=== PATIENT | male | born 1950 | race Caucasian/White ===

== ENCOUNTER 2022-01-24 09:21 | Outpatient (REF) | payer MEDICARE, SELFPAY ==
[2022-01-24 11:31] LABS: MANUAL DIFF FLAG NO
[2022-01-24 11:44] LABS: Basophils Percent Auto 0.7 % (0-2); Eosinophils Absolute Auto 0.2 X10*3/uL (0.0-0.4); Eosinophils Percent Auto 2.8 % (0-4); Hematocrit 46.8 % (42.0-52.0); Hemoglobin 15.5 g/dl (14.0-18.0); Imm Gran Abs Auto 0.01 X10*3/uL (0.00-0.03); Imm Gran Pct Auto 0.2 % (0.0-0.4); Lymphocytes Percent Auto 18.8 % (20-40); Mean Corpuscular HGB Conc 33.1 g/dl (31.0-36.0); Mean Corpuscular Hemoglobin 30.5 pg (27.0-33.0); Mean Corpuscular Volume 91.9 fL (80.0-98.0); Mean Platelet Volume 11.6 fL (9.4-12.4); Monocytes Absolute Auto 0.4 X10*3/uL (0.1-1.2); Monocytes Percent Auto 7.4 % (2-11); Neutrophils Absolute Auto 3.8 x10*3/uL (2.0-8.3); Neutrophils Percent Auto 70.1 % (45-73); Platelet Count 175 X10*3/uL (160-400); Red Blood Count 5.09 X10*6/uL (4.60-5.80); Red Cell Distribution Width 12.5 % (11.0-16.0); White Blood Count 5.4 X10*3/uL (4.8-10.8)
[2022-01-24 12:32] LABS: Alanine Aminotransferase 27 U/L (0-40); Alkaline Phosphatase 75 U/L (39-117); Anion Gap 16 (12-20); Aspartate Amino Transferase 25 U/L (5-37); Bilirubin Total 0.5 mg/dL (0.0-1.0); Blood Urea Nitrogen 28 mg/dL (9-16); Calcium 9.5 mg/dL (8.4-10.2); Carbon Dioxide 29 mmol/L (22-29); Chloride 104 mmol/L (96-108); Cholesterol 232 mg/dL; Estimated Glomerular Filt Rate 45; Glucose Fasting 95 mg/dL (60-99); HDL Cholesterol 36 mg/dL; LDL Cholesterol Calculated 153 mg/dl; Potassium 4.6 mmol/L (3.3-5.1); Prostate Specific Antigen Scr 0.15 ng/mL (<0.05-4.0); Sodium 144 mmol/L (135-145); TSH reflex Free T4 1.52 uIU/mL (0.32-4.0); Triglycerides 217 mg/dL
[2022-01-24 12:59] LABS: Albumin Level 4.1 g/dL (3.5-5.0)
== END 2022-01-24 09:22 | disposition home or self-care (01) ==
LOC: HO.WFDLDS 09:21
PROVIDERS: Visit Provider Family Medicine
DX: Z00.00 Encounter for general adult medical examination without abnormal findings (principal); Z12.5 Encounter for screening for malignant neoplasm of prostate
CPT/HCPCS: 36415; 80053; 80061; 84153; 84443; 85025

== ENCOUNTER 2022-03-07 10:29 | Outpatient (REF) | payer MEDICARE, SELFPAY ==
[2022-03-07 14:47] LABS: Anion Gap 11 (12-20); Blood Urea Nitrogen 26 mg/dL (9-16); Calcium 9.6 mg/dL (8.4-10.2); Carbon Dioxide 31 mmol/L (22-29); Chloride 104 mmol/L (96-108); Estimated Glomerular Filt Rate 39; Glucose Random 127 mg/dL (60-115); Potassium 4.1 mmol/L (3.3-5.1); Sodium 142 mmol/L (135-145)
== END 2022-03-07 10:30 | disposition home or self-care (01) ==
LOC: HO.WFDLDS 10:29
PROVIDERS: Visit Provider Family Medicine
DX: Z00.00 Encounter for general adult medical examination without abnormal findings (principal); R79.89 Other specified abnormal findings of blood chemistry
CPT/HCPCS: 36415; 80048

== ENCOUNTER 2022-03-26 09:54 | Outpatient (REF) | payer MEDICARE, SELFPAY ==
--- NOTE | ~2022-03-26 | US_ITS ---
EXAMINATION: US RETROPERITONEAL LIMITED (RENAL ONLY) CLINICAL INFORMATION: Unspecified kidney failure. COMPARISON: None. TECHNIQUE: Real-time imaging of the kidneys. FINDINGS: RIGHT KIDNEY: 10.1 x 5.0 x 4.5 cm (SAG x AP x TRV). The kidney is normal in size, contour, and echogenicity. Renal cortical thickness is normal. Echogenic foci are noted throughout the kidneys without shadowing, which may be vascular interfaces. No definite calculi or focal parenchymal lesions. No hydronephrosis. LEFT KIDNEY: 9.5 x 4.4 x 5.1 cm (SAG x AP x TRV). The kidney is normal in size, contour, and echogenicity. Renal cortical thickness is normal. Echogenic foci are noted throughout the kidney without shadowing which may be vascular interfaces. No definite calculi or focal parenchymal lesions. No hydronephrosis. US/US renal BI IMPRESSION: No definite abnormality is seen. Echogenic foci in the kidneys may represent vascular interfaces.
== END 2022-03-26 09:55 | disposition home or self-care (01) ==
LOC: HO.US 09:54
PROVIDERS: PCP Family Medicine; Visit Provider Family Medicine
DX: N19 Unspecified kidney failure (principal)
CPT/HCPCS: 76775

== ENCOUNTER 2022-04-02 13:45 | Outpatient (REF) | payer MEDICARE, SELFPAY | END 2022-04-02 13:46 | disposition home or self-care (01) | LOC: HO.SH 13:45 | PROVIDERS: Visit Provider Family Medicine | DX: Z13.89 Encounter for screening for other disorder (principal) ==

== ENCOUNTER 2022-05-09 14:57 | Outpatient (REF) | payer MEDICARE, SELFPAY | END 2022-05-09 14:58 | disposition home or self-care (01) | LOC: HO.HAP 14:57 | PROVIDERS: Visit Provider Family Medicine | DX: Z46.1 Encounter for fitting and adjustment of hearing aid (principal); H90.3 Sensorineural hearing loss, bilateral; H61.21 Impacted cerumen, right ear | CPT/HCPCS: 92557; 92567 ==

== ENCOUNTER 2023-01-15 11:54 | Outpatient (AMB) | payer MEDICARE, SELFPAY ==
--- NOTE | 2023-01-15 12:02 | A.OFFPC_ITS ---
Vital Signs 01/15/23 12:04 Height 5 ft 9 in Weight 161 lb BMI 23.8 BP 128/70 Blood Pressure Location Lt brachial Position Sitting Pulse 69 Pulse Source Pulse Oximeter Pulse Oximetry (%) 97 Oxygen Delivery Method Room Air Intake Visit Reasons: bmc/ stroke Intake Note: Patient is here following [facility] discharge after stroke. Allergies No Known Allergies Allergy (Verified 01/15/23 12:07) Tobacco use date assessed: 01/15/23 Fall risk assessment: 1 Fall in past year Last assessed Fall Risk: 01/15/23 HPI bmc/ stroke HPI Details 72 y/o male presents to f/u [facility] ED visit for CVA. Had presented to [place] on 11/25/22 with sudden vertigo, nausea, vomiting and garbled speech. 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 Also had a fall 01/06/23 with R sided pneumothorax. They report he is currently working with a speech language pathologist. They report cognition/memory/speech has been doing okay, though he does note some memory issues and has to rely on others to remember certain things. [facility] Medical History (Updated 01/15/23 @ 13:08 by Clement Dunne) Prostate cancer Surgical History H/O hemorrhoidectomy Social History Housing: Condominium Patient Tobacco Use Status: Never used Tobacco e-Cigarette/Vaping Use: Never Used service: No Current occupational status: retired Current occupational exposures/hazards: No Cognitive needs: No Hearing needs: No Vision needs: No Questionnaire SERGIO-7 AMB Questionnaire SERGIO-7 Date SERGIO - 7 assessed: 09/13/21 Source: Developed by Drs. Alonso Lopez, Mayda Picktet, Wyatt Cunningham and colleagues, with an educational kamryn from [employer]. Review of Systems Const Denies chills, Denies fatigue, Denies fever(s), Denies headache(s) and Denies weakness ENT Denies dizziness and Denies headache(s) Card Denies dyspnea Resp Denies cough, Denies dyspnea, Denies wheezing and Denies other (shortness of breath) Musc Denies numbness and Denies tingling Neuro Denies dizziness, Denies headache(s), Denies numbness, Denies tingling and Denies weakness Psych Denies anxiety and Denies depression Endo Denies fatigue Aller/Immun Denies wheezing Physical exam (Primary Care) Vital Signs: Last Vital Signs Pulse 69 01/15/23 12:04 BP 128/70 01/15/23 12:04 Pulse Ox 97 01/15/23 12:04 Oxygen Delivery Method Room Air 01/15/23 12:04 BMI result Body Mass Index 23.8 Tobacco/Smoking Status: Tobacco use Status Tobacco use date assessed 01/15/23 01/15/23 12:14 Patient Tobacco Use Status Never used Tobacco 01/15/23 12:04 e-Cigarette/Vaping Use Never Used 01/15/23 12:04 Const General: well developed; No acute distress Nutritional Appearance: well nourished Orientation/consciousness: patient oriented x3 HENMT Head: Yes normocephalic and Yes atraumatic Eyes General: appearance normal, both eyes and all related structures Pupils: Equal, round and reactive pupils present EOM: EOMs intact bilaterally Resp Effort & Inspection: normal respiratory effort Neuro Other: Some weakness with flexors of the knee General: patient oriented x3 and gait normal Cranial nerves: Yes Equal, round and reactive pupils present Psych Affect: normal affect Assessment and Plan Assessment & Plan (1) CVA (cerebral vascular accident): Code(s): I63.9 - Cerebral infarction, unspecified Plan: CVA?and?some?left?lower?extremity?weakness?though?this?has?improved. Still?has?some?imbalance?and?is?using?a?walker.??Continue?physical?therapy?and?o ccupational?therapy Now?on?dual?antiplatelet?therapy Will?refer?to?Neurology Also?advise?they?continue?topiramate?until?they?see?the?neurologist Will?also?refer?to?Cardiology (2) Status post fall: Code(s): Z91.81 - History of falling Plan: As?above,?continue?walker?and?physical?therapy (3) Pneumothorax: Code(s): J93.9 - Pneumothorax, unspecified Plan: S/p?right?pneumothorax?and chest?tube?which?has?been?removed. Lungs?are?clear?today Breathing?easily (4) Dysphagia: Code(s): R13.10 - Dysphagia, unspecified Plan: Still?has?diff iculty?with?swallowing?and?throat?clearing.??Unable?to?swallow?thin?liquids Has?PEG?tube?in?place - continue?PEG?tube Continue?to?follow-up?with?speech?language?pathology? (5) S/P percutaneous endoscopic gastrostomy (PEG) tube placement: Code(s): Z93.1 - Gastrostomy status Plan: As?above Orders: Referrals Neurology Referral I63.9 - Cerebral infarction, unspecified Cardiology Referral E78.5 - Hyperlipidemia, unspecified, I10 - Essential (primary) hypertension, I63.9 - Cerebral infarction, unspecified Medications: New topiramate (Topamax) 50 mg (2 x 25 mg) PO DAILY 30 days 60 tabs 1RF omeprazole-sodium bicarbonate 2-84 mg/mL (Konvomep) 10 mL feeding tube DAILY 300 mL 3RF 30 days Changed From tadalafil (Cialis) administer approximately 30min before sexual activity; do not use more than 1 dose per 24hrs 20 mg PO DAILY 30 days PRN 10 tabs 4RF sexual activity To tadalafil (Cialis) administer approximately 30min before sexual activity; do not use more than 1 dose per 24hrs 20 mg feeding tube DAILY PRN 10 tabs 4RF sexual activity 30 days Coding Level of Care Code Est Pt Level 4 (79872) Diagnoses CVA (cerebral vascular accident) I63.9 Status post fall Z91.81 Pneumothorax J93.9 Dysphagia R13.10 S/P percutaneous endoscopic gastrostomy (PEG) tube placement Z93.1
[2023-01-15 12:04] VITALS: BP 128/70; PULSE 69; O2SAT 97; BMI 23.8
== END 2023-01-15 13:05 | disposition home or self-care (01) ==
PROVIDERS: PCP Family Medicine; Visit Provider Family Medicine
DX: I69.952 Hemiplegia and hemiparesis following unspecified cerebrovascular disease affecting left dominant side (principal); Z93.1 Gastrostomy status; Z91.81 History of falling; J93.9 Pneumothorax, unspecified; R13.10 Dysphagia, unspecified
CPT/HCPCS: 99214

== ENCOUNTER 2023-01-26 11:55 | Outpatient (AMB) | payer MEDICARE, SELFPAY ==
--- NOTE | 2023-01-26 11:57 | A.OFFPC_ITS ---
Vital Signs 01/26/23 12:20 Height 5 ft 9 in Weight 162 lb 2 oz BMI 23.9 BP 128/70 Blood Pressure Location Lt brachial Pulse 74 Pulse Source Pulse Oximeter Pulse Oximetry (%) 100 Oxygen Delivery Method Room Air Intake Visit Reasons: CPE Intake Note: Patient is here for follow up visit from his stroke. Patient has been having headaches for 3 nights, and balance issues today being weighed. Allergies No Known Allergies Allergy (Verified 01/26/23 12:24) Tobacco use date assessed: 01/26/23 Fall risk assessment: 1 Fall in past year Last assessed Fall Risk: 01/26/23 HPI CPE HPI Details 72 y/o male presents to f/u CVA. Had referred him to Neurology and also Cardiology. Patient has been having headaches for 3 nights, and balance issues today being weighed. Pt reports speeech therapy and physical therapy have been going well. He does note ongoing difficulties with swallowing. [facility] Medical History Prostate cancer Surgical History H/O hemorrhoidectomy Social History Housing: Condominium Patient Tobacco Use Status: Never used Tobacco e-Cigarette/Vaping Use: Never Used service: No Current occupational status: retired Current occupational exposures/hazards: No Cognitive needs: No Hearing needs: No Vision needs: No Questionnaire SERGIO-7 AMB Questionnaire SERGIO-7 Date SERGIO - 7 assessed: 09/13/21 Source: Developed by Drs. Alonso Lopez, Mayda Pickett, Wyatt Cunningham and colleagues, with an educational kamryn from [employer]. Review of Systems Const Denies chills, Denies fatigue, Denies fever(s), Denies headache(s) and Denies weakness ENT Denies dizziness and Denies headache(s) Card Denies dyspnea Resp Denies cough, Denies dyspnea, Denies wheezing and Denies other (shortness of breath) Musc Denies numbness and Denies tingling Neuro Denies dizziness, Denies headache(s), Denies numbness, Denies tingling and Denies weakness Psych Denies anxiety and Denies depression Endo Denies fatigue Aller/Immun Denies wheezing Physical exam (Primary Care) Vital Signs: Last Vital Signs Pulse 74 01/26/23 12:20 BP 138/74 01/26/23 12:20 Pulse Ox 100 01/26/23 12:20 Oxygen Delivery Method Room Air 01/26/23 12:20 BMI result Body Mass Index 23.9 Tobacco/Smoking Status: Tobacco use Status Tobacco use date assessed 01/26/23 01/26/23 12:29 Patient Tobacco Use Status Never used Tobacco 01/26/23 12:00 e-Cigarette/Vaping Use Never Used 01/26/23 12:00 Const General: well developed; No acute distress Nutritional Appearance: well nourished Orientation/consciousness: patient oriented x3 HENMT Head: Yes normocephalic and Yes atraumatic Eyes General: appearance normal, both eyes and all related structures Pupils: Equal, round and reactive pupils present EOM: EOMs intact bilaterally Resp Effort & Inspection: normal respiratory effort Auscultation: clear to auscultation bilaterally Cardio Rate: regular rate Rhythm: regular rhythm Heart sounds: S1 normal heart sound present, S2 normal heart sound present, no gallops, no murmurs and no rubs Neuro General: patient oriented x3 and gait normal Cranial nerves: Yes Equal, round and reactive pupils present Psych Affect: normal affect Assessment and Plan Assessment & Plan (1) Hypertension: Code(s): I10 - Essential (primary) hypertension Plan: Blood?pressure?is?controlled.??Goal?is?less?than?130/80 Continue?current?medication?regimen (2) CVA (cerebral vascular accident): Code(s): I63.9 - Cerebral infarction, unspecified Plan: Strength?and?coordination?are?improving.??He?is?still?undergoing?physica l?therapy?at?home?for?strength?training. Still?has?some?difficulties?swallowing?thin?liquids?and?we?discussed?liquids?he? can?try. Referred?to?Neurology?already. He?will?call?Neurology?to?set?up?his?appointment (3) Headache: Code(s): R51.9 - Headache, unspecified Plan: Ongoing?headaches?wi thout?changes?in?cognition,?speech,?strength?or?coordination. These?seem?to?be?getting?a?little?better He?can?continue?using?Tylenol We?discussed?trying?an?increase?in?Topamax?from?50?mg?daily?to?75? mg?daily?but?he?does?not?seem?inclined?to?do?so. (4) Dysphagia: Code(s): R13.10 - Dysphagia, unspecified Plan: As?above,?patient?has?difficulty?with?thin?liquids. Still?has?PEG?tube?and?gets?his?hydration?that?way He?is?referred?to?Gastroenterology (5) S/P percutaneous endoscopic gastrostomy (PEG) tube placement: Code(s): Z93.1 - Gastrostomy status Plan: As?above (6) Imbalance: Code(s): R26.89 - Other abnormalities of gait and mobility Plan: Some?of?this?may?be?due ?to?vertigo?and?some?is?due?to?lower?extremity?weakness?which?is?improving. Continue?physical?therapy Continue?using?walker?until?balance?has?improved (7) Vertigo: Code(s): R42 - Dizziness and giddiness Plan: Vertigo?precedes?CVA?according?to?patient. Referred?to?physical?therapy?for?vestibular?rehab Orders: Orders PT Evaluation and Treatment Today R42 - Dizziness and giddiness Comprehensive Hilliards. Panel Fast Today Z00.00 - Encounter for general adult medical examination without abnormal findings Complete Blood Count Auto Diff Today Z00.00 - Encounter for general adult medical examination without abnormal findings Lipid Panel Today Z00.00 - Encounter for general adult medical examination witho ut abnormal findings Microalbumin, Random (w Creat) Today I10 - Essential (primary) hypertension UA and rflx microscopic Today Z00.00 - Encounter for general adult medical examination without abnormal findings TSH reflex Free T4 Today Z00.00 - Encounter for general adult medical examination without abnormal findings Prostate Specific Antigen Scr Today Z12.5 - Encounter for screening for malignant neoplasm of prostate Vitamin B12 and Folate Today E53.8 - Deficiency of other specified B group vitamins Medications: New bupropion HCl 75 mg PO BID 90 days 180 tabs 2RF Coding Level of Care Code Est Pt Level 4 (33421) Diagnoses Hypertension I10 CVA (cerebral vascular accident) I63.9 Headache R51.9 Dysphagia R13.10 S/P percutaneous endoscopic gastrostomy (PEG) tube placement Z93.1 Imbalance R26.89 Vertigo R42
[2023-01-26 12:20] VITALS: BP 128/70; PULSE 74; O2SAT 100; BMI 23.9
== END 2023-01-26 13:43 | disposition home or self-care (01) ==
PROVIDERS: Visit Provider Family Medicine
DX: I10 Essential (primary) hypertension (principal); I63.9 Cerebral infarction, unspecified; Z93.1 Gastrostomy status; R51.9 Headache, unspecified; R13.10 Dysphagia, unspecified; R26.89 Other abnormalities of gait and mobility; R42 Dizziness and giddiness
CPT/HCPCS: 99214

== ENCOUNTER 2023-03-20 13:46 | Outpatient (AMB) | payer MEDICARE, SELFPAY ==
--- NOTE | 2023-03-20 13:51 | MHC.PC.OV ---
Vital Signs 03/20/23 13:53 Height 5 ft 9 in Weight 164 lb BMI 24.2 BP 126/74 Blood Pressure Location Rt brachial Position Sitting Pulse 62 Pulse Source Pulse Oximeter Pulse Oximetry (%) 98 Oxygen Delivery Method Room Air Intake Visit Reasons: cough,post nasal drip Intake Note: . Pt is here for ongoing cough since last Thursday causing post nasal drip. Pt requesting respiratory panel test. Surveillance Monitor Required: No Accompanied by: Spouse Allergies No Known Allergies Allergy (Verified 03/20/23 13:54) Tobacco use date assessed: 03/20/23 Fall risk assessment: No Falls in past year Last assessed Fall Risk: 03/20/23 Dental Screening Dental Screen Date: 03/20/23 Did you have a dental visit in the last 12 months?: Yes Did you have a dental problem in the last 6 months where you did not have access to dental care?: No Was dental information given to patient?: Patient has dentist HPI cough,post nasal drip HPI Details 72 y/o male presents with complaints of postnasal drip, cough. Pt reports since cough since last Thursday. He rpports fatigue and loss of appetite. He denies any fevers, achy muscles. He denies anyone else being sick. [facility] Medical History Prostate cancer Surgical History H/O hemorrhoidectomy Social History Housing: Condominium Patient Tobacco Use Status: Never used Tobacco e-Cigarette/Vaping Use: Never Used service: No Current occupational status: retired Current occupational exposures/hazards: No Cognitive needs: No Hearing needs: No Vision needs: No Questionnaire PHQ-9 Over the last 2 weeks, how often have you been bothered by any of the following problems? 1. Little interest or pleasure in doing things: not at all 2. Feeling down, depressed, or hopeless: not at all 3. Trouble falling or staying asleep, or sleeping too much: not at all 4. Feeling tired or having little energy: not at all 5. Poor appetite or overeating: not at all 6. Feeling bad about yourself - or that you are a failure or have let yourself or your family down: not at all 7. Trouble concentrating on things, such as reading the newspaper or watching television: not at all 8. Moving or speaking so slowly that other people could have noticed. Or the opposite - being so fidgety or restless that you have been moving around a lot more than usual: not at all 9. Thoughts that you would be better off or of hurting yourself in some way: not at all Total score: 0 Depression Screening Interpretation: Negative Depression Screening Done: Yes 27750 - PHQ-9 Billing: Yes Source: Developed by Drs. Alonso Lopez, Mayda Pickett, Wyatt Cunningham and colleagues, with an educational kamryn from [employer]. Thrive Questionnaire Date Thrive assessed: 03/20/23 I am a: Patient What is your living situation today?: I have a steady place to live Within the past 12 months, did the food you bought not last and you didn't have the money to get more?: Never true Within the past 12 months, did you worry whether your food would run out before you got money to buy more?: Never true Do you have trouble paying for medicines?: No Do you have trouble getting transportation to medical appointments?: No Do you have trouble paying your heating and electricity bill?: No Do you have trouble taking care of your child, family member or friend?: No Do you have trouble with day-to-day activities such as bathing, preparing meals, shopping, managing finances, etc.?: No Are you currently unemployed and looking for a job?: No Are you interested in more education?: No Please select the resources that you would like help with: None Currently or been in a relationship where the following occur: no concerns reported AUDIT C Alcohol Use Questionnaire (AUDIT-C) 1. How often do you have a drink containing alcohol?: Never 3. How often do you have six or more drinks on one occasion?: Never Total Score: 0 SERGIO-7 AMB Questionnaire SERGIO-7 Date SERGIO - 7 assessed: 03/20/23 Feeling nervous, anxious, or on edge: 0 = Not at all Not being able to stop or control worryin = Not at all Worrying too much about different things: 0 = Not at all Trouble relaxin = Not at all Being so restless that it is hard to sit still: 0 = Not at all Becoming easily annoyed or irritable: 0 = Not at all Feeling afraid as if something awful might happen: 0 = Not at all Total SERGIO-7 score (0-4 normal; 5-9 mild; 10-14 moderate; 15-21 severe): 0 Source: Developed by Drs. Alonso Lopez, Mayda Pickett, Wyatt Cunningham and colleagues, with an educational kamryn from [employer]. SERGIO-7 Assessment Billing SERGIO-7 Assessment Tool: SERGIO-7 Assessment 04227 Review of Systems Const Denies chills, Denies fatigue, Denies fever(s), Denies headache(s) and Denies weakness ENT Denies dizziness and Denies headache(s) Card Denies chest pain, Denies lightheadedness, Denies dyspnea and Denies other (Palpitations) Resp Reports cough, Denies dyspnea, Denies wheezing and Denies other ( shortness of breath) Musc Denies numbness and Denies tingling Neuro Denies dizziness, Denies headache(s), Denies numbness, Denies tingling, Denies paresthesias and Denies weakness Psych Denies anxiety and Denies depression Endo Denies fatigue Aller/Immun Denies wheezing Physical exam (Primary Care) Vital Signs: Last Vital Signs Pulse 62 03/20/23 13:53 BP 126/74 03/20/23 13:53 Pulse Ox 98 03/20/23 13:53 Oxygen Delivery Method Room Air 03/20/23 13:53 BMI result Body Mass Index 24.2 Tobacco/Smoking Status: Tobacco use Status Tobacco use date assessed 03/20/23 03/20/23 14:00 Patient Tobacco Use Status Never used Tobacco 03/20/23 13:53 e-Cigarette/Vaping Use Never Used 03/20/23 13:53 PHQ-9: PHQ-9 Score PHQ-9: Total score 0 03/20/23 14:02 Depression Screening Interpretation: Negative Thrive Assessment: Date of Thrive Assessment Date Thrive assessed 03/20/23 03/20/23 14:02 Currently or been in a relationship where the following occur: no concerns reported Const General: no acute distress and well developed Nutritional Appearance: well nourished Orientation/consciousness: patient oriented x3 HENMT Head: Yes normocephalic and Yes atraumatic Eyes General: appearance normal, both eyes and all related structures Pupils: Equal, round and reactive pupils present EOM: EOMs intact bilaterally Resp Other: Upper airway secretions Bilateral crackles with faint wheeze Effort & Inspection: normal respiratory effort Cardio Rate: regular rate Rhythm: regular rhythm Heart sounds: S1 normal heart sound present, S2 normal heart sound present, no gallops, no murmurs and no rubs Neuro General: patient oriented x3 and gait normal Cranial nerves: Yes Equal, round and reactive pupils present Psych Affect: normal affect Assessment and Plan Assessment & Plan (1) Cough: Code(s): R05.9 - Cough, unspecified Plan: Viral?illness There?is?no?antibiotic?medication?for?viruses.??They?must?run?their?course.??Most?average?5-7?days?but?7-10?days?is?not?uncommon?and?up?to?14?days?is?still?possible.??A?cough?is?often?the?last?symptom?to?resolve?and?this?can?last?for?weeks?in?some?ca ses. Rest Hydrate?well?-??Drink?plenty?of?fluids.??Especially?water. Tylenol?or?ibuprofen?for?muscle?aches,?headache,?fever/discomfort Can?use?tuiz-eyo-heocmfd?medications?for?cough?such?as?Delsym?or?DayQuil.??Prescription?cough?medicines?have?been?shown?to?be?no?better. Checking?respiratory?panel?including?COVID/flu/RSV Checking?chest?x-ray?as?patient?does?have?bilateral?crackles?with?faint?wheeze. (2) Postnasal drip: Code(s): R09.82 - Postnasal drip Plan: As?above Orders: Orders Resp Pathogen Panel - [facility] [place] Today R05.9 - Cough, unspecified SARS-CoV2/FLU/RSV Today R05.9 - Cough, unspecified, Z20.822 - Contact with and (suspected) exposure to COVID-19 XR chest 2V Today R05.9 - Cough, unspecified Coding Level of Care Code Est Pt Level 3 (68991) Diagnoses Cough R05.9 Postnasal drip R09.82 Additional Codes SERGIO-7 Assessment Billing - SERGIO-7 Assessment Tool: SERGIO-7 Assessment 29464 ([id number])
[2023-03-20 13:53] VITALS: BP 126/74; PULSE 62; O2SAT 98; BMI 24.2
== END 2023-03-20 14:56 | disposition home or self-care (01) ==
PROVIDERS: PCP Family Medicine; Visit Provider Family Medicine
DX: R05.9 Cough, unspecified (principal); R09.82 Postnasal drip
CPT/HCPCS: 99213

== ENCOUNTER 2023-03-20 14:42 | Outpatient (REF) | payer MEDICARE, SELFPAY ==
[2023-03-20 20:46] LABS: Influenza A PCR POSITIVE (Negative); Influenza B PCR NEGATIVE (Negative); Resp Syncy Virus RNA Qual PCR NEGATIVE (Negative); SARS COV2 PCR INHOUSE NEGATIVE (Negative)
== END 2023-03-20 14:43 | disposition home or self-care (01) ==
LOC: HO.LAB 14:42
PROVIDERS: Visit Provider Family Medicine
DX: Z11.52 Encounter for screening for COVID-19 (principal); Z20.822 Contact with and (suspected) exposure to COVID-19; R05.9 Cough, unspecified
CPT/HCPCS: 0241U

== ENCOUNTER 2023-03-26 10:55 | Outpatient (AMB) | payer MEDICARE, SELFPAY ==
[2023-03-26 11:19] VITALS: BP 124/78; PULSE 62; O2SAT 99; BMI 24.2
--- NOTE | 2023-03-26 11:19 | MHC.PC.OV ---
Vital Signs 03/26/23 11:19 Height 5 ft 9 in Weight 164 lb 2 oz BMI 24.2 BP 124/78 Blood Pressure Location Lt brachial Position Sitting Pulse 62 Pulse Source Pulse Oximeter Pulse Oximetry (%) 99 Oxygen Delivery Method Room Air Intake Visit Reasons: Extended exam with f/u labs and health maint. Intake Note: Patient is here for extended exam, follow up on labs. Allergies No Known Allergies Allergy (Verified 03/26/23 11:21) Tobacco use date assessed: 03/26/23 Fall risk assessment: 1 Fall in past year Last assessed Fall Risk: 03/26/23 HPI Extended exam with f/u labs and health maint. HPI Details 72 y/o male presents for an extended exam with f/u labs and health maintenance. No recent CPE-labs to review. Blood pressure today 124/78. He is on losartan 100mg, amlodipine 10mg, atenolol 50mg daily. [facility] Medical History Prostate cancer Surgical History H/O hemorrhoidectomy Social History Housing: Condominium Patient Tobacco Use Status: Never used Tobacco e-Cigarette/Vaping Use: Never Used service: No Current occupational status: retired Current occupational exposures/hazards: No Cognitive needs: No Hearing needs: No Vision needs: No Questionnaire Thrive Questionnaire Date Thrive assessed: 03/20/23 SERGIO-7 AMB Questionnaire SERGIO-7 Date SERGIO - 7 assessed: 03/20/23 Source: Developed by Drs. Alonso Lopez, Mayda Pickett, Wyatt Cunningham and colleagues, with an educational kamryn from [employer]. Review of Systems Const Denies chills, Denies fatigue, Denies fever(s), Denies headache(s) and Denies weakness Eyes Denies change in vision ENT Denies dizziness, Denies headache(s), Denies hearing loss, Denies nasal congestion, Denies sinus pain, Denies sinus pressure and Denies sore throat Card Denies chest pain, Denies lightheadedness, Denies dyspnea and Denies other (palpitations) Resp Reports cough, Denies dyspnea and Denies wheezing GI Denies abdominal pain, Denies melena, Denies hematochezia, Denies change in bowel habits, Denies dyspepsia and Denies nausea Denies hematuria and Denies dysuria Musc Denies abnormal gait, Denies myalgias, Denies arthralgias, Denies numbness and Denies tingling Skin/Breast Denies rash, Denies unusual bruising and Denies wounds Neuro Denies abnormal gait, Denies dizziness, Denies headache(s), Denies memory loss, Denies numbness, Denies Sensory deficit (Neuro), Denies tingling and Denies weakness Psych Denies anxiety, Denies depression and Denies memory loss Endo Denies cold intolerance, Denies fatigue, Denies heat intolerance, Denies polydipsia and Denies polyuria Roc/Lymph Denies easy bleeding and Denies easy bruising Aller/Immun Denies wheezing Physical exam (Primary Care) Vital Signs: Last Vital Signs Pulse 62 03/26/23 11:19 BP 124/78 03/26/23 11:19 Pulse Ox 99 03/26/23 11:19 Oxygen Delivery Method Room Air 03/26/23 11:19 BMI result Body Mass Index 24.2 Tobacco/Smoking Status: Tobacco use Status Tobacco use date assessed 03/26/23 03/26/23 11:26 Patient Tobacco Use Status Never used Tobacco 03/26/23 11:21 e-Cigarette/Vaping Use Never Used 03/26/23 11:21 Thrive Assessment: Date of Thrive Assessment Date Thrive assessed 03/20/23 03/26/23 11:21 Const General: no acute distress, well developed, alert and awake Nutritional Appearance: well nourished Orientation/consciousness: patient oriented x3 HENMT Head: Yes normocephalic and Yes atraumatic Ears: hearing grossly normal bilaterally and TM's normal bilaterally General nose exam: Normal external nose present and Normal nares present Mouth: Normal oral and palatal mucosa present and moist mucous membranes Teeth and gingiva: dentition normal Throat: Yes posterior oropharynx normal Eyes General: appearance normal, both eyes and all related structures Pupils: Equal, round and reactive pupils present and Pupil accommodation reflex normal EOM: EOMs intact bilaterally Neck Neck: Yes normal visual inspection, Yes no lymphadenopathy and Yes trachea midline Thyroid: Thyroid normal Carotids: no bruits Lymphatic: no lymphadenopathy noted Chest Chest palpation & inspection: normal inspection of the chest Resp Effort & Inspection: normal respiratory effort Auscultation: clear to auscultation bilaterally Cardio Rate: regular rate Rhythm: regular rhythm Heart sounds: S1 normal heart sound present, S2 normal heart sound present, no gallops, no murmurs and no rubs Bruits: no abdominal aortic bruits and no carotid bruits GI Palpation (GI): No Abdominal aortic bruit present, Soft to palpation, nontender, No hepatosplenomegaly present and No Rebound tenderness present Auscultation: normal bowel sounds General: Yes no CVA tenderness Back/Spine/Pelvis Back: no CVA tenderness Cervical Spine: cervical ROM normal and No Cervical spine tenderness Thoracic/Lumbar Spine: thoraco-lumbar ROM normal, No pain with thoraco-lumbar ROM, No thoracic spinal tenderness and No lumbar spinal tenderness Skin Lesions: no lesions Rashes: no rashes Trauma: no lacerations or abrasions Wounds: no wounds Nails: normal Neuro General: patient oriented x3 Cranial nerves: Yes Equal, round and reactive pupils present Cognition (Neuro): normal cognition Gait exam (Neuro): Normal gait present Motor exam (neuro): 5/5 motor strength present throughout Sensory Exam: No Sensory deficit (Neuro) Deep tendon reflexes (DTR's): Right patellar reflex intensity grade: 2+ and Left patellar reflex intensity grade: 2+ Extrem General: Yes normal to inspection and No edema Psych Appearance: grossly normal Affect: normal affect Attitude: cooperative Thought process: Normal thought process present Assessment and Plan Assessment & Plan (1) CVA (cerebral vascular accident): Code(s): I63.9 - Cerebral infarction, unspecified Plan: History?of?CVA?and?patient?is?still?on?topiramate?for?another?week. He?will?follow-up?in?about?3?weeks. No?need?for?ongoing?topiramate?after?that. Will?evaluate?for?driving?but?at?this?point?I?feel?he?is?safe?to?drive (2) S/P percutaneous endoscopic gastrostomy (PEG) tube placement: Code(s): Z93.1 - Gastrostomy status Plan: Recent?swallowing?study?shows?no?aspiration. Will?refer?him?to?[facility]?short-stay?surgery?to?remove?PEG?tube (3) Dysphagia: Code(s): R13.10 - Dysphagia, unspecified Plan: As?above,?no?further?aspiration?or?dysphagia (4) History of prostate cancer: Code(s): Z85.46 - Personal history of malignant neoplasm of prostate Plan: Check?PSA (5) Screening for colon cancer: Code(s): Z12.11 - Encounter for screening for malignant neoplasm of colon Plan: Will?refer?to?GI He?was?told?to?have?colonoscopies?Q?5?year (6) Adult general medical exam: Code(s): Z00.00 - Encounter for general adult medical examination without abnormal findings Plan: 72-year-old?male?presents?for?extended?exam Orders: Orders Comprehensive [place]. Panel Fast Today Z00.00 - Encounter for general adult medical examination without abnormal findings Parathyroid Hormone Intact Today I63.9 - Cerebral infarction, unspecified Lipid Panel Today Z00.00 - Encounter for general adult medical examination without abnormal findings TSH reflex Free T4 Today Z00.00 - Encounter for general adult medical examination without abnormal findings Vitamin D 25-OH Total Today E55.9 - Vitamin D deficiency, unspecified Prostate Specific Antigen Scr Today Z12.5 - Encounter for screening for malignant neoplasm of prostate Referrals Gastroenterology Referral Z12.11 - Encounter for screening for malignant neoplasm of colon Medications: Refilled bupropion HCl 150 mg PO DAILY 90 tabs 1RF 90 days Discontinued bupropion HCl Discontinued Reason: Duplicate 75 mg PO BID 90 days 180 tabs 2RF Coding Level of Care Code Est Pt Level 4 (53350) Diagnoses CVA (cerebral vascular accident) I63.9 S/P percutaneous endoscopic gastrostomy (PEG) tube placement Z93.1 Dysphagia R13.10 History of prostate cancer Z85.46 Screening for colon cancer Z12.11 Adult general medical exam Z00.00
== END 2023-03-26 12:39 | disposition home or self-care (01) ==
PROVIDERS: PCP Family Medicine; Visit Provider Family Medicine
DX: Z00.00 Encounter for general adult medical examination without abnormal findings (principal); Z93.1 Gastrostomy status; Z86.73 Personal history of transient ischemic attack (TIA), and cerebral infarction without residual deficits; R13.10 Dysphagia, unspecified; Z85.46 Personal history of malignant neoplasm of prostate; Z12.11 Encounter for screening for malignant neoplasm of colon
CPT/HCPCS: 99214; 99397

== ENCOUNTER 2023-04-13 08:54 | Outpatient (REF) | payer MEDICARE, SELFPAY ==
[2023-04-13 11:43] LABS: MANUAL DIFF FLAG NO
[2023-04-13 11:50] LABS: Basophils Percent Auto 0.9 % (0-2); Eosinophils Absolute Auto 0.2 X10*3/uL (0.0-0.4); Hematocrit 43.1 % (42.0-52.0); Hemoglobin 14.1 g/dl (14.0-18.0); Imm Gran Abs Auto 0.01 X10*3/uL (0.00-0.03); Imm Gran Pct Auto 0.2 % (0.0-0.4); Lymphocytes Absolute Auto 0.7 X10*3/uL (1.2-4.9); Lymphocytes Percent Auto 16.4 % (20-40); Mean Corpuscular HGB Conc 32.7 g/dl (31.0-36.0); Mean Corpuscular Hemoglobin 29.9 pg (27.0-33.0); Mean Corpuscular Volume 91.5 fL (80.0-98.0); Mean Platelet Volume 11.6 fL (9.4-12.4); Monocytes Absolute Auto 0.4 X10*3/uL (0.1-1.2); Monocytes Percent Auto 8.6 % (2-11); Neutrophils Absolute Auto 3.2 x10*3/uL (2.0-8.3); Neutrophils Percent Auto 69.9 % (45-73); Platelet Count 149 X10*3/uL (160-400); Red Blood Count 4.71 X10*6/uL (4.60-5.80); Red Cell Distribution Width 12.6 % (11.0-16.0); White Blood Count 4.5 X10*3/uL (4.8-10.8)
[2023-04-13 12:32] LABS: Parathyroid Hormone Intact 112.8 pg/mL (8.7-77.1)
[2023-04-13 12:36] LABS: Alanine Aminotransferase 35 U/L (0-40); Albumin Level 3.9 g/dL (3.5-5.0); Alkaline Phosphatase 114 U/L (39-117); Anion Gap 11 (12-20); Aspartate Amino Transferase 25 U/L (5-37); Bilirubin Total 0.5 mg/dL (0.0-1.0); Blood Urea Nitrogen 27 mg/dL (9-16); Calcium 9.9 mg/dL (8.4-10.2); Carbon Dioxide 27 mmol/L (22-29); Chloride 110 mmol/L (96-108); Cholesterol 136 mg/dL (<200); Estimated Glomerular Filt Rate 40; Glucose Fasting 115 mg/dL (60-99); HDL Cholesterol 37 mg/dL (>40); LDL Cholesterol Calculated 67 mg/dL (<100); Potassium 4.7 mmol/L (3.3-5.1); Sodium 143 mmol/L (135-145); Total Protein 7.2 g/dL (6.5-8.0); Triglycerides 160 mg/dL (<150)
[2023-04-13 12:55] LABS: Vitamin D 25-OH Total 50.8 ng/mL (>30)
[2023-04-13 13:01] LABS: Folate 10.9 ng/mL (> or = 4.0); Prostate Specific Antigen Scr 0.16 ng/mL (<0.05-4.0); Vitamin B12 620 pg/mL (200-900)
== END 2023-04-13 08:55 | disposition home or self-care (01) ==
LOC: HO.WFDLDS 08:54
PROVIDERS: Visit Provider Family Medicine
DX: Z00.00 Encounter for general adult medical examination without abnormal findings (principal); E55.9 Vitamin D deficiency, unspecified; E53.8 Deficiency of other specified B group vitamins; R05.9 Cough, unspecified; Z12.5 Encounter for screening for malignant neoplasm of prostate; Z86.73 Personal history of transient ischemic attack (TIA), and cerebral infarction without residual deficits
CPT/HCPCS: 36415; 80053; 80061; 82306; 82607; 82746; 83970; 84153; 84443; 85025

== ENCOUNTER 2023-04-16 13:50 | Outpatient (AMB) | payer MEDICARE, SELFPAY ==
--- NOTE | 2023-04-16 13:42 | MHC.PC.OV ---
Intake Visit Reasons: f/u CPE-labs Intake Note: Patient is calling to follow up on his labs today. Allergies No Known Allergies Allergy (Verified 04/16/23 13:43) Tobacco use date assessed: 04/16/23 Fall risk assessment: 1 Fall in past year Last assessed Fall Risk: 04/16/23 Dental Screening Dental Screen Date: 04/16/23 HPI f/u CPE-labs HPI Details 72 y/o male presents to f/u CPE-labs via telemedicine. Labs were drawn 04/13/23. Reviewed labs with pt. Creatinine level improved from 1.73 to 1.69. Elevated fasting glucose of 115. Triglycerides 160. TC 136. LDL 67. HDL low at 37. He is on artovastatin 40mg daily. [facility] Medical History Prostate cancer Surgical History H/O hemorrhoidectomy Social History Housing: Condominium Patient Tobacco Use Status: Never used Tobacco e-Cigarette/Vaping Use: Never Used service: No Current occupational status: retired Current occupational exposures/hazards: No Cognitive needs: No Hearing needs: No Vision needs: No Questionnaire Thrive Questionnaire Date Thrive assessed: 03/20/23 SERGIO-7 AMB Questionnaire SERGIO-7 Date SERGIO - 7 assessed: 03/20/23 Source: Developed by Drs. Alonso Lopez, Mayda Pickett, Wyatt Cunningham and colleagues, with an educational kamryn from [employer]. Review of Systems Const Denies chills, Denies fatigue, Denies fever(s), Denies headache(s) and Denies weakness ENT Denies dizziness and Denies headache(s) Card Denies dyspnea Resp Denies cough, Denies dyspnea, Denies wheezing and Denies other (shortness of breath) Musc Denies numbness and Denies tingling Neuro Denies dizziness, Denies headache(s), Denies numbness, Denies tingling and Denies weakness Psych Denies anxiety and Denies depression Endo Denies fatigue Aller/Immun Denies wheezing Physical exam (Primary Care) Tobacco/Smoking Status: Tobacco use Status Tobacco use date assessed 04/16/23 04/16/23 13:45 Patient Tobacco Use Status Never used Tobacco 04/16/23 13:45 e-Cigarette/Vaping Use Never Used 04/16/23 13:45 Thrive Assessment: Date of Thrive Assessment Date Thrive assessed 03/20/23 04/16/23 13:45 Telehealth Telehealth Location of provider rendering services: practice address Location of patient: address on file Patient Identification confirmed using: Name, : Yes Telehealth method: voice only Patient verbally consented to treatment: Yes Patient verbally consented to billing insurance company: Yes Patient informed of any privacy concerns related to visit: Yes Minutes spent on Phone/Video with Pt.: 18 Assessment and Plan Assessment & Plan (1) Renal failure: Code(s): N19 - Unspecified kidney failure Plan: Renal?labs?improve He?is?followed?by?Nephrology Will?continue?to?monitor?and?patient?should?follow-up?with?nephrology?as?recommended (2) Hyperlipidemia: Code(s): E78.5 - Hyperlipidemia, unspecified Plan: LDL?cholesterol?is?at?goal?of?less?than?70.??Continue?atorvastatin?40?mg?daily Mildly?elevated?triglycerides?and?of?note,?his?fasting?blood?sugar?is?elevated?as?well.??Encouraged?ongoing?diet?low?in?saturated?fats?and?cholesterol.??Encouraged?diet?low?in?sugars?and?starches HDL?is?mildly?low?as?well (3) Low HDL (under 40): Code(s): E78.6 - Lipoprotein deficiency Plan: Encouraged?exercise (4) Elevated fasting glucose: Code(s): R73.01 - Impaired fasting glucose Plan: Will?recheck?fasting?blood?sugar?as?well?as?A1c Encouraged?diet?low?in?sugars?and?start (5) Elevated parathyroid hormone: Code(s): R79.89 - Other specified abnormal findings of blood chemistry Plan: Unclear?cause?though?may?be?secondary?and?patient?had?recent?stroke Will?recheck?parathyroid?hormone Orders: Orders Parathyroid Hormone Intact Today R79. - Other specified abnormal findings of blood chemistry Comprehensive [place]. Panel Fast Today R79.89 - Other specified abnormal findings of blood chemistry, Z00.00 - Encounter for general adult medical examination without abnormal findings Glucose Random Today R73.01 - Impaired fasting glucose, R73.9 - Hyperglycemia, unspecified Complete Blood Count Auto Diff Today D69.6 - Thrombocytopenia, unspecified, Z00.00 - Encounter for general adult medical examination without abnormal findings Coding Level of Care Code Tele Est Pt Level 2 (10559) Diagnoses Renal failure N19 Hyperlipidemia E78.5 Low HDL (under 40) E78.6 Elevated fasting glucose R73.01 Elevated parathyroid hormone R79.89
--- OUTSIDE RECORDS SUMMARY | 2023-04-16 13:52 | XMS_ITS | Continuity of Care Document ---
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 Start Date: 11/25/22 Status: Ordered aspirin 81 mg oral delayed release tablet 81 mg, 1, tablet, By Mouth, Daily, # 90 tablet, Refills 0, Tot. Refills 0, Maintenance, 11/30/22 11:03:00 EDT, Route to Pharmacy Electronically, [facility]/pharmacy #[id number], Partial fill upon patient request if the prescription is for a schedule II opioid drug... Start Date: 11/30/22 Status: Ordered atenolol 50 mg oral tablet 50 mg, 1, tablet, By Mouth, Daily, # 30 tablet, Refills 0, Maintenance, 11/25/22 15:55:00 EDT, Partial fill upon patient request if the prescription is for a schedule II opioid drug. Start Date: 11/25/22 Status: Ordered atorvastatin 40 mg oral tablet = 40 mg, Nasogastric Tube, Daily at bedtime, 0 Refills, Maintenance, 11/30/22 11:03:00 EDT, Tablet,Partial fill upon patient request if the prescription is for a schedule II opioid drug. Start Date: 11/30/22 Status: Ordered BuPROpion = 150 mg, By Mouth, Daily in AM, 0 Refills, Maintenance, 11/25/22 15:56:00 EDT, Partial fill upon patient request if the prescription is for a schedule II opioid drug. Start Date: 11/25/22 Status: Ordered Cozaar 50 mg oral tablet 75 mg, G Tube, Daily, # 45 tablet, Refills 0, Tot. Refills 0, Maintenance, 12/07/22 9:18:00 EDT, DoNot Route, Partial fill upon patient request if the prescription is for a schedule II opioid drug. Start Date: 12/07/22 Stop Date: 01/06/23 Status: Ordered escitalopram 20 mg oral tablet 1 tablet = 20 mg, By Mouth, Daily, # 30 tablet, 0 Refills, Maintenance, 11/25/22 15:55:00 EDT, Tablet, Partial fill upon patient request if the prescription is for a schedule II opioid drug. Start Date: 11/25/22 Status: Ordered gabapentin 100 mg oral capsule 100 mg, G Tube, 3 times a day, # 30 capsule, Refills 0, Tot. Refills 0, Maintenance, 01/06/23 15:38:00 EDT, Route to Pharmacy Electronically, [facility], Partial fill upon patient request if the prescription is for a schedule II opioid d... Start Date: 01/06/23 Stop Date: 01/13/23 Status: Ordered melatonin 3 mg oral tablet = 3 mg, Nasogastric Tube, Daily at bedtime, PRN Insomnia, 0 Refills, Maintenance, 12/06/22 10:39:00EDT, Tablet, Partial fill upon patient request if the prescription is for a schedule II opioid drug. Start Date: 12/06/22 Status: Ordered Plavix 75 mg oral tablet 75 mg, 1, tablet, By Mouth, Daily, # 90 tablet, Refills 0, Tot. Refills 0, Maintenance, 11/30/22 11:04:00 EDT, [id number] Partial fill upon patient request if the prescription is for a schedule II opioid drug... Start Date: 11/30/22 Status: Ordered topiramate 25 mg oral tablet = 50 mg, G Tube, Daily at bedtime, 0 Refills, Maintenance, 01/06/23 15:38:00 EDT, Tablet, Partial fill upon patient request if the prescription is for a schedule II opioid drug. Start Date: 01/06/23 Status: Ordered Problem List Condition Confirmation Course Effective Dates Status Health St atus Informant Vertebral artery stroke Confirmed Active Depression Confirmed Active GERD (gastroesophageal reflux disease) Confirmed Active Hypertension Confirmed Active Vital Signs Most recent to oldest [Reference Range]: 1 Height 173 cm (03/11/23 1:32 PM) Weight 75.8 kg (03/11/23 1:32 PM) Oxygen Saturation [94-100 %] 98 % (03/11/23 1:32 PM) Pulse Rate [55-90 bpm] 61 bpm (03/11/23 1:32 PM) Body Mass Index [18.5-24.99 kg/m2] 25.33 kg/m2 *H* (03/11/23 1:32 PM) Blood Pressure [90-138/55-84 mm Hg] 129/ 76mm Hg (03/11/23 1:32 PM) Mode of Delivery (Oxygen) Room air (03/11/23 1:32 PM) Blood pressure sites Arm, left (03/11/23 1:32 PM) Patient Care team information Care Team Personnel Name: Sina Lechuga MD Position: [facility] Outreach Member Role: PCP Address: Address: [address] [place] [id number]- Name: Eric Lemus RN Position: S RN Member Role: Primary Care Nurse Name: Benja Eric RN Position: S RN Supv Member Role: Primary Care Nurse Name: Iwona Burden RN Position: S RN Member Role: Primary Care Nurse Name: Ana Boykin RN Position: S RN Member Role: Primary Care Nurse Care Team Related Persons Name: HOLLIE ESTES Address: [address] [place] [address]
--- OUTSIDE RECORDS SUMMARY | 2023-04-16 13:52 | XMS_ITS | Continuity of Care Document ---
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 Attending Physician: Niels Razo Admitting Physician: Admtr, ArJames Referring Physician: Admtr, Ar8 Allergies, Adverse Reactions, Alerts No Known Medication Allergies Medications acetaminophen 325 mg oral tablet 650 mg, G Tube, Every 4 hours, # 30 tablet, Refills 0, Tot. Refills 0, Acute 01/20/23 0:00:00 EST, 01/06/23 15:38:00 EDT, Route to Pharmacy Electronically, [facility], Partial fill uponpatient request if the prescription is for a schedu... Start Date: 01/06/23 Stop Date: 01/20/23 Status: Ordered Amlodipine = 10 mg, By Mouth, Daily, 0 Refills, Maintenance, 11/25/22 15:56:00 EDT, Partial fill upon patient request if the prescription is for a schedule II opioid drug. Start Date: 11/25/22 Status: Ordered aspirin 81 mg oral delayed release tablet 81 mg, 1, tablet, By Mouth, Daily, # 90 tablet, Refills 0, Tot. Refills 0, Maintenance, 11/30/22 11:03:00 EDT, Route to Pharmacy Electronically, [facility]/pharmacy #[id number], Partial fill upon patient request if [...] 01/06/23 15:38:00 EDT, Route to Pharmacy Electronically, [facility], Partial fill upon patient request if [...] opioid drug. Start Date: 12/06/22 Status: Ordered oxyCODONE 5 mg oral tablet 5 mg, G Tube, Every 6 hours, PRN, # 8 tablet, Refills 0, Tot. Refills 0, Acute 01/13/23 0:00:00 EST, Pain , Moderate, 01/06/23 15:38:00 EDT, Route to Pharmacy Electronically, [facility], Partial fill upon patient request if the prescript... Start Date: 01/06/23 Stop Date: 01/13/23 Status: Ordered Plavix 75 mg oral tablet 75 mg, 1, tablet, By Mouth, Daily, # 90 tablet, Refills 0, Tot. Refills 0, Maintenance, 11/30/22 11:04:00 EDT, [id number] upon patient [...] reflux disease) Confirmed Active Hypertension Confirmed Active Patient Care team information Care Team Personnel Name: Sina Lechuga MD Position: [facility] Outreach Member Role: PCP Address: Address: [address] [place] [id number]- Name: Eric Lemus RN Position: S RN Member Role: Primary Care Nurse Name: Benja Eric RN Position: S RN Supv Member Role: Primary Care Nurse Name: Iwona Burden RN Position: S RN Member Role: Primary Care Nurse Name: Ana Boykin RN Position: S RN Member Role: Primary Care Nurse Care Team Related Persons Name: HOLLIE ESTES Address: [address] [place] [address]
--- OUTSIDE RECORDS SUMMARY | 2023-04-16 13:52 | XMS_ITS | Continuity of Care Document ---
Author Name Unknown Organization [facility] Address [address], [address], [address] [place] [id number]- Care Team Providers Care Motor Vehicle Representative Name Role Phone Alexandrea ROJAS, Sina Rodrigues Primary Care Physician [place] [facility] [place] 03[place]11[place]23 - 04/10/23 [facility] [address], [address], [address] [place] [id number]- Attending Physician: Niels Razo Admitting Physician: Niels Razo Referring Physician: AdmtrNiels Allergies, Adverse Reactions, Alerts No Known Medication [...] 11/30/22 11:03:00 EDT, Route to Pharmacy Electronically, [facility]/pharmacy #[id number], Partial fill upon patient request if the [...] 01/06/23 15:38:00 EDT, Route to Pharmacy Electronically, [facility], Partial fill upon patient request if [...] 11/30/22 11:04:00 EDT, [id number] Partial fill upon patient request if [...] Team Personnel Name: Sina Lechuga MD Position: [facility] Outreach Member Role: PCP Address: Address: [address] [place] [id number] Name: Eric Lemus RN Position: S RN Member Role: Primary Care Nurse Name: Benja Eric RN Position: [facility] RN Supv Member Role: Primary Care Nurse Name: Iwona Burden RN Position: S RN Member Role: Primary Care Nurse Name: Ana Boykin RN Position: S RN Member Role: Primary Care Nurse Care Team Related Persons Name: HOLLIE ESTES Address: [address] [place] [id number]
--- OUTSIDE RECORDS SUMMARY | 2023-04-16 13:52 | XMS_ITS | Continuity of Care Document ---
Author Name Unknown Organization [facility] ter Address [address] [place] [id number] Care Team Providers Care Application Development Consultant Name Role Phone Not on Staff, PCP Primary Care Physician Unavail able [place] [facility] [place]): 11/30/22 - 12/07/[address] [address]- Discharge Disposition: Transferred to short-term general hospit Attending Physician: Zion ROJAS, Sina Forrest Admitting Physician: Aniyah Martínez MD Referring Physician: Aniyah Martínez MD Allergies, Adverse Reactions, Alerts No Known Medication [...] 11/30/22 11:03:00 EDT, Route to Pharmacy Electronically, [facility]/pharmacy #[id number], Partial fill upon patient request if the [...] opioid drug. Start Date: 11/25/22 Status: Ordered lansoprazole 30 mg oral tablet, disintegrating = 30 mg, G Tube, 2 times a day, for 8 weeks then 1 tablet daily thereafter, 0 Refills, Maintenance,12/07/22 9:18:00 EDT, DIS Tablet, Partial fill upon patient request if the prescription is for a schedule II opioid drug. Start Date: 12/07/22 Status: Ordered melatonin 3 mg oral tablet [...] 11/30/22 11:04:00 EDT, Route to Pharmacy Electronically, [facility]/pharmacy #[id number], Partial fill upon patient request if the prescription is for a schedule II opioid drug... Start Date: 11/30/22 Status: Ordered traZODone 50 mg oral tablet 25 mg, By Mouth, Daily at bedtime, PRN, Refills 0, Maintenance, Sleep, 12/06/22 10:39:00 EDT, Partial fill upon patient request if the prescription is for a schedule II opioid drug. Start Date: 12/06/22 Status: Ordered Tylenol 160 mg / 5 mL Liquid 480 mg, Suspension, Nasogastric Tube, Every 6 hours, PRN for Temperature, mild pain, headache, Routine, 11/30/22 18:12:00 EDT Start Date: 11/30/22 Stop Date: 12/08/22 Status: Discontinued Problem List Condition Confirmation Course Effective Dates Status Health St [facility] Informant Vertebral artery stroke Confirmed Active Depression Confirmed Active GERD (gastroesophageal reflux disease) Confirmed Active Hypertension Confirmed Active Procedures Procedure Date Related Diagnosis Body Site Status Esophagogastroduodenoscopy 12/02/22 Completed Results Radiology Reports * Exam Date Time Procedure Performing Provider Status 12/04/22 1:38 PM IR End of Case Report Aut h (Verified) IR End of Case Report * Exam Date Time Procedure Performing Provider Status 12/04/22 1:38 PM IR Insert Gastrostomy Tube Auth (Verified) Notes: (IR Insert Gastrostomy Tube) Reason For Exam: CVA with dysphagia - failed GI attempt for PEG - recommended IR palcement;Other: IR Insert Gastrostomy Tube Patient: CHUY ESTES Study Date: 12/04/2022 Performing: Abraham Gillis MD Referring: : 1950 Age: 72 Gender: MALE Pre-procedure diagnosis and Indication: 72-year-old male with history of hypertension, GERD, and depression who presented to [facility] on 11/25/2022 with sudden vertigo, nausea, vomiting, and garbled speech. 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 MBS showed significant dysmotility with pooling in the vallecula and piriform sinuses with no evidence of aspiration. The patient was started on a pur?ed diet with thin liquids, however there was inability to keep up with the daily caloric requirements and NG tube was placed for additional tube feeding nutrition on 11/28/22. PEG tube was then discussed and the patient consented, although given the location of the patient's stroke with potential for postop complications, it was deemed more appropriate for him to undergo the GI procedure with anesthesia here at a higher level of care. Endoscopy was unable to find a window and therefore cannot perform the procedure. Request for IR gastrostomy. I do not understand the comments concerning potential for postop complications. This procedure was performed as routine with moderate sedation provided by the interventional radiology service. Exam: Prior to the procedure, the patient was seen and the nature of the procedure explained along with its attendant risks and benefits to the patient . Informed consent was obtained from, the patient . The patient underwent a pre-anesthesia assessment. On completion of this it was determined the patient is suitable for moderate sedation. The patient arrived in IR room 1 for a gastrostomy tube insertion PROCEDURE: The patient was positioned supine and secured with arm boards. NG tube was present on arrival Liver edge was marked with ultrasound guidance. The access site was evaluated, then prepped with chloraprep and draped in the usual sterile fashion. Patient received moderate sedation administered under my direct supervision. Local anesthetic was given and3 t-fasteners were used to secure the stomach contrast was used to verify placement of each. A 18g needle was inserted into the area that had been secured with the T fasteners and a wire was inserted. A serial dilator was used to dilate the tract and a , 16 FR gastrostomy tube.was inserted the retention balloon was filled to a volume of 5 ml's of water at a depth of 3 cm. contrast injected to check placement of new tube And the tube was secured using a single 0 Prolene suture around the retention disc. No sutures through the skin. . The sterile field was maintained throughout the procedure and patient tolerated the procedure well with no complications of the procedure estimated blood loss was minimal Specimens/samples: no specimens or samples were sent for [place] procedure [place] [id number] Post procedure instructions sent in envelope with the patient Impression: Satisfactory ultrasound and fluoroscopically guided placement of a gastrostomy tube patient tolerated the procedure well with no complications of the procedure Please Note: Arrangements should be made for the patent to have the 3 retention sutures removed in 10-14 days. The sutures are held in place by 1cm diameter buttons on the skin. Cut these. Do not cut the any suture encircling the G-tube collar. 1. The G-tube can be used after 6 hours if clear gastric juices are draining from the G-tube and there is no evidance of peritoneal irritation (i.e. no abdominal pain, or tenderness, normal bowel sounds). 2. Please consult with nutrition service concerning starting g-tube feeds. 3. When initiating G-tube feeds have the patient in right side down decubitus. 4. Written instructions and other information concerning G-tubes were placed in the patients chart. These orders were entered into [facility]. 5. We recommend that the patient return for removal of the retention sutures 10-14 days after G-tube placement. The sutures should not remain in place longer than 2 weeks. We will make arrangements. 6. Please ensure that the white port on the hub of the catheter is used for balloon inflation and deflation only. This port should only be manipulated by an interventional radiologist. This should not be used for flushing or administration of feeds. 7. We recommend that G-tubes of this type be replaced at 3 month intervals to avoid inadvertent loss of access due to deterioration in the G-tube retention balloon material. We will make arrangements. TO PREVENT CLOGGING OF THE G-TUBE FLUSH VIGOROUSLY WITH 30ML OF WATER AFTER EACH FEEDING. WHENEVER POSSIBLE GIVE MEDICATIONS IN LIQUID FORM; IF SOLID MEDICATIONS ARE ABSOLUTELY REQUIRED HAVE THE MEDICATIONS GROUND TO A FINE PASTE (preferably by a compounding pharmacy) SUSPEND IN WATER AND FLUSH AFTER EACH DOSE. IF CLUMPS OF MEDICATION ARE SEEN IN THE SUSPENSION, RESUSPEND. Fluoroscopy time and dose Total Fluoro Time: 1.1 mins Total dose 16 mGy Total DAP 153.0 - ?Gy/m2 Contrast used Contrast used: Omnipaque_300 15 ml's Local Anesthetic Lidocaine 1% w/ 4.2% sodium bicarbonate 10 ml's SQ Lidocaine 1% w/ 1:100,000 epinephrine and 4.2% sodium bicarbonate 15 ml's SQ Moderate sedation was provided From 13:53:00 to 14:20:00 Moderate Sedation Agent Dose Route Time By Fentanyl 50 mcg IV 13:53:52 ROSALVA Versed 1 mg IV 13:53:56 ROSALVA Signed By Abraham Gillis MD On 12/04/2022 14:37:07 Abraham Gillis MD Dictated By: Abraham Gillis MD Dictated Date/Time: 12/04/22 1:38 pm Reviewed By: Abraham Gillis MD Signed By: Abraham Gillis MD Signed Date/Time: 12/04/22 1:38 pm Transcribed By: DEBBIE Transcribed Date/Time: 12/04/22 1:38 pm * Exam Date Time Procedure Performing Provider Status 12/03/22 7:56 PM Chest Portable Veena Contreras; Auth (Verified) Notes: (Chest Portable) Reason For Exam: Line Placement RESULT: Chest Portable Chest Portable Reason: Line Placement; Clinical Question(s): Line Placement COMPARISON: Multiple priors, the most recent 11/28/2022. FINDINGS: LINES AND TUBES: Enteric tube with side port below the GE junction. LUNGS AND PLEURA: Low lung volumes, with bronchovascular crowding. Otherwise, clear lungs. No pleural effusion. No pneumothorax. HEART, MEDIASTINUM AND ANGELA: Heart is normal in size. Aorta is tortuous and partially calcified. BONES AND SOFT TISSUES: No acute abnormality. IMPRESSION: No acute abnormality. Enteric tube in appropriate position. I have personally reviewed the images and I agree with this report. WSN: [id number] Ordering Physician: Sina Donovan Dictated By: Gen[Radiology] Derek ROJAS Dictated Date/Time: 12/03/22 9:48 pm Reviewed By: Celine Timmons MD Signed By: Celine Timmons MD Signed Date/Time: 12/03/22 9:53 pm Transcribed By: GILLIAN Transcribed Date/Time: 12/03/22 8:16 pm Vital Signs Most recent to oldest [Reference Range]: 1 2 3 Height 173 cm (12/07/22 11:36 AM) 173 cm (12/07/22 5:57 AM) 173 cm (12/06/22 8:47 PM) Weight 72.2 kg (12/02/22 3:27 PM) 72.2 kg (11/30/22 5:28 PM) 73 kg (11/30/22 5:06 PM) Oxygen Saturation [94-100 %] 97 % (12/07/22 11:36 AM) 99 % (12/07/22 5:57 AM) 99 % (12/06/22 8:47 PM) Pulse Rate [55-90 bpm] 64 bpm (12/07/22 11:36 AM) 65 bpm (12/07/22 8:07 AM) 70 bpm (12/07/22 5:57 AM) Body Mass Index [18.5-24.99 kg/m2] 24.12 kg/m2 (12/02/22 3:27 PM) 24.39 kg/m2 (11/30/22 5:06 PM) Blood Pressure [90-138/55-84 mm Hg] 154/88mm Hg *H* (12/07/22 11:36 AM) 150/78mm Hg *H* (12/07/22 9:41 AM) 155/83mm Hg *H* (12/07/22 8:07 AM) Respiratory Rate [16-30 br/min] 18 br/min (12/07/22 11:36 AM) 18 br/min (12/07/22 9:10 AM) 18 br/min (12/07/22 5:57 AM) Temperature [96.8-100.4 DegF] 98.3 DegF (12/07/22 11:36 AM) 98.7 DegF (12/07/22 5:57 AM) 98.8 DegF (12/06/22 8:47 PM) Mode of Delivery (Oxygen) Room air (12/07/22 11:36 AM) Room air (12/07/22 5:57 AM) Room air (12/06/22 8:47 PM) Blood pressure sites Arm, left (12/07/22 11:36 AM) Arm, right (12/07/22 9:41 AM) Arm, right (12/07/22 8:07 AM) Temperature Route Oral (12/07/22 11:36 AM) Oral (12/07/22 5:57 AM) Oral (12/06/22 8:47 PM) Dry Weight 73 kg (11/30/22 5:06 PM) Weight Obtained Via Bed scale (11/30/22 5:28 PM) Social History Social History Type Response Sex Male Endoscopy study * Event Display: GG EGD Please click on pdf link to open report History and physical note * Cherelle ROJAS, Gabriel Nair: PERFORM Event Display: History and Physical Hospital Authored Date: Patient: ??CHUY ESTES ? Age:??72 Years?Sex:??Male?:??1950?? History of Present Illness 72-year-old male with history of hypertension, GERD, and depression who presented to [facility] 11/25/2022 in the setting of sudden vertigo, nausea, vomiting, and garbled speech.?? The patient had been having increasing frequency of dizzy spells over the few months preceding.?? Initial work-up with CT of the head and neck showed acute occlusion of the distal V3 and V4 segments of the left vertebral artery and occlusion of the proximal V1 segment of the right vertebral artery with distal reconstitution.?? MRI of the brain was performed which revealed an acute infarct in the left medulla.?? Neurology recommended aspirin and Plavix for 3 months, and statin with LDL goal less than 70.?? The patient was evaluated by speech therapy, with MBS showing significant dysmotility with pooling inthe vallecula and piriform sinuses with no evidence of aspiration.?? The patient was started on a pur??ed diet with thin liquids, however there was inability to keep up with the daily caloric requirements and NG tube was placed for additional tube feeding nutrition on 11/28/22.?? PEG tube was then discussed and the patient consented, although given the location of the patient's stroke with potential for postop complications, it was deemed more appropriate for him to undergo the GI procedure withanesthesia here at a higher level of care.?? He has thus been transferred here to [facility] for PEG tube placement, with discharge to acute rehabilitation thereafter. ?? Currently on the medical floor, the patient is afebrile and hemodynamically stable. ??No respiratory distress or hypoxia. ??He has no acute complaints. Review of Systems Other than those positives as noted in the HPI above, the remaining comprehensive 14-point review of systems is negative. Objective Measurements?? Height: 173 cm (11/30/22) Weight: 72.2 kg (11/30/22) Dry Weight: 73 kg (11/30/22) Body Mass Index: 24.39 kg/m2 (11/30/22) ? Vital Signs?? Temperature: 97.4 DegF (11/30/22 20:40:00) Temperature Route: Oral (11/30/22 20:40:00) Pulse Rate: 60 bpm (11/30/22 20:40:00) Respiratory Rate: 19 br/min (11/30/22 20:40:00) Systolic Blood Pressure:??164 mm Hg??High (11/30/22 20:40:00) Diastolic Blood Pressure:??85 mm Hg??High (11/30/22 20:40:00) Blood pressure sites: Arm, right (11/30/22 20:40:00) Mean Arterial Pressure: 111 mm Hg (11/30/22 20:40:00) Pulse Pressure: 79 mm Hg (11/30/22 20:40:00) Oxygen Saturation: 98 % (11/30/22 20:40:00) Mode of Delivery (Oxygen): Room air (11/30/22 20:40:00) Early Warning Score: 2 (11/30/22 20:43:59) ? Pain Scores 1 - 10 Pain Scale Score: 8 (17:14) ? Physical Exam General Appearance: Alert, appears stated age, answers questions appropriately HEENT: Normocephalic, atraumatic, PERRL, EOMI, no scleral icterus, no facial droop, moist mucous membranes, NG tube in place?? Neck: Supple, no JVD Cardiac: RRR, S1 & S2 present, no m / r / g appreciated Chest: Clear to auscultation bilaterally, no wheezing / ronchi / rales Abdomen: Soft, nontender, no distention, no rebound or guarding, no masses Extremities: No clubbing, cyanosis, or edema. ??2+ distal pulses Skin: Warm, no rash Neuro: ??A & O x 3, CN III-XII intact, strength 5/5 of upper / lower extremities bilaterally, gross sensation intact, no focal cerebellar abnl Psych: ??Stable mood, appropriate affect Assessment/Plan Assessment:??72-year-old male with history of hypertension, GERD, and depression who presented to [facility] on 11/25/2022??with??sudden vertigo, nausea, vomiting, and garbled speech.?Work-up revealed vertebral??artery vascular disease with acute left medullary??infarct.??MBS showed significant dysmotility with pooling in the vallecula and piriform sinuses with no evidence of aspiration. The patient was started on a pur??ed diet with thin liquids, however there was inability to keep up with the daily caloric requirements and NG tube was placed for additional tube feeding nutrition on 11/28/22. PEG tube was then discussed and the patient consented, although given the location of the rodney ent's stroke with potential for postop complications, it was deemed more appropriate for him to undergo the GI procedure with anesthesia here at a higher level of care. ?? 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 -N.p.o. after midnight for PEG tube placement -Gentle IV fluid hydration with D5 LR at 100 cc/h overnight -GI consultation requested -Resume aspirin and Plavix after procedure (aspirin monotherapy after 3 months) -Continue atorvastatin with goal LDL less than 70 -Hemoglobin A1c normal at 5.3 -The patient will need??extensive PT/OT and speech therapy??with placement??at??acute rehabilitation after PEG tube placement ?? Malnutrition (E46):??Tube feeding on hold for tonight, as patient will be n.p.o.??for??PEG tube placement. Per nutrition consult at??[facility], supplement Jevity 1.2 with goal rate 63 mL/h x 24 hours with 160 mL water flushes every 4 hours??in addition to pur??ed diet with thin liquids. ?? Hypertension (I10):??Continue amlodipine and atenolol as prescribed. Renal function stable with creatinine 1.4. Previous baseline 1.2-1.6. ?? GERD (gastroesophageal reflux disease) (K21.9):??Continue PPI as prescribed. ?? Depression (F32.A):??Mood is stable. Continue Lexapro and Wellbutrin as prescribed. Continue trazodone at bedtime as needed for sleep. ?? VTE Prophylaxis:??Lovenox 40 mg subcutaneously daily??until fully ambulatory;??hold a.m. dose for PEG placement ?VTE Prophylaxis Assessment:??VTE Prophylaxis Ordered ?? Code Status:??FULL. ?Order Code Status:??Code Status Ordered ?? Discharge Planning:??Anticipate discharge to acute rehab??after PEG placement;??1 to 2 days hospitalization. ?? I spent a total of??70 minutes today reviewing the chart / medical records, evaluating the patient,evaluating and interpreting laboratory and imaging data, formulating and discussing the treatment plan, and documenting the encounter. ? Histories Allergies Allergies ?(Active and Proposed Allergies Only) No Known Medication Allergies? (Severity: Unknown severity, Onset: Unknown) ? Past Medical History/Problem List Active Problems??(4) Depression GERD (gastroesophageal reflux disease) Hypertension Vertebral artery stroke ? Past Surgical History No surgery history documented. ? Social History The patient lives independently with his in [place]. Tobacco: Denies. EtOH: Denies. Drugs: Denies. ? Family History No family history??contributory to this admission. ? Medications Home Medications Amlodipine?10?Milligram?By Mouth?Daily Aspirin (aspirin 81 mg oral delayed release tablet)?81?Milligram?1?tablet?By Mouth?Daily Atenolol (atenolol 50 mg oral tablet)?50?Milligram?1?tablet?By Mouth?Daily Atorvastatin (atorvastatin 40 mg oral tablet)?40?Milligram?Nasogastric Tube?Daily at bedtime BuPROpion?150?Milligram?By Mouth?Daily in AM Clopidogrel (Plavix 75 mg oral tablet)?75?Milligram?1?tablet?By Mouth?Daily Escitalopram (escitalopram 20 mg oral tablet)?1?tab(s)?20?Milligram?By Mouth?Daily Omeprazole?20?Milligram?By Mouth?Daily ? Hospital Progress note * Eric Lemus RN: PERFORM, SIGN, VERIFY Event Display: Progress Note Hospital Authored Date: [id number] Patient: CHUY ESTES Age: 72 years Sex: Male : 1950 Associated Diagnoses: None Author: Eric Lemus RN Findings Problem Related to Alteration in Nutrition 12/07/2022 2:06 EDT Alteration in Nutrition Related to Malnutrition Goals & Outcomes, Nutrition Pt will achieve/maintain adequate nutrition status, Pt will maintain adequate GI/ function appropriate for pt, Pt will reach normal/improved electrolyte/vitamin balance, Pt will resume/maintain adequate hemodynamic status, Pt will intake a balanced & increased caloric diet Interventions, Nutrition Assess, monitor & document weight, Encourage adequate & balanced intake, Monitor intake of ordered dietary supplementation BH Goals/Interventions, Nutrition Yes Nutrition, Problem Start 12/06/2022 10:33 Reviewed plan with, Nutrition Patient Patient Progression, Nutrition Pt progressing according to plan . Nursing Data Vital Signs : VITAL SIGNS SECTION 12/06/2022 20:47 EDT Temperature 98.8 DegF Temperature Route Oral Pulse Rate 68 bpm Respiratory Rate 18 br/min Systolic Blood Pressure 161 mm Hg H Diastolic Blood Pressure 75 mm Hg Blood pressure sites Arm, right Mean Arterial Pressure 104 mm Hg Pulse Pressure 86 mm Hg Oxygen Saturation 99 % Mode of Delivery (Oxygen) Room air . Evaluation Pt a+ox4. No signifcant overnight events. pt continues to have headache. administered prn tylenol when due. Bed in lowest locked position, call rudolph w/in reach, care provided, and purposeful roundingcomplete.. Discharge Information Case Management Discharge Plan : Case Management Discharge Plan Data 12/06/2022 18:39 EDT Discharge Level of Care at Discharge Not Done: Task Duplication (Not Done) 12/06/2022 14:38 EDT Discharge Level of Care at Discharge Short-term Acute Inpatient Discharge Nursing Homes/Rehab Facilities [facility] Discharge Transportation Arranged [facility] [address] [place] [address] Name of Agency #1 [facility] Categories #1 Occupational Therapy, Physical Therapy, Snf Service Comments #1 We will arrange transportation. 11/30/2022 16:10 EDT Discharge Level of Care at Discharge Short-term Acute Inpatient Rehabilitation Discharge : Rehab Discharge Index 12/05/2022 11:28 EDT Comments on treatment indicated OT role, ADLs, funct mob, transfers, safety, ptedu Full chart review completed Yes Hospital course per [facility] 12/05/2022 11:16 EDT Walker: distance < 10 12/02/2022 6:27 EDT Comments on treatment indicated 72 M admitted for PEG tube placement. Recent vertebral artery CVA. WBAT. Skilled PT for amb c RW, transfers, strength, balance, safety. Rec post acute rehab Walker: distance 10-20 Distance pt will ambulate > 10 feet c RW Full chart review completed Yes Hospital course Hospital course Other findings see comment Plan of care PT Gait training, Transfer training, Therapeutic exercise, Functional Activities, Balance training, Neuromuscular education * Zion ROJAS, Sina Forrest: PERFORM Event Display: Progress Note Hospital Authored Date: Patient: ??CHUY ESTES ? Age:??72 Years?Sex:??Male?:??1950?? Subjective Doing well after G-tube placement unfortunately no bed available at [facility] today some pain related to G-tube placement but otherwise stable Review of Systems ?Constitutional: no fevers/chills ?Eyes: no pain, no vision changes ?ENT: no ear pain, no change in hearing ?Cardiovasc: no chest pain, no palpitations, no PND, no orthopnoea ?Resp: no cough, no sputum, no haemoptysis, no dyspnoea Objective Measurements?? Height: 173 cm (12/05/22) Weight: 72.2 kg (12/02/22) Dry Weight: 73 kg (11/30/22) Body Mass Index: 24.12 kg/m2 (12/02/22) ? Vital Signs?? Temperature: 98.5 DegF (12/05/22 15:56:00) Temperature Route: Oral (12/05/22 15:56:00) Pulse Rate: 62 bpm (12/05/22 15:56:00) Respiratory Rate: 18 br/min (12/05/22 15:56:00) Systolic Blood Pressure:??152 mm Hg??High (12/05/22 15:56:00) Diastolic Blood Pressure:??92 mm Hg??High (12/05/22 15:56:00) Blood pressure sites: Arm, left (12/05/22 15:56:00) Mean Arterial Pressure: 112 mm Hg (12/05/22 15:56:00) Pulse Pressure: 60 mm Hg (12/05/22 15:56:00) Oxygen Saturation: 100 % (12/05/22 15:56:00) Mode of Delivery (Oxygen): Room air (12/05/22 15:56:00) Early Warning Score: 0 (12/05/22 15:57:20) ? Intake/Output? 11/30 16:46 12/05 07:00 12/04 07:00 12/03 07:00 12/02 07:00 ?? 12/05 17:12 12/05 17:12 12/05 06:59 12/04 06:59 12/03 06:59 Intake ? 6743.3 ?500 ? 1200 ? 1200 ? 2100 Output ? 8575 ?950 ? 1650 ? 1100 ? 2875 Net Total ?-1831.7 ? -450 ? -450 ?100 ? -775 ? Urine Count ?1 ?0 ?0 ?1 ?0 ? Physical Exam Gen: comfortable, well: HEENT: normocephalic, atraumatic, moist mucous membranes Chest: CTA, no wheeze/crackles CVS: no M/G/R, no JVD Abdo: soft, non-tender Ext: no oedema, no cyanosis or clubbing Neuro: A+Ox3. power 5/5 throughout. past pointing and DDK on L. no dysarthria or nystagmus Psych: WNL Assessment/Plan Assessment:??72-year-old male with history of hypertension, GERD, and depression who presented to [facility] on 11/25/2022 with sudden vertigo, nausea, vomiting, and garbled speech. 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 MBS showed significant dysmotility with pooling in the vallecula and piriform sinuses with no evidence of aspiration. The patient was started on a pur??ed diet with thin liquids, however there was inability to keep up with the daily caloric requirements and NG tube was placed for additional tube feeding nutrition on 11/28/22. PEG tube was then discussed and the patient consented. Patient transferred to [facility] for this. ? 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 His dizziness and dysarthria have improved, although he continues to have some issues with dysphagia as outlined. Unfortunately GI were unable to find a safe window to place G-tube IR guided G-tube now??placed on 12/04 Recs ??commence tube feeds and advance to goal ??per rehab - titration can be performed there if not up to goal by tomorrow ??aspirin 81mg daily ??resumed clopidogrel??on 12/05 ??aspirin and Plavix for 3 months and then aspirin monotherapy after that ??Statin ??PMR on board,??many thanks ?? Malnutrition (E46): Not able to tolerate oral diet.??He was on tube feed via NG tube which got dislodged and he does not want that back anymore.??Hopefully plan for PEG tube placement tomorrow ??Hypertension (I10): on amlodipine and atenolol.?added losartan for uncontrolled BP -?now??increased to 50mg ??Renal function stable with creatinine 1.4. Previous baseline 1.2-1.6. ??GERD (gastroesophageal reflux disease) (K21.9): Continue PPI as prescribed. ??Depression (F32.A): Mood is stable. Lexapro and Wellbutrin as prescribed. Continue trazodone at bedtime as needed for sleep. ? VTE Prophylaxis: Lovenox held for PEG placement ??Code Status: FULL. ? OMN/Dispo??? awaiting bed at rehab * Sudarshan Elizalde RN: VERIFY, PERFORM, SIGN Event Display: Progress Note Hospital Authored Date: Patient: CHUY ESTES Age: 72 years Sex: Male : 1950 Associated Diagnoses: None Author: Tonio DIAZ, Sudarshan Findings Evaluation Pt is A&Ox3, able to make needs known. Complains of headache 09/15, received prn tylenol with good effect. Received scheduled am meds. Pt now on tube feeding through g tube. Plan for pt today is to be discharged to rehab. Pt is resting in bed, bed in lowest position, and safety measures in place. See CIS for further details. . Discharge Information Case Management Discharge Plan : Case Management Discharge Plan Data 11/30/2022 16:10 EDT Discharge Level of Care at Discharge Short-term Acute Inpatient 11/28/2022 11:21 EDT Discharge Level of Care at Discharge Not Done: Order Discontinued (Not Done) Rehabilitation Discharge : Rehab Discharge Index 12/05/2022 11:28 EDT Comments on treatment indicated OT role, ADLs, funct mob, transfers, safety, ptedu Full chart review completed Yes Hospital course per CIS 12/05/2022 11:16 EDT Walker: distance < 10 12/02/2022 6:27 EDT Comments on treatment indicated 72 M admitted for PEG tube placement. Recent vertebral artery CVA. WBAT. Skilled PT for amb c RW, transfers, strength, balance, safety. Rec post acute rehab Walker: distance 10-20 Distance pt will ambulate > 10 feet c RW Full chart review completed Yes Hospital course Hospital course Other findings see comment Plan of care PT Gait training, Transfer training, Therapeutic exercise, Functional Activities, Balance training, Neuromuscular education Consult note * Estuardo ROJAS, Chris Kelly: PERFORM, MODIFY Event Display: Consultation Note Authored Date: Patient: ??CHUY ESTES ? Age:??72 Years?Sex:??Male?:??1950?? History of Present Illness 72yo M presented to [place] ED on 11/25 for acute onset of dizziness, nausea, vomiting, and garbled speech. CT head showed nothing acute. 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 He was seen by speech therapy and underwent MBS which did not show aspiration but did demonstrate severe impairments, especially during the esophageal phase of swallowing. GI consult was obtained and PEG tube is being considered. Pt's is at the bedside and he has been able to swallow purees but any solid itemsrequire straining and patient feels unable to pass items requiring coughing to clear any residual. He also reports even ground medications in applesauce require significant straining. He had an NG tube initially but does not want it replaced. He is noticeably clearing his throat repeatedly at the bedside today. He was seen by PT/OT and transfers were mod-max assist. The patient denies any weakness on the leftbut states his left arm and leg are clumsy . He lives with his in 1 story cond with 2 steps to enter. He is indep with ADLs and mobility at baseline. Review of Systems 14 point review of systems negative except as noted above in HPI. Physical Exam Vitals & Measurements T:??98.4?F?? HR:??61??(Peripheral)?? RR:??18?? BP:??147/83?? SpO2:??100%?? HT:??173??cm?? WT:??72.2??kg?? BMI:??24.39?? Gen: Alert, oriented x 3 in NAD HEENT: no JVD, R pupil 2mm, L pupil 3mm. EOMs intact but 2-3 beats of nystagmus on left lateral gaze. CV: Reg, no murmurs Chest: CTA bilat Abd: +BS, soft, NT Exts: trace pedal edema Neuro: CN II-XII intact MMT: RUE:?LUE: Delt?5/5?Delt?5/5 Bi?5/5?Bi?5/5 WE? 5/5? WE? 5/5 Tri? 5/5? Tri? 5/5 FF? 5/5? FF?5/5 ?? RLE:? LLE: HF? 5/5? HF? 5/5 Quad?? 5/5? Quad?? 5/5 DF? 5/5? DF? 5/5 PF? 5/5? PF?5/5 Sensory: intact Coordination: impaired on F to N and H?? to S on left. Pronator Drift: negative ?? Speech/Language: mildly hoarse, frequent throat clearing. No dysarthria. 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 ? Recommendations: ?? Activity:??Mobilize with PT Bowel Regimen:??Monitor on current regimen Bladder:??Voiding Normally. Cognition/psychopharmacology:??Avoid benzos, anticholinergics and antihistaminergics because of age.?? DVT prophylaxis:??Lovenox ?? Neurology: Neurology evaluated at [place]. Pain Management:??Appears comfortable.?? Spasticity:??None ?? Swallow: Severe impairment in the??esophageal phase. No role for speech therapy in the short term. GI has been consulted and PEG is being considered. This may be reasonable as it could give the patient some time to improve function while at rehab. Risks of the procedure would need to be discussed with the patient per GI and they may be able to opine if any procedure could benefit the patient in regards to inability of the UES to open as seen on the MBS. D/w speech therapist--Ginny. ?? Current rehab treatment & further recommendations: Occupational Therapy:??not needed here. Physical Therapy:??Ordered Speech Therapy:??Currently receiving??however, can wait until he goes to rehab. ?? Disposition: Acute rehab. ?? Code Status:??Full Resuscitation HCP:??Has HCP in [facility]IS D/w Dr. Blevins, Dr. Mason,??and speech therapy. D/w patient and at bedside. Total time >90 minutes, coordination of care >50% Problem List/Past Medical History Ongoing Depression GERD (gastroesophageal reflux disease) Hypertension Vertebral artery stroke Procedure/Surgical History No qualifying data available. Home Medications Amlodipine: 10 mg, By Mouth, Daily Aspirin: 81 mg = 1 tablet, By Mouth, Daily Atenolol: 50 mg = 1 tablet, By Mouth, Daily Atorvastatin: 40 mg, Nasogastric Tube, Daily at bedtime BuPROpion: 150 mg, By Mouth, Daily in AM Clopidogrel: 75 mg = 1 tablet, By Mouth, Daily Escitalopram: 20 mg = 1 tablet, By Mouth, Daily Omeprazole: 20 mg, By Mouth, Daily Hospital Medications Medications (15) Active SCHEDULED: (9) Amlodipine 10 mg Tablet (amLODIPine 10 mg oral tablet) ??10 mg, Nasogastric Tube, Daily Aspirin 81 mg Chew Tablet (Aspirin Tablet) ??81 mg, By Mouth, Daily Atenolol 50 mg Tablet (atenolol 50 mg oral tablet) ??50 mg, Nasogastric Tube, Daily Atorvastatin 40 mg Tablet (atorvastatin 40 mg oral tablet) ??40 mg, Nasogastric Tube, Daily at bedtime BuPROPion IR 75 mg Tablet (BuPROPion IR 75 mg oral tablet) ??75 mg, Nasogastric Tube, 2 times a day Enoxaparin 40 mg Inj (Enoxaparin Inj) ??40 mg 0.4 mL, Subcutaneous Injection, Daily Escitalopram 10 mg Tablet (escitalopram 10 mg oral tablet) ??20 mg, Nasogastric Tube, Daily Lansoprazole 30 mg OD Tablet (Lansoprazole OD Tablet) ??30 mg, Nasogastric Tube, Daily NaCl 0.9% Flush 3ml (NaCL 0.9% Flush) ??3 mL, IV Push, Every 8 hours CONTINUOUS: (1) D5%LR (1000 mL) Cont IV 1,000 mL (D5%/LR 1,000 mL) ??1,000 mL, IV Infusion, 100 mL/hr PRN: (5) Acetaminophen 160 mg/5 mL Susp UD (Tylenol 160 mg / 5 mL Liquid) ??480 mg 15 mL, Nasogastric Tube, Every 6 hours Dextromethorphan-Guaifenesin 20 mg-200 mg/10 mL Liqu UD (Robitussin DM Liquid) ??10 mL, NasogastricTube, Every 4 hours Melatonin 3 mg Tablet (Melatonin Tablet) ??3 mg, Nasogastric Tube, Daily at bedtime NaCl 0.9% Flush 3ml (NaCL 0.9% Flush) ??3 mL, IV Push, Every 8 hours Trazodone 50 mg Tablet (traZODone 50 mg oral tablet) ??25 mg, By Mouth, Daily at bedtime Lab Results PM&R Labs WBC: 6.6 k/mm3 (11/28/22) Platelet Count: 158 k/mm3 (11/28/22) Sodium: 142 mmol/L (11/28/22) BUN: 15 mg/dL (11/28/22) Creatinine-Blood:??1.4 mg/dL??High (11/28/22) AST (SGOT):??49 units/L??High (11/28/22 05:28:00) ALT (SGPT): 37 units/L (11/28/22 05:28:00) * Annabelle ROJAS, Johnson H: PERFORM Event Display: Consultation Note Authored Date: Patient: ??CHUY ESTES ? Age:??72 Years?Sex:??Male?:??1950?? Referrring Provider Mauricio ROJAS, Aniyah Rubin Reason for Consultation PEG tube? History of Present Illness ?? 72-year-old male with a reported past medical history of hypertension, GERD, depression who presented to [facility] on the with significant vertigo, nausea, vomiting and??'garbled speech'. ??On work-up patient was found to have vertebral artery stroke. ??MRI later showed a left medullary infarct. ??Patient was evaluated by neurology and started on aspirin and Plavix for 3 months. ??Pat ient was evaluated by speech therapy at [facility] and was started on dysphagia level 1 pur??eddiet and thin liquids. ??Patient underwent a modified barium swallow evaluation that showed significant dysmotility with pooling in the vallecula and piriform sinuses without any evidence of aspiration. ??Patient started taking p.o. pur??ed diet which she tolerated however was deemed to not be meeting his nutritional requirements and GI was consulted for PEG tube placement. ??GI evaluated patientat outside hospital on 11/28 and plan is made for PEG tube placement on Thursday however given anesthesia concerns about vocal cord dysfunction he was transferred over to [facility] given complicated anesthesia requirements. ?? Patient's aspirin and Plavix have been held due to possibility of PEG tube placement. ??His last dose of aspirin and Plavix was around 3 PM on 11/27. ??Patient has been vitally stable. ??Labs are reassuring and unremarkable. ??Patient states that he is feeling better. ??He had an NG tube in place however that came out overnight. ??Unfortunately patient has not been able to eat and drink due to n.p.o. status for procedure however on discussion with patient and his , it seems like patient's clinical condition has improved and he subjectively feels that he could probably tolerate p.o. intake better. ??Another concern was whether patient can take his p.o. medications regularly. ?? Review of Systems Full review of systems completed and was negative except as mentioned above in HPI Physical Exam Vitals & Measurements T:??98.4?F?? TMIN:??97.4?F?? TMAX:??98.4?F?? HR:??61??(Peripheral)?? RR:??18?? BP:??147/83?? SpO2:??100%?? WT:??72.2??kg?? Constitutional: Alert, in no distress. Mental Status: Oriented to person, place and time. Respiratory: Clear to auscultation. Cardiovascular: S1 S2 regular. Gastrointestinal: Abdomen soft, non-tender, non-distended. Normal bowel sounds. No pulsatile mass. Neurologic: Cranial nerves II-XII grossly intact. B/L??UE and LE strength 5/5 . Moves all extremities spontaneously. No aphasia noted on exam. Reprots subjective weakness in LUE. Skin: No rashes or lesions. No petechiae or purpura.??No jaundice Musculoskeletal: No cyanosis or clubbing. No gross deformities. Normal range of motion. Psychiatric: Appropriate mood and affect Assessment/Plan ?? CVA Left medullary infarct Concern for malnutrition ? ??PEG tube placement ?? 72-year-old male with a reported past medical history of hypertension, GERD, depression who presented to [facility] on the with significant vertigo, nausea, vomiting and 'garbled speech'??found to have a vertebral stroke and a left medullary infarct. ??Concerned about not meeting nutritional requirements and initial plan for PEG tube placement on thursday. However patient feels like hehas more strength and would like to trial PO intake to see if he still needs a PEG tube. His DAPT has been held since 11/27 and he has been NPO. At this time given subjective clinical improvement and patient feeling like he could eat better we will hold off on PEG tube for today. We will request primary team to reevaluate whether patient is still unable to meet nutritional requirement by involvingST/PMNR and nutrition team. If it is found that patient is indeed unable to meet his requirements then we will proceed with PEG tube placement.? Plan: REevaluate if patient is still unable to meet nutritional requirement - consider ST/PMNR eval Request nutrition input Start diet per ST recommendations Resume ASA. Continue holding Plavix incase PEG tube is required. Will not need to hold ASA for thisprocedure. Reach out to GI once determination is made about needing PEG tube and we will plan accordingly.?? We will continue to follow along with you. ? Thank you for referring this patient to the Division of Gastroenterology, [facility].?Please feel free to reach out with any questions or concerns. ?? The patient's case and management was discussed with Dr. Felicia Mason MD Gastroenterology Fellow PGY4?? Division of Gastroenterology, [facility] - [facility] [email or web address] (The above document was created using [employer] voice recognition software. As such, senior medical transcriptionist errors may occur. Please contact the provider for additional questions and if clarification is needed.)?? Problem List/Past Medical History Ongoing Depression GERD (gastroesophageal reflux disease) Hypertension Vertebral artery stroke Medications Inpatient amLODIPine 10 mg oral tablet, 10 mg, Nasogastric Tube, Daily Aspirin Tablet, 81 mg, By Mouth, Daily atenolol 50 mg oral tablet, 50 mg, Nasogastric Tube, Daily atorvastatin 40 mg oral tablet, 40 mg, Nasogastric Tube, Daily at bedtime BuPROPion IR 75 mg oral tablet, 75 mg, Nasogastric Tube, 2 times a day D5%/LR 1,000 mL, 1000 mL, IV Infusion Enoxaparin Inj, 40 mg= 0.4 mL, Subcutaneous Injection, Daily escitalopram 10 mg oral tablet, 20 mg, Nasogastric Tube, Daily Influenza, Quad High Dose Vaccine (Fluzone High Dose), 0.7 mL, Intramuscular, Once Lansoprazole OD Tablet, 30 mg, Nasogastric Tube, Daily Melatonin Tablet, 3 mg, Nasogastric Tube, Daily at bedtime, PRN NaCL 0.9% Flush, 3 mL, IV Push, Every 8 hours NaCL 0.9% Flush, 3 mL, IV Push, Every 8 hours, PRN Robitussin DM Liquid, 10 mL, Nasogastric Tube, Every 4 hours, PRN traZODone 50 mg oral tablet, 25 mg, By Mouth, Daily at bedtime, PRN Tylenol 160 mg / 5 mL Liquid, 480 mg= 15 mL, Nasogastric Tube, Every 6 hours, PRN Home Amlodipine, 10 mg, By Mouth, Daily aspirin 81 mg oral delayed release tablet, 81 mg= 1 tablet, By Mouth, Daily atenolol 50 mg oral tablet, 50 mg= 1 tablet, By Mouth, Daily atorvastatin 40 mg oral tablet, 40 mg, Nasogastric Tube, Daily at bedtime BuPROpion, 150 mg, By Mouth, Daily in AM escitalopram 20 mg oral tablet, 20 mg= 1 tablet, By Mouth, Daily Omeprazole, 20 mg, By Mouth, Daily Plavix 75 mg oral tablet, 75 mg= 1 tablet, By Mouth, Daily Allergies No Known Medication Allergies * Felicia ROJAS, Jd Guerra: PERFORM Event Display: Consultation Note Authored Date: I have reviewed the patient's medical history, findings on examination, diagnosis and treatment plan as documented in the fellow note. Case and its management discussed with fellow. ?? Patient seen and evaluated independently on the day of the consultation, after thinking that he wasexperiencing some improvement he has not been able to get any meaningful caloric intake and would like to proceed with gastrostomy feeding tube placement ?? I discussed with patient the pros and cons of gastrostomy feeding tube placement vs IR vs surgery,?? also discussed alternatives as well as rare but possible complications including but not limited to bleeding, perforation, failed placement due to the anatomy etc ?? Patient is agreeable with the plan and has been tentatively scheduled on 12/02 ?? Will continue to follow-up with you Note * Job Jiménez: PERFORM Event Display: Discharge/Transfer Note Hospital Authored Date: Nursing Discharge Note Entered On: 12/07/2022 16:50 EDT Performed On: 12/07/2022 16:50 EDT by Job Jiménez Nursing Discharge Note 2 Discharge Time : 12/07/2022 16:50 EDT Discharge Level of Care at Discharge : Short-term Acute Inpatient Discharge Nursing Homes/Rehab Facilities : [facility] Patient Left Unit Via : Wheelchair Patient Accompanied Off Unit with : Responsible adult DC Instructions Provided & Signed by Pt : Yes Patient Understands D/C Instructions : Yes Patient Instructions Discharge Signed : Yes Did Pt have Specialty Bed or Wound Vac : No Job Jiménez - 12/07/2022 16:50 EDT * Zion ROJAS, Sina Forrest: PERFORM, MODIFY Event Display: Discharge/Transfer Note Hospital Authored Date: Patient: ??CHUY ESTES ? Age:??72 Years?Sex:??Male?:??1950?? 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 _ Discharge Medications Amlodipine?10?Milligram?By Mouth?Daily Aspirin (aspirin 81 mg oral delayed release tablet)?81?Milligram?1?tablet?By Mouth?Daily Atenolol (atenolol 50 mg oral tablet)?50?Milligram?1?tablet?By Mouth?Daily Atorvastatin (atorvastatin 40 mg oral tablet)?40?Milligram?Nasogastric Tube?Daily at bedtime BuPROpion?150?Milligram?By Mouth?Daily in AM Clopidogrel (Plavix 75 mg oral tablet)?75?Milligram?1?tablet?By Mouth?Daily Escitalopram (escitalopram 20 mg oral tablet)?1?tab(s)?20?Milligram?By Mouth?Daily Lansoprazole (lansoprazole 30 mg oral tablet, disintegrating)?30?Milligram?G Tube?2 times a day?for 8 weeks then 1 tablet daily thereafter Losartan (Cozaar 50 mg oral tablet)?75?Milligram?G Tube?Daily?for 30?Days Melatonin (melatonin 3 mg oral tablet)?3?Milligram?Nasogastric Tube?Daily at bedtime?as needed?Insomnia Trazodone (traZODone 50 mg oral tablet)?25?Milligram?By Mouth?Daily at bedtime?as needed?Sleep ? Quality Measures Stroke Quality Measures:? Tube Feedings Product: Water Route: by G-Tube Bolus Frequency: 3 times a day Last Rate: ? Product: 1.2 Kcal/mL Fiber Route: by G-Tube Last Rate: ? Medications Started losartan trazodone melatonin Medications Discontinued none Doses Changed lansoprazole PCP Follow-Up/Heads-Up please ensure that patient follows up with neurology please continue clopidogrel for 3 months please monitor BP and adjust meds as necessary Future Appointments Thursday 1:30 PM EDT ?? With: Roxana Saenz MDi Where: [facility] [address] [place] [address] [address] [place] [address]- Status: Pending Objective Assessment and Plan Assessment:??72-year-old male with history of hypertension, GERD, and depression who presented to [facility] on 11/25/2022 with sudden vertigo, nausea, vomiting, and garbled speech. 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 MBS showed significant dysmotility with pooling in the vallecula and piriform sinuses with no evidence of aspiration. The patient was started on a pur??ed diet with thin liquids, however there was inability to keep up with the daily caloric requirements and NG tube was placed for additional tube feeding nutrition on 11/28/22. PEG tube was then discussed and the patient consented. Patient transferred to [facility] for this. ? 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 His dizziness and dysarthria have improved, although he continues to have some issues with dysphagia as outlined. Unfortunately GI were unable to find a safe window to place G-tube IR guided G-tube now??placed on 12/04 Recs ??commenced tube feeds ??per rehab - titration can be performed there if not up to goal by tomorrow ??aspirin 81mg daily ??resumed clopidogrel??on 12/05 ??aspirin and Plavix for 3 months and then aspirin monotherapy after that ??Statin ?? Erosive oesophagitis seen on EGD GI recommending??lansoprazole??30mg bid for 8 weeks then 15-30 mg daily thereafter ?Malnutrition (E46): Not able to tolerate oral diet.??G-tube placed as above ??tube feeding per nutrition: ??Continue TF regimen as ordered: - 1.2kcal/mL fiber formula (Jevity 1.2) initiating at 10mL advancing 10mL q4hrs to goal of 65mL/hr x 24 hours - Additional free 250 water bolus TID - Provides 1872kcals, 87g protein, 2009mL free water (1259mL from TF), and 100% RDI's - anticipate additional fluuid needs to be meet via PO intake ?Hypertension (I10): on amlodipine and atenolol.?added losartan for uncontrolled BP -?now??increased to 75mg ??Renal function stable with creatinine 1.4. Previous baseline 1.2-1.6. ??Depression (F32.A): Mood is stable. Lexapro and Wellbutrin as prescribed. Continue trazodone at bedtime as needed for sleep. ?Code Status: FULL. ? Vital Signs?? Temperature: 98.7 DegF (12/07/22 05:57:00) Temperature Route: Oral (12/07/22 05:57:00) Pulse Rate: 65 bpm (12/07/22 08:07:00) Respiratory Rate: 18 br/min (12/07/22 05:57:00) Systolic Blood Pressure:??155 mm Hg??High (12/07/22 08:07:00) Diastolic Blood Pressure: 83 mm Hg (12/07/22 08:07:00) Blood pressure sites: Arm, right (12/07/22 08:07:00) Mean Arterial Pressure: 118 mm Hg (12/07/22 05:57:00) Pulse Pressure: 72 mm Hg (12/07/22 08:07:00) Oxygen Saturation: 99 % (12/07/22 05:57:00) Mode of Delivery (Oxygen): Room air (12/07/22 05:57:00) Early Warning Score: 0 (12/07/22 08:22:17) ? . Physical Exam Gen: comfortable, well: HEENT: normocephalic, atraumatic, moist mucous membranes Chest: CTA, no wheeze/crackles CVS: no M/G/R, no JVD Abdo: soft, non-tender. G-tube in situ Ext: no oedema, no cyanosis or clubbing Neuro: A+Ox3. power 5/5 throughout. past pointing and DDK on L. no dysarthria or nystagmus Psych: WNL Surgical Procedures Gastroscopy (EGD) with Directed Placemen 12/02/2022 16:01 Pending Results No Pending Results Patient Education Titles What is an Ischemic Stroke??? Losartan Oral Tablet?? Discharge Instructions: Caring for Your Gastrostomy Tube (G-Tube)?? Follow-Up Appointments Added Follow Up ?Time Frame ?Comments PCP Not on Staff?1 to 2 weeks Home Health Face to Face ^HomeHealthFTF Results Discharge Labs BLOOD COUNT & DIFF WBC 5.7 k/mm3 ()?? 12/03/2022 04:38 RBC 4.44 m/mm3 (Low)?? 12/03/2022 04:38 Hgb 13.3 Gm/dL (Low)?? 12/03/2022 04:38 Hct 40.9 % ()?? 12/03/2022 04:38 MCV 92.1 femtoliters ()?? 12/03/2022 04:38 MCH 30.0 pg ()?? 12/03/2022 04:38 MCHC 32.5 g/dL (Low)?? 12/03/2022 04:38 Platelet Count 148 k/mm3 (Low)?? 12/03/2022 04:38 RDW-SD 41.1 femtoliters ()?? 12/03/2022 04:38 MPV 11.2 femtoliters ()?? 12/03/2022 04:38 Nucleated RBC (Automated) 0.0 #/100 WBC'S ()?? 12/03/2022 04:38 Abs. NRBC 0.0 k/mm3 ()?? 12/03/2022 04:38 ?? CHEM GENERAL Sodium 144 mmol/L ()?? 12/03/2022 04:38 Potassium 4.0 mmol/L ()?? 12/03/2022 04:38 Chloride 107 mmol/L ()?? 12/03/2022 04:38 Bicarbonate Level 27 mmol/L ()?? 12/03/2022 04:38 Anion Gap 10 ()?? 12/03/2022 04:38 BUN 16 mg/dL ()?? 12/03/2022 04:38 Creatinine-Blood 1.3 mg/dL (High)?? 12/03/2022 04:38 Estimated GFR Creatinine 57 ML/MIN/1.73 M2 ()?? 12/03/2022 04:38 Phosphorus 3.4 mg/dL ()?? 12/03/2022 04:38 Magnesium 2.1 mg/dL ()?? 12/03/2022 04:38 ?? URINE OTHER Est Creatinine Clearance 49.88 mL/min ()?? 12/03/2022 05:41 ? VIROLOGY COVID-19 PCR Specimen Source NASAL ()?? 11/30/2022 21:20 COVID-19 PCR Result NEGATIVE ()?? 11/30/2022 21:20 ? Procedures(s) ?GG EGD ?? 12/02/2022 14:30 ?Hiatal hernia unable to find window for G-tube placement erosive oesophagitis. omeprazole 40mg bid for 8 weeks then 20mg daily therafter ? Imaging(s) ?IR Insert Gastrostomy Tube ?? 12/04/2022 13:38??by Abraham Gillis MD ? Impression: Satisfactory ultrasound and fluoroscopically guided placement of a gastrostomy tube patient tolerated the procedure well with no complications of the procedure Please Note: Arrangements should be made for the patent to have the 3 retention sutures removed in 10-14 days. The sutures are held in place by 1cm diameter buttons on the skin. Cut these. Do not cut the any suture encircling the G-tube collar. 1. The G-tube can be used after 6 hours if clear gastric juices are draining from the G-tube and there is no evidance of peritoneal irritation (i.e. no abdominal pain, or tenderness, normal bowel sounds). 2. Please consult with nutrition service concerning starting g-tube feeds. 3. When initiating G-tube feeds have the patient in right side down decubitus. 4. Written instructions and other information concerning G-tubes were placed in the patients chart. These orders were entered into [facility]. 5. We recommend that the patient return for removal of the retention sutures 10-14 days after G-tube placement. The sutures should not remain in place longer than 2 weeks. We will make arrangements. 6. Please ensure that the white port on the hub of the catheter is used for balloon inflation and deflation only. This port should only be manipulated by an interventional radiologist. This should not be used for flushing or administration of feeds. 7. We recommend that G-tubes of this type be replaced at 3 month intervals to avoid inadvertent loss of access due to deterioration in the G-tube retention balloon material. We will make arrangements. TO PREVENT CLOGGING OF THE G-TUBE FLUSH VIGOROUSLY WITH 30ML OF WATER AFTER EACH FEEDING. WHENEVER POSSIBLE GIVE MEDICATIONS IN LIQUID FORM; IF SOLID MEDICATIONS ARE ABSOLUTELY REQUIRED HAVE THE MEDICATIONS GROUND TO A FINE PASTE (preferably by a compounding pharmacy) SUSPEND IN WATER AND FLUSH AFTER EACH DOSE. IF CLUMPS OF MEDICATION ARE SEEN IN THE SUSPENSION, RESUSPEND. ? Consults(s) ?Consultation Note ?? 12/01/2022 14:40??by Chris Marte MD ?PM&R ?Consultation Note ?? 12/01/2022 12:22??by Jd Duarte MD ?GI ? 25_ minutes spent on discharge * Negra Chi RN: PERFORM, SIGN, VERIFY Event Display: Case Management Discharge Plan Authored Date: [id number] Patient: CHUY ESTES Age: 72 years Sex: Male : 1950 Associated Diagnoses: None Author: Negra Chi RN Discharge Plan Case Management Discharge Plan : Case Management Discharge Plan Data 12/06/2022 18:39 EDT Discharge Level of Care at Discharge Not Done: Task Duplication (Not Done) 12/06/2022 14:38 EDT Discharge Level of Care at Discharge Short-term Acute Inpatient Discharge Nursing Homes/Rehab Facilities [facility] Discharge Transportation Arranged family (Modified) Discharge Arranged Transport Date/Time 12/07/2022 16:00 Name of Agency #1 [facility] Service Categories #1 Occupational Therapy, Physical Therapy, Snf Service Comments #1 As dicussed your will provide transportation to [facility]. (Modified) 11/30/2022 16:10 EDT Discharge Level of Care at Discharge Short-term Acute Inpatient * Job Jiménez: PERFORM Event Display: Patient Education/Instruction Authored Date: [id number] Inpatient Adult Discharge Instructions [address] [address] Name: CHUY ESTES : 1950 Visit: 11/30/2022 16:46:00 Current Date: 12/07/2022 10:09 Account: [id number] Inpatient Adult Discharge Instructions We would like to thank you for allowing us to assist you with your healthcare needs. The following includes patient education materials and information regarding your injury/illness. Our entire staffstrives to provide an excellent experience for our patients and their families. PLEASE ENSURE YOU FOLLOW-UP PER THE INSTRUCTIONS BELOW! ?? YOUR OPINION IS IMPORTANT TO US! Please complete the survey you may receive by mail or email. Your feedback will be used to make improvements to the healthcare experiences of our patients and their families. Surveys are administered by [employer] ?? If further treatment with your primary care physician or another doctor is recommended, it is important for you to keep the appointment. Call your primary care physician or return to the Emergency Department immediately if your condition worsens, fails to improve, or new symptoms develop. If you need to find a doctor, you can call [facility] [employer] for a referral at [phone] or toll free at [phone] ([phone]) or log in to [email or web address].. ?? [facility], in keeping with [facility] guidance, no longer requires face masks for staff, patientsor visitors in most situations. Similiar to time spent indoors at other locations, there is the chance that you were exposed to repiratory viruses during your time with us (such as flu or COVID-19). If you develop symptoms concerning for a viral respiratory infection, please seek testing (and treatment if indicated) from your medical provider or home test kit. ?? You can view and manage your care through the patient portal or by using a health care alpa of your choosing. [employer] is a website that allows you to securely view your medical information including your hospital discharge summary, office visit summaries, medications and follow-up visits. You can also request appointments, renew medications, and request access to your medical information using a health care alpa of your choosing, or just ask a question. You can enroll at [email or web address] or register during your next office visit. You have been discharged from [facility], Patient Care Unit: S2. If you have any questions regarding these instructions after you leave, please call us and we will be happy to assist you. [facility] Your Care Team Attending Physician Zion ROJAS, Sina Forrest Consulting Providers Aura Alejo DO, MD, Chris Kelly Discharging Providers Zion ROJAS, Sina Forrest Reason for Admission DYSPHAGIA CVA VOCAL CORDDYSFUNCTION Your Diagnosis Acute cerebrovascular accident (CVA) Hypertension Depression GERD (gastroesophageal reflux disease) Malnutrition Vertebral artery stroke Tests Performed Below is a partial list of the tests performed during your hospitalization. You may have had other tests and procedures not included in this list. Please discuss all test results with your provider. BUN CBC COVID-19 (2019 Novel Coronavirus) PCR Creatinine Electrolytes Magnesium Level Phosphorus Level CXR Portable IR Generic Order Primary Care Provider Not on Staff, PCP Advance Directive Health Care Proxy on File Yes - Health Care Proxy Discharge Vitals Temperature: 98.7 DegF Height: 173 cm Pulse Rate: 65 bpm Weight: 72.2 kg Respiratory Rate: 18 br/min Body Mass Index: 24.12 kg/m2 Systolic Blood Pressure:??150 mm Hg??High Body surface area: 1.86 Diastolic Blood Pressure: 78 mm Hg ?? Oxygen Saturation: 99 % ?? Studies Pending All tests and labs ordered during this hospital stay have been completed unless listed below. Please discuss all pending results with your provider listed above in these instructions. ?? No incomplete studies found What to do next Instructions From Your Doctor Discharge Orders Scheduled Follow-Up Appointments Thursday 1:30 PM EDT ?? With: Connie Duarte MD, [facility] Where: [address] [address]- Status: Pending You Need to Schedule the Following Appointments Follow Up with??PCP Not on Staff When:??Within 1 to 2 weeks Discharge Medications CHUY ESTES :1950 Visit Date:11/30/2022 Medications: Please continue your medications until treatment is completed or stopped by your provider. Medications not listed below should be discontinued. Discuss any questions related to medications with your provider. What How Much When Instructions Next Dose New Lansoprazole (lansoprazole 30 mg oral tablet, disintegrating) 30 Milligram Gastrostomy/PEG Tube Twice a day for 8 weeks then 1 tablet daily thereafter ?? 12/07/22 9pm New Losartan (Cozaar 50 mg oral tablet) 75 Milligram Gastrostomy/PEG Tube Daily Duration: 30 Days 12/08/22 9am New Melatonin (melatonin 3 mg oral tablet) 3 Milligram Nasogastric tube Daily at Bedtime as needed for Insomnia As needed New Trazodone (traZODone 50 mg oral tablet) 25 Milligram Oral Daily at Bedtime as needed for Sleep As needed Unchanged Amlodipine 10 Milligram Oral Daily 12/08/22 9am Unchanged Aspirin (aspirin 81 mg oral delayed release tablet) 1 tab(s) Oral Daily 12/08/22 9am Unchanged Atenolol (atenolol 50 mg oral tablet) 1 tab(s) Oral Daily 12/08/22 9am Unchanged Atorvastatin (atorvastatin 40 mg oral tablet) 40 Milligram Nasogastric tube Daily at Bedtime 12/07/22 9pm Unchanged BuPROpion 150 Milligram Oral Daily in the morning 12/08/22 9am Unchanged Clopidogrel (Plavix 75 mg oral tablet) 1 tab(s) Oral Daily 12/08/22 9am Unchanged Escitalopram (escitalopram 20 mg oral tablet) 1 tab(s) Oral Daily 12/08/22 9am ?? What How Much When Comments Stop Taking Omeprazole 20 Milligram Oral Daily Test Results Below is a partial list of the most recent Laboratory test results done prior to this discharge. You may have had other tests and procedures not included in this list. Please discuss all test resultswith your provider. Est Creatinine Clearance - 49.88 mL/min (12/03/2022) BUN (12/03/2022) ???BUN - 16 mg/dL CBC (12/03/2022) ???WBC - 5.7 k/mm3???RBC - 4.44 m/mm3???Hgb - 13.3 Gm/dL???Hct - 40.9 %???MCV - 92.1 femtoliters???MCH - 30.0 pg???MCHC - 32.5 g/dL???Platelet Count - 148 k/mm3???RDW-SD - 41.1 femtoliters???MPV - 11.2 femtoliters???Nucleated RBC (Automated) - 0.0 #/100 WBC'S???Abs. NRBC - 0.0 k/mm3 COVID-19 (2019 Novel Coronavirus) PCR (11/30/2022) ???COVID-19 PCR Specimen Source - NASAL???COVID-19 PCR Result - NEGATIVE Creatinine (12/03/2022) ???Creatinine-Blood - 1.3 mg/dL???Estimated GFR Creatinine - 57 ML/MIN/1.73 M2 Electrolytes (12/03/2022) ???Sodium - 144 mmol/L???Potassium - 4.0 mmol/L???Chloride - 107 mmol/L???Bicarbonate Level - 27 mmol/L???Anion Gap - 10 Magnesium Level (12/03/2022) ???Magnesium - 2.1 mg/dL Phosphorus Level (12/03/2022) ???Phosphorus - 3.4 mg/dL Immunizations This Visit Not Given Vaccine Commentsinfluenza virus vaccine, inactivated Patient Refuses Pt states I just got my flu shot a week ago . Allergies (NKA means No Known Allergies) No Known Medication Allergies Problems Active Problems??(4) Depression?? GERD (gastroesophageal reflux disease)?? Hypertension?? Vertebral artery stroke?? Education Materials Below is the list of Educational Leaflet Providered with your Discharge Instructions. What is an Ischemic Stroke??? Losartan Oral Tablet?? Discharge Instructions: Caring for Your Gastrostomy Tube (G-Tube)?? Valuables and Belongings I fully understand and agree that [facility] accepts no responsibility for all my personal property including clothing, toilet articles, radios, jewelry, dentures, hearing aids, rings, money, or any other property that is in my possession or is brought to me after admission. I understand certain valuables may be placed in a hospital safe for a short period of time. I understand that the hospital is not liable for loss or damage due to accident, fire, or other natural occurrence while said property is in the safe. I accept full responsibility for any personal property that I keep with me, and will not hold the hospital responsible in case of loss or disappearance. I acknowledge that i have been encouraged to send valuables and belongings home. ?? Review of Valuable and Belonging List: With patient Date for Pt to Sign Valuables/Belongings: 11/30/22 17:28:00 ?? Other Discharge Information ? Case Management Discharge Plan?? Discharge Plan?? Discharge Agency Information?? Discharge Level of Care at Discharge: Short-term Acute Inpatient Name of Agency #1: [facility] Discharge Transportation Arranged: [facility] [address] [facility] ??[phone] Service Categories #1: Occupational Therapy, Physical Therapy, Snf Discharge Nursing Homes/Rehab Facilities: [facility] Service Comments #1: We will arrange transportation. ?? Pulmonary Rehab Status?? Pulmonary Rehab Discharge Status?? Respiratory Rate: 18 br/min ? Common Emergency Awareness Tips IS IT A STROKE? Act FAST and Check for these signs: FACE Does the face look uneven? ARM Does one arm drift down? SPEECH Does their speech sound strange? TIME Call at any sign of stroke ?? Heart Attack Signs Chest discomfort: Most heart attacks involve discomfort in the center of the chest and lasts more than a few minutes, or goes away and comes back. It can feel like uncomfortable pressure, squeezing, fullness or pain. Discomfort in upper body: Symptoms can include pain or discomfort in one or both arms, back, neck, jaw or stomach. Shortness of breath: With or without discomfort. Other signs: Breaking out in a cold sweat, nausea, or lightheaded. Remember, MINUTES DO MATTER. If you experience any of these heart attack warning signs, call to get immediate medical attention! ?? Smoking can increase your chances of developing chronic health problems and can cause harmful effects to other family members in your house. If you smoke, you are strongly encouraged to quit. Please call [employer] [facility] at [phone] or [phone] ([phone]) or log in to [email or web address] for referrals to smoking cessation programs. ?? 988 Suicide & Crisis Lifeline is available 29/09 if you or someone you know needs to find a reason to keep living. By calling 848 you'll be connected to a skilled, trained counselor at a crisis center in your area. INPATIENT DISCHARGE INSTRUCTIONS SIGNATURE PAGE CHUY ESTES Location:[facility] Registration Date and Time:11/30/2022 16:46 EDT Primary Care Physician: Not on Staff, PCP Attending Physician: Zion ROJAS, Sina Forrest, I CHUY ESTES, have received the above patient education materials/instructions and have verbalized understanding. If ambulance or transport services are being used I further acknowledge being given a choice of service. ?? If you need to contact me, please call me at this number: . Patient/Staff Therapist Name: Patient/Staff Therapist Signature: Relationship to Patient: Witness Name/Signature: Date: * Sina Donovan MD: PERFORM Event Display: Discharge/Transfer Note Hospital Authored Date: Patient: ??CHUY ESTES ? Age:??72 Years?Sex:??Male?:??1950?? 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 _ Discharge Medications Amlodipine?10?Milligram?By Mouth?Daily Aspirin (aspirin 81 mg oral delayed release tablet)?81?Milligram?1?tablet?By Mouth?Daily Atenolol (atenolol 50 mg oral tablet)?50?Milligram?1?tablet?By Mouth?Daily Atorvastatin (atorvastatin 40 mg oral tablet)?40?Milligram?Nasogastric Tube?Daily at bedtime BuPROpion?150?Milligram?By Mouth?Daily in AM Clopidogrel (Plavix 75 mg oral tablet)?75?Milligram?1?tablet?By Mouth?Daily Escitalopram (escitalopram 20 mg oral tablet)?1?tab(s)?20?Milligram?By Mouth?Daily Losartan (Cozaar 50 mg oral tablet)?50?Milligram?G Tube?Daily Melatonin (melatonin 3 mg oral tablet)?3?Milligram?Nasogastric Tube?Daily at bedtime?as needed?Insomnia Omeprazole (omeprazole 20 mg oral delayed release tablet)?40?Milligram?By Mouth?2 timesa day?for 30?Days?for 8 weeks then 20mg daily thereafter Trazodone (traZODone 50 mg oral tablet)?25?Milligram?By Mouth?Daily at bedtime?as needed?Sleep ? Quality Measures Stroke Quality Measures:? Tube Feedings Product: Water Route: by G-Tube Bolus Frequency: 3 times a day Last Rate: ? Product: 1.2 Kcal/mL Fiber Route: by G-Tube Last Rate: ? Medications Started losartan trazodone melatonin Medications Discontinued none Doses Changed omeprazole PCP Follow-Up/Heads-Up please ensure that patient follows up with neurology please continue clopidogrel for 3 months please monitor BP and adjust meds as necessary Future Appointments Thursday 1:30 PM EDT ?? With: Tania Saenz MD Where: [facility] [address] [place] [address]- Status: Pending Objective Assessment and Plan Assessment:??72-year-old male with history of hypertension, GERD, and depression who presented to [facility] on 11/25/2022 with sudden vertigo, nausea, vomiting, and garbled speech. 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 MBS showed significant dysmotility with pooling in the vallecula and piriform sinuses with no evidence of aspiration. The patient was started on a pur??ed diet with thin liquids, however there was inability to keep up with the daily caloric requirements and NG tube was placed for additional tube feeding nutrition on 11/28/22. PEG tube was then discussed and the patient consented. Patient transferred to [facility] for this. ? 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 His dizziness and dysarthria have improved, although he continues to have some issues with dysphagia as outlined. Unfortunately GI were unable to find a safe window to place G-tube IR guided G-tube now??placed on 12/04 Recs ??commenced tube feeds ??per rehab - titration can be performed there if not up to goal by tomorrow ??aspirin 81mg daily ??resumed clopidogrel??on 12/05 ??aspirin and Plavix for 3 months and then aspirin monotherapy after that ??Statin ?? Erosive oesophagitis seen on EGD GI recommending??omeprazole 40mg bid for 8 weeks then 20mg daily thereafter ?Malnutrition (E46): Not able to tolerate oral diet.??G-tube placed as above ??tube feeding per nutrition: ??Continue TF regimen as ordered: - 1.2kcal/mL fiber formula (Jevity 1.2) initiating at 10mL advancing 10mL q4hrs to goal of 65mL/hr x 24 hours - Additional free 250 water bolus TID - Provides 1872kcals, 87g protein, 2009mL free water (1259mL from TF), and 100% RDI's - anticipate additional fluuid needs to be meet via PO intake ?Hypertension (I10): on amlodipine and atenolol.?added losartan for uncontrolled BP -?now??increased to 50mg ??Renal function stable with creatinine 1.4. Previous baseline 1.2-1.6. ??Depression (F32.A): Mood is stable. Lexapro and Wellbutrin as prescribed. Continue trazodone at bedtime as needed for sleep. ?Code Status: FULL. ? Discharge Planning:? Vital Signs?? Temperature: 98.2 DegF (12/06/22 06:18:00) Temperature Route: Oral (12/06/22 06:18:00) Pulse Rate: 68 bpm (12/06/22 09:48:00) Respiratory Rate: 18 br/min (12/06/22 06:51:00) Systolic Blood Pressure:??170 mm Hg??High (12/06/22 09:48:00) Diastolic Blood Pressure: 83 mm Hg (12/06/22 09:48:00) Blood pressure sites: Arm, left (12/06/22 09:48:00) Mean Arterial Pressure: 97 mm Hg (12/06/22 06:18:00) Pulse Pressure: 87 mm Hg (12/06/22 09:48:00) Oxygen Saturation: 96 % (12/06/22 06:18:00) Mode of Delivery (Oxygen): Room air (12/06/22 06:18:00) Early Warning Score: 0 (12/06/22 09:52:14) ? . Physical Exam Gen: comfortable, well: HEENT: normocephalic, atraumatic, moist mucous membranes Chest: CTA, no wheeze/crackles CVS: no M/G/R, no JVD Abdo: soft, non-tender. G-tube in situ Ext: no oedema, no cyanosis or clubbing Neuro: A+Ox3. power 5/5 throughout. past pointing and DDK on L. no dysarthria or nystagmus Psych: WNL Surgical Procedures Gastroscopy (EGD) with Directed Placemen 12/02/2022 16:01 Pending Results No Pending Results Patient Education Titles What is an Ischemic Stroke??? Losartan Oral Tablet?? Discharge Instructions: Caring for Your Gastrostomy Tube (G-Tube)?? Follow-Up Appointments Added Follow Up ?Time Frame ?Comments PCP Not on Staff?1 to 2 weeks Post Discharge Care Discharge ?12/06/22 9:50:00 EDT Discharge Prescriptions ?None, 12/06/22 9:50:00 EDT Home Health Face to Face ^HomeHealthFTF Results Discharge Labs BLOOD COUNT & DIFF WBC 5.7 k/mm3 ()?? 12/03/2022 04:38 RBC 4.44 m/mm3 (Low)?? 12/03/2022 04:38 Hgb 13.3 Gm/dL (Low)?? 12/03/2022 04:38 Hct 40.9 % ()?? 12/03/2022 04:38 MCV 92.1 femtoliters ()?? 12/03/2022 04:38 MCH 30.0 pg ()?? 12/03/2022 04:38 MCHC 32.5 g/dL (Low)?? 12/03/2022 04:38 Platelet Count 148 k/mm3 (Low)?? 12/03/2022 04:38 RDW-SD 41.1 femtoliters ()?? 12/03/2022 04:38 MPV 11.2 femtoliters ()?? 12/03/2022 04:38 Nucleated RBC (Automated) 0.0 #/100 WBC'S ()?? 12/03/2022 04:38 Abs. NRBC 0.0 k/mm3 ()?? 12/03/2022 04:38 ?? CHEM GENERAL Sodium 144 mmol/L ()?? 12/03/2022 04:38 Potassium 4.0 mmol/L ()?? 12/03/2022 04:38 Chloride 107 mmol/L ()?? 12/03/2022 04:38 Bicarbonate Level 27 mmol/L ()?? 12/03/2022 04:38 Anion Gap 10 ()?? 12/03/2022 04:38 BUN 16 mg/dL ()?? 12/03/2022 04:38 Creatinine-Blood 1.3 mg/dL (High)?? 12/03/2022 04:38 Estimated GFR Creatinine 57 ML/MIN/1.73 M2 ()?? 12/03/2022 04:38 Phosphorus 3.4 mg/dL ()?? 12/03/2022 04:38 Magnesium 2.1 mg/dL ()?? 12/03/2022 04:38 ?? URINE OTHER Est Creatinine Clearance 49.88 mL/min ()?? 12/03/2022 05:41 ? VIROLOGY COVID-19 PCR Specimen Source NASAL ()?? 11/30/2022 21:20 COVID-19 PCR Result NEGATIVE ()?? 11/30/2022 21:20 ? Procedures(s) ?GG EGD ?? 12/02/2022 14:30 ?Hiatal hernia unable to find window for G-tube placement erosive oesophagitis. omeprazole 40mg bid for 8 weeks then 20mg daily therafter ? Imaging(s) ?IR Insert Gastrostomy Tube ?? 12/04/2022 13:38??by Abraham Gillis MD ? Impression: Satisfactory ultrasound and fluoroscopically guided placement of a gastrostomy tube patient tolerated the procedure well with no complications of the procedure Please Note: Arrangements should be made for the patent to have the 3 retention sutures removed in 10-14 days. The sutures are held in place by 1cm diameter buttons on the skin. Cut these. Do not cut the any suture encircling the G-tube collar. 1. The G-tube can be used after 6 hours if clear gastric juices are draining from the G-tube and there is no evidance of peritoneal irritation (i.e. no abdominal pain, or tenderness, normal bowel sounds). 2. Please consult with nutrition service concerning starting g-tube feeds. 3. When initiating G-tube feeds have the patient in right side down decubitus. 4. Written instructions and other information concerning G-tubes were placed in the patients chart. These orders were entered into [facility]. 5. We recommend that the patient return for removal of the retention sutures 10-14 days after G-tube placement. The sutures should not remain in place longer than 2 weeks. We will make arrangements. 6. Please ensure that the white port on the hub of the catheter is used for balloon inflation and deflation only. This port should only be manipulated by an interventional radiologist. This should not be used for flushing or administration of feeds. 7. We recommend that G-tubes of this type be replaced at 3 month intervals to avoid inadvertent loss of access due to deterioration in the G-tube retention balloon material. We will make arrangements. TO PREVENT CLOGGING OF THE G-TUBE FLUSH VIGOROUSLY WITH 30ML OF WATER AFTER EACH FEEDING. WHENEVER POSSIBLE GIVE MEDICATIONS IN LIQUID FORM; IF SOLID MEDICATIONS ARE ABSOLUTELY REQUIRED HAVE THE MEDICATIONS GROUND TO A FINE PASTE (preferably by a compounding pharmacy) SUSPEND IN WATER AND FLUSH AFTER EACH DOSE. IF CLUMPS OF MEDICATION ARE SEEN IN THE SUSPENSION, RESUSPEND. ? Consults(s) ?Consultation Note ?? 12/01/2022 14:40??by Chris Marte MD ?PM&R ?Consultation Note ?? 12/01/2022 12:22??by Jd Duarte MD ?GI ? 40_ minutes spent on discharge * Sina Donovan MD: PERFORM Event Display: Discharge/Transfer Note Hospital Authored Date: No bed available today will go to rehab tomorrow this note to act as progress note for the day * Sina Donovan MD: PERFORM, SIGN, VERIFY Event Display: Patient Education Handout Authored Date: * Sina Donovan MD: PERFORM Event Display: Patient Education Leaflets Authored Date: What is an Ischemic Stroke? ?? What is an Ischemic Stroke? - Video Watch what happens in the brain during an ischemic stroke, its symptoms, and the importance of calling 911 if you think someone may be having a stroke. To view the video go to this web address: [email or web address] Or, scan this QR code with your smart phone ?? [employer] ?? * Sina Donovan MD: PERFORM Event Display: Patient Education Leaflets Authored Date: [id number] Losartan Oral Tablet ?? [address] Losartan Oral Tablet Brands: Cozaar Uses This medicine is used for the following purposes: ??? diabetic complications ??? heart failure ??? high blood pressure ??? kidney disease ?? Instructions This medicine may be taken with or without food. This medicine will work best if you take it at about the same time every day. Store at room temperature away from heat, light, and moisture. Do not keep in the bathroom. Talk to your doctor before eating foods with large amounts of potassium. Potassium is often found in salt substitutes. Your doctor may want you to reduce the amount of these foods. Tell your doctor if you have severe or persistent sweating, diarrhea or vomiting. These can increase your risk of a serious side effect. It is important that you keep taking each dose of this medicine on time even if you are feeling well. If you forget to take a dose on time, take it as soon as you remember. If it is almost time for thenext dose, do not take the missed dose. Return to your normal schedule. Do not take 2 doses at one time. Drug interactions can change how medicines work or increase risk for side effects. Tell your healthcare providers about all medicines taken. Include prescription and ucrk-sek-[id number] medicines, vitamins, and herbal medicines. Speak with your doctor or pharmacist before starting or stopping any medicine. Tell your doctor if symptoms do not get better or if they get worse. Keep all appointments for medical exams and tests while on this medicine. ?? Cautions Tell your doctor and pharmacist if you ever had an allergic reaction to a medicine. Do not use the medication any more than instructed. This medicine may cause dizziness or fainting, especially after exercising or in hot weather. Be very careful when standing or sitting up quickly. Your ability to stay alert or to react quickly may be impaired by this medicine. Do not drive or operate machinery until you know how this medicine will affect you. Please check with your doctor before drinking alcohol while on this medicine. Contact your doctor if you notice a change in the amount or darkening of your urine. It is unknown if this medicine passes into breast milk. Ask your doctor before . This medicine can hurt a new baby in the womb. If you become while on this medicine, tell your doctor immediately. Your doctor may switch you to a different medicine. Do not share this medicine with anyone who has not been prescribed this medicine. ?? Side Effects The following is a list of some common side effects from this medicine. Please speak with your doctor about what you should do if you experience these or other side effects. ??? dizziness ??? lightheadedness Call your doctor or get medical help right away if you notice any of these more serious side effects: ??? swelling of the face, mouth, tongue or throat ??? fainting ??? fast, irregular, or slow heartbeat ??? muscle weakness ??? urinating less often A few people may have an allergic reaction to this medicine. Symptoms can include difficulty breathing, skin rash, itching, swelling, or severe dizziness. If you notice any of these symptoms, seek medical help quickly. ?? Extra Please speak with your doctor, nurse, or pharmacist if you have any questions about this medicine. ?? [email or web address] IMPORTANT NOTE: This document tells you briefly how to take your medicine, but it does not tell youall there is to know about it. Your doctor or pharmacist may give you other documents about your medicine. Please talk to them if you have any questions. Always follow their advice. There is a more complete description of this medicine available in Chinese. Scan this code on your smartphone or tablet or use the web address below. You can also ask your pharmacist for a printout. If you have any questions, please ask your pharmacist. The display and use of this drug information is subject to Terms of Use. Copyright(c) 2022 [employer]. ?? [employer]. All rights reserved. This information is not intended as a substitute for professional medical care. Always follow your healthcare professional's instructions. ?? * Zion ROJAS, Sina Forrest: PERFORM Event Display: Patient Education Leaflets Authored Date: [id number] Discharge Instructions: Caring for Your Gastrostomy Tube (G-Tube) ?? [address] Discharge Instructions: Caring for Your Gastrostomy Tube (G-Tube) You have been discharged with a gastrostomy tube, or G-tube. The G-tube was inserted through your belly (abdominal) wall and into your stomach. The tube will provide you with food, fluids, and medicine. Your G-tube may move in and out slightly. If the tube comes out all the way in??the first few weeks after placement,??don???t put it back in. Call your healthcare provider right away. Don???t waituntil the next day. This is important because the G-tube tract through the skin may close very quickly, often in 24 hours.??After the first few weeks, if the tube comes out, ask your provider what todo next. In some cases, you may be told to replace the tube at home. Or you may need to see your pro vider to replace it. General guidelines for use ??? Wash your hands thoroughly with soap and clean, running water??before starting your feeding. ??? During the feeding and for one hour after, sit in a chair or sit up in bed. ??? Before feeding begins, your healthcare provider may have you check to see that your stomachis empty. Follow your healthcare team's specific instructions if you are advised to check residuals. If you are instructed to check residuals, you will l need a syringe for the following steps:?? o Put the tip of an empty syringe into the end of the G-tube. o Pull back on the syringe to withdraw your stomach contents. o In some cases, your provider will ask you to check how much feeding remains from the previous time. If so, your provider will tell you how much fluid is safe to have in your stomach before you start your feeding. ??? Clean the area around the tube with mild soap and water. ???Pat the area dry after bathing and as needed. ??? Clean the area more often if it gets wet. Or if it's leaking some discharge (weeping). ??? Keep the disk (flange) a few millimeters off the skin. This should leave just enough room for a gauze sponge if your provider advises keeping gauze on the site. Pulling the flange too tightly can damage the skin. But leaving the flange too loose leads to leaking around the G-tube. Your healthcare team will go over these guidelines before you leave the hospital. ?? The name of my feeding supplement/formula is: Amount per feeding:?? Times per day: Amount of water used to flush tube: My healthcare provider's name and phone number are: ?? [place] feeding method ??? Fill the feeding bag with the prescribed amount of formula. Run the fluid to the end of the tube to clear out any air. Clamp the tube. ??? Connect the end of the feeding bag tubing to the G-tube. ??? Hang the bag at least 18 inches above the level of your G-tube. ??? Openthe clamp and allow the formula to flow into the G-tube. ??? Follow with the prescribed amount of water. ??? Follow your healthcare team's instructions on when to clean your bag and tubing and when to use a new bag and tubing. ?? Pump feeding method ??? Fill the feeding bag with the prescribed amount of formula. Run the fluid to the end of the tube to clear out any air. Clamp the tube. ??? Connect the end of the feeding bag tubing to the G-tube. Set the pump rate of flow to the prescribed rate per hour. ??? Open the clamp on the tubing. Press the start button on your pump. ??? When feeding is done, disconnect the feeding set. ??? Connect the tip of an empty syringe to the feeding tube. Slowly push in the prescribed amount of water. ??? Follow your healthcare team's instructions on when to clean your bag and tubing andwhen to use a new bag and tubing. ?? Syringe feeding method ??? Remove the plunger from a syringe and connect the syringe to the G-tube.??? Hold the syringe upright and pour the formula into the syringe. ??? Refill the syringe as the formula reaches the bottom of the syringe. ??? Repeat the process until the prescribed amount of formula is given. ??? Follow the feeding with the prescribed amount of water. ??? Follow your healthcareteam's instructions on when to clean your syringe and tubing and when to use a new syringe and tubing. ?? Routine follow-up care Follow your healthcare provider's specific instructions on what to do if the tube comes out by accident. If the tube comes out all the way in??the first few weeks after placement,??don???t put it back in. Call your provider right away. Don???t wait until the next day. This is important because the G-tube tract through the skin may close very quickly, often in 24 hours.??After the first few weeks,if the tube comes out, ask your provider about what to do next. In some cases, you may be told to replace the tube at home. Or you may need to see your provider to replace it. Otherwise, follow up with your provider, or as advised. If your tube is scheduled to be removed, your provider will tell you when this needs to happen and what you need to do. ?? When to call your healthcare provider Call your healthcare provider right away if you have any of the following: ??? The tube comes out? The tube is blocked ??? Vomiting ??? Fever above 100.4??F ( 38.0??C) or higher ??? Diarrhea that lasts more than 2 days ??? Signs of infection (redness, swelling, or warmth at the tube site) ??? Drainage from the tube site ?? Last Reviewed Date: 2021 ?? 9915-2595 [employer]. All rights reserved. This information is not intended as a substitute for professional medical care. Always follow your healthcare professional's instructions. ?? Patient Care team information Care Team Personnel Name: Eric Lemus RN Position: [facility] RN Member Role: Primary Care Nurse Name: Benja Eric RN Position: [facility] RN Supv Member Role: Primary Care Nurse Name: Not on Staff, PCP Position: [facility] Physician (General Medicine) Member Role: PCP Name: Liam Teixeira RN Position: S RN Member Role: Primary Care Nurse Name: Iwona Burden RN Position: S RN Member Role: Primary Care Nurse Name: Ana Boykin RN Position: S RN Member Role: Primary Care Nurse Care Team Related Persons Name: HOLLIE ESTES Address: [address] [place] [id number]
--- OUTSIDE RECORDS SUMMARY | 2023-04-16 13:52 | XMS_ITS | Continuity of Care Document ---
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 [id number] Date(s): 02/17/23 - 03/19/[address] [address]- Attending Physician: Niels Razo Admitting Physician: AdmNiels wayne Referring Physician: Admtr, Ar8 Allergies, Adverse Reactions, [...] 11/30/22 11:03:00 EDT, Route to Pharmacy Electronically, [facility]/pharmacy #[id number], Partial fill upon patient request if the [...] 01/06/23 15:38:00 EDT, Route to Pharmacy Electronically, [facility], Partial fill upon patient request [...] 11/30/22 11:04:00 EDT, [id number] fill upon patient request [...] Team Personnel Name: Sina Lechuga MD Position: [facility] Outreach Member Role: PCP Address: Address: [address] [place] [id number] Name: Eric Lemus RN Position: S RN Member Role: Primary Care Nurse Name: Benja Eric RN Position: S RN Supv Member Role: Primary Care Nurse Name: Iwona Burden RN Position: S RN Member Role: Primary Care Nurse Name: Ana Boykin RN Position: S RN Member Role: Primary Care Nurse Care Team Related Persons Name: HOLLIE ESTES Address: [address] [place] [id number]
--- OUTSIDE RECORDS SUMMARY | 2023-04-16 13:52 | XMS_ITS | Continuity of Care Document ---
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 Role Phone Alexandrea ROJAS, Sina Rodrigues Primary Care Physician Encounter [facility] Date(s): 01/21/23 - 01/28/[address] [place] [address]- Attending Physician: Reji Sutherland Allergies, Adverse Reactions, Alerts No Known Medication [...] 11:03:00 EDT, Route to Pharmacy Electronically, [facility]/pharmacy #[id number], Partial fill upon patient request if the [...] 01/06/23 15:38:00 EDT, Route to Pharmacy Electronically, [facility], Partial fill upon patient [...] 11/30/22 11:04:00 EDT, [id number] fill upon patient request if [...] oldest [Reference Range]: 1 Height 173 cm (01/21/23 1:26 PM) Oxygen Saturation [94-100 %] 100 % (01/21/23 1:26 PM) Pulse Rate [55-90 bpm] 72 bpm (01/21/23 1:26 PM) Blood Pressure [90-138/55-84 mm Hg] 122/ 69mm Hg (01/21/23 1:26 PM) Temperature [96.8-100.4 DegF] 95.9 DegF *L* (01/21/23 1:26 PM) Mode of Delivery (Oxygen) Room air (01/21/23 1:26 PM) Blood pressure sites Arm, left (01/21/23 1:26 PM) Temperature Route Temporal (01/21/23 1:26 PM) Patient Care team information Care Team Personnel Name: Sina Lechuga MD Position: [facility] Outreach Member Role: PCP Address: Address: [address] [place] [id number]- Name: Eric Lemus RN Position: S RN Member Role: Primary Care Nurse Name: Benja Eric RN Position: S RN Supv Member Role: Primary Care Nurse Name: Liam Teixeira RN Position: S RN Member Role: Primary Care Nurse Name: Iwona Burden RN Position: S RN Member Role: Primary Care Nurse Name: Ana Boykin RN Position: S RN Member Role: Primary Care Nurse Care Team Related Persons Name: HOLLIE ESTES Address: [address] [place] [address]
--- OUTSIDE RECORDS SUMMARY | 2023-04-16 13:52 | XMS_ITS | Continuity of Care Document ---
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 Name Role Phone Alexandrea ROJAS, Sina Rodrigues Primary Care Physician Encounter [facility] Date(s): 01/05/23 - 01/06/[address] [address]- Encounter Diagnosis Fall(Final) - 01/04/23 Rib fractures(Final) - 01/04/23 Pneumothorax(Final) - 01/04/23 Discharge Disposition: A-Transfer VNA/Home Health Attending Physician: Davida Barakat MD Admitting Physician: Davida Barakat MD Referring Physician: Not on Staff, Referring MD Allergies, Adverse Reactions, Alerts No Known Medication Allergies Medications acetaminophen 325 mg oral tablet 650 mg, G Tube, Every 4 hours, # 30 tablet, Refills 0, Tot. Refills 0, Acute 01/20/23 0:00:00 EST, 01/06/23 15:38:00 EDT, Route to Pharmacy Electronically, [facility], Partial fill uponpatient request if the prescription is for a schedu... Start Date: 01/06/23 Stop Date: 01/20/23 Status: Ordered acetaminophen 325 mg oral tablet 650 mg, Tablet, G Tube, 01/06/23 14:00:00 EDT Start Date: 01/06/23 Stop Date: 01/06/23 Status: Completed Amlodipine = 10 mg, By Mouth, Daily, 0 Refills, Maintenance, 11/25/22 15:56:00 EDT, Partial fill upon patient request if the prescription is for a schedule II opioid drug. Start Date: 11/25/22 Status: Ordered AmLODipine Liquid 10 mg, Liquid, G Tube, 01/06/23 9:00:00 EDT Start Date: 01/06/23 Stop Date: 01/06/23 Status: Completed aspirin 81 mg oral delayed release tablet 81 mg, 1, tablet, By Mouth, Daily, # 90 tablet, Refills 0, Tot. Refills 0, Maintenance, 11/30/22 11:03:00 EDT, Route to Pharmacy Electronically, [facility][id number], Partial fill upon patient request if the prescription is for a schedule II opioid drug... Start Date: 11/30/22 Status: Ordered atenolol 50 mg oral tablet 50 mg, Tablet, G Tube, crush and put through g-tube, 01/06/23 9:00:00 EDT Start Date: 01/06/23 Stop Date: 01/06/23 Status: Completed atenolol 50 mg oral tablet 50 mg, [...] Route to Pharmacy Electronically, [facility], Partial fill upon patient request if the prescription is for a schedule II opioid d... Start Date: 01/06/23 Stop Date: 01/13/23 Status: Ordered gabapentin 100 mg oral capsule 100 mg, Capsule, G Tube, 01/06/23 15:00:00 EDT, Stop date 01/06/23 15:00:00 EDT Start Date: 01/06/23 Stop Date: 01/06/23 Status: Completed melatonin 3 mg oral tablet = 3 [...] Route to Pharmacy Electronically, [facility], Partial fill upon patient request if the prescript... Start Date: 01/06/23 Stop Date: 01/13/23 Status: Ordered Plavix 75 mg oral tablet 75 mg, 1, tablet, By Mouth, Daily, # 90 tablet, Refills 0, Tot. Refills 0, Maintenance, 11/30/22 11:04:00 EDT, [id number] Partial fill upon patient request [...] reflux disease) Confirmed Active Hypertension Confirmed Active Results Radiology Reports * Exam Date Time Procedure Performing Provider Status 01/06/23 4:10 PM Chest 2 Views Frontal and Lat Enrique Lauro; Auth (Verified) Notes: (Chest 2 Views Frontal and Lat) Reason For Exam: Pneumothorax;Other: RESULT: Chest 2 Views Frontal and Lat Chest 2 Views Frontal and Lat performed at 4:02 PM Reason: Pneumothorax; Clinical Question(s): Pneumothorax; Special Instructions: Please obtain studyat 1540 COMPARISON: Multiple prior chest x-rays, the most recent of which is dated earlier today at 6:08 AM. FINDINGS: LINES AND TUBES: Interval removal of the right pleural catheter. LUNGS AND PLEURA: Linear atelectasis is seen inferiorly in the right perihilar region. Mild atelectasis is seen in the retrocardiac left lung base. No pleural effusion. No pneumothorax. HEART, MEDIASTINUM AND ANGELA: Heart is normal in size. Normal mediastinal and hilar contour. BONES AND SOFT TISSUES: Posterolateral right rib fractures are again seen. Mild degenerative changes seen in the spine. IMPRESSION: No evidence of pneumothorax status post removal of right pleural catheter. WSN: [id number] Ordering Physician: Artemio Castellanos Dictated By: Alissa Garcia MD Dictated Date/Time: 01/06/23 5:27 pm Reviewed By: Alissa Garcia MD Signed By: Alissa Garcia MD Signed Date/Time: 01/06/23 5:27 pm Transcribed By: GILLIAN Transcribed Date/Time: 01/06/23 5:26 pm * Exam Date Time Procedure Performing Provider Status 01/06/23 6:12 AM Chest 2 Views Frontal and Lat Sally Jaime; Auth (Verified) Notes: (Chest 2 Views Frontal and Lat) Reason For Exam: Tube Placement RESULT: Chest 2 Views Frontal and Lat Chest 2 Views Frontal and Lat Reason: Tube Placement; Clinical Question(s): Pleural Effusion COMPARISON: Multiple priors, the most recent 01/05/2023. Correlation with CT chest 01/04/2023. FINDINGS: LINES AND TUBES: Unchanged right chest tube. LUNGS AND PLEURA: Low lung volumes with bronchovascular crowding. Unchanged minimal left basilar opacity. Unchanged small left pleural effusion. No pneumothorax. HEART, MEDIASTINUM AND ANGELA: Unchanged. BONES AND SOFT TISSUES: Mildly displaced right posterolateral rib fractures, better seen on comparison CT chest. IMPRESSION: No significant change since prior examination. I have personally reviewed the images and I agree with this report. WSN: [id number] Ordering Physician: Kelly Gage Dictated By: Gen[Radiology] Derek ROJAS Dictated Date/Time: 01/06/23 10:14 a Reviewed By: Brian Haskins MD, V Signed By: Brian Haskins MD, V Signed Date/Time: 01/06/23 10:19 am Transcribed By: GILLIAN Transcribed Date/Time: 01/06/23 10:00 am * Exam Date Time Procedure Performing Provider Status 01/05/23 1:47 PM Chest 2 Views Frontal and Lat Paul Cantu; Devendra (Verified) Notes: (Chest 2 Views Frontal and Lat) Reason For Exam: post waterseal;Tube Placement RESULT: Chest 2 Views Frontal and Lat Chest 2 Views Frontal and Lat Reason: Tube Placement; post waterseal; Clinical Question(s): Pneumothorax; Special Instructions: XR TO BE DONE AT 1330 COMPARISON: 01/05/2023. CT scan of the chest with IV contrast dated 01/04/2023 at 5:16 PM. FINDINGS: LINES AND TUBES: Right anterior approach pleural tube for treatment of a pneumothorax remains in place unchanged. LUNGS AND PLEURA: Increasing retrocardiac density consistent with increasing atelectasis and/or infiltrates and/or small left pleural effusion. Ill-defined density in the medial aspect of the right lung base possibly related to focal consolidation or contusion. Probable small left pleural effusion worsening. Persistent moderate elevation of the right hemidiaphragm. Right lateral fourth and fifth rib fractures unchanged. No pleural effusion. The previously seen small right apical pneumothorax is no longer visible. HEART, MEDIASTINUM AND ANGELA: Heart is normal in size. Normal mediastinal and hilar contour. BONES AND SOFT TISSUES: No acute abnormality. Multiple metallic foci in the partially visualized mid abdomen which may represent metallic shrapnel. IMPRESSION: Increasing retrocardiac density. The previously noted small right apical pneumothorax is not visible at this point in time. Known right-sided rib fractures. WSN: [id number] Ordering Physician: Olya Simms Dictated By: Brian Haskins MD, V Dictated Date/Time: 01/05/23 2:31 pm Reviewed By: Brian Haskins MD, V Signed By: Brian Haskins MD, V Signed Date/Time: 01/05/23 2:31 pm Transcribed By: GILLIAN Transcribed Date/Time: 01/05/23 2:15 pm * Exam Date Time Procedure Performing Provider Status 01/05/23 6:13 AM Chest 2 Views Frontal and Lat Ginny Page; Devendra (Verified) Notes: (Chest 2 Views Frontal and Lat) Reason For Exam: Postop RESULT: Chest 2 Views Frontal and Lat Examination: Chest performed on 01/05/2023. History: Pleural effusion. Findings: Frontal and lateral views of the chest are compared to a prior study dated 01/05/2023. Right chest tube is unchanged in position. The cardiac silhouette is within normal limits for size. There is a tiny right apical pneumothorax. Bibasilar atelectasis and a trace left pleural effusion are noted. Multiple right rib fractures are seen. IMPRESSION: Tiny right apical pneumothorax in the setting of a chest tube. Trace left pleural effusion and bibasilar atelectasis. WSN: [id number] Ordering Physician: Hortensia Jackson Dictated By: Jenny Caruso MD Dictated Date/Time: 01/05/23 9:12 am Reviewed By: Jenny Caruso MD Signed By: Jenny Caruso MD Signed Date/Time: 01/05/23 9:12 am Transcribed By: GILLIAN Transcribed Date/Time: 01/05/23 9:11 am * Exam Date Time Procedure Performing Provider Status 01/05/23 12:08 AM Chest Portable Ginny Page; Devendra ( Verified) Notes: (Chest Portable) Reason For Exam: Postop RESULT: Chest Portable Chest Portable performed upright at 12:42 AM Hx of Present Illness: Tx from Carbajal, Mechanical fall from baseline L weakness, c o cp for 4 hrs, found to have pneumo,; Reason: Postop; Clinical Question(s): Pneumothorax COMPARISON: Multiple prior chest x-rays, the most recent of which is dated 12/03/2022. Comparison isalso made with CT of the chest dated 01/04/2023. FINDINGS: LINES AND TUBES: Interval placement of a right pleural catheter. LUNGS AND PLEURA: There is opacity in the right infrahilar region, which may reflect atelectasis or contusion. Mild atelectasis seen in the left lower lung. No pleural effusion. No pneumothorax. HEART, MEDIASTINUM AND ANGELA: Heart is normal in size. Normal mediastinal and hilar contour. BONES AND SOFT TISSUES: Multiple known right rib fractures are again seen. Small amount of subcutaneous gas is seen along the lateral aspect of the right chest wall. IMPRESSION: Interval placement of a right pleural catheter with no residual right pneumothorax seen. Opacity in the right infrahilar region which may reflect atelectasis or contusion. WSN: [id number] Ordering Physician: Hortensia Jackson Dictated By: Alissa Garcia MD Dictated Date/Time: 01/05/23 6:02 am Reviewed By: Alissa Garcia MD Signed By: Alissa Garcia MD Signed Date/Time: 01/05/23 6:02 am Transcribed By: GILLIAN Transcribed Date/Time: 01/05/23 5:59 am * Exam Date Time Procedure Performing Provider Status 01/04/23 10:[address] Cervical Spine W/O Contrast Dieter Toussaint (Verified) Notes: (CT Cervical Spine W/O Contrast) Reason For Exam: Neck trauma, dangerous injury mechanism;Other: RESULT: CT Cervical Spine W/O Contrast CT Head/Brain W/O Contrast, CT Cervical Spine W/O Contrast Hx of Present Illness: Tx from Carbajal, Mechanical fall from baseline L weakness, c o cp for 4 hrs, found to have pneumo,; Reason: Trauma; Clinical Question(s): Hematoma. TECHNIQUE: Incremental CT without contrast through the head was formatted in axial and coronal planes. Spiral CT without contrast through the cervical spine was formatted in 3 planes. Weight-based protocol using automatic tube modulation was used to optimize exposure parameters. CTDIvol Body: 13.10 mGy, DLP Body: 332 mGy*cm. CTDIvol Head: 40.90 mGy, DLP Head: 672 mGy*cm. COMPARISON: 11/28/2022, 11/25/2022 FINDINGS: BRAIN and EXTRA-AXIAL SPACES: No parenchymal hemorrhage, midline shift or mass effect. Heredia-white matter differentiation is well preserved. No acute infarct. Negative insular ribbon sign. Atherosclerotic vascular calcification ofthe carotid arteries but negative hyperdense vessel sign. Ventricles, sulci and basilar cisterns are normal. No white matter lesions. No subarachnoid hemorrhage, subdural or epidural collections. CALVARIUM, SKULL BASE AND SOFT TISSUES: No fractures or suspicious bony lesions. The paranasal sinuses and mastoid air cells are clear. Visualized orbits and globes are intact. The extracranial soft tissues are unremarkable. CERVICAL SPINE: No fracture. No acute osseous abnormalities. Mild, multilevel degenerative changes of the visualized spine. No locked or perched facet. OTHER BONES: Incomplete transverse fracture of the posterior aspect of right rib 4 (301:186). CERVICAL SOFT TISSUES AND LUNG APICES: Partially visualized right upper lobe pneumothorax. Normal thyroid gland. Mild to moderate subcutaneous emphysema seen dissecting along the right paraspinal muscles and extending superiorly into the right neck. No acute intracranial abnormality. No acute fracture of the cervical spine. Partially visualized incomplete transverse fracture of the posterior aspect of right rib #4. Partially visualized right apical pneumothorax pneumothorax. CT chest is recommended for more thorough evaluation of right apical pneumothorax and right rib fractures. I have personally reviewed the images and I agree with this report. WSN: [id number] Ordering Physician: Wilma Conde Dictated By: Dinesh Walton MD Dictated Date/Time: 01/04/23 11:12 p Reviewed By: Celine Timmons MD Signed By: Celine Timmons MD Signed Date/Time: 01/04/23 11:17 pm Transcribed By: GILLIAN Transcribed Date/Time: 01/04/23 11:02 pm * Exam Date Time Procedure Performing Provider Status 01/04/23 10:[address] Head/Brain W/O Contrast Dieter Loera; Auth (Verified) Notes: (CT Head/Brain W/O Contrast) Reason For Exam: Trauma RESULT: CT Head/Brain W/O Contrast CT Head/Brain W/O Contrast, CT Cervical Spine W/O Contrast Hx of Present Illness: Tx from Carbajal, Mechanical fall from baseline L weakness, c o cp for 4 hrs, found to have pneumo,; Reason: Trauma; Clinical Question(s): Hematoma. TECHNIQUE: Incremental CT without contrast through the head was formatted in axial and coronal planes. Spiral CT without contrast through the cervical spine was formatted in 3 planes. Weight-based protocol using automatic tube modulation was used to optimize exposure parameters. CTDIvol Body: 13.10 mGy, DLP Body: 332 mGy*cm. CTDIvol Head: 40.90 mGy, DLP Head: 672 mGy*cm. COMPARISON: 11/28/2022, 11/25/2022 FINDINGS: BRAIN and EXTRA-AXIAL SPACES: No parenchymal hemorrhage, midline shift or mass effect. Heredia-white matter differentiation is well preserved. No acute infarct. Negative insular ribbon sign. Atherosclerotic vascular calcification ofthe carotid arteries but negative hyperdense vessel sign. Ventricles, sulci and basilar cisterns are normal. No white matter lesions. No subarachnoid hemorrhage, subdural or epidural collections. CALVARIUM, SKULL BASE AND SOFT TISSUES: No fractures or suspicious bony lesions. The paranasal sinuses and mastoid air cells are clear. Visualized orbits and globes are intact. The extracranial soft tissues are unremarkable. CERVICAL SPINE: No fracture. No acute osseous abnormalities. Mild, multilevel degenerative changes of the visualized spine. No locked or perched facet. OTHER BONES: Incomplete transverse fracture of the posterior aspect of right rib 4 (301:186). CERVICAL SOFT TISSUES AND LUNG APICES: Partially visualized right upper lobe pneumothorax. Normal thyroid gland. Mild to moderate subcutaneous emphysema seen dissecting along the right paraspinal muscles and extending superiorly into the right neck. No acute intracranial abnormality. No acute fracture of the cervical spine. Partially visualized incomplete transverse fracture of the posterior aspect of right rib #4. Partially visualized right apical pneumothorax pneumothorax. CT chest is recommended for more thorough evaluation of right apical pneumothorax and right rib fractures. I have personally reviewed the images and I agree with this report. WSN: [id number] Ordering Physician: Wilma Conde Dictated By: Dinesh Waltno MD Dictated Date/Time: 01/04/23 11:12 p Reviewed By: Celine Timmons MD Signed By: Celine Timmons MD Signed Date/Time: 01/04/23 11:17 pm Transcribed By: GILLIAN Transcribed Date/Time: 01/04/23 11:02 pm Vital Signs Most recent to oldest [Reference Range]: 1 2 3 4 Height 173 cm (01/06/23 2:53 AM) 173 cm (01/05/23 11:37 AM) 173 cm (01/05/23 5:53 AM) 173 cm (01/05/23 5:53 AM) Weight 75.4 kg (01/06/23 2:53 AM) 69 kg (01/05/23 11:37 AM) 69 kg (01/05/23 5:53 AM) 69 kg (01/05/23 5:53 AM) Oxygen Saturation [94-100 %] 99 % (01/06/23 12:00 PM) 95 % (01/06/23 8:00 AM) 97 % (01/06/23 2:53 AM) Pulse Rate [55-90 bpm] 78 bpm (01/06/23 12:00 PM) 78 bpm (01/06/23 9:44 AM) 78 bpm (01/06/23 8:00 AM) Body Mass Index [18.5-24.99 kg/m2] 25.19 kg/m2 *H* (01/06/23 2:53 AM) 23.05 kg/m2 (01/05/23 11:37 AM) 23.05 kg/m2 (01/05/23 5:53 AM) 23.05 kg/m2 (01/05/23 5:53 AM) Blood Pressure [90-138/55-84 mm Hg] 109/70mm Hg (01/06/23 12:00 PM) 132/76mm Hg (01/06/23 11:52 AM) 132/76mm Hg (01/06/23 9:44 AM) Respiratory Rate [16-30 br/min] 18 br/min (01/06/23 3:25 PM) 18 br/min (01/06/23 3:25 PM) 16 br/min (01/06/23 2:01 PM) Temperature [96.8-100.4 DegF] 98.3 DegF (01/06/23 12:00 PM) 98.6 DegF (01/06/23 8:00 AM) 98.2 DegF (01/06/23 2:53 AM) Liters per Minute 15 L/min (01/04/23 7:57 PM) 15 L/min (01/04/23 7:57 PM) 15 L/min (01/04/23 7:38 PM) Mode of Delivery (Oxygen) Room air (01/06/23 12:00 PM) Room air (01/06/23 8:00 AM) Room air (01/06/23 2:53 AM) Blood pressure sites Arm, left (01/06/23 12:00 PM) Arm, right (01/06/23 8:00 AM) Arm, right (01/06/23 2:53 AM) Temperature Route Oral (01/06/23 12:00 PM) Oral (01/06/23 8:00 AM) Oral (01/06/23 2:53 AM) Dry Weight 75.4 kg (01/06/23 2:53 AM) 69 kg (01/05/23 11:37 AM) 69 kg (01/05/23 5:53 AM) 69 kg (01/05/23 5:53 AM) History and physical note * Hortensia Jackson MD: MODIFY, PERFORM Event Display: History and Physical Hospital Authored Date: Patient: ??TOD ESTES ? Age:??72 Years?Sex:??Male?:??1950?? Chief Complaint/Reason for Consult Right-sided rib fracture pneumothoraces History of Present Illness Patient is a 89-year-old male with a medical history notable for stroke on Plavix and aspirin,??hypertension, G-tube dependent presents as a transfer outside hospital after a fall from standing. ??Work-up was consistent with??right-sided rib fractures and pneumothorax,??prompting trauma surgery cons ulted. Comprehensively, patient was??ambulating??earlier today when he tripped on his walker, landing on his right side. ??Patient denies any head strike or loss of consciousness.?? Patient however??was unable to ambulate post fall.?? Due to ongoing pain, he presents to the ED for evaluation. During my evaluation, patient endorses pleuritic chest pain??and shortness of breath, requiring??15L of oxygen via high flow nasal cannula.?? He denies any trauma to any other areas. ??However does??state that??it is difficult speaking complete sentences. ??He has never experienced this in the past. ??He last took his Plavix and aspirin approximately 24 hours ago.?? His I-S this evening is 1999. Review of Systems Constitutional: No weight loss, fever, chills, weakness or fatigue. HEENT: No visual loss, blurred vision, double vision. No hearing loss, sneezing, congestion, runny nose or sore throat. Respiratory: Endorsing pleuritic chest pain, shortness of breath, difficulty breathing overaction that is new from baseline Cardiovascular: No chest pain, chest pressure or chest discomfort. No palpitations or pedal edema. Gastrointestinal: No anorexia, nausea, vomiting or diarrhea. No hematochezia. Genitourinary: No burning micturition. No urinary frequency or incontinence. Neurologic: No headache, dizziness, syncope, tingling in the extremities. No change in bowel or bladder control. Musculoskeletal: No neck or back pain, no joint pain or stiffness. Skin: No rash or itching. Endocrine: No reports of sweating. No cold or heat intolerance. No polyuria or polydipsia. Psychiatric: No depression or anxiety. ?? Physical Exam Vitals & Measurements T:??98?F?? HR:??68??(Peripheral)?? RR:??16?? BP:??146/79?? SpO2:??94%?? HT:??173??cm?? WT:??69??kg?? BMI:??23.05? GENERAL: Alert and oriented to person, place and time. ??Uncomfortable appearing MENTAL STATUS: ??Normal affect. HEENT: Normocephalic. Extraocular muscles intact. Anicteric sclera. ??Dry mucous membrane,??oxygen mask??in place. NECK: Supple, Full range of motion. No tracheal deviation, JVD, or palpable cervical lymphadenopathy. LUNGS: Clear to auscultation bilaterally. No wheezes, rales, or rhonchi. HEART: Heart sounds normal. Regular rate and rhythm CHEST WALL: Tenderness to palpation of right chest wall, no crepitus or step- offs, no deformities. ??Small bruise overlying the tip of the right scapula, no hematoma appreciated ABDOMEN: Soft, non-tender, non-distended. NEUROLOGIC: No focal neurological deficits. Moves all extremities spontaneously. Sensation intact bilaterally. SKIN: No rashes or lesions. No petechiae or purpura. No edema. EXTREMITIES: Warm and well perfused. No gross deformities. Normal range of motion.? 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 Work-up shows??the following injuries: Injuries:??Right-sided??fourth and fifth rib fracture,??moderate right-sided pneumothorax. Currently requiring??high level of oxygen, endorsing shortness of breath and difficulty breathing. Plan: Admit to trauma surgery We will proceed with a??thoracostomy tube placement to evacuate pneumothorax (please see separate procedure note) Resume tube feeds with nutrition consult Resume home medications??via G-tube Holding Plavix and aspirin Consult neurology in a.m.??for??recommendations??regarding recent stroke requiring antiplatelet Rib fracture protocol??(Multimodal pain regimen including Tylenol, oxycodone, gabapentin) A.m. chest x-ray PT evaluation DVT prophylax with Lovenox Please page Trauma Surgery [id number] for any concerns Problem List/Past Medical History Ongoing Depression GERD (gastroesophageal reflux disease) Hypertension Vertebral artery stroke Procedure/Surgical History Esophagogastroduodenoscopy: 12/02/22 Gastrostomy tube placement, after stroke Home Medications Amlodipine: 10 mg, By Mouth, Daily Aspirin: 81 mg = 1 tablet, By Mouth, Daily Atenolol: 50 mg = 1 tablet, By Mouth, Daily Atorvastatin: 40 mg, Nasogastric Tube, Daily at bedtime BuPROpion: 150 mg, By Mouth, Daily in AM Clopidogrel: 75 mg = 1 tablet, By Mouth, Daily Escitalopram: 20 mg = 1 tablet, By Mouth, Daily Losartan: 75 mg, G Tube, Daily Melatonin: 3 mg, Nasogastric Tube, Daily at bedtime, PRN (Insomnia) Allergies No Known Medication Allergies Social History Denies tobacco use, illicit drug use alcohol use Lives at home with Family History Does not recall family medical issues Radiology ?? RESULT: CT Chest W/ Contrast CT of the chest dated January 04, 2023. No prior studies are available. ?? HISTORY: Pain secondary to trauma. ?? FINDINGS: CT imaging was performed with multislice acquisition from the thoracic inlet through the adrenal glands without the use of oral contrast material and during the infusion of 100 cc of Omnipaque 300 nonionic contrast material. Axial, coronal, and sagittal reconstruction was performed. A weight based protocol using automatic tube modulation was used to optimize exposure parameters. ?? The thyroid gland is normal in size and appearance. ?? No hilar or mediastinal mass or lymphadenopathy is seen. No pleural or pericardial effusion is demonstrated. ?? Pulmonary parenchymal windows show a moderate right-sided pneumothorax without evidence of tension.Some minimal right posterior pulmonary contusion and some minimal bibasilar atelectasis. ?? Subcutaneous emphysema in the right chest and right neck. No evidence of pneumomediastinum. ?? As visualized, the upper abdominal viscera show multiple hepatic cysts. The largest is in the left lobe measuring 2.6 cm. ?? Number of the lucent gallstones are present in the gallbladder. There is a single dense calcification demonstrated in the neck of the gallbladder measuring 4.7 mm on image 105 of series 2. ?? The spleen is normal in size and appearance. ?? The pancreas is normal in size and appearance. ?? There is a percutaneous gastrostomy tube in place. ?? The kidneys are normal in size. The enhancement symmetrically as visualized. No calculus or obstruction is identified. ?? Degenerative changes are noted in the spine. ?? IMPRESSION: ?? Moderate right-sided pneumothorax with associated contusion and atelectasis. No evidence of tension. ?? Right fourth and fifth rib fractures. ?? Subcutaneous emphysema. ?? Cholelithiasis without evidence of obstruction. ?? Percutaneous gastrostomy tube. ?? Examination 41657. ? RESULT: CT Cervical Spine W/O Contrast CT Head/Brain W/O Contrast, CT Cervical Spine W/O Contrast? Hx of Present Illness: Tx from [place], Mechanical fall from baseline L weakness, c o cp for 4 hrs, found to have pneumo,; Reason: Trauma; Clinical Question(s): Hematoma.? TECHNIQUE: Incremental CT without contrast through the head was formatted in axial and coronal planes. Spiral CT without contrast through the cervical spine was formatted in 3 planes. Weight-based protocol using automatic tube modulation was used to optimize exposure parameters.? CTDIvol Body: 13.10 mGy, ??DLP Body: 332 mGy*cm. ? CTDIvol Head: 40.90 mGy, DLP Head: 672 mGy*cm. ? COMPARISON: 11/28/2022, 11/25/2022 ?? FINDINGS:? BRAIN and EXTRA-AXIAL SPACES: No parenchymal hemorrhage, midline shift or mass effect. Heredia-white matter differentiation is well preserved. No acute infarct. Negative insular ribbon sign. Atherosclerotic vascular calcification ofthe carotid arteries but negative hyperdense vessel sign. ?? Ventricles, sulci and basilar cisterns are normal.? No white matter lesions. ?? No subarachnoid hemorrhage, subdural or epidural collections. ?? CALVARIUM, SKULL BASE AND SOFT TISSUES: No fractures or suspicious bony lesions.? The paranasal sinuses and mastoid air cells are clear. ?? Visualized orbits and globes are intact.? The extracranial soft tissues are unremarkable. ? CERVICAL SPINE:?? No fracture. No acute osseous abnormalities. Mild, multilevel degenerative changes of the visualized spine. ?? No locked or perched facet.? OTHER BONES:?? Incomplete transverse fracture of the posterior aspect of right rib 4 (301:186). ?? CERVICAL SOFT TISSUES AND LUNG APICES:?? Partially visualized right upper lobe pneumothorax. Normal thyroid gland. Mild to moderate subcutaneous emphysema seen dissecting along the right paraspinal muscles and extending superiorly into the right neck.? No acute intracranial abnormality. ?? No acute fracture of the cervical spine. ?? Partially visualized incomplete transverse fracture of the posterior aspect of right rib #4. Partially visualized right apical pneumothorax pneumothorax. CT chest is recommended for more thorough evaluation of right apical pneumothorax and right rib fractures. ?? Lab Results BLOOD COUNT & DIFF WBC 7.3 k/mm3 ()?? 01/04/2023 16:06 RBC 4.24 m/mm3 (Low)?? 01/04/2023 16:06 Hgb 12.8 Gm/dL (Low)?? 01/04/2023 16:06 Hct 38.6 % (Low)?? 01/04/2023 16:06 MCV 91.0 femtoliters ()?? 01/04/2023 16:06 MCH 30.2 pg ()?? 01/04/2023 16:06 MCHC 33.2 g/dL ()?? 01/04/2023 16:06 Platelet Count 150 k/mm3 ()?? 01/04/2023 16:06 RDW-SD 43.0 femtoliters ()?? 01/04/2023 16:06 MPV 11.4 femtoliters ()?? 01/04/2023 16:06 Nucleated RBC (Automated) 0.0 #/100 WBC'S ()?? 01/04/2023 16:06 Abs. NRBC 0.0 k/mm3 ()?? 01/04/2023 16:06 Abs. Neut 6.1 k/mm3 ()?? 01/04/2023 16:06 Abs. Lymph 0.6 k/mm3 (Low)?? 01/04/2023 16:06 Abs. [place] 0.5 k/mm3 ()?? 01/04/2023 16:06 Abs. Eo 0.2 k/mm3 ()?? 01/04/2023 16:06 Abs. Baso 0.0 k/mm3 ()?? 01/04/2023 16:06 Neut % 82.6 % (High)?? 01/04/2023 16:06 Lymph % 7.9 % (Low)?? 01/04/2023 16:06 [place] % 6.7 % ()?? 01/04/2023 16:06 Eos % 2.0 % ()?? 01/04/2023 16:06 Baso % 0.4 % ()?? 01/04/2023 16:06 Imm Gran 0.4 % ()?? 01/04/2023 16:06 Abs. Imm Gran 0.0 k/mm3 ()?? 01/04/2023 16:06 ?? CARDIAC High Sensitivity Troponin (HSTnT) 12 ng/L ()?? 01/04/2023 16:06 ?? CHEM GENERAL Sodium 140 mmol/L ()?? 01/04/2023 16:06 Potassium 4.5 mmol/L ()?? 01/04/2023 16:06 Chloride 107 mmol/L ()?? 01/04/2023 16:06 Bicarbonate Level 25 mmol/L ()?? 01/04/2023 16:06 Anion Gap 8 ()?? 01/04/2023 16:06 Glucose Level 106 mg/dL (High)?? 01/04/2023 16:06 BUN 28 mg/dL (High)?? 01/04/2023 16:06 Creatinine-Blood 1.3 mg/dL (High)?? 01/04/2023 16:06 Estimated GFR Creatinine 58 ML/MIN/1.73 M2 ()?? 01/04/2023 16:06 Calcium 9.1 mg/dL ()?? 01/04/2023 16:06 ?? HEME OTHER Hold Blue Top SPECIMEN DISCARDED AFTER 4 HOURS. ()?? 01/04/2023 16:06 ?? MISC. CHEMISTRY Hold Gel Top SPECIMEN DISCARDED AFTER 1 WEEK ()?? 01/04/2023 16:06 Hold Heredia Top SPECIMEN DISCARDED AFTER 1 WEEK ()?? 01/04/2023 16:06 ?? URINE OTHER Est Creatinine Clearance 49.88 mL/min ()?? 01/04/2023 16:37 ?? * Tamie Boyer MD: PERFORM Event Display: History and Physical Hospital Authored Date: Fellow Attestation: Patient seen and evaluated by myself. All elements of patient care including physical exam findings, review of laboratory results and relevant radiographic imaging were reviewed. The current plan of care was discussed and reviewed with the trauma attending??Dr.??Yuval ROJAS. ?? 72-M with recent stroke (11/29) on Plavix and aspirin with residual??dysphagia, G tube in-place who presents?? after fall from standing while walking with walker. Large pneumothorax with associated rib fractures on the right.?? s/p pigtail placement, IS 500 due to pain.?? Will admit for better pain control, monitoring of pneumothorax.?? Holding ASA/plavix, will consult neurology given recent stroke ?? Tamie Boyer MD -PGY6 SICU Fellow Hospital Progress note * Chalino Marquez RN: PERFORM, SIGN, VERIFY Event Display: Progress Note Hospital Authored Date: Patient: TOD ESTES Age: 72 years Sex: Male : 1950 Associated Diagnoses: None Author: Jimmy DIAZ, Chalino Findings Problem Related to Alteration in Respiratory Function (new) : Alteration in Respiratory Function/new 01/06/2023 7:00 EDT Alteration in Resp Status Related to Other: right pneumo Goals & Outcomes, Respiratory Pt will maintain/resume baseline physical assessment, Pt will maintain adequate nutritional intake, Pt will maintain/resume normal fluid/electrolyte balance, Pt willnot develop complications r/t immobility, Pt will demonstrate proper technique w/self care procedures Interventions, Respiratory Assess/monitor tolerance to IV infusions; verify rate/dose, Assess for and report S&S of respiratory distress, Position for comfort & optimal oxygenation, Chest tube drainage, maintain drainage/suction as ordered, Monitor sputum color & consistency. Report changes to MD, Teach/encourage use of incentive spirometer, Teach tripod positioning to promote air exchange BH Goals/Interventions, Respiratory Yes Respiratory, Problem Start 01/06/2023 4:04 Reviewed Plan with, Respiratory Patient Patient Progression, Respiratory Patient progressing according to plan . Evaluation Pt is A/Ox4. VSS. Pt reports adequate pain control with scheduled and PRN medication. Fluids discontinued per order. Lungs are clear and diminished on the right on room air. Pt denies cough and shortness of breath. Pt using incentive spirometer and acapella as instructed. Pt is on continuous O2 monitor per order. Chest tube removed by MAHAD Sanchez. Pt has +PP and no edema. Pt is on tele monitor in normal sinus rhythm. +BSx4 quadrants. Abdomen is soft, round, and non-tender. Pt denies N/V. Pt is NPO no exceptions. Pt has LUQ G-tube. Tube feeds and water boluses given per order and tolerating well. Pt has right anterior chest gauze and tegaderm clean, dry, and intact. Pt has right upper back bruise. Pt ambulating in room and hallway with walker, tolerating well. Pt is resting in chair with call rudolph in reach. . Discharge Information Case Management Discharge Plan : Case Management Discharge Plan Data 01/06/2023 8:58 EDT Discharge Nursing Homes/Rehab Facilities [facility] Discharge : Rehab Discharge Index 01/06/2023 8:39 EDT Comments on treatment indicated 72-year-old male presents as a transfer outsidehospital after a fall from standing. Work-up was consistent with right-sided rib fractures and pneumothorax, prompting trauma surgery consulted. WBAT. F/u PT for continued gait training, transfer training, Walker: distance >50 Distance pt will ambulate 150ft with RW Full chart review completed Yes Other findings mod evaluation due to PMH and admission diagnosis Plan of care PT Gait training, Transfer training, Therapeutic exercise, Functional Activities, Balance training, Neuromuscular education * Geovanny ROJAS, Preeti: PERFORM, MODIFY, MODIFY Event Display: Progress Note Hospital Authored Date: Patient: ??TOD ESTES ? Age:??72 Years?Sex:??Male?:??1950?? Subjective Pt seen during AM rounds, KINA. He reports pain at chest tube site and with deep inspiration. Has been using IS. He has not been out of bed, plan for PT today, pt expresses being motivated to do so. He is tolerating his bolus feeds well. He denies fever, chills, shortness of breath, nausea, or vomiting. ?? Physical Exam Vitals & Measurements T:??98.6?F?? HR:??78??(Peripheral)?? RR:??17?? BP:??132/76?? SpO2:??95%?? HT:??173??cm?? WT:??75.4??kg?? BMI:??25.19?? GENERAL: Alert and oriented to person, place and time. NAD HEENT: Normocephalic. Atraumatic. LUNGS: Symmetric, nonlabored on RA. IS 800 HEART: Regular rate and rhythm CHEST WALL: Tenderness to palpation of right chest wall, no crepitus or step- offs, no deformities.??Chest tube??to WS, no air leak ?? ABDOMEN: Soft, non-tender, non-distended. NEUROLOGIC: L sided slight weakness at baseline. Moves all extremities spontaneously. Sensation intact bilaterally. SKIN: No rashes or lesions. No petechiae or purpura. No edema. EXTREMITIES: Warm and well perfused. No gross deformities. Normal range of motion.?? 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 Chest tube on WS with no air leak, AM chest xray today and possible CT tube removal, with CXR 4-6 hours post removal. PT evaluation today for disposition. ?? Injuries:??Right-sided??fourth and fifth rib fracture,??moderate right-sided pneumothorax. ?? Plan: Monitor chest tube output, AM CXR Holding Plavix and aspirin until chest tube removal Rib fracture protocol??(Multimodal pain regimen including Tylenol, oxycodone, gabapentin) PT evaluation DVT prophylax with Lovenox ?? Discussed with Dr. Curiel Please page Trauma Surgery [id number] for any concerns Intake and Output Intake and Output Results?? This visit (24 hour periods starting at 07:00 EDT)? 01/06/23 *?? 01/05/23?? 01/04/23?? Total Summary?Intake mL?? --?? 872?? --?Output mL?? 250?? 250?? --?Fluid Balance ?? -250?? 622?? --?? Intake (3)?GT Feeding mL?? --?? 312?? --?Lactated Ringers Injection 1,000 mL mL?? --?? 500?? --?Water I&O mL?? --?? 60?? --?Total?? --?? 872?? --?? Output (1)?Urine Voided mL?? 250?? 250?? --?Total?? 250?? 250?? --?? Counts (1)?Urine Voided mL?? 250?? 250?? --? * This column has not completed the indicated time period.?? Labs Last 24 Hours BLOOD COUNT & DIFF ? Event Name?? Event Result?? Date/Time?? WBC 4 k/mm3 01/06/23 06:59:00 RBC 3.51 m/mm3??Low 01/06/23 06:59:00 Hgb 10.6 Gm/dL??Low 01/06/23 06:59:00 Hct 31.9 %??Low 01/06/23 06:59:00 MCV 90.9 femtoliters 01/06/23 06:59:00 MCH 30.2 pg 01/06/23 06:59:00 MCHC 33.2 g/dL 01/06/23 06:59:00 Platelet Count 115 k/mm3??Low 01/06/23 06:59:00 MPV 11.2 femtoliters 01/06/23 06:59:00 Nucleated RBC (Automated) 0 #/100 WBC'S 01/06/23 06:59:00 ? CHEM GENERAL ? Event Name?? Event Result?? Date/Time?? Sodium 138 mmol/L 01/06/23 06:59:00 Chloride 108 mmol/L??High 01/06/23 06:59:00 Bicarbonate Level 18 mmol/L??Low 01/06/23 06:59:00 Anion Gap 12 01/06/23 06:59:00 Glucose Level 93 mg/dL 01/06/23 06:59:00 BUN 18 mg/dL 01/06/23 06:59:00 Creatinine-Blood 1.1 mg/dL 01/06/23 06:59:00 Calcium, Ionized pH Corrected 1.29 mmol/L 01/06/23 06:59:00 Phosphorus 2.1 mg/dL??Low 01/06/23 06:59:00 Magnesium 1.6 mg/dL 01/06/23 06:59:00 ? * Veena ROJAS, Yariel H: PERFORM Event Display: Progress Note Hospital Authored Date: ?Attending Attestation: The patient was seen, examined, and discussed with the Trauma team on the date of service documented above.?The clinical course, labs, and radiological studies were reviewed by me and findings on exam confirmed.?I agree with the findings as well as the assessment and plan as delineated above. d/c ct today. post-pull films. ?? Medical Decision Making: MODERATE - chronic illness w/ exac, progression, or AE of Tx, 2+ stable chronic illnesses, 1 new prob w/ ? prognosis, 1 acute w/ systemic Sx or comp injury; 2 of (note / test / order / indep historian = 3), interpretation / discussion; MOD risk +SDOH --- Yariel Curiel MD, FACS, [facility] Division of Trauma, Acute Care Surgery, and Surgical Critical Care ?? * Preeti Hallman RN: PERFORM, SIGN, VERIFY Event Display: Progress Note Hospital Authored Date: Patient: TOD ESTES Age: 72 years Sex: Male : 1950 Associated Diagnoses: None Author: Preeti Hallman RN Findings Problem Related to Alteration in Respiratory Function (new) : Alteration in Respiratory Function/new 01/06/2023 4:00 EDT Alteration in Resp Status Related to Other: right pneumo Goals & Outcomes, Respiratory Pt will maintain/resume baseline physical assessment, Pt will maintain adequate nutritional intake, Pt will maintain/resume normal fluid/electrolyte balance, Pt willnot develop complications r/t immobility, Pt will demonstrate proper technique w/self care procedures Interventions, Respiratory Assess for and report S&S of respiratory distress, Position for comfort & optimal oxygenation, Chest tube drainage, maintain drainage/suction as ordered, Monitor sputum color & consistency. Report changes to MD, Teach/encourage use of incentive spirometer Goals/Interventions, Respiratory Yes Respiratory, Problem Start 01/06/2023 4:04 Reviewed Plan with, Respiratory Patient Patient Progression, Respiratory Plan Initiation . Nursing Data Vital Signs : VITAL SIGNS SECTION 01/06/2023 2:53 EDT Temperature 98.2 DegF Temperature Route Oral Pulse Rate 75 bpm Respiratory Rate 18 br/min Systolic Blood Pressure 153 mm Hg H Diastolic Blood Pressure 76 mm Hg Blood pressure sites Arm, right Mean Arterial Pressure 102 mm Hg Pulse Pressure 77 mm Hg Oxygen Saturation 97 % Mode of Delivery (Oxygen) Room air . Evaluation Patient arrived to [facility] via stretcher from ED at 0245. Oriented to room and call rudolph. Patient is alert and oriented X3. VSS. On property assessment monitor running NSR. No complaints of pain. Lungs are clear andslightly diminished to the upper right. On continuous O2 monitor maintaining sats >95% on room air. Right anterior chest tube to water seal in place with minimal serous drainage. Incentive spirometer taught and encouraged and able to achieve 750. Patient has +pedal pulses and no edema. Compression boots on to BLE. Patient has +bowel sounds X4 quadrants. Denies any nausea or vomiting. Abdomen is soft and non-tender. G-tube in place. Voided prior to arrival to unit. At home, patient out of bedwith walker. Refusing to get out of bed at this time. Initial skin assessment performed with Randa Trinidad. Right anterior chest tube DSD in place. Bruise noted to right upper back. Otherwise skin is intact. Patient is resting comfortably at this time with call rudolph in reach and bed in locked, lowest position. Will obtain AM chest x-ray per orders. . Note * Chalino Marquez RN: PERFORM Event Display: Discharge/Transfer Note Hospital Authored Date: Nursing Discharge Note Entered On: 01/06/2023 17:55 EDT Performed On: 01/06/2023 17:55 EDT by Chalino Marquez RN Nursing Discharge Note 2 Discharge Time : 01/06/2023 17:55 EDT Discharge Level of Care at Discharge : Homehealth/VNA Discharge Nursing Homes/Rehab Facilities : [facility] Discharge VNA/Hospice/Home Care(v001) : [facility] [phone] Patient Left Unit Via : Wheelchair Patient Accompanied Off Unit with : Significant other DC Instructions Provided & Signed by Pt : Yes Patient Understands D/C Instructions : Yes Patient Instructions Discharge Signed : Yes Did Pt have Specialty Bed or Wound Vac : No Chalino Marquez RN - 01/06/2023 17:55 EDT * Kelly Gage MD: PERFORM Event Display: Discharge/Transfer Note Hospital Authored Date: Patient: ??TOD ESTES ? Age:??72 Years?Sex:??Male?:??1950?? 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 He underwent workup revealing injuries as listed below. He underwent right-sided pigtail catheter placement due to moderate pneumothorax. He was admitted to??the trauma service and was started on multimodal pain control /rib fracture protocol. The chest tube??was initially placed to suction then weaned to water seal, subsequently removed on 01/06. Post-pull CXR confirmed no pneumothorax, so the patient was deemed appropriate for discharge. On day of discharge,??he was tolerating??bolus TFs via PEG, passing gas, voiding spontaneously, and ambulating without difficulty.??His pain was controlled with PO pain medications.??He will be discharged to??home with services??per PT recommendations. The discharge instructions were reviewed with the patient, and??he was given ample time to ask questions, all of which were answered.??He will be discharged with prescriptions for Tylenol, gabapentin, oxycodone.??He may resume the aspirin/Plavix upon discharge. He will see us in the clinic on 01/21/23 at 2pm with a CXR at1pm just before the appointment. ?? Injuries: Right-sided??fourth and fifth rib fracture Moderate right-sided pneumothorax Objective/Physical Exam on Day of Discharge Vitals & Measurements T:??98.3?F?? HR:??78??(Peripheral)?? RR:??18?? RR:??18?? BP:??109/70?? SpO2:??99%?? HT:??173??cm?? WT:??75.4??kg?? BMI:??25.19?? Future Appointments Thursday 2:00 PM EST ?? With: Ashish TOBIN, Reji Sands Where: Trauma Surg [address] [place] [address]- Status: Pending Thursday 10:30 AM EST ?? Where: Interventional Radiology Status: Pending Patient Discharge Condition Stable Discharge Disposition Home with services Home Health Face to Face *Denotes mandatory samuels ?? *I certify that this patient is under my care and that I or an allowed non- physician working with me had a face to face encounter with the patient on this date:??01/06/2023 16:11 ?? *The encounter with the patient was in whole, or in part, for the following medical condition, which is the primary diagnosis(es) for home health care:??Fall (W19.XXXA) Pneumothorax (J93.9) Rib fractures (S22.49XA) ? *Select the indications for the discipline/s that are being arranged for this patient. Nursing (select all that apply): [X] None [_] Medication management (reconciliation, teaching)?? [_] Chronic disease management?? [_] Wound care and treatment?? [_] Home safety evaluation [_] Administer SQ/IM/IV medications?? [_] Cath care?? [_] Drain care?? [_] Trach or GT care?? Other _ Occupation Therapy (select all that apply): [X] None [_] ADL Management [_] Fall prevention training [_] Energy conservation [_] Cognitive training Other _ Physical Therapy (select all that apply): [_] None [X] Functional mobility training [X] Home exercise program to strengthen [_] Increase ROM?? [X] Falls prevention training [_] Home maintenance program for chronic disease Other _ Speech Therapy (select all that apply): [X] None [_] Swallow evaluation and training [_] Speech and language training [_] Cognitive training to process, organize, and/or recall information Other _ ? *Homebound due to (select all that apply): [_] Inability to leave home without assistance/supervision [_] Inability to ambulate without assistance [X] Pain [X] Decreased strength and endurance [X] Unsteady gait [_] Severe SOB and fatigue [_] Impaired transfers [_] Inability to negotiate stairs [_] Limited weight bearing [_] Mental status change? *Physician Signature:??Dr. Yariel Curiel ?? *By signing this, I certify that I have personally evaluated the patient and agree with the findings and recommendations as documented above. ? Discharge Medications Acetaminophen (acetaminophen 325 mg oral tablet)?650?Milligram?G Tube?Every 4 hours Amlodipine?10?Milligram?By Mouth?Daily Aspirin (aspirin 81 mg oral delayed release tablet)?81?Milligram?1?tablet?By Mouth?Daily Atenolol (atenolol 50 mg oral tablet)?50?Milligram?1?tablet?By Mouth?Daily Atorvastatin (atorvastatin 40 mg oral tablet)?40?Milligram?Nasogastric Tube?Daily at bedtime BuPROpion?150?Milligram?By Mouth?Daily in AM Clopidogrel (Plavix 75 mg oral tablet)?75?Milligram?1?tablet?By Mouth?Daily Escitalopram (escitalopram 20 mg oral tablet)?1?tab(s)?20?Milligram?By Mouth?Daily Gabapentin (gabapentin 100 mg oral capsule)?100?Milligram?G Tube?3 times a day Losartan (Cozaar 50 mg oral tablet)?75?Milligram?G Tube?Daily?for 30?Days Melatonin (melatonin 3 mg oral tablet)?3?Milligram?Nasogastric Tube?Daily at bedtime?as needed?Insomnia Oxycodone (oxyCODONE 5 mg oral tablet)?5?Milligram?G Tube?Every 6 hours?as needed?Pain , Moderate Topiramate (topiramate 25 mg oral tablet)?50?Milligram?G Tube?Daily at bedtime Labs Last 24 Hours BLOOD COUNT & DIFF ? Event Name?? Event Result?? Date/Time?? WBC 4 k/mm3 01/06/23 06:59:00 RBC 3.51 m/mm3??Low 01/06/23 06:59:00 Hgb 10.6 Gm/dL??Low 01/06/23 06:59:00 Hct 31.9 %??Low 01/06/23 06:59:00 MCV 90.9 femtoliters 01/06/23 06:59:00 MCH 30.2 pg 01/06/23 06:59:00 MCHC 33.2 g/dL 01/06/23 06:59:00 Platelet Count 115 k/mm3??Low 01/06/23 06:59:00 MPV 11.2 femtoliters 01/06/23 06:59:00 Nucleated RBC (Automated) 0 #/100 WBC'S 01/06/23 06:59:00 ? CHEM GENERAL ? Event Name?? Event Result?? Date/Time?? Sodium 138 mmol/L 01/06/23 06:59:00 Chloride 108 mmol/L??High 01/06/23 06:59:00 Bicarbonate Level 18 mmol/L??Low 01/06/23 06:59:00 Anion Gap 12 01/06/23 06:59:00 Glucose Level 93 mg/dL 01/06/23 06:59:00 BUN 18 mg/dL 01/06/23 06:59:00 Creatinine-Blood 1.1 mg/dL 01/06/23 06:59:00 Calcium, Ionized pH Corrected 1.29 mmol/L 01/06/23 06:59:00 Phosphorus 2.1 mg/dL??Low 01/06/23 06:59:00 Magnesium 1.6 mg/dL 01/06/23 06:59:00 ? Patient Education Titles Trauma Rib and Chest Injuries?? Rib Fracture (Broken Rib)?? Follow-Up Appointments Added Follow Up ?Time Frame ?Comments Alexandrea ROJAS , Sina Rodrigues?3-5 day: call to discuss follow up visit?Please call your PCP to update them about your hospitalization and any medication changes. Patient Instructions Additional Provider Instructions:? You have a follow-up appointment with the Trauma Surgery clinic on 01/21/23 at 2pm. Please arrive 1 hour in advance (at 1pm) to get a chest X-ray right before your appointment. ?? Activity: - Increase activity as tolerated - Encourage coughing and deep breathing, use incentive spirometer - No driving until off narcotics ?? Special Instructions:?? Please keep the dressing on the?? chest tube site until 48 hours after chest tube removal - then OKto remove and keep covered with Bandaid/gauze for comfort If you develop fever, chills, increased pain, nausea, vomiting, bleeding, please call the surgery office. Please take medications as prescribed and do not drive while on narcotic medications.?? Please call your Primary Care Provider within 1 week for post-hospital follow-up and review of yourmedications. ?? When to call your healthcare provider:?? - Pain, redness, swelling, or bleeding that gets worse - Fever of 100.4F (38C) or higher, or as advised - Shaking or chills - Vomiting or nausea that does not go away - Any other concerns?? * Chalino Marquez RN: PERFORM Event Display: Patient Education/Instruction Authored Date: [id number] Inpatient Adult Discharge Instructions [place] [id number] Name: TOD ESTES : 1950 Visit: 01/05/2023 01:01:00 Current Date: 01/06/2023 16:15 Account: [id number] Inpatient Adult Discharge Instructions We would like [...] and their families. Surveys are administered by [employer] ?? If further treatment with your primary care physician or another doctor is recommended, it is important for you to keep the appointment. Call your primary care physician or return to the Emergency Department immediately if your condition worsens, fails to improve, or new symptoms develop. If you need to find a doctor, you can call [facility] [place] Inti Selaras for a referral at [phone] or toll free at [phone]) or log in to [email or web address].. ?? [facility], in keeping with [facility] guidance, no longer requires face masks [...] a health care alpa of your choosing. [employer] is a website that allows you to securely view your medical information including your hospital discharge summary, office visit summaries, medications and follow-up visits. You can also request appointments, renew medications, and request access to your medical information using a health care alpa of your choosing, or just ask a question. You can enroll at [email or web address] or register during your next office visit. You have been discharged from [facility], Patient Care Unit: SW6. If you have any questions regarding these instructions after you leave, please call us and we will be happy to assist you. [facility] Your Care Team Attending Physician Yuval ROJAS, Davida Reynoso Discharging Providers Kelly Gage MD Reason for Admission Tx from [place], Mechanical fall from baseline L weakness, c/o cp for 4 hrs, found to have pneumo, Your Diagnosis Fall Rib fractures Pneumothorax Tests Performed Below is a partial list of the tests performed during your hospitalization. You may have had other tests and procedures not included in this list. Please discuss all test results with your provider. BUN CBC w/ Differential Creatinine Glucose Level Ionized Calcium Lytes Magnesium Level Phosphorus Level CT Cervical Spine W/O Contrast CT Head/Brain W/O Contrast CXR Portable CXR W/ Frontal and Lat XR Chest 2 Views Frontal and Lat Primary Care Provider Alexandrea ROJAS , Sina Rodrigues Advance Directive Health Care Proxy on File Yes - Health Care Proxy Discharge Vitals Temperature: 98.3 DegF Height: 173 cm Pulse Rate: 78 bpm Weight: 75.4 kg Respiratory Rate: 18 br/min Body Mass Index:??25.19 kg/m2??High Respiratory Rate: 18 br/min Body surface area: 1.9 Systolic Blood Pressure: 109 mm Hg ?? Diastolic Blood Pressure: 70 mm Hg ?? Oxygen Saturation: 99 % ?? Studies Pending All tests and labs ordered during this hospital stay have been completed unless listed below. Please discuss all pending results with your provider listed above in these instructions. ?? BUN CBC w/ Differential Creatinine Electrolytes (Lytes) Glucose Level Ionized Calcium Magnesium Level Phosphorus Level Chest 2 Views Frontal and Lat (CXR W/ Frontal and Lat) What to do next Instructions From Your Doctor Additional Provider Instructions:? You have a follow-up appointment with the Trauma Surgery clinic on 01/21/23 at 2pm. Please arrive 1 hour in advance (at 1pm) to get a chest X-ray right before your appointment. ?? Activity: - Increase activity as tolerated - Encourage coughing and deep breathing, use incentive spirometer - No driving until off narcotics ?? Special Instructions:?? Please keep the dressing on the?? chest tube site until 48 hours after chest tube removal - then OKto remove and keep covered with Bandaid/gauze for comfort If you develop fever, chills, increased pain, nausea, vomiting, bleeding, please call the surgery office. Please take medications as prescribed and do not drive while on narcotic medications.?? Please call your Primary Care Provider within 1 week for post-hospital follow-up and review of yourmedications. ?? When to call your healthcare provider:?? - Pain, redness, swelling, or bleeding that gets worse - Fever of 100.4F (38C) or higher, or as advised - Shaking or chills - Vomiting or nausea that does not go away - Any other concerns?? Discharge Orders Scheduled Follow-Up Appointments Thursday 2:00 PM EST ?? With: Reji Sutherland Where: Trauma Surg [address] [place] [address]- Status: Pending Thursday 10:30 AM EST ?? Where: Interventional Radiology Status: Pending You Need to Schedule the Following Appointments Follow Up with??Alexandrea ROJAS , Sina Rodrigues When:??Within 3-5 day: call to discuss follow up visit Why: Please call your PCP to update them about your hospitalization and any medication changes. Where: [address] [place] [address]- Discharge Medications TOD ESTES :1950 Visit Date:01/05/2023 Medications: Please continue your medications until treatment is completed or stopped by your provider. Medications not listed below should be discontinued. Discuss any questions related to medications with your provider. What How Much When Instructions Next Dose New Acetaminophen (acetaminophen 325 mg oral tablet) 650 Milligram Gastrostomy/PEG Tube Every 4 hours Pickup at [facility] 3 01/06 @ 6 PM New Gabapentin (gabapentin 100 mg oral capsule) 100 Milligram Gastrostomy/PEG Tube 3 times a day Pickup at [facility] 3 01/06 @??9 PM New Oxycodone (oxyCODONE 5 mg oral tablet) 5 Milligram Gastrostomy/PEG Tube Every 6 hours as needed for Pain , Moderate Pickup at [facility] 3 as needed New Topiramate (topiramate 25 mg oral tablet) 50 Milligram Gastrostomy/PEG Tube Daily at Bedtime 01/06 @??9 PM Unchanged Amlodipine 10 Milligram Oral Daily 01/07 Unchanged Aspirin (aspirin 81 mg oral delayed release tablet) 1 tab(s) Oral Daily 01/07 Unchanged Atenolol (atenolol 50 mg oral tablet) 1 tab(s) Oral Daily 01/07 Unchanged Atorvastatin (atorvastatin 40 mg oral tablet) 40 Milligram Nasogastric tube Daily at Bedtime 01/06 @??9 PM Unchanged BuPROpion 150 Milligram Oral Daily in the morning 01/07 Unchanged Clopidogrel (Plavix 75 mg oral tablet) 1 tab(s) Oral Daily 01/07 Unchanged Escitalopram (escitalopram 20 mg oral tablet) 1 tab(s) Oral Daily 01/07 Unchanged Losartan (Cozaar 50 mg oral tablet) 75 Milligram Gastrostomy/PEG Tube Daily Duration: 30 Days 01/07 Unchanged Melatonin (melatonin 3 mg oral tablet) 3 Milligram Nasogastric tube Daily at Bedtime as needed for Insomnia as needed Pharmacy Information [facility]: [address] [place] [address], [place] [id number] [phone] Test Results Below is a partial list of the most recent Laboratory test results done prior to this discharge. You may have had other tests and procedures not included in this list. Please discuss all test resultswith your provider. Est Creatinine Clearance - 58.94 mL/min (01/06/2023) BUN (01/06/2023) ???BUN - 18 mg/dL CBC w/ Differential (01/06/2023) ???WBC - 4.0 k/mm3???RBC - 3.51 m/mm3???Hgb - 10.6 Gm/dL???Hct - 31.9 %???MCV - 90.9 femtoliters???MCH - 30.2 pg???MCHC - 33.2 g/dL???Platelet Count - 115 k/mm3???RDW-SD - 42.5 femtoliters???MPV - 11.2 femtoliters???Nucleated RBC (Automated) - 0.0 #/100 WBC'S???Abs. NRBC - 0.0 k/mm3???Abs. Neut - 3.2 k/mm3???Abs. Lymph - 0.4 k/mm3???Abs. [place] - 0.3 k/mm3???Abs. Eo - 0.1 k/mm3???Abs. Baso - 0.0 k/mm3???Neut % - 79.6 %???Lymph % - 10.0 %???[place] % - 6.7 %???Eos % - 2.7 %???Baso % - 0.5 %???Imm Gran - 0.5 %???Abs. Imm Gran - 0.0 k/mm3 Creatinine (01/06/2023) ???Creatinine-Blood - 1.1 mg/dL???Estimated GFR Creatinine - 71 ML/MIN/1.73 M2 Glucose Level (01/06/2023) ???Glucose Level - 93 mg/dL Ionized Calcium (01/06/2023) ???Calcium, Ionized pH Corrected - 1.29 mmol/L Lytes (01/06/2023) ???Sodium - 138 mmol/L???Potassium - 4.0 mmol/L???Chloride - 108 mmol/L???Bicarbonate Level - 18 mmol/L???Anion Gap - 12 Magnesium Level (01/06/2023) ???Magnesium - 1.6 mg/dL Phosphorus Level (01/06/2023) ???Phosphorus - 2.1 mg/dL Allergies (NKA means No Known Allergies) No Known Medication Allergies Problems Active Problems??(4) Depression?? GERD (gastroesophageal reflux disease)?? Hypertension?? Vertebral artery stroke?? Education Materials Below is the list of Educational Leaflet Providered with your Discharge Instructions. Trauma Rib and Chest Injuries?? Rib Fracture (Broken Rib)?? Valuables and Belongings I fully understand and agree that [facility] accepts no responsibility for all my personal [...] Review of Valuable and Belonging List: With patient, With witness Date for Pt to Sign Valuables/Belongings: 01/06/23 03:02:00 ?? Other Discharge Information ? Case Management Discharge Plan?? Discharge Plan?? Discharge Agency Information?? Discharge Level of Care at Discharge: Homehealth/VNA Name of Agency #1: [facility] Mode of Transportation Arranged: car Agency Hoop Puncher #1: Intake Discharge Nursing Homes/Rehab Facilities: [facility] ??Ana Service Categories #1: Occupational Therapy, Physical Therapy, Shelter, Speech Therapy [facility] [phone] Service Comments #1: The VNA will call you to set up an appointment. Please call the agency with any questions. ?? Pulmonary Rehab Status?? Pulmonary Rehab Discharge Status?? Respiratory Rate: 18 br/min Respiratory Rate: 18 br/min ? Common Emergency [...] are strongly encouraged to quit. Please call [facility] at [phone] or [phone] or log in to [email or web address] for referrals to smoking cessation programs. ?? 434 Suicide & Crisis Lifeline is available 29/09 if you or someone you know needs to find a reason to keep living. By calling 620 you'll be connected to a skilled, trained counselor at a crisis center in your area. INPATIENT DISCHARGE INSTRUCTIONS SIGNATURE PAGE TOD ESTES Location:[facility] Registration Date and Time:01/05/2023 01:01 EDT Primary Care Physician: Alexandrea ROJAS , Sina Rodrigues, Attending Physician: Davida Barakat MD, I TOD ESTES, have received the above patient education materials/instructions and have verbalized understanding. If ambulance or transport services are being used I further acknowledge being given a choice of service. ?? If you need to contact me, please call me at this number: . Patient/Ceramic Coater Machine Name: Patient/Ceramic Coater Machine Signature: Relationship to Patient: Witness Name/Signature: Date: * Too ROJAS, Kelly: PERFORM Event Display: Patient Education Leaflets Authored Date: [id number] Trauma Rib and Chest Injuries ?? 319 ?? Trauma Patient - Rib and Chest Injuries Aftercare Instructions ?? There are 12 pairs of ribs, attached to other bones in the chest by cartilage. Ribs protect vital body organs. You have been diagnosed with ???rib fractures?? , also called ???broken ribs?? . A chestx-ray may identify rib fractures, but they may not always be seen. They may also be diagnosed by phy sical exam. ?? Common Symptoms: ??? Pain or tenderness in the fracture area in the chest wall or back ??? Sharp pain that increaseswith deep breathing, coughing, and/or sneezing ??? Mild shortness of breath ??? Chest pain on movement of shoulders or upper body ??? Feeling a ???clicking?? sensation with movement of the chest ?? Length of healing: You may have symptoms for weeks to months, depending on the number and severity. Rib fractures eventually heal, even if the ribs are not in perfect alignment. New bone is formed along the rib fracture. If a person is thin, this may be felt as a hard lump. ?? Possible complications: ??? Collapsed lung ??? rib fractures can cause lung collapse due to either air (pneumothorax) or blood (hemothorax) filling between the ribs and the lung. You may have had a chest tube placed. ??? Pulmonary contusion ??? this is a bruise to the lung that may occur with rib fractures. ??? Atelectasis ??? the smallest air pockets may collapse, and that part of the lung does not receive air. To prevent, use Incentive Spirometry or walk frequently if possible. ??? Pneumonia ??? this is an infectionin the lung that can develop after atelectasis. ?? Treatment: ??? Take pain medication as directed. Pain medications usually can???t take the pain away completely, but will allow you to take deep breaths. With time, you can start to cut back on pain medication.??? Hold a pillow or your hand against the injured area when coughing and taking deep breaths. ??? Do not wrap/tape around chest or wear tight clothing. ??? Use the Incentive Spirometer as advised byyour doctor. ??? Sleeping in a recliner is easier than in a bed for the first few days or weeks after injury. ??? Consider using a heating pad after the first weeks to help with muscle spasms. ??? Hot showers and gentle stretching exercises can also help relieve muscle spasms. ??? Restriction of air travel (flying) or scuba diving is recommended for 1 month with a collapsed lung. ?? Activity Recommendations: ??? Slowly advance to normal activities. ??? No driving until you are no longer taking pain medication. ??? Return to work [? ] Full Duty or [? ] Light Duty (dependent on activities required at the job). ??? Return to sports/gym activities [? ] ?? Additional questions please contact: Trauma Outpatient Office/[facility] [address] [place], [place] [id number] ? * Kelly Gage MD: PERFORM Event Display: Patient Education Leaflets Authored Date: Rib Fracture (Broken Rib) ?? [address]70 Rib Fracture (Broken Rib) Your ribs are curved bones in your chest. They help protect your lungs and expand and contract whenyou breathe. Children's ribs bend easily and can often withstand a blow or fall. But adult ribs aremore likely to break (fracture) under stress. Even coughing or a hard sneeze can fracture a rib. When to go to the emergency room (ER) Although they can be painful, most rib fractures aren't serious. But they often make it hard to cough or breathe deeply. Get to the ER or call 911 right away if you have: ??? Trouble breathing ??? Nausea, vomiting, or stomach pain with a sore or bruised rib ??? Pain that worsens over time ??? An injury to the chest or stomach ?? What to expect in the ER Here's what will happen in the ER:? A healthcare provider will ask about your injury and examine you carefully. ??? An X-ray of your chest will likely be taken to show any major damage to ribs and lungs. But ribs can have small breaks that don't show up on X-rays, even though they still hurt. In some cases, a CT scan may be done. ??? You may be given??medicine to ease your discomfort. ??? In rare cases, rib fractures can cause a lung to collapse or lead to bleeding in the chest. In these cases, a tube will be inserted into the chest to reinflate the lung or drain the blood. ?? Follow-up You are likely to heal in 6 to 8 weeks. Most rib fractures heal on their own with no lasting effects. Call your??healthcare provider??right away if you notice any of these symptoms: ??? Increased chest pain ??? Shortness of breath ??? Fever of 100.4??F (38??C) or above, or as directed by your provider ??? Chills ??? Coughing up blood ?? Last Reviewed Date: 2020 ?? 1331-7920 [employer]. All rights reserved. This information is not intended as a substitute for professional medical care. Always follow your healthcare professional's instructions. ?? Patient Care team information Care Team Personnel Name: Sina Lechuga MD Position: [facility] Outreach Member Role: PCP Address: Address: [address] [place] [address] Name: Eric Lemus RN Position: [facility] RN Member Role: Primary Care Nurse Name: Benja Eric RN Position: [facility] RN Supv Member Role: Primary Care Nurse Name: Liam Teixeira RN Position: [facility] RN Member Role: Primary Care Nurse Name: Iwona Burden RN Position: [facility] RN Member Role: Primary Care Nurse Name: Ana Boykin RN Position: [facility] RN Member Role: Primary Care Nurse [facility], Trauma Attending Position: [facility] ED Attendings Patient Name: Melanie Lau Position: [facility] ED [facility] Name: Maribeth Maldonado RN Position: [facility] ED RN W/OE and Tasks Member Role: Patient Care Provider Care Team Related Persons Name: HOLLIE ESTES Address: [address] [place] [id number]
--- OUTSIDE RECORDS SUMMARY | 2023-04-16 13:52 | XMS_ITS | Continuity of Care Document ---
Author Name Unknown Organization [facility] Address [address] [facility], 3r d Floor, [address] [place] [address]- Care Team Providers Care Assisted Living Care Manager Name Role Phone Alexandrea ROJAS, Sina Rodrigues Primary Care Physician [phone] [place] [facility] Date(s): 01/16/23 - 02/15/23 [facility] [address], 3rd Floor, [address] [place] [address]- Allergies, Adverse Reactions, Alerts No Known Medication [...] 11:03:00 EDT, Route to Pharmacy Electronically, [facility]/pharmacy #[id number], Partial fill upon patient request if the [...] 01/06/23 15:38:00 EDT, Route to Pharmacy Electronically, [facility], Partial fill upon patient request [...] 11/30/22 11:04:00 EDT, [id number], Partial fill upon patient request if [...] Team Personnel Name: Sina Lechuga MD Position: S Outreach Member Role: PCP Address: Address: [address] [place] [address] Name: Eric Lemus RN Position: S [...] Team Related Persons Name: HOLLIE ESTES Address: [address] [place] [address]
--- OUTSIDE RECORDS SUMMARY | 2023-04-16 13:52 | XMS_ITS | Continuity of Care Document ---
Author Name Unknown Organization [facility] As [facility] Address [address] [place] [address] [address] [place] [address]- Care Team Providers Care Restaurant Front Manager Name Role Phone Sina Lechuga MD Primary Care Physician [phone] En[place] [facility] [place] [id number] Date(s): 01/21/23 - 02/20/[address] [place] [address]- Attending Physician: Niels Razo Admitting Physician: AdmtrNiels Referring Physician: Admtr, Ar8 Allergies, Adverse Reactions, [...] 11/30/22 11:03:00 EDT, Route to Pharmacy Electronically, [facility]/pharmacy #[id number], Partial fill upon patient request if the [...] 01/06/23 15:38:00 EDT, Route to Pharmacy Electronically, [facility], Partial fill upon patient request if [...] 11/30/22 11:04:00 EDT, [id number] Partial fill upon [...] Care team information Care Team Personnel Name: Alexandrea ROJAS , Sina Rodrigues Position: [facility] Outreach Member Role: PCP Address: Address: [address] [place] [address] Name: Eric Lemus RN Position: S RN Member Role: Primary Care Nurse Name: Benja Eric RN Position: [facility] RN Supv Member Role: Primary Care Nurse Name: Liam Teixeira RN Position: S RN Member Role: Primary Care Nurse Name: Iwona Burden RN Position: S RN Member Role: Primary Care Nurse Name: Ana Boykin RN Position: S RN Member Role: Primary Care Nurse Care Team Related Persons Name: HOLLIE ESTES Address: [address] [place] [address]
--- OUTSIDE RECORDS SUMMARY | 2023-04-16 13:52 | XMS_ITS | Continuity of Care Document ---
Author Name Unknown Organization [facility] Address [address] [facility], 3r d Floor, [address] [place] [address]- Care Team Providers Care Job Cost Estimator Name Role Phone Alexandrea ROJAS, Sina Rodrigues Primary Care Physician En[place] [facility] [place](s): 12/09/22 - 12/16/22 [facility] [address], [address], [address] [place] [address]- Attending Physician: Connie Duarte MD, Tania Referring Physician: Leonor VORA, Kary Bullard Allergies, Adverse Reactions, Alerts No Known Medication [...] to Pharmacy Electronically, [facility]/pharmacy #[id number], Partial fill upon patient request if the [...] 11/30/22 11:04:00 EDT, Route to Pharmacy Electronically, [facility]/pharmacy #[id number], Partial fill upon patient request if the prescription is for a schedule II opioid drug... Start Date: 11/30/22 Status: Ordered traZODone 50 mg oral tablet 25 mg, By Mouth, Daily at bedtime, PRN, Refills 0, Maintenance, Sleep, 12/06/22 10:39:00 EDT, Partial fill upon patient request if the prescription is for a schedule II opioid drug. Start Date: 12/06/22 Status: Ordered Problem List Condition Confirmation Course Effective Dates Status Health St atus Informant Vertebral artery stroke Confirmed Active Depression Confirmed Active GERD (gastroesophageal reflux disease) Confirmed Active Hypertension Confirmed Active Vital Signs Most recent to oldest [Reference Range]: 1 Height 173 cm (12/09/22 1:48 PM) Oxygen Saturation [94-100 %] 97 % (12/09/22 1:48 PM) Pulse Rate [55-90 bpm] 62 bpm (12/09/22 1:48 PM) Blood Pressure [90-138/55-84 mm Hg] 97/6 3mm Hg (12/09/22 1:48 PM) Mode of Delivery (Oxygen) Room air (12/09/22 1:48 PM) Blood pressure sites Arm, right (12/09/22 1:48 PM) Patient Care team information Care Team Personnel Name: Sina Lechuga MD Position: [facility] Outreach Member Role: PCP Address: Address: [address] [place] [address] Name: Eric Lemus RN Position: S RN [...] Team Related Persons Name: HOLLIE ESTES Address: [address] [place] [address]
--- OUTSIDE RECORDS SUMMARY | 2023-04-16 13:52 | XMS_ITS | Continuity of Care Document ---
Author Name Unknown Organization [facility] ter Address [address] [place] [id number]- Care Team Providers Care Chemical Process Project Engineer Name Role Phone Alexandrea ROJAS, Sina Rodrigues Primary Care Physician [phone] Encounter [facility] [place](s[place] 03/10/23 - 03/10/[address] [id number] Discharge Disposition: A-D/C Home Attending Physician: Abraham Gillis MD Admitting Physician: Abraham Gillis MD Referring Physician: Jay Schneider Allergies, Adverse Reactions, Alerts No Known Medication [...] 11/30/22 11:03:00 EDT, Route to Pharmacy Electronically, [facility]/pharmacy #[id number], Partial fill upon patient request if the [...] 01/06/23 15:38:00 EDT, Route to Pharmacy Electronically, [facility], Partial fill upon patient request [...] 11:04:00 EDT, [id number] fill upon patient request [...] oldest [Reference Range]: 1 Height 173 cm (03/10/23 9:15 AM) Weight 73 kg (03/10/23 9:15 AM) Oxygen Saturation [94-100 %] 100 % (03/10/23 9:14 AM) Pulse Rate [55-90 bpm] 67 bpm (03/10/23 9:14 AM) Blood Pressure [90-138/55-84 mm Hg] 165/ 85mm Hg *H* (03/10/23 9:14 AM) Respiratory Rate [16-30 br/min] 18 br/mi n (03/10/23 9:14 AM) Temperature [96.8-100.4 DegF] 97.5 DegF (03/10/23 9:14 AM) Mode of Delivery (Oxygen) Room air (03/10/23 9:14 AM) Blood pressure sites Arm, left (03/10/23 9:14 AM) Temperature Route Oral (03/10/23 9:14 AM) Dry Weight 73 kg (03/10/23 9:15 AM) Hospital Progress note * Larisa Michel: PERFORM, SIGN, VERIFY, SIGN, MODIFY Event Display: Progress Note Hospital Authored Date: [id number] Patient: CHUY ESTES Age: 72 years Sex: Male : 1950 Associated Diagnoses: None Author: Larisa Michel Findings Nursing Data Vital Signs : VITAL SIGNS SECTION 03/10/2023 9:14 EST Temperature 97.5 DegF Temperature Route Oral Pulse Rate 67 bpm Respiratory Rate 18 br/min Systolic Blood Pressure 165 mm Hg H Diastolic Blood Pressure 85 mm Hg H Blood pressure sites Arm, left Mean Arterial Pressure 112 mm Hg Pulse Pressure 80 mm Hg Oxygen Saturation 100 % Mode of Delivery (Oxygen) Room air . Narrative/Incidental Patient arrived on unit at 0900 NPO status confirmed Labs sent patient shows no signs of acute distress. Call rudolph within reach . * Larisa Michel: PERFORM Event Display: Progress Note Hospital Authored Date: Patient returned from planned procedure and was discharged due to No procedure being accomplished pt aware of plan and will follow up with PCP maybe for reschedule Patient Care team information Care Team Personnel Name: Alexandrea ROJAS , Sina Rodrigues Position: S Outreach Member Role: PCP Address: Address: [address] [place] [id number]- Name: Eric Lemus RN Position: S RN Member Role: Primary Care Nurse Name: Benja Eric RN Position: S RN Supv Member Role: Primary Care Nurse Name: Iwona Burden RN Position: S RN Member Role: Primary Care Nurse Name: Ana Boykin RN Position: S RN Member Role: Primary Care Nurse Care Team Related Persons Name: HOLLIE ESTES Address: [address] [place] [id number]
== END 2023-04-16 15:15 | disposition home or self-care (01) ==
LOC: HO.HMGFM 13:50
PROVIDERS: PCP Family Medicine; Visit Provider Family Medicine
DX: N19 Unspecified kidney failure (principal); E78.5 Hyperlipidemia, unspecified; E78.6 Lipoprotein deficiency; R73.01 Impaired fasting glucose; R79.89 Other specified abnormal findings of blood chemistry
CPT/HCPCS: 99442

== ENCOUNTER 2023-05-18 08:30 | Outpatient (REF) | payer MEDICARE, SELFPAY ==
[2023-05-18 11:20] LABS: Appearance Urine Clear; Color Urine Yellow; Glucose Urine UA Negative (Negative); Leukocyte Esterase Urine Negative (Negative); Nitrite Urine Negative (Negative); PH 5.5 (5.0-9.0); Specific Gravity - Urine 1.025 (1.005-1.025); Urine Blood Negative (Negative); Urine Ketones Negative (Negative); Urine Protein Negative (Neg-Trace)
[2023-05-18 11:23] LABS: MANUAL DIFF FLAG NO
[2023-05-18 11:44] LABS: Basophils Absolute Auto 0.1 X10*3/uL (0.0-0.2); Basophils Percent Auto 0.9 % (0-2); Eosinophils Absolute Auto 0.2 X10*3/uL (0.0-0.4); Eosinophils Percent Auto 2.8 % (0-4); Hematocrit 43.9 % (42.0-52.0); Hemoglobin 14.1 g/dl (14.0-18.0); Imm Gran Abs Auto 0.01 X10*3/uL (0.00-0.03); Imm Gran Pct Auto 0.2 % (0.0-0.4); Lymphocytes Absolute Auto 1.1 X10*3/uL (1.2-4.9); Lymphocytes Percent Auto 19.7 % (20-40); Mean Corpuscular HGB Conc 32.1 g/dl (31.0-36.0); Mean Corpuscular Hemoglobin 30.3 pg (27.0-33.0); Mean Corpuscular Volume 94.2 fL (80.0-98.0); Mean Platelet Volume 11.9 fL (9.4-12.4); Monocytes Absolute Auto 0.5 X10*3/uL (0.1-1.2); Monocytes Percent Auto 8.5 % (2-11); Neutrophils Absolute Auto 3.7 x10*3/uL (2.0-8.3); Neutrophils Percent Auto 67.9 % (45-73); Platelet Count 185 X10*3/uL (160-400); Red Blood Count 4.66 X10*6/uL (4.60-5.80); Red Cell Distribution Width 12.7 % (11.0-16.0); White Blood Count 5.4 X10*3/uL (4.8-10.8)
[2023-05-18 12:18] LABS: Alanine Aminotransferase 31 U/L (0-40); Albumin Level 3.9 g/dL (3.5-5.0); Alkaline Phosphatase 109 U/L (39-117); Anion Gap 11 (12-20); Aspartate Amino Transferase 29 U/L (5-37); Bilirubin Total 0.4 mg/dL (0.0-1.0); Blood Urea Nitrogen 28 mg/dL (9-16); Calcium 9.6 mg/dL (8.4-10.2); Carbon Dioxide 29 mmol/L (22-29); Chloride 109 mmol/L (96-108); Cholesterol 125 mg/dL (<200); Estimated Glomerular Filt Rate 46; Glucose Fasting 97 mg/dL (60-99); Glucose Random 97 mg/dL (60-115); HDL Cholesterol 34 mg/dL (>40); LDL Cholesterol Calculated 63 mg/dL (<100); Potassium 3.9 mmol/L (3.3-5.1); Sodium 145 mmol/L (135-145); Total Protein 7.1 g/dL (6.5-8.0); Triglycerides 144 mg/dL (<150)
[2023-05-18 12:49] LABS: Microalbum/Creatinine Ratio Ur 8.1 ug/mg cr (<30)
== END 2023-05-18 08:31 | disposition home or self-care (01) ==
LOC: HO.WFDLDS 08:30
PROVIDERS: Visit Provider Family Medicine
DX: Z00.00 Encounter for general adult medical examination without abnormal findings (principal); Z12.5 Encounter for screening for malignant neoplasm of prostate; I10 Essential (primary) hypertension; R73.9 Hyperglycemia, unspecified; R73.01 Impaired fasting glucose
CPT/HCPCS: 36415; 80053; 80061; 81003; 82043; 82570; 82947; 83970; 84153; 84443; 85025

== ENCOUNTER 2023-06-04 11:47 | Outpatient (AMB) | payer MEDICARE, SELFPAY ==
--- NOTE | 2023-06-04 11:48 | MHC.OFFVIS ---
Intake Vital Signs 06/04/23 11:50 Height 5 ft 9 in Weight 166 lb BMI 24.5 Blood Pressure Location Lt brachial Position Sitting Intake Visit Reasons: Colonoscopy Screening Intake Note: Tod presents in the office as a new patient for a colonoscopy screening CC: Just due for a colonoscopy. Allergies No Known Allergies Allergy (Verified 04/16/23 13:43) Medication List - Last Reconciled 06/04/23 by Kaylee Barkley PA-C amlodipine 10 mg PO DAILY 30 days aspirin (Adult Aspirin Regimen) 81 mg PO DAILY atenolol 50 mg PO DAILY 90 days atorvastatin 40 mg PO DAILY 90 days bupropion HCl 150 mg PO DAILY 90 days escitalopram oxalate 20 mg PO DAILY 30 days losartan 100 mg PO DAILY 30 days hzjahubf-vgl-mstdp-vit K-lycop 400-20-300 mcg (One-A-Day Men's Multivitamin) tabs PO omeprazole 20 mg PO DAILY 30 days sildenafil 100 mg PO tadalafil (Cialis) 20 mg feeding tube DAILY PRN 30 days HPI HPI Comments History of Present Illness Details A 73 y/o male referred for screening colonoscopy-hx colon polyps- last colonoscopy- CVA 11/29- recovered well-echo next week- He had had dysphagia had PEG tube however that has all resolved Appetite good Bowels normal Acid reflux well controlled - since day one of ppi- He is here today with his He has no nausea, vomiting, hematemesis, hematochezia fever or chills PFSH Medical History (Updated 06/10/23 @ 14:14 by Kaylee Barkley PA-C) Prostate cancer Surgical History Hx of colonoscopy H/O hemorrhoidectomy Social History Housing: Condominium Patient Tobacco Use Status: Never used Tobacco e-Cigarette/Vaping Use: Never Used service: No Current occupational status: retired Current occupational exposures/hazards: No Cognitive needs: No Hearing needs: No Vision needs: No Review of Systems Const All systems reviewed & are unremarkable except as noted in HPI and below Card Denies chest pain and Denies dyspnea Resp Denies dyspnea GI Denies abdominal pain, Denies hematochezia, Denies heartburn, Denies nausea and Denies vomiting Physical Exam Vital Signs: BMI result Body Mass Index 24.5 Const General: cooperative, healthy appearing, comfortable and no acute distress Orientation/consciousness: patient oriented x3 Limitations: no limitations Eyes Sclerae: sclerae normal Resp Effort & Inspection: normal respiratory effort and able to speak in complete sentences Auscultation: clear to auscultation bilaterally Cardio Rate: regular rate Rhythm: regular rhythm Heart sounds: S1 normal heart sound present and S2 normal heart sound present GI Palpation (GI): Soft to palpation and nontender Auscultation: normal bowel sounds Skin General skin exam: no rashes or lesions noted Neuro General: patient oriented x3 Extrem General: Yes full ROM Psych Appearance: grossly normal and well kempt Mental Status: mental status grossly normal Speech and movement: Normal speech and movement present and Clear speech present Affect: normal affect Attitude: cooperative Thought process: Normal thought process present Thought content: Normal thought content present Insight: Good insight present (Psych) Judgement: Good judgement present (Psych) Assessment & Plan Assessment & Plan (1) Screening for colon cancer: Code(s): Z12.11 - Encounter for screening for malignant neoplasm of colon (2) History of colon polyps: Comment: Very pleasant 73-year-old male-personal history of colon polyp-remarkable recovery since CVA- Code(s): Z86.010 - Personal history of colonic polyps Plan: Polyp surveillance colonoscopy (3) GERD (gastroesophageal reflux disease): Comment: Discussed EGD-pt to discuss with PCP Code(s): K21.9 - Gastro-esophageal reflux disease without esophagitis Plan: Reflux precautions Continue PPI Plan Schedule polyp surveillance colonoscopy- will see pcp after echo- if any change in health status - inform Patient Instructions: Schedule polyp surveillance colonoscopy- will see pcp after echo- if any change in health status - inform us He will discuss EGD with pcp - he will up date- MG prep, reviewed literature Continue PPI, avoid culprits reviewed reflux precautions Encouraged to call with any questions or concerns Coding Level of Care Code New Pt Level 3 (71659) Diagnoses Screening for colon cancer Z12.11 History of colon polyps Z86.010 GERD (gastroesophageal reflux disease) K21.9 Time Spent (min) 30
[2023-06-04 11:50] VITALS: BMI 24.5
== END 2023-06-04 14:25 | disposition home or self-care (01) ==
PROVIDERS: PCP Family Medicine; Visit Provider Physician Assistant
DX: K21.9 Gastro-esophageal reflux disease without esophagitis (principal); Z12.11 Encounter for screening for malignant neoplasm of colon; Z86.010 Personal history of colon polyps
CPT/HCPCS: 99203

== ENCOUNTER → 2023-06-04 11:47 | Outpatient (BNVA) | payer MEDICARE, SELFPAY | PROVIDERS: PCP Family Medicine; Visit Provider Physician Assistant | DX: Z12.11 Encounter for screening for malignant neoplasm of colon (principal); K21.9 Gastro-esophageal reflux disease without esophagitis; Z86.010 Personal history of colon polyps | CPT/HCPCS: 99202 ==

== ENCOUNTER 2023-06-12 10:30 | Outpatient (AMB) | payer MEDICARE, SELFPAY ==
[2023-06-12 10:35] VITALS: BP 128/76; PULSE 65; O2SAT 96; BMI 25.5
--- NOTE | 2023-06-12 10:35 | A.OFFPC_ITS ---
Vital Signs 06/12/23 10:35 Height 5 ft 9 in Weight 173 lb BMI 25.5 BP 128/76 Blood Pressure Location Lt brachial Position Sitting Pulse 65 Pulse Source Pulse Oximeter Pulse Oximetry (%) 96 Oxygen Delivery Method Room Air Intake Visit Reasons: f/u labs Intake Note: Patient is herefor follow up on labs, and recently had echo done at [facility]. Allergies No Known Allergies Allergy (Verified 06/12/23 10:39) Tobacco use date assessed: 06/12/23 Fall risk assessment: 1 Fall in past year Last assessed Fall Risk: 06/12/23 Dental Screening Dental Screen Date: 04/16/23 HPI f/u labs HPI Details 73 y/o male presents to review labs such as CBC for mild thrombocytopenia, renal function, elevated fasting blood sugar and elevated parathyroid hormone. Labs were drawn 05/18/23. Reviewed labs with pt. CBC was fine. Creatinine level improved from 1.69 to 1.51. Triglycerides 144. TC 125. LDL 63. HDL low at 34. PTH worsened from 112.8 to 143.0. Plt count improved from 149 to 185. Pt reports he has been walking for exercise whenever the weather allows. Echocard iogram?showed?normal?ejection?fraction?between?55?and?60%?with?no?regional?wall? motion?abnormalities?and?mild?diastolic?dysfunction?which?may?be?normal?for?age. PFSH Medical History Prostate cancer Surgical History Hx of colonoscopy H/O hemorrhoidectomy Social History Housing: Condominium Patient Tobacco Use Status: Never used Tobacco e-Cigarette/Vaping Use: Never Used service: No Current occupational status: retired Current occupational exposures/hazards: No Cognitive needs: No Hearing needs: No Vision needs: No Questionnaire Thrive Questionnaire Date Thrive assessed: 03/20/23 SERGIO-7 AMB Questionnaire SERGIO-7 Date SERGIO - 7 assessed: 03/20/23 Source: Developed by Drs. Alonso Lopez, Mayda B.W. Wyatt Pickett and colleagues, with an educational kamryn from [employer]. Review of Systems Const Denies chills, Denies fatigue, Denies fever(s), Denies headache(s) and Denies weakness ENT Denies dizziness and Denies headache(s) Card Denies chest pain, Denies lightheadedness, Denies dyspnea and Denies other (Palpitations) Resp Denies cough, Denies dyspnea, Denies wheezing and Denies other ( shortness of breath) Musc Denies numbness and Denies tingling Neuro Denies dizziness, Denies headache(s), Denies numbness, Denies tingling, Denies paresthesias and Denies weakness Psych Denies anxiety and Denies depression Endo Denies fatigue Aller/Immun Denies wheezing Physical exam (Primary Care) Vital Signs: Last Vital Signs Pulse 65 06/12/23 10:35 BP 128/76 06/12/23 10:35 Pulse Ox 96 06/12/23 10:35 Oxygen Delivery Method Room Air 06/12/23 10:35 BMI result Body Mass Index 25.5 Tobacco/Smoking Status: Tobacco use Status Tobacco use date assessed 06/12/23 06/12/23 10:40 Patient Tobacco Use Status Never used Tobacco 06/12/23 10:37 e-Cigarette/Vaping Use Never Used 06/12/23 10:37 Thrive Assessment: Date of Thrive Assessment Date Thrive assessed 03/20/23 06/12/23 10:37 Const General: no acute distress and well developed Nutritional Appearance: well nourished Orientation/consciousness: patient oriented x3 [facility]: Yes normocephalic and Yes atraumatic Eyes General: appearance normal, both eyes and all related structures Pupils: Equal, round and reactive pupils present EOM: EOMs intact bilaterally Resp Effort & Inspection: normal respiratory effort Auscultation: clear to auscultation bilaterally Cardio Rate: regular rate Rhythm: regular rhythm Heart sounds: S1 normal heart sound present, S2 normal heart sound present, no gallops, no murmurs and no rubs Neuro General: patient oriented x3 and gait normal Cranial nerves: Yes Equal, round and reactive pupils present Psych Affect: normal affect Assessment and Plan Assessment & Plan (1) Dizziness: Code(s): R42 - Dizziness and giddiness Plan: Patient?with?history?of?CVA?notes?dizziness,?particularly?after?walking Also?had?episode?of?unresponsiveness?noted?by?his?,?with?subsequent?headache Will?check?Holter?monitor,?carotid?duplex?and?refer?him?back?to?Neurology? for?questions?of?seizure-like?activity?and?history?of?CVA (2) Renal failure: Code(s): N19 - Unspecified kidney failure Plan: Stable.??Renal?function?is?at?baseline Follow-up?with?nephrology (3) Elevated parathyroid hormone: Code(s): R79.89 - Other specified abnormal findings of blood chemistry Plan: Repeat?parathyroid?hormone?level?is?still?elevated.??Calcium?level?is?okay?and ?renal?function?is?at?baseline History?of?CVA Will?refer?him?to?endocrinology Recheck?calcium?and?vitamin-D? (4) Low HDL (under 40): Code(s): E78.6 - Lipoprotein deficiency Plan: Encouraged?exercise?as?tolerated (5) Elevated fasting glucose: Code(s): R73.01 - Impaired fasting glucose Plan: Blood?sugar?is?in?normal?range (6) Thrombocytopenia: Code(s): D69.6 - Thrombocytopenia, unspecified Plan: This?has?corrected Resolved Orders: Orders ECG holter monitor 48 hour Today R42 - Dizziness and giddiness Comprehensive Met. Panel Today R79.89 - Other specified abnormal findings of blood chemistry Parathyroid Hormone Intact Today R79.89 - Other specified abnormal findings of blood chemistry Vitamin D 25-OH Total Today E55.9 - Vitamin D deficiency, unspecified US carotid duplex BI Today R42 - Dizziness and giddiness TSH reflex Free T4 Today R79.89 - Other specified abnormal findings of blood chemistry, Z00.00 - Encounter for general adult medical examination without abnormal findings Referrals Endocrinology Referral I63.9 - Cerebral infarction, unspecified, R79.89 - Other specified abnormal findings of blood chemistry Coding Level of Care Code Est Pt Level 4 (13914) Diagnoses Dizziness R42 Renal failure N19 Elevated parathyroid hormone R79.89 Low HDL (under 40) E78.6 Elevated fasting glucose R73.01 Thrombocytopenia D69.6
== END 2023-06-12 11:39 | disposition home or self-care (01) ==
PROVIDERS: PCP Family Medicine; Visit Provider Family Medicine
DX: R42 Dizziness and giddiness (principal); D69.6 Thrombocytopenia, unspecified; N19 Unspecified kidney failure; R79.89 Other specified abnormal findings of blood chemistry; E78.6 Lipoprotein deficiency; R73.01 Impaired fasting glucose
CPT/HCPCS: 99214

== ENCOUNTER 2023-06-29 12:53 | Outpatient (REF) | payer MEDICARE, SELFPAY ==
--- NOTE | ~2023-06-29 | US_ITS ---
EXAMINATION: US EXTRACRANIAL CAROTID DUPLEX, BILATERAL CLINICAL INFORMATION: Dizziness and giddiness COMPARISON: None available. TECHNIQUE: Real-time ultrasound and Doppler techniques (integrating B-mode 2-D vascular images, Doppler spectral analysis and color-flow Doppler imaging) were utilized to interrogate the extracranial carotid arteries, the vertebral arteries and proximal subclavian arteries bilaterally. The degree of stenosis is determined by criteria similar to NASCET. FINDINGS: Right Side: 1. There is mild atherosclerotic plaque seen in the bifurcation/proximal ICA region. 2. The common carotid artery PSV proximally is 104 cm/s and distally 88.8 cm/s. 3. The proximal internal carotid artery velocities are 93.9 cm/s systolic and 21.7 cm/s diastolic. 4. The proximal external carotid artery PSV is 155 cm/s. 5. The vertebral artery shows antegrade flow. 6. The subclavian artery waveforms are normal. Left Side: 1. There is mild atherosclerotic plaque seen in the bifurcation/proximal ICA region. 2. The common carotid artery PSV proximally is 103 cm/s and distally 94.4 cm/s. 3. The proximal internal carotid artery velocities are 91.3 cm/s systolic and 25.5 cm/s diastolic. 4. The proximal external carotid artery PSV is 111 cm/s. 5. The vertebral artery shows antegrade flow. 6. The subclavian artery waveforms are normal. US/US carotid duplex BI IMPRESSION: 1. RIGHT: Minimal, non-hemodynamically significant stenosis of the proximal right internal carotid artery corresponding to a 0-49% stenosis by velocity criteria. 2. LEFT: Minimal, non-hemodynamically significant stenosis of the proximal left internal carotid artery corresponding to a 0-49% stenosis by velocity criteria.
--- NOTE | 2023-06-29 13:45 | HM_ITS ---
* Total monitoring time 2 days. * Underlying rhythm is sinus with an average rate of 67/Min. * Rare supraventricular and ventricular ectopy. * No significant pauses or AV blocks. * No patient markers or diary events. MTDD
== END 2023-06-29 12:54 | disposition home or self-care (01) ==
LOC: HO.US 12:53
PROVIDERS: PCP Family Medicine; Visit Provider Family Medicine
DX: R42 Dizziness and giddiness (principal)
CPT/HCPCS: 93225; 93880

== ENCOUNTER → 2023-06-29 13:45 | Outpatient (BNV) | payer MEDICARE, SELFPAY | PROVIDERS: PCP Family Medicine; Visit Provider Internal Medicine | DX: I47.10 Supraventricular tachycardia, unspecified (principal) | CPT/HCPCS: 93227 ==

== ENCOUNTER 2023-07-10 10:30 | Outpatient (AMB) | payer MEDICARE, SELFPAY ==
[2023-07-10 10:35] VITALS: BP 122/62; PULSE 68; O2SAT 98; BMI 25.7
--- NOTE | 2023-07-10 10:35 | A.OFFPC_ITS ---
Vital Signs 07/10/23 10:35 Height 5 ft 9 in Weight 174 lb 4 oz BMI 25.7 BP 122/62 Blood Pressure Location Rt brachial Position Sitting Pulse 68 Pulse Source Pulse Oximeter Pulse Oximetry (%) 98 Oxygen Delivery Method Room Air Intake Visit Reasons: f/u dizziness Intake Note: Patient is here to follow up on dizziness. Allergies No Known Allergies Allergy (Verified 06/12/23 10:39) Tobacco use date assessed: 07/10/23 Fall risk assessment: 1 Fall in past year Last assessed Fall Risk: 07/10/23 Dental Screening Dental Screen Date: 07/10/23 Did you have a dental visit in the last 12 months?: Yes Did you have a dental problem in the last 6 months where you did not have access to dental care?: No Was dental information given to patient?: Patient has dentist HPI f/u dizziness HPI Details 73 y/o male presents to f/u dizziness. Had noted dizziness particularly after walking. Also had an episode of unresponsiveness noted by with subsequent headache. Checking holter monitor, carotid duplex and referred him back to Neurology for questions of seizure-like activity and hx of CVA. Holter monitor, carotid looks fine. Pt notes dizziness have improved when he has been taking it a bit slower. Pt notes ongoing difficulty swallowing. PFSH Medical History Prostate cancer Surgical History Hx of colonoscopy H/O hemorrhoidectomy Family History (Updated 07/10/23 @ 10:41 by Mari Williamson CMA) Mother Mental health disorder Social History Housing: Condominium Patient Tobacco Use Status: Never used Tobacco e-Cigarette/Vaping Use: Never Used service: No Current occupational status: retired Current occupational exposures/hazards: No Cognitive needs: No Hearing needs: No Vision needs: No Questionnaire Thrive Questionnaire Date Thrive assessed: 03/20/23 SERGIO-7 AMB Questionnaire SERGIO-7 Date SERGIO - 7 assessed: 03/20/23 Source: Developed by Drs. Alonso Lopez, Mayda Pickett, Wyatt Cunningham and colleagues, with an educational kamryn from [employer]. Review of Systems Const Denies chills, Reports fatigue, Denies fever(s), Denies headache(s) and Denies weakness ENT Denies dizziness and Denies headache(s) Card Denies dyspnea Resp Denies cough, Denies dyspnea, Denies wheezing and Denies other (shortness of breath) Musc Denies numbness and Denies tingling Neuro Denies dizziness, Denies headache(s), Denies numbness, Denies tingling and Denies weakness Psych Denies anxiety and Denies depression Endo Reports fatigue Aller/Immun Denies wheezing Physical exam (Primary Care) Vital Signs: Last Vital Signs Pulse 68 07/10/23 10:35 BP 122/62 07/10/23 10:35 Pulse Ox 98 07/10/23 10:35 Oxygen Delivery Method Room Air 07/10/23 10:35 BMI result Body Mass Index 25.7 Tobacco/Smoking Status: Tobacco use Status Tobacco use date assessed 07/10/23 07/10/23 10:41 Patient Tobacco Use Status Never used Tobacco 07/10/23 10:41 e-Cigarette/Vaping Use Never Used 07/10/23 10:41 Thrive Assessment: Date of Thrive Assessment Date Thrive assessed 03/20/23 07/10/23 10:41 Const General: well developed; No acute distress Nutritional Appearance: well nourished Orientation/consciousness: patient oriented x3 HENMT Head: Yes normocephalic and Yes atraumatic Eyes General: appearance normal, both eyes and all related structures Pupils: Equal, round and reactive pupils present EOM: EOMs intact bilaterally Resp Effort & Inspection: normal respiratory effort Auscultation: clear to auscultation bilaterally Cardio Rate: regular rate Rhythm: regular rhythm Heart sounds: S1 normal heart sound present, S2 normal heart sound present, no gallops, no murmurs and no rubs Neuro General: patient oriented x3 and gait normal Cranial nerves: Yes Equal, round and reactive pupils present Psych Affect: normal affect Assessment and Plan Assessment & Plan (1) Dizziness: Code(s): R42 - Dizziness and giddiness Plan: Patient?has?had?dizziness?since?his?stroke. This?has?not?worsened?and?in?fact?has?improved?somewhat?with?p hysical?therapy?and?lifestyle?modifications. Carotid?duplex?looked?okay.??Holter?monitor?test?was?okay. He?does?have?an?appointment?with?Neurology?coming?up. Advised?he?continue?his?exercises?he?learned?at?physical?therapy. Follow-up?with?Neurology?as?recommended Call?or?return?to?office?if?worsening. (2) Fatigue: Code(s): R53.83 - Other fatigue Plan: His??notes?that?he?gets?fatigued?easily?and?needs?to?rest. After?resting?he?appears?back?to?normal. As?above,?workup?is?reassuri ng.??He?can?get?exercise?and?he?should?make?sure?to?get?plenty?of?rest?afterward s. Follow-up?with?Cardiology?and?he?has?an?appointment?with?Neurology (3) Imbalance: Code(s): R26.89 - Other abnormalities of gait and mobility Plan: As?above (4) Renal failure: Code(s): N19 - Unspecified kidney failure Plan: Patient?accidentally?missed?his?appointment?and?has?a?new?appointment?scheduled. Coding Level of Care Code Est Pt Level 3 (58066) Diagnoses Dizziness R42 Fatigue R53.83 Imbalance R26.89 Renal failure N19
== END 2023-07-10 11:17 | disposition home or self-care (01) ==
PROVIDERS: PCP Family Medicine; Visit Provider Family Medicine
DX: R42 Dizziness and giddiness (principal); R53.83 Other fatigue; R26.89 Other abnormalities of gait and mobility; N19 Unspecified kidney failure
CPT/HCPCS: 99213

== ENCOUNTER 2023-10-09 09:47 | Outpatient (REF) | payer MEDICARE, SELFPAY ==
[2023-10-09 11:11] LABS: MANUAL DIFF FLAG NO
[2023-10-09 11:15] LABS: Basophils Percent Auto 0.7 % (0-2); Eosinophils Absolute Auto 0.1 X10*3/uL (0.0-0.4); Eosinophils Percent Auto 2.1 % (0-4); Hematocrit 40.6 % (42.0-52.0); Hemoglobin 13.4 g/dl (14.0-18.0); Imm Gran Abs Auto 0.02 X10*3/uL (0.00-0.03); Imm Gran Pct Auto 0.4 % (0.0-0.4); Lymphocytes Absolute Auto 0.8 X10*3/uL (1.2-4.9); Lymphocytes Percent Auto 13.1 % (20-40); Mean Corpuscular Hemoglobin 30.5 pg (27.0-33.0); Mean Corpuscular Volume 92.3 fL (80.0-98.0); Mean Platelet Volume 11.8 fL (9.4-12.4); Monocytes Absolute Auto 0.5 X10*3/uL (0.1-1.2); Monocytes Percent Auto 8.2 % (2-11); Neutrophils Absolute Auto 4.3 x10*3/uL (2.0-8.3); Neutrophils Percent Auto 75.5 % (45-73); Platelet Count 148 X10*3/uL (160-400); Red Cell Distribution Width 12.2 % (11.0-16.0); White Blood Count 5.7 X10*3/uL (4.8-10.8)
[2023-10-09 12:09] LABS: Alanine Aminotransferase 25 U/L (0-40); Albumin Level 3.9 g/dL (3.5-5.0); Alkaline Phosphatase 106 U/L (39-117); Anion Gap 10 (12-20); Aspartate Amino Transferase 22 U/L (5-37); Bilirubin Total 0.5 mg/dL (0.0-1.0); Blood Urea Nitrogen 30 mg/dL (9-16); Calcium 9.2 mg/dL (8.4-10.2); Carbon Dioxide 28 mmol/L (22-29); Chloride 111 mmol/L (96-108); Cholesterol 115 mg/dL (<200); Estimated Glomerular Filt Rate 45; Glucose Fasting 101 mg/dL (60-99); Glucose Random 101 mg/dL (60-115); HDL Cholesterol 33 mg/dL (>40); LDL Cholesterol Calculated 59 mg/dL (<100); Potassium 4.8 mmol/L (3.3-5.1); Sodium 144 mmol/L (135-145); Total Protein 6.9 g/dL (6.5-8.0); Triglycerides 117 mg/dL (<150)
[2023-10-09 12:32] LABS: TSH reflex Free T4 1.22 uIU/mL (0.32-4.0); Vitamin D 25-OH Total 56.5 ng/mL (>30)
[2023-10-09 12:34] LABS: Prostate Specific Antigen Scr 0.28 ng/mL (<0.05-4.0)
[2023-10-09 12:52] LABS: Parathyroid Hormone Intact 146.1 pg/mL (8.7-77.1)
[2023-10-09 14:11] LABS: Appearance Urine Clear; Color Urine Yellow; Glucose Urine UA Negative (Negative); Leukocyte Esterase Urine Negative (Negative); Nitrite Urine Negative (Negative); PH 5.5 (5.0-9.0); Specific Gravity - Urine 1.025 (1.005-1.025); Urine Blood Negative (Negative); Urine Ketones Negative (Negative); Urine Protein Trace mg/dL (Neg-Trace)
[2023-10-09 14:50] LABS: Creatinine Urine 220.03 mg/dL; Microalbum/Creatinine Ratio Ur 17.2 ug/mg cr (<30)
== END 2023-10-09 09:48 | disposition home or self-care (01) ==
LOC: HO.WFDLDS 09:47
PROVIDERS: Visit Provider Family Medicine
DX: Z00.00 Encounter for general adult medical examination without abnormal findings (principal); D69.6 Thrombocytopenia, unspecified; R79.89 Other specified abnormal findings of blood chemistry; I10 Essential (primary) hypertension; Z12.5 Encounter for screening for malignant neoplasm of prostate; E55.9 Vitamin D deficiency, unspecified
CPT/HCPCS: 36415; 80053; 80061; 81003; 82043; 82306; 82570; 83970; 84153; 84443; 85025

== ENCOUNTER 2023-10-12 08:43 | Outpatient (AMB) | payer MEDICARE, SELFPAY ==
--- NOTE | 2023-10-12 08:50 | MHC.PC.OV ---
Vital Signs 10/12/23 08:55 10/12/23 09:15 Height 5 ft 8 in Weight 166 lb BMI 25.2 BP 98/60 100/68 Blood Pressure Location Rt brachial Lt brachial Position Sitting Respiration 16 Pulse 63 Pulse Source Pulse Oximeter Temp 98 F Temp Source Tympanic Pulse Oximetry (%) 97 Oxygen Delivery Method Room Air Intake Visit Reasons: f/u hypertension, chronic conditions Intake Note: follow up for hypertension, Allergies No Known Allergies Allergy (Verified 10/12/23 08:51) Medication List - Last Reconciled 10/12/23 by Sina Lechuga MD amlodipine 10 mg PO DAILY 30 days aspirin (Adult Aspirin Regimen) 81 mg PO DAILY atenolol 50 mg PO DAILY 90 days atorvastatin 40 mg PO DAILY 90 days bupropion HCl SR 150 mg PO DAILY 90 days escitalopram oxalate 20 mg PO DAILY 90 days losartan 100 mg PO DAILY 90 days fsltbznw-nzj-ilbfi-vit K-lycop 400-20-300 mcg (One-A-Day Men's Multivitamin) tabs PO omeprazole 20 mg PO DAILY 30 days Tobacco use date assessed: 10/12/23 Fall risk assessment: 1 Fall in past year Last assessed Fall Risk: 10/12/23 Dental Screening Dental Screen Date: 07/10/23 HPI f/u hypertension, chronic conditions HPI Details 73 y/o male presents to f/u hypertension, chronic conditions. Blood pressure today 100/68. He is on amlodipine 10mg daily, atenolol 50mg daily. Has been feeling fatigued with complaints of dizziness. They report lower extremity weakness with concerns for falls/imbalance. Has not had a bone density test yet. [facility] Medical History Prostate cancer Surgical History Hx of colonoscopy H/O hemorrhoidectomy Family History (Updated 07/10/23 @ 10:41 by Mari Williamson CMA) Mother Mental health disorder Social History Housing: Condominium Patient Tobacco Use Status: Never used Tobacco e-Cigarette/Vaping Use: Never Used service: No Current occupational status: retired Current occupational exposures/hazards: No Cognitive needs: No Hearing needs: No Vision needs: No Questionnaire Thrive Questionnaire Date Thrive assessed: 03/20/23 SERGIO-7 AMB Questionnaire SERGIO-7 Date SERGIO - 7 assessed: 03/20/23 Source: Developed by Drs. Alonso Lopez, Mayda Pickett, Wyatt Cunningham and colleagues, with an educational kamryn from [employer]. Review of Systems Const Denies chills, Reports fatigue, Denies fever(s), Denies headache(s) and Denies weakness ENT Reports dizziness and Denies headache(s) Card Denies dyspnea Resp Denies cough, Denies dyspnea, Denies wheezing and Denies other (shortness of breath) Musc Denies numbness and Denies tingling Neuro Reports dizziness, Denies headache(s), Denies numbness, Denies tingling and Denies weakness Psych Denies anxiety and Denies depression Endo Reports fatigue Aller/Immun Denies wheezing Physical exam (Primary Care) Vital Signs: Last Vital Signs Temp 98 F 10/12/23 08:55 Pulse 63 10/12/23 08:55 Resp 16 10/12/23 08:55 BP 100/68 10/12/23 09:15 Pulse Ox 97 10/12/23 08:55 Oxygen Delivery Method Room Air 10/12/23 08:55 BMI result Body Mass Index 25.2 Tobacco/Smoking Status: Tobacco use Status Tobacco use date assessed 10/12/23 10/12/23 08:59 Patient Tobacco Use Status Never used Tobacco 10/12/23 08:59 e-Cigarette/Vaping Use Never Used 10/12/23 08:59 Thrive Assessment: Date of Thrive Assessment Date Thrive assessed 03/20/23 10/12/23 08:59 Const General: well developed; No acute distress Nutritional Appearance: well nourished Orientation/consciousness: patient oriented x3 HENMT Head: Yes normocephalic and Yes atraumatic Eyes General: appearance normal, both eyes and all related structures Pupils: Equal, round and reactive pupils present EOM: EOMs intact bilaterally Resp Effort & Inspection: normal respiratory effort Neuro General: patient oriented x3 and No gait normal Cranial nerves: Yes Equal, round and reactive pupils present Gait exam (Neuro): gait abnormal Psych Affect: normal affect Assessment and Plan Assessment & Plan (1) Hypertension: Code(s): I10 - Essential (primary) hypertension Plan: Blood?pressure?is?too?low?and?patient?is?feeling?fatigued?and?has?had?complaints?of?dizziness Will?have?him?decrease?atenolol?from?50?mg?daily?down?to?25?mg?daily. No?history?of?coronary?artery?disease?or?CHF.??Could?discontinue?atenolol?if?still?needing?further?reduction?in?his?blood?pressure?medications. In?the?interim?between?today?and?his?next?visit?however?if?he?is?still?having?low?blood?pressures?on?the?lower?dose?of?atenolol,?he?can?break?his?losartan?in?half. (2) GERD (gastroesophageal reflux disease): Code(s): K21.9 - Gastro-esophageal reflux disease without esophagitis Plan: Much?improved?on?omeprazole.??However?patient?has?secondary?hyperparathyroidism?from?his?mild?chronic?renal?failure He?has?had?no?recent?symptoms.??He?can?try?a?strategy?of?avoiding?trigger?foods?and?holding?off?on?omeprazole?unless?he?begins?having?symptoms.??At?which?point?he?can?take?omeprazole?for?few?days?then?discontinue?again. Checking?bone?density?test (3) Hyperparathyroidism: Code(s): E21.3 - Hyperparathyroidism, unspecified Plan: As?above,?likely?secondary?to?mild?chronic?renal?failure Follow-up?with?endocrinology?as?recommended Checking?bone?density?test (4) Lower extremity weakness: Code(s): R29.898 - Other symptoms and signs involving the musculoskeletal system Plan: Ongoing?lower?extremity?weakness Has?benefited?from?physical?therapy?in?the?past?and?will?resume?this May?also?have?some?generalized?weakness?from?hypotension?and?atenolol?use.??Decreasing?atenolol.??Advised?he?increase?hydration (5) Imbalance: Code(s): R26.89 - Other abnormalities of gait and mobility Plan: As?above,?resume?physical?therapy Consider?a?cane?if?not?improving (6) Screening for osteoporosis: Code(s): Z13.820 - Encounter for screening for osteoporosis Plan: Check?bone?density?testing?as?patient?has?secondary?hypoparathyroidism Orders: Orders XR DEXA axial skeleton Today E21.3 - Hyperparathyroidism, unspecified, M81.0 - Age-related osteoporosis without current pathological fracture PT Evaluation and Treatment Today I63.9 - Cerebral infarction, unspecified, R29.898 - Other symptoms and signs involving the musculoskeletal system Referrals Neurology Referral I63.9 - Cerebral infarction, unspecified, R26.89 - Other abnormalities of gait and mobility, R29.898 - Other symptoms and signs involving the musculoskeletal system, R56.9 - Unspecified convulsions Medications: Changed From omeprazole 20 mg PO DAILY 30 days 30 caps 2RF To omeprazole 20 mg PO DAILY 90 days 90 caps 2RF From atenolol 50 mg PO DAILY 90 days 90 tabs 2RF I63.9 - Cerebral infarction, unspecified To atenolol 25 mg PO DAILY 90 days 90 tabs 2RF I63.9 - Cerebral infarction, unspecified Coding Level of Care Code Est Pt Level 4 (45754) Diagnoses Hypertension I10 GERD (gastroesophageal reflux disease) K21.9 Hyperparathyroidism E21.3 Lower extremity weakness R29.898 Imbalance R26.89 Screening for osteoporosis Z13.820
[2023-10-12 08:55] VITALS: BP 98/60; PULSE 63; RESP 16; TEMP 36.6; O2SAT 97; BMI 25.2
[2023-10-12 09:15] VITALS: BP 100/68
== END 2023-10-12 10:33 | disposition home or self-care (01) ==
PROVIDERS: PCP Family Medicine; Visit Provider Family Medicine
DX: I10 Essential (primary) hypertension (principal); K21.9 Gastro-esophageal reflux disease without esophagitis; E21.3 Hyperparathyroidism, unspecified; R29.898 Other symptoms and signs involving the musculoskeletal system; R26.89 Other abnormalities of gait and mobility; Z13.820 Encounter for screening for osteoporosis
CPT/HCPCS: 99214

== ENCOUNTER 2023-10-29 11:02 | Outpatient (REF) | payer MEDICARE, SELFPAY ==
--- NOTE | ~2023-10-29 | MM_ITS ---
EXAMINATION: BONE DENSITOMETRY CLINICAL INDICATION: Age-related osteoporosis without current pathological fracture. COMPARISON: This is the patient's baseline examination. TECHNIQUE: Using a [employer] DXA System (software version: 13.1) manufactured by [employer], dual-energy x-ray absorptiometry was performed of the lumbar spine, left hip and left forearm radius 33%. The images are of good technical quality. Summary results are attached. FINDINGS: LEFT FEMUR, NECK: BMD 0.860 g/cm2, Z-score -0.2, T-score -1.6, osteopenia. LEFT FEMUR, TOTAL: BMD 0.930 g/cm2, Z-score -0.2, T-score -1.2, osteopenia. AP SPINE L1-L4: BMD 1.233 g/cm2, Z-score 0.9, T-score 0.1, normal. LEFT FOREARM RADIUS 33%: BMD 0.900 g/cm2, Z-score 0.0, T-score -0.9, normal. IDENTIFIED RISK FACTORS: Hyperparathyroidism, history of fracture (adult). HISTORY OF FRACTURE: Wrist. MEDICATIONS: Multivitamin. MM/XR DEXA appendicular skeleton IMPRESSION: 1. DIAGNOSIS: Osteopenia based on the lowest T-score value of -1.6 in the femoral neck applying World Health Organization criteria. 2. 10-YEAR FRACTURE RISK PREDICTION, FRAX: Major osteoporotic fracture (clinical spine, forearm, hip or shoulder) 10.8%. Hip fracture 2.8%. 3. Treatment Recommendations: NOF guidelines recommend consideration for treatment in postmenopausal women and men age 50 and older presenting with the following: -A hip or vertebral (clinical or morphometric) fracture. -T-score less than or equal to -2.5 at the femoral neck or spine after appropriate evaluation to exclude secondary causes. -Low bone mass at the hip or spine and a 10-year fracture probability by FRAX of greater than or equal to 3% for hip fracture or greater than or equal to 20% for major osteoporotic fracture based on the [place] adapted WHO algorithm. 4. Other Recommendations: All treatment decisions require clinical judgment and consideration of individual patient factors, including patient preferences, comorbidities, previous drug use, risk factors not captured in the FRAX model (e.g. frailty, falls, vitamin D deficiency, increased bone turnover, interval significant decline in bone density) and possible under or overestimation of fracture risk by FRAX. Additional medical evaluation for secondary cause of low bone mineral density may be appropriate. FUTURE SCAN RECOMMENDATION: People with diagnosed cases of osteoporosis or at high risk for fracture should have regular bone mineral density tests. For patients eligible for Medicare, routine testing is allowed once every 2 years. The testing frequency can be increased to one year for patients who have rapidly progressing disease, those who are receiving or discontinuing medical therapy to restore bone mass, or have additional risk factors. Electronically signed by: Alberto Germani MD 11/04/2023 09:12 AM EDT
== END 2023-10-29 11:03 | disposition home or self-care (01) ==
LOC: HO.MAMMO 11:02
PROVIDERS: PCP Family Medicine; Visit Provider Family Medicine
DX: E21.3 Hyperparathyroidism, unspecified (principal); Z13.820 Encounter for screening for osteoporosis; Z91.89 Other specified personal risk factors, not elsewhere classified
CPT/HCPCS: 77081

== ENCOUNTER 2023-11-23 07:41 | Day surgery (SDC) | payer MEDICARE, SELFPAY ==
--- NOTE | 2023-11-19 14:55 | HO.ANESPROP2 ---
Documented by User: Kateryna Alfaro NP 11/19/23 14:58 HPI - Anesthesia Eval Consult details Narrative: 73yo M for Colonoscopy CVA 2022 with dysphagia requiring PEG - ? resolved PMFSH Active Problems Active Problems: All Active Problems At high risk for osteoporosis (Acute) Screening for osteoporosis (Acute) Lower extremity weakness (Acute) Hyperparathyroidism (Acute) Fatigue (Acute) Seizure-like activity (Acute) Dizziness (Acute) Thrombocytopenia (Acute) History of colon polyps (Acute) Elevated parathyroid hormone (Acute) Elevated fasting glucose (Acute) Postnasal drip (Acute) Cough (Acute) Vertigo (Acute) Imbalance (Acute) Headache (Acute) S/P percutaneous endoscopic gastrostomy (PEG) tube placement (Acute) Dysphagia (Acute) Pneumothorax (Acute) Status post fall (Acute) CVA (cerebral vascular accident) (Acute) Orthostatic hypotension (Acute) Cerumen impaction (Acute) Back pain (Acute) Renal failure (Acute) Low HDL (under 40) (Acute) Hyperlipidemia (Acute) Elevated serum creatinine (Acute) GERD (gastroesophageal reflux disease) (Acute) Change in hearing (Acute) History of prostate cancer (Acute) Screening for colon cancer (Acute) Adult general medical exam (Acute) History of COVID-19 (Acute) Erectile dysfunction (Acute) Depression with anxiety (Acute) Hypertension (Acute) Prostate cancer (Acute) Laboratory exam ordered as part of routine general medical examination (Acute) Past Medical History Medical History Hypertension Hyperlipidemia GERD (gastroesophageal reflux disease) CVA (cerebral vascular accident) Thrombocytopenia Hyperparathyroidism Prostate cancer Family History Family History Mother Mental health disorder Surgical History Surgical History Hx of colonoscopy H/O hemorrhoidectomy Social History Social History Housing: Condominium Are you a primary rn progressive care unit to a significant other at home: No Do you presently have visiting nurse or other home services: No Patient Tobacco Use Status: Never used Tobacco e-Cigarette/Vaping Use: Never Used service: No Current occupational status: retired Current occupational exposures/hazards: No Cognitive needs: No Hearing needs: No Vision needs: No Meds Allergies Allergy/AdvReac Type Severity Reaction Status Date / Time No Known Allergies Allergy Verified 10/12/23 08:51 Home Medications ?Medication ?Instructions ?Recorded ?Confirmed ?Last Taken ?Type aspirin 81 mg tablet,delayed 81 mg PO DAILY 01/15/23 10/12/23 Unknown History release (Adult Aspirin Regimen) mvxggsct-bpnxnosx-hzukm acid 400 tab PO 03/26/23 10/12/23 Unknown History mcg-vit K 20 mcg-lycop 300 mcg tablet (One-A-Day Men's Multivitamin) Assessment and Plan Assessment Anesthesia Assessment: Chart Reviewed Documented by User: Leslie Flower MD 11/23/23 11:09 [facility] Active Problems Active Problems: All Active Problems At high risk for osteoporosis (Acute) Screening for osteoporosis (Acute) Lower extremity weakness (Acute) Hyperparathyroidism (Acute) Fatigue (Acute) Seizure-like activity (Acute) Dizziness (Acute) Thrombocytopenia (Acute) History of colon polyps (Acute) Elevated parathyroid hormone (Acute) Elevated fasting glucose (Acute) Postnasal drip (Acute) Cough (Acute) Vertigo (Acute) Imbalance (Acute) Headache (Acute) S/P percutaneous endoscopic gastrostomy (PEG) tube placement (Acute) Dysphagia (Acute) Pneumothorax post CVA. Had Chest tube inserted Status post fall (Acute) CVA (cerebral vascular accident) 2022. Residual balance problems Orthostatic hypotension (Acute) Cerumen impaction (Acute) Back pain (Acute) Renal failure (Acute) Low HDL (under 40) (Acute) Hyperlipidemia (Acute) Elevated serum creatinine (Acute) GERD (gastroesophageal reflux disease) (Acute) Change in hearing (Acute) History of prostate cancer (Acute) Screening for colon cancer (Acute) Adult general medical exam (Acute) History of COVID-19 (Acute) Erectile dysfunction (Acute) Depression with anxiety (Acute) Hypertension (Acute) Prostate cancer (Acute) Laboratory exam ordered as part of routine general medical examination (Acute) Past Medical History Medical History Hypertension Hyperlipidemia GERD (gastroesophageal reflux disease) CVA (cerebral vascular accident) Thrombocytopenia Hyperparathyroidism Prostate cancer Family History Family History Mother Mental health disorder Family history of problems with anesthesia: No Surgical History Surgical History Hx of colonoscopy H/O hemorrhoidectomy History of Problems with Anesthesia: No Social History Social History Housing: [facility] Are you a primary rn progressive care unit to a significant other at home: No Do you presently have visiting nurse or other home services: No Patient Tobacco Use Status: Never used Tobacco e-Cigarette/Vaping Use: Never Used service: No Current occupational status: retired Current occupational exposures/hazards: No Cognitive needs: No Hearing needs: No Vision needs: No Meds Allergies Allergy/AdvReac Type Severity Reaction Status Date / Time No Known Allergies Allergy Verified 10/12/23 08:51 Home Medications ?Medication ?Instructions ?Recorded ?Confirmed ?Last Taken ?Type aspirin 81 mg tablet,delayed 81 mg PO DAILY 01/15/23 10/12/23 Unknown History release (Adult Aspirin Regimen) jwhfladx-uznbxcoo-cuagd acid 400 tab PO 03/26/23 10/12/23 Unknown History mcg-vit K 20 mcg-lycop 300 mcg tablet (One-A-Day Men's Multivitamin) Exam Height,Weight and Vital Signs: Height 5 ft 8 in Weight 75.387 kg Vital Signs Temp Pulse Resp BP Pulse Ox O2 Del Method 11/23/23 08:56 97.8 F 67 16 157/78 H 100 Room Air Airway Mallampati Class: III TM Dist: >3cm Neck ROM: Full Loose/Missing/Broken Teeth: Yes (Tooth extracted bottom Right back. Denies broken or loose teeth) Heart: RRR Lungs: CTAB Assessment and Plan Assessment Anesthesia Assessment: Anesthesia Plan Discussed and Chart Reviewed Final Anesthetic Review Family History of Problems with Anesthesia: No History of Problems with Anesthesia: No NPO: Yes ASA Class: III Final Preanesthetic Review: No Changes in Pt Med Stat, Meds/Allgs Chart Reviewed, Consent Obtained/Reviewed and Anes Risks/Benef Reviewed Patient Risk: Intermediate Procedure Risk: Low Assessment/Block/Sedation in SS: Assess/Block/Sedation-SS Anesthetic Plan Anesthetic Plan: TIVA Disposition: Standard PACU
--- OUTSIDE RECORDS SUMMARY | 2023-11-23 07:43 | XMS_ITS | Continuity of Care Document ---
Author Organization [facility] Address [address] [place] [address] [address] [place] [address]- Care Team Providers Care Plaque Maker Name Role Phone Sina Lechuga MD Primary Care Physician [phone] Encounter [facility] Date(s): 04/01/23 - 05/01/[address] [place] [address]- Allergies, Adverse Reactions, Alerts No Known Medication [...] 11/30/22 11:03:00 EDT, Route to Pharmacy Electronically, [facility]/pharmacy #[id number], Partial fill upon patient request if the [...] Date: 12/07/22 Stop Date: 01/06/23 Status: Ordered Dulcolax Stool Softener = 100 mg, By Mouth, 2 times a day, 0 Refills, Maintenance, 04/22/23 9:35:00 EST, Partial fill upon patient request if the prescription is for a schedule II opioid drug. Start Date: 04/22/23 Status: Ordered escitalopram 20 mg oral tablet [...] 01/06/23 15:38:00 EDT, Route to Pharmacy Electronically, [facility], Partial fill upon patient request if the prescription is for a schedule II opioid d... Start Date: 01/06/23 Stop Date: 01/13/23 Status: Ordered losartan 100 mg oral tablet 1 tablet = 100 mg, By Mouth, Daily, 0 Refills, Maintenance, 04/22/23 9:35:00 EST, Partial fill uponpatient request if the prescription is for a schedule II opioid drug. Start Date: 04/22/23 Status: Ordered melatonin 3 mg oral tablet = 3 mg, Nasogastric Tube, Daily at bedtime, PRN Insomnia, 0 Refills, Maintenance, 12/06/22 10:39:00EDT, Tablet, Partial fill upon patient request if the prescription is for a schedule II opioid drug. Start Date: 12/06/22 Status: Ordered Multivitamin 0 Refills, Maintenance, 04/22/23 9:35:00 EST, Partial fill upon patient request if the prescriptionis for a schedule II opioid drug. Start Date: 04/22/23 Status: Ordered omeprazole 20 mg oral delayed release tablet 1 tablet = 20 mg, By Mouth, Daily, 0 Refills, Maintenance, 04/22/23 9:35:00 EST, Partial fill upon patient request if the prescription is for a schedule II opioid drug. Start Date: 04/22/23 Status: Ordered Plavix 75 mg oral tablet 75 mg, 1, tablet, By Mouth, Daily, # 90 tablet, Refills 0, Tot. Refills 0, Maintenance, 11/30/22 11:04:00 EDT, Route to Pharmacy Electronically, [facility]/pharmacy #[id number], Partial fill upon patient request if [...] Team Personnel Name: Sina Lechuga MD Position: [facility] Outreach Member Role: PCP Address: Address: [address] [place] [address]- Name: Eric Lemus RN Position: [facility] RN Member Role: Primary Care Nurse Name: Benja Eric RN Position: [facility] RN Supv Member Role: Primary Care Nurse Name: Liam Teixeira RN Position: [facility] ED RN W/OE and Tasks Member Role: Primary Care Nurse Name: Iwona Burden RN Position: [facility] RN Member Role: Primary Care Nurse Name: Ana Boykin RN Position: [facility] RN Member Role: Primary Care Nurse Care Team Related Persons Name: HOLLIE ESTES Address: [address] [address]
--- OUTSIDE RECORDS SUMMARY | 2023-11-23 07:43 | XMS_ITS | Continuity of Care Document ---
Author Organization [facility] ter Address [address] [place] [id number]- Care Team Providers Care Staff Pharmacist Hospital Name Role Phone Alexandrea ROJAS, Sina Rodrigues Primary Care Physician Encounter [facility] R [id number] Date(s): 02/25/23 - 07/09/[address] [address] Attending Physician: Abraham Gillis MD Admitting Physician: Abraham Gillis MD Referring Physician: Nita Blevins Allergies, Adverse Reactions, Alerts No Known Medication [...] 11/30/22 11:03:00 EDT, Route to Pharmacy Electronically, [facility]/pharmacy #[id number], Partial fill upon patient request if the [...] 01/06/23 15:38:00 EDT, Route to Pharmacy Electronically, [facility], Partial fill upon patient request [...] 11/30/22 11:04:00 EDT, Route to Pharmacy Electronically, [facility]/pharmacy #[id number], Partial fill upon patient request if [...] Team Personnel Name: Sina Lechuga MD Position: [facility] Outreach Member Role: PCP Address: Address: [address] [place] [address] Name: Eric Lemus RN Position: [facility] RN Member Role: Primary Care Nurse Name: Benja Eric RN Position: [facility] RN Supv Member Role: Primary Care Nurse Name: Liam Teixeira RN Position: [facility] ED RN W/OE and Tasks Member Role: Primary Care Nurse Name: Iwona Burden RN Position: S RN Member Role: Primary Care Nurse Name: Ana Boykin RN Position: S RN Member Role: Primary Care Nurse Care Team Related Persons Name: HOLLIE ESTES Address: [address] [place] [id number]
--- OUTSIDE RECORDS SUMMARY | 2023-11-23 07:43 | XMS_ITS | Continuity of Care Document ---
Author Organization [facility] ter Address [address] [place] [id number]- Care Team Providers Care Steam Station Supervisor Name Role Phone Sina Lechuga MD Primary Care Physician [place] [facility] [place] - 05/05/[address] [address] Attending Physician: Sina Lechuga MD Allergies, Adverse Reactions, Alerts No Known [...] 11/30/22 11:03:00 EDT, Route to Pharmacy Electronically, [facility]/pharmacy #[id number], Partial fill upon patient request if [...] 01/06/23 15:38:00 EDT, Route to Pharmacy Electronically, [facility], Partial fill upon patient request if [...] 11/30/22 11:04:00 EDT, Route to Pharmacy Electronically, [facility]/pharmacy #[id number], Partial fill upon patient request if [...] Personnel Name: Sina Lechuga MD Position: [facility] Outreach Member Role: PCP Address: Address: [address] [place] [address] Name: Eric Lemus RN Position: [facility] RN Member Role: Primary Care Nurse Name: Benja Eric RN Position: [facility] RN Supv Member Role: Primary Care Nurse Name: Liam Teixeira RN Position: [facility] ED RN W/OE and Tasks Member Role: Primary Care Nurse Name: Iwona Burden RN Position: S RN Member Role: Primary Care Nurse Name: Ana Boykin RN Position: S RN Member Role: Primary Care Nurse Care Team Related Persons Name: HOLLIE ESTES Address: [address] [place] [id number]
--- NOTE | 2023-11-23 07:56 | MHC.SHP ---
Pre-Procedural Eval Section A - 24 Hr Update-Section A only Date of Service: 11/23/23 The patient is an INPATIENT: No The patient has been examined within 24 hours of the surgical procedure. The History & Physical has been completed within 30 days and I have reviewed it.: No Section B - Complete if H&P > 30 days Chief Complaint: Surveillance for colon polyps Relevant Family History (Specify if Yes): No Relevant Social History: None Present Medications: see Short Stay Collaborative assessment Medical History: Significant History (Hypertension, history of CVA, history of prostate cancer) History of Previous Operations: Relevant previous surgery/procedure and date(s) (Hx of colonoscopy H/O hemorrhoidectomy) Allergies: Allergies Allergy/AdvReac Type Severity Reaction Status Date / Time No Known Allergies Allergy Verified 10/12/23 08:51 Review of Systems Sugical H&P ROS: Negative: Constitution, Cardiovascular, Respiratory and Gastrointestinal Exam Surgical H&P Exam: Normal: Heart, Normal: Lungs, Normal: Extremities and Normal: Abdomen Plan Diagnosis/Plan: Unchanged I have reviewed the history and physical and performed a pertinent physical examination on my patient. No changes have occurred unless specified. Time Spent With Patient Time: Total time managing care of this patient today ____ minutes.
[2023-11-23 08:56] VITALS: BP 157/78; PULSE 67; RESP 16; TEMP 36.6; O2SAT 100; BMI 25.3
[2023-11-23] MEDS: Lactated Ringers 1,000 ML 100 ML IVCONT (09:13)
[2023-11-23 10:36] VITALS: BP 90/53; PULSE 65; RESP 14; TEMP 36.1; O2SAT 94
--- NOTE | 2023-11-23 10:41 | HO.OPN-COLON ---
Colonoscopy Operative Note Operative Note Date of Service: 11/23/23 Narrative: COLONOSCOPY TILL CECUM WITH BIOPSY, SNARE POLYPECOMY, SUBMUCOSAL INJECTION AND HEMOCLIP PLACEMENT. Pre-op diagnosis: Surveillance for colon polyps. Post-op diagnosis:? colon polyps, Diverticulosis, hemorrhoids Endoscopist:? Calin De Jesus MD Anesthesia:?MAC Consent: Indications for the procedure and potential complications of bleeding, perforation, reaction to medications and missed diagnosis were discussed with the patient and informed consent was obtained. Instrument: Olympus CF H 190 L variable stiffness adult colonoscope Monitoring: Vital signs and clinical assessment, intermittent blood pressure monitoring, continuous EKG monitoring, Pulse oximetry and Carbon Dioxide monitoring were done throughout the procedure. Please see anesthesia flowsheet. Colon withdrawl time was 29 minutes. Procedure: The patient was placed in the left lateral decubitis position and pre-procedure medications were administered. After a digital rectal examination of the ano-rectum, the video colonoscope was inserted into the rectum and advanced through the colon to the cecum. The colonoscope was slowly withdrawn in a retrograde panoramic fashion and the colon mucosa was carefully examined including a retroflexed view of the rectum. Findings and interventions are described below. Procedure Difficulty: without difficulty Findings: Terminal Ileum: Not evaluated Cecum: A 10 mm flat polyp at the appendicular orifice. Polyp was raised with 5 cc of Eleview and removed with a hot snare. Residual polyp was removed with a cold biopsy and polypectomy site treated with cautery using the snare tip Ascending Colon: Moderate diverticulosis throughout the entire colon Transverse Colon: A 12-15 mm sessile polyp - removed with a hot snare. Polypectomy site was closed with 1 hemoclip. Moderate diverticulosis throughout the entire colon Descending Colon: Moderate diverticulosis throughout the entire colon Sigmoid Colon: A 10-12 mm sessile polyp - removed with a hot snare. Severe diverticulosis with luminal narrowing Rectum: Normal Ano-rectum: Moderate internal hemorrhoids Colon preparation: Good after some irrigation. Frierson Bowel Preparation Scale Right colon; 2 Transverse colon: 2 Left colon; 2 (0 = Unprepared colon segment with mucosa not seen due to solid stool that cannot be cleared. 1 = Portion of mucosa of the colon segment seen, but other areas of the colon segment not well seen due to staining, residual stool and/or opaque liquid. 2 = Minor amount of residual staining, small fragments of stool and/or opaque liquid, but mucosa of colon segment seen well. 3 = Entire mucosa of colon segment seen well with no residual staining, small fragments of stool or opaque liquid) Impression and Post Procedure Diagnosis: Colonoscopy Findings: Three medium sized polyps were removed Moderate to severe diverticulosis seen in the entire colon (left > right) Moderate hemorrhoids on retroflexed exam. Plan: I will send a letter with biopsy results. Repeat Colonoscopy in 3-5 years if polyps are adenomatous and due to a history of adenomatous colon polyps.. Above findings were reviewed with the patient and relevant handouts were given and the discharge area.
[2023-11-23 10:42] VITALS: BP 104/60; PULSE 60; RESP 12; O2SAT 96
[2023-11-23 10:51] VITALS: BP 100/70; PULSE 62; RESP 12; O2SAT 97
[2023-11-23 11:06] VITALS: BP 109/76; PULSE 68; RESP 16; O2SAT 95
[2023-11-23 11:20] VITALS: BP 117/75; PULSE 61; RESP 16; TEMP 36.2; O2SAT 96
== END 2023-11-23 12:17 | disposition home or self-care (01) ==
PROVIDERS: PCP Family Medicine; Visit Provider Internal Medicine Gastroenterology
PROC: 0DJD8ZZ Inspection of Lower Intestinal Tract, Via Natural or Artificial Opening Endoscopic (ICD-10-PCS; CPT 45378; principal; 2023-11-23 09:30)
DX: Z12.11 Encounter for screening for malignant neoplasm of colon (principal); Z86.010 Personal history of colon polyps; D12.3 Benign neoplasm of transverse colon; K63.5 Polyp of colon; K57.30 Diverticulosis of large intestine without perforation or abscess without bleeding; K64.8 Other hemorrhoids; Z85.46 Personal history of malignant neoplasm of prostate; I10 Essential (primary) hypertension; K21.9 Gastro-esophageal reflux disease without esophagitis; Z86.73 Personal history of transient ischemic attack (TIA), and cerebral infarction without residual deficits; Z79.82 Long term (current) use of aspirin; Z79.899 Other long term (current) drug therapy; Z98.890 Other specified postprocedural states
CPT/HCPCS: 45385; 45380; 45381; 88305; J2704

== ENCOUNTER → 2023-11-23 07:41 | Outpatient (BNV) | payer MEDICARE, SELFPAY | PROVIDERS: PCP Family Medicine; Visit Provider Internal Medicine Gastroenterology | DX: Z12.11 Encounter for screening for malignant neoplasm of colon (principal); Z86.010 Personal history of colon polyps; D12.3 Benign neoplasm of transverse colon; K57.90 Diverticulosis of intestine, part unspecified, without perforation or abscess without bleeding | CPT/HCPCS: 45381; 45385 ==

== ENCOUNTER 2023-11-24 10:25 | Outpatient (AMB) | payer MEDICARE, SELFPAY ==
--- NOTE | 2023-11-24 10:32 | MHC.PC.OV ---
Vital Signs 11/24/23 10:35 Height 5 ft 8 in Weight 165 lb 2 oz BMI 25.1 BP 120/78 Blood Pressure Location Rt brachial Position Sitting Respiration 12 Pulse 69 Pulse Source Pulse Oximeter Temp 97.5 F Temp Source Tympanic Pulse Oximetry (%) 96 Oxygen Delivery Method Room Air Intake Visit Reasons: f/u chroinc conditions Intake Note: follow up for b/p per last visit patient had dizzness and low b/p at PT Allergies No Known Allergies Allergy (Verified 11/24/23 10:34) Tobacco use date assessed: 10/12/23 Dental Screening Dental Screen Date: 07/10/23 HPI f/u chroinc conditions HPI Details 73 y/o male presents to f/u chronic conditions including hypertension. Had decreased atenolol and had told him to break losartan in half as he was feeling lightheaded at physical therapy. Blood pressure today 100/58. He is on losartan 50mg, amlodipine 10mg, atenolol 25mg daily. He is not taking his blood pressure at home. He notes dizziness has improved since the change to his losartan. Notes he had a difficult time after the colonoscopy and was feeling unwell. They describe shakiness, a change to his voice. Denies any difficulty breathing, change in swallowing. [facility] Medical History (Updated 11/24/23 @ 11:44 by Clement Dunne) CVA (cerebral vascular accident) Hypertension Hyperlipidemia GERD (gastroesophageal reflux disease) Thrombocytopenia Hyperparathyroidism Prostate cancer Surgical History Hx of colonoscopy H/O hemorrhoidectomy Family History Mother Mental health disorder Social History Housing: Condominium Are you a primary healthcare economics manager to a significant other at home: No Do you presently have visiting nurse or other home services: No Patient Tobacco Use Status: Never used Tobacco e-Cigarette/Vaping Use: Never Used service: No Current occupational status: retired Current occupational exposures/hazards: No Cognitive needs: No Hearing needs: No Vision needs: No Questionnaire Thrive Questionnaire Date Thrive assessed: 03/20/23 SERGIO-7 AMB Questionnaire SERGIO-7 Date SERGIO - 7 assessed: 03/20/23 Source: Developed by Drs. Alonso Lopez, Mayda Pickett, Wyatt Cunningham and colleagues, with an educational kamryn from [employer]. Review of Systems Const Denies chills, Denies fatigue, Denies fever(s), Denies headache(s) and Denies weakness ENT Denies dizziness and Denies headache(s) Card Denies chest pain, Denies lightheadedness, Denies dyspnea and Denies other (Palpitations) Resp Denies cough, Denies dyspnea, Denies wheezing and Denies other ( shortness of breath) Musc Denies numbness and Denies tingling Neuro Denies dizziness, Denies headache(s), Denies numbness, Denies tingling, Denies paresthesias and Denies weakness Psych Denies anxiety and Denies depression Endo Denies fatigue Aller/Immun Denies wheezing Physical exam (Primary Care) Vital Signs: Last Vital Signs Temp 97.5 F 11/24/23 10:35 Pulse 69 11/24/23 10:35 Resp 12 11/24/23 10:35 BP 100/58 L 11/24/23 10:35 Pulse Ox 96 11/24/23 10:35 Oxygen Delivery Method Room Air 11/24/23 10:35 BMI result Body Mass Index 25.1 Tobacco/Smoking Status: Tobacco use Status Tobacco use date assessed 10/12/23 11/24/23 10:32 Patient Tobacco Use Status Never used Tobacco 11/24/23 10:32 e-Cigarette/Vaping Use Never Used 11/24/23 10:32 Thrive Assessment: Date of Thrive Assessment Date Thrive assessed 03/20/23 11/24/23 10:32 Const General: no acute distress and well developed Nutritional Appearance: well nourished Orientation/consciousness: patient oriented x3 HENMT Head: Yes normocephalic and Yes atraumatic Eyes General: appearance normal, both eyes and all related structures Pupils: Equal, round and reactive pupils present EOM: EOMs intact bilaterally Resp Effort & Inspection: normal respiratory effort Auscultation: clear to auscultation bilaterally Cardio Rate: regular rate Rhythm: regular rhythm Heart sounds: S1 normal heart sound present, S2 normal heart sound present, no gallops, no murmurs and no rubs Neuro General: patient oriented x3 and gait normal Cranial nerves: Yes Equal, round and reactive pupils present Psych Affect: normal affect Assessment and Plan Assessment & Plan (1) Hypertension: Code(s): I10 - Essential (primary) hypertension Plan: At?prior?visit?I?had?decreased?his?atenolol?from?50-25?mg?daily. Saw?patient?in?between?visits?briefly?and?decreased?his?losartan?from?100?mg?to?50?mg?daily. Dizziness?has?decreased?though?still?present. Blood?pressure?is?controlled.??Goal?is?less?than?130/80. Continue?current?medication?regimen (2) Dizziness: Code(s): R42 - Dizziness and giddiness Plan: Some?of?his?dizziness?may?have?been?due?to?low?blood?pressures?but?likely?a?component?of?dizziness?due?to?CVA (3) Screening for colon cancer: Code(s): Z12.11 - Encounter for screening for malignant neoplasm of colon Plan: Recent?colonoscopy He?notes?some?irritation?in?his?throat?since?then - also?has?right?ear?discomfort-see?below (4) CVA (cerebral vascular accident): Code(s): I63.9 - Cerebral infarction, unspecified Plan: History?of?CVA.??Appears?stable. Had?referred?him?to?Neurology?but?he?is?still?not?had?an?appointment.??Will?get?him?a?new?referral. (5) Otitis media: Code(s): H66.90 - Otitis media, unspecified, unspecified ear Plan: Patient?has?infection?at?right?ear?TM Start?amoxicillin. Also?has?irritation?in?his?throat?and?this?is?likely?the?underlying?cause. If?not?improving?may?need?further?investigation?by?ENT. Medications: New amoxicillin 500 mg PO Q12H 10 days 20 tabs 0RF Coding Level of Care Code Est Pt Level 4 (88076) Diagnoses Hypertension I10 Dizziness R42 Screening for colon cancer Z12.11 CVA (cerebral vascular accident) I63.9 Otitis media H66.90
[2023-11-24 10:35] VITALS: BP 120/78; PULSE 69; RESP 12; TEMP 36.4; O2SAT 96; BMI 25.1
== END 2023-11-24 11:49 | disposition home or self-care (01) ==
PROVIDERS: PCP Family Medicine; Visit Provider Family Medicine
DX: I10 Essential (primary) hypertension (principal); R42 Dizziness and giddiness; Z12.11 Encounter for screening for malignant neoplasm of colon; I63.9 Cerebral infarction, unspecified; H66.90 Otitis media, unspecified, unspecified ear

== ENCOUNTER → 2023-11-24 10:25 | Outpatient (BNVA) | payer MEDICARE, SELFPAY | PROVIDERS: PCP Family Medicine; Visit Provider Family Medicine | DX: I10 Essential (primary) hypertension (principal); R42 Dizziness and giddiness; I63.9 Cerebral infarction, unspecified; H66.90 Otitis media, unspecified, unspecified ear | CPT/HCPCS: 99212 ==

== ENCOUNTER 2023-11-25 14:00 | Outpatient (RCR) | payer MEDICARE, SELFPAY ==
--- NOTE | 2023-10-14 15:40 | MHC.PT.EP ---
[facility] [place] [facility] [place] [facility] [place] [facility] [address] Marjan Cortez [address] [phone] F: [phone] F: [phone] F: [phone] F: [phone] Physical Therapy Plan of Care Date of Evaluation: 10/14/23 Date of Surgery: NA Diagnosis: CVA, LE WEAKNESS Assessment: Pt IS 73 YO M REFERRED TO PT FROM DR DENNY S/P CVA 1 YR AGO (HAD STR) AFFECTING R SIDE. Pt REPORTS SOME EPISODES OF IMBALANCE/DIZZINESS (HAS HAD SOME LOW BP..TRYING CHANGE IN MED). PRESENTS TO PT WITH SOME R QUAD TIGHTNESS, R LE DECREASE IN ENDURANCE. WOULD LIKE TO FEEL MORE STEADY AND HAVE MORE STRENGTH IN LEGS. GOOD PT CANDIDATE TO HELP WITH THIS Frequency and Duration: The patient will be seen 2X/WK X 6 WKS Short Term Goals: 1. INCREASED AWARENESS SAFETY WITH CHANGE IN POSITIONS 2. LESS DIZZINESS REPORTED 3. NO FALLS Student Assistance Counselor Goals: 1. Pt TO REPORT IMPROVED STEADINESS 2. I HEP WITH DC EX PLAN Treatment Plan: Modalities to reduce pain, spasms and effusion. Manual therapy to restore motion and function. Therapeutic exercise to improve strength and flexibility. Neuromuscular re-education for posture and balance. Therapeutic activities to return to functional activities of daily living. Electronically signed by: ARTURO LEY PT Please sign and return to therapist. Thank you for your referral.
--- NOTE | 2023-12-25 15:57 | MHC.PT.DC ---
[facility] [place] Office [place] Office [place] Office [address] Marjan Cortez [address] [phone] F: [phone] F: [phone] F: [phone] F: [phone] Physical Therapy Discharge Report Diagnosis: CVA, LE WEAKNESS Date of Surgery: NA Date of Evaluation: 10/14/23 Date of Discharge: 12/25/23 Treatments to Date: 7 Cancellations to Date: No Shows to Date: Discharge Status: Achieved Goals Improved Function Independent with HEP Patient Elected to Stop Discharge Summary: ASSESSMENT FROM LAST APPT ON 11/25/23 'Pt HAS 2 MORE APPTS (NOT NEXT WEEK, BUT THE WEEK AFTER) WILL CALL END OF NEXT WEEK TO CONT OR CX NEEDED'. Pt CALLED TO SELF DC Electronically signed by: ARTURO LEY PT Please sign and return to therapist. Thank you for your referral.
== END 2023-12-25 15:58 | disposition home or self-care (01) ==
LOC: HO.PTWFD 14:00
PROVIDERS: PCP Family Medicine; Visit Provider Family Medicine
DX: I69.398 Other sequelae of cerebral infarction (principal); R29.898 Other symptoms and signs involving the musculoskeletal system
CPT/HCPCS: 97110; 97162; 97530; 97535

== ENCOUNTER 2024-02-22 09:31 | Outpatient (AMB) | payer MEDICARE, SELFPAY ==
--- NOTE | 2024-02-22 09:39 | A.OFFPC_ITS ---
Vital Signs 02/22/24 09:42 Height 5 ft 8 in Weight 168 lb 4 oz BMI 25.6 BP 120/74 Blood Pressure Location Rt brachial Position Sitting Respiration 16 Pulse 66 Pulse Source Pulse Oximeter Pulse Oximetry (%) 98 Oxygen Delivery Method Room Air Intake Visit Reasons: f/u hypertension Intake Note: f/u HTN Reconditioner: Present Accompanied by: Followed by:: liliya Allergies No Known Allergies Allergy (Verified 02/22/24 09:41) Tobacco use date assessed: 10/12/23 Dental Screening Dental Screen Date: 07/10/23 HPI f/u hypertension HPI Details 73 y/o male presents to f/u hypertension . Blood pressure today 120/74, 66p. He is on losartan 50mg, amlodipine 10mg, atenolol 25mg daily. Notes a few days ago he had lost his balance. They report he snores in his sleep. They also report a FHx of sleep apnea. Reports ear discomfort/cerumen impaction. HPI Comments History of Present Illness Details Documentation assistance for Sina Lechuga MD, was provided by Clement Dunne,? Plastics Sheet Finishing Press Operator on 02/22/2024 at 10:13 AM EST. I, Dr. Lechuga, have read, observed, and verified documentation. ?? [facility] Medical History (Updated 02/22/24 @ 10:18 by Clement Dunne) CVA (cerebral vascular accident) Hypertension Hyperlipidemia GERD (gastroesophageal reflux disease) Thrombocytopenia Hyperparathyroidism Prostate cancer Surgical History Hx of colonoscopy H/O hemorrhoidectomy Family History Mother Mental health disorder Social History Housing: Condominium Are you a primary critical care clinical nurse specialist to a significant other at home: No Do you presently have visiting nurse or other home services: No Patient Tobacco Use Status: Never used Tobacco e-Cigarette/Vaping Use: Never Used service: No Current occupational status: retired Current occupational exposures/hazards: No Cognitive needs: No Hearing needs: No Vision needs: No Questionnaire PHQ-9 Over the last 2 weeks, how often have you been bothered by any of the following problems? 1. Little interest or pleasure in doing things: not at all 2. Feeling down, depressed, or hopeless: not at all 3. Trouble falling or staying asleep, or sleeping too much: not at all 4. Feeling tired or having little energy: not at all 5. Poor appetite or overeating: not at all 6. Feeling bad about yourself - or that you are a failure or have let yourself or your family down: not at all 7. Trouble concentrating on things, such as reading the newspaper or watching television: not at all 8. Moving or speaking so slowly that other people could have noticed. Or the opposite - being so fidgety or restless that you have been moving around a lot more than usual: not at all 9. Thoughts that you would be better off or of hurting yourself in some way: not at all Total score: 0 Source: Developed by Drs. Alonso Lopez, Mayda Pickett, Wyatt Cunningham and colleagues, with an educational kamryn from [employer]. Thrive Questionnaire Date Thrive assessed: 03/20/23 I am a: Patient What is your living situation today?: I have a steady place to live Within the past 12 months, did the food you bought not last and you didn't have the money to get more?: Never true Within the past 12 months, did you worry whether your food would run out before you got money to buy more?: Never true Do you have trouble paying for medicines?: No Do you have trouble getting transportation to medical appointments?: No Do you have trouble paying your heating and electricity bill?: No Do you have trouble taking care of your child, family member or friend?: No Do you have trouble with day-to-day activities such as bathing, preparing meals, shopping, managing finances, etc.?: No Are you currently unemployed and looking for a job?: No Are you interested in more education?: No Please select the resources that you would like help with: None Currently or been in a relationship where the following occur: No concerns reported THRIVE Score: 0 AUDIT C Alcohol Use Questionnaire (AUDIT-C) 1. How often do you have a drink containing alcohol?: 2-4 times a month 2. How many drinks containing alcohol do you have on a typical day when you are drinking?: 1 or 2 3. How often do you have six or more drinks on one occasion?: Never Total Score: 2 SERGIO-7 AMB Questionnaire SERGIO-7 Date SERGIO - 7 assessed: 03/20/23 Feeling nervous, anxious, or on edge: 0 = Not at all Not being able to stop or control worryin = Not at all Worrying too much about different things: 0 = Not at all Trouble relaxin = Not at all Being so restless that it is hard to sit still: 0 = Not at all Becoming easily annoyed or irritable: 0 = Not at all Feeling afraid as if something awful might happen: 0 = Not at all Total SERGIO-7 score (0-4 normal; 5-9 mild; 10-14 moderate; 15-21 severe): 0 Source: Developed by Drs. Alonso Lopez, Mayda Pickett, Wyatt Cunningham and colleagues, with an educational kamryn from [employer]. Review of Systems Const Denies chills, Denies fatigue, Denies fever(s), Denies headache(s) and Denies weakness ENT Denies dizziness and Denies headache(s) Card Denies dyspnea Resp Denies cough, Denies dyspnea, Denies wheezing and Denies other (shortness of breath) Musc Denies numbness and Denies tingling Neuro Denies dizziness, Denies headache(s), Denies numbness, Denies tingling and Denies weakness Psych Denies anxiety and Denies depression Endo Denies fatigue Aller/Immun Denies wheezing Physical exam (Primary Care) Vital Signs: Last Vital Signs Pulse 66 02/22/24 09:42 Resp 16 02/22/24 09:42 BP 120/74 02/22/24 09:42 Pulse Ox 98 02/22/24 09:42 Oxygen Delivery Method Room Air 02/22/24 09:42 BMI result Body Mass Index 25.6 Tobacco/Smoking Status: Tobacco use Status Tobacco use date assessed 10/12/23 02/22/24 09:40 Patient Tobacco Use Status Never used Tobacco 02/22/24 09:40 e-Cigarette/Vaping Use Never Used 02/22/24 09:40 PHQ-9: PHQ-9 Score PHQ-9: Total score 0 02/22/24 10:10 Thrive Assessment: Date of Thrive Assessment Date Thrive assessed 03/20/23 02/22/24 09:40 Currently or been in a relationship where the following occur: No concerns reported Const General: well developed; No acute distress Nutritional Appearance: well nourished Orientation/consciousness: patient oriented x3 HENMT Head: Yes normocephalic and Yes atraumatic Eyes General: appearance normal, both eyes and all related structures Pupils: Equal, round and reactive pupils present EOM: EOMs intact bilaterally Resp Effort & Inspection: normal respiratory effort Auscultation: clear to auscultation bilaterally Cardio Rate: regular rate Rhythm: regular rhythm Heart sounds: S1 normal heart sound present, S2 normal heart sound present, no gallops, no murmurs and no rubs Neuro General: patient oriented x3 and gait normal Cranial nerves: Yes Equal, round and reactive pupils present Psych Affect: normal affect Coding Level of Care Code Est Pt Level 4 (73044) Diagnoses Hypertension I10 CVA (cerebral vascular accident) I63.9 Imbalance R26.89 Sleep apnea G47.30 Cerumen impaction H61.20 Assessment & Plan Assessment & Plan (1) Hypertension: Code(s): I10 - Essential (primary) hypertension Category: Medical Plan: Blood?pressure?is?controlled.??Goal?is?less?than?130/80. Patient?would?like?to?stop?atenolol. Discussed?breaking?atenolol?half?and?watching?b lood?pressure.??If?blood?pressure?is?above?goal,?he?the?entire?tablet (2) CVA (cerebral vascular accident): Code(s): I63.9 - Cerebral infarction, unspecified Category: Medical Plan: History?of?CVA?and?patient?was?refer?to?Neurology He?has?not?received?call?from?Neurology. He?is?having?moments?where?he?feels unsteady?and?becomes?less?responsive Will?let?his??start?driving.??He?needs?to?be?seen?by?Neurology Ask?the?office?to?help?facilitate?getting?him?scheduled. (3) Imbalance: Code(s): R26.89 - Other abnormalities of gait and mobility Category: Medical Plan: As?above (4) Sleep apnea: Code(s): G47.30 - Sleep apnea, unspecified Category: Medical Plan: Patient?snores?heavily?and?blood?pressures?are?high?in?morning. Makes?gasping?sounds?while?breathing Also?strong?family?history?of?sleep?apnea Referred?to?Sleep?Medicine (5) Cerumen impaction: Code(s): H61.20 - Impacted cerumen, unspecified ear Category: Medical Plan: Mild?cerumen?impaction?at?left?ear Patient?says?he?wants?to?continue?using?Debrox?drops?which?he?has?at?home Orders: Referrals Sleep Medicine Referral G47.30 - Sleep apnea, unspecified, I63.9 - Cerebral infarction, unspecified Neurology Referral I63.9 - Cerebral infarction, unspecified, R42 - Dizziness and giddiness, R56.9 - Unspecified convulsions Medications: Changed From losartan 50 mg (1/2 x 100 mg) PO DAILY 90 days 45 tabs 1RF To losartan 50 mg PO DAILY 90 days 90 tabs 1RF
[2024-02-22 09:42] VITALS: BP 120/74; PULSE 66; RESP 16; O2SAT 98; BMI 25.6
== END 2024-02-22 10:36 | disposition home or self-care (01) ==
PROVIDERS: PCP Family Medicine; Visit Provider Family Medicine
DX: I10 Essential (primary) hypertension (principal); I63.9 Cerebral infarction, unspecified; R26.89 Other abnormalities of gait and mobility; G47.30 Sleep apnea, unspecified; H61.22 Impacted cerumen, left ear

== ENCOUNTER → 2024-02-22 09:31 | Outpatient (BNVA) | payer MEDICARE, SELFPAY | PROVIDERS: PCP Family Medicine; Visit Provider Family Medicine | DX: I10 Essential (primary) hypertension (principal); R26.89 Other abnormalities of gait and mobility; G47.30 Sleep apnea, unspecified; H61.20 Impacted cerumen, unspecified ear; R42 Dizziness and giddiness; Z86.73 Personal history of transient ischemic attack (TIA), and cerebral infarction without residual deficits; Z79.899 Other long term (current) drug therapy | CPT/HCPCS: 99212 ==

== ENCOUNTER 2024-03-11 13:50 | Outpatient (AMB) | payer MEDICARE, SELFPAY ==
[2024-03-11 13:59] VITALS: BP 134/76; PULSE 66; O2SAT 98; BMI 25.6
--- NOTE | 2024-03-11 13:59 | MHC.OFFVIS ---
Vital Signs 03/11/24 13:59 Height 5 ft 8 in Weight 168 lb 6 oz BMI 25.6 BP 134/76 Blood Pressure Location Lt brachial Position Sitting Pulse 66 Pulse Source Pulse Oximeter Pulse Oximetry (%) 98 Oxygen Delivery Method Room Air Intake Visit Reasons: 02/22 LVM+Let INP-Cerebral Infarction/CORKY Accompanied by: Spouse Allergies No Known Allergies Allergy (Verified 03/11/24 14:04) Medication List - Last Reconciled 03/11/24 by Shelbi Rios PA-C amlodipine 10 mg PO DAILY 90 days aspirin (Adult Aspirin Regimen) 81 mg PO DAILY atenolol 25 mg PO DAILY 90 days atorvastatin 40 mg PO DAILY 90 days bupropion HCl SR 150 mg PO DAILY 90 days escitalopram oxalate 20 mg PO DAILY 90 days losartan 50 mg PO DAILY 90 days [id number]-bcemb-vit K-lycop 400-20-300 mcg (One-A-Day Men's Multivitamin) tabs PO omeprazole 20 mg PO DAILY 90 days HPI Comments Details: 73 year old L. handed male is here for a sleep evaluation per Dr. Lechuga, PCP. Dec 2022 Posterior Vetebral Ischemic (CVA) RCA/ LCA Stenosis 49%, L.V EF 55-60% with Mitral and Tricuspid Regurgitation. On Stroke protocal with Aspirin 81mg, Amlodipine 10mg, Atenolol 25mg, Atorvastatin 40mg and Losartan 50mg His is here with him and she helps with history. He continues to have Dizziness, Gait, balance, difficulties and orthostatic hypotension. Denies, vision changes, vertigo. He has R.hand weakness, with writing, and sensitivity to temperature changes in right hand and feet. Denies numbness and tingling. He has an uncomfortable sensation in his R. hand>L. He feels the sensation is different in feet bilaterally to the thighs, since the stroke. Vision is stable, he sees Dr. Taylor in [place]. Denies vision changes, diplopia, scotomas, flashes of light, and headaches. Hearing is slightly diminished, ears are plugged at times. He worked with PT and that was helping with strength and mobility. Still has difficulty with balance and says he leans to the left, and is more prone to leaning with distance. He c/o of fatigue, daily with minimal tasks. He denies swallowing difficulties, slurring, drooling. Denies tremors, family history of movement disorders. His is interested in [facility] as he has been snoring and gargling since the stroke, it has been worse. He completed a barium swallow study, and speech therapy now able to swallow boluses with some effort. He continues to have rhinitis and a tickle in the back of throat which causes him to cough and gasps for air, with apneas for short periods, according to his . He is restless at night twitches, and is continuously moving Denies Nocturia. Goes to bed at 11pm and gets up at 8am, still feels tired, despite napping on the couch. His mood, diet are stable. Denies stress and anxiety. Takes Buproprion and Citalopram for depression, well managed by meds. [facility], [facility] Medical History CVA (cerebral vascular accident) Hypertension Hyperlipidemia GERD (gastroesophageal reflux disease) Thrombocytopenia Hyperparathyroidism Prostate cancer Surgical History Hx of colonoscopy H/O hemorrhoidectomy Family History Mother Mental health disorder Social History Housing: [facility] Are you a primary healthcare specialist to a significant other at home: No Do you presently have visiting nurse or other home services: No Patient Tobacco Use Status: Never used Tobacco e-Cigarette/Vaping Use: Never Used service: No Current occupational status: retired Current occupational exposures/hazards: No Cognitive needs: No Hearing needs: No Vision needs: No Review of Systems Const All systems reviewed & are unremarkable except as noted in HPI and below Physical Exam Vital Signs: Last Vital Signs Pulse 66 03/11/24 13:59 BP 134/76 03/11/24 13:59 Pulse Ox 98 03/11/24 13:59 Oxygen Delivery Method Room Air 03/11/24 13:59 BMI result Body Mass Index 25.6 Const General: cooperative, comfortable and no acute distress Nutritional Appearance: average body habitus Orientation/consciousness: patient oriented x3 HEENT Face and sinus: Yes normal facial exam and Yes face symmetric Throat: Yes other ([place] score of 4) Eyes Pupils: Equal, round and reactive pupils present Neck Neck: Yes full ROM and Yes supple Resp Effort & Inspection: normal respiratory effort and able to speak in complete sentences Neuro General: patient oriented x3 and moves all extremities Cranial nerves: Yes CN's II-XII intact bilaterally, Yes Facial sensation intact/muscles of mastication intact, Yes Equal, round and reactive pupils present, Yes Normal accommodation reflex present, Yes Bilaterally intact EOM present, Yes Nystagmus not present, Yes Normal facial strength present, Yes Midline tongue present, Yes Ability to bilaterally rotate head present and Yes Ability to bilaterally elevate shoulders present Gait exam (Neuro): Other gait observations present (Leans to the left) Motor exam (neuro): Abnormal motor strength present (Lower Extremity weak to resistance R>L 3/5) and Tremors during motor activity present (Slight Tremor R arm > L. arm) Deep tendon reflexes (DTR's): Right triceps reflex intensity grade: 2+, Left triceps reflex intensity grade: 2+, Rt Biceps (C5, C6): 2+, Left biceps reflex intensity grade: 2+, Right brachioradialis reflex intensity grade: 2+, Left brachioradialis reflex intensity grade: 2+, Right patellar reflex intensity grade: 2+ and Left patellar reflex intensity grade: 2+ Coordination: [id number] test normal, does not sway with eyes open and rapid alternating movements of the distal upper extremity normal Psych Appearance: grossly normal Mental Status: mental status grossly normal Speech and movement: Normal speech and movement present Thought process: Normal thought process present Thought content: Normal thought content present Insight: Good insight present (Psych) Judgement: Good judgement present (Psych) Results Reviewed Results Reviewed: FINDINGS: Right Side: 1. There is mild atherosclerotic plaque seen in the bifurcation/proximal ICA region. 2. The common carotid artery PSV proximally is 104 cm/s and distally 88.8 cm/s. 3. The proximal internal carotid artery velocities are 93.9 cm/s systolic and 21.7 cm/s diastolic. 4. The proximal external carotid artery PSV is 155 cm/s. 5. The vertebral artery shows antegrade flow. 6. The subclavian artery waveforms are normal. Left Side: 1. There is mild atherosclerotic plaque seen in the bifurcation/proximal ICA region. 2. The common carotid artery PSV proximally is 103 cm/s and distally 94.4 cm/s. 3. The proximal internal carotid artery velocities are 91.3 cm/s systolic and 25.5 cm/s diastolic. 4. The proximal external carotid artery PSV is 111 cm/s. 5. The vertebral artery shows antegrade flow. 6. The subclavian artery waveforms are normal. Labs: PTH is elevated/ HDL low/ Thrombocytopenia / Prostate Cancer/ Diverticulosis/ Assessment & Plan Assessment & Plan (1) Loud snoring: Code(s): R06.83 - Snoring Category: Medical (2) Excessive daytime sleepiness: Code(s): G47.19 - Other hypersomnia Category: Medical Plan -Snoring and excessive daytime fatigue: Home sleep test to evaluate sleep. -Fatigue Labs [id number] / TSH/ Vit D F/U in 3 months for evaluation of sleep study and review cardiac post stroke work up. Call or message us on the portal if you have any concerns. Coding Level of Care Code Est Pt Level 4 (22428) Diagnoses Loud snoring R06.83 Excessive daytime sleepiness G47.19 Time Spent (min) 40 Comment Evaluation Sleep Sleep Questionnaire Difficulty falling asleep: No Difficulty staying asleep?: No Number of arousals: 1 Snoring: Yes Witnessed apneas: Yes Gasping arousals: Yes Nocturia: No GERD: Yes (omeprazole) Vivid dreams: No Acting out dreams: No Abnormal behavior in sleep: Yes (talks in his sleep) Abnormal movements in sleep: No Morning headaches: No Excessive daytime sleepiness: Yes (nods off reading 30 min) Daytime naps: No Restless legs: Yes (moves the legs around uncomfortable sensation) Hallucinations: No Sleep paralysis: No Drop attacks: No Sleep Study: No CPAP: No
== END 2024-03-11 14:50 | disposition home or self-care (01) ==
PROVIDERS: Absent Provider Psychiatry & Neurology Neurology; PCP Family Medicine; Visit Provider Physician Assistant Medical
DX: R06.83 Snoring (principal); G47.19 Other hypersomnia
CPT/HCPCS: 99214

== ENCOUNTER → 2024-03-11 13:50 | Outpatient (BNVA) | payer MEDICARE, SELFPAY | PROVIDERS: Absent Provider Psychiatry & Neurology Neurology; PCP Family Medicine; Visit Provider Physician Assistant Medical | DX: R06.83 Snoring (principal); G47.19 Other hypersomnia | CPT/HCPCS: 99212 ==

== ENCOUNTER 2024-04-05 14:20 | Outpatient (REF) | payer MEDICARE, SELFPAY ==
--- OUTSIDE RECORDS SUMMARY | 2024-04-05 15:18 | XMS_ITS | Clinical Summary ---
Author Organization [facility] Address [address] [place] [address] Phone Care Team Providers Care Sap Consultant Name Role Phone Sina Lechuga MD Primary Care Provider Allergies No known active allergies Medications amLODIPine (NORVASC) 10 MG tablet Take 10 mg by mouth 1 (one) time each day Active atenolol (TENORMIN) 100 MG tablet Take 100 mg by mouth 1 (one) time each day Active buPROPion XL (WELLBUTRIN XL) 150 MG 24 hr tablet Take 150 mg by mouth 1 (one) time each day Do not crush, chew, or split. Active escitalopram (LEXAPRO) 20 MG tablet Take 20 mg by mouth 1 (one) time each day Active omeprazole (PriLOSEC) [address] capsule Take 20 mg by mouth 1 (one) time each day Do not crush or chew. Active Multiple Vitamin (multivitamin) tablet Take 1 tablet by mouth 1 (one) time each day Active aspirin (ST DIANE) 81 MG EC tablet Take 81 mg by mouth 1 (one) time each day Active Active Problems Problem Noted Date Diagnosed Date Stage 3b chronic kidney disease 06/26/2022 Hypertensive chronic kidney disease stage 3 06/08 Kidney failure 06/25/2022 Family History Medical History Relation Comments Cancer Father Relation Status Comments Father Mother Social History Tobacco Use Types Packs/Day Years Used Date Smoking Tobacco: Never Smokeless Tobacco: Never Tobacco Cessation:Counseling Given: No Alcohol Use Standard Drinks/Week Comments Yes 0 (1 standard drink = 0.6 oz pur e alcohol) Rare Sex and Gender Information Value Date Recorded Sex Assigned at Not on file Legal Sex Male 3:50 PM EST Gender Identity Not on file Sexual Orientation Not on file Last Filed Vital Signs Vital Sign Reading Time Taken Comments Blood Pressure 113/73 07/30/2023 2:16 PM EDT Pulse 62 07/30/2023 2:16 PM EDT Temperature - - Respiratory Rate - - Oxygen Saturation - - Inhaled Oxygen Concentration - - Weight 74.9 kg (165 lb 3.2 oz) 07/30/2023 2:16 P M EDT Height - - Body Mass Index - - Plan of Treatment Upcoming Encounters Date Type Department Care Team (Late st Contact Info) Description 04/14/2024 1:30 PM EST Office Visit [facility] P.. [address] [place] [phone] Valerio Cid MD [address] [address] Health Maintenance Due Date Last Done Comments Pneumococcal Vaccine: 65+ Ye ars (1 of 2 - PCV) 1956 Colorectal Cancer Screening: Annual FOBT 05/24/1999 Colorectal Cancer Screening: Colonoscopy 05/24/1999 Colorectal Cancer Screening: Sigmoidoscopy 05/24/1999 Influenza Vaccine (#1) 2023 Hepatitis B Vaccine Aged Out No longe r eligible based on patient's age to complete this topic Insurance AENA MEDICARE AENA MEDICARE Care Teams Sap Consultant Relationship Specialty Start Date End Date Sina Lechuga MD [address] [address] PCP - General Family Medicine 03/11/22
--- OUTSIDE RECORDS SUMMARY | 2024-04-05 15:18 | XMS_ITS | Encounter Summary ---
Author Organization [facility] Address [address] [place] [address] Care Team Providers Care Athletics Teacher Name Role Phone Sina Lechuga MD Primary Care Provider [phone] Reason for Visit * Reason Comments Thyroid Problem Encounter Details Date Type Department Care Team ([facility] st Contact Info) Description 04/04/2024 11:25 AM EST Office Visit Endocrinology - [address] [address] Sundar Barker MD [address] [place] [phone] Elevated parathyroid hormone (Primary Dx) Social History Tobacco Use Types Packs/Day Years Used Date Smoking Tobacco: Never Assessed Sex and Gender Information Value Date Recorded Sex Assigned at Not on file Gender Identity Not on file Sexual Orientation Not on file Job Start Date Occupation Industry Not on file Not on file Not on file documented as of this encounter Last Filed Vital Signs Vital Sign Reading Time Taken Comments Blood Pressure 120/65 04/04/2024 11:43 AM EST Pulse 74 04/04/2024 11:43 AM EST Temperature 35.9 ??C (96.6 ??F) 04/04/2024 11:[address] Respiratory Rate - - Oxygen Saturation 98% 04/04/2024 11:43 AM EST Inhaled Oxygen Concentration - - Weight 76.2 kg (168 lb) 04/04/2024 11:43 AM EST Height 172.7 cm (5' 8 ) 04/04/2024 11:43 AM EST Body Mass Index 25.54 04/04/2024 11:43 AM EST documented in this encounter Plan of Treatment Not on file documented as of this encounter Visit Diagnoses Diagnosis Elevated parathyroid hormone- Primary documented in this encounter Historical Medications * This list may reflect changes made after this encounter. Medication Sig Dispensed Refills Start Date End Date losartan (COZAAR) 100 mg tablet Take 0.5 tablets (50 mg total) by mouth 1 (one) time each day. 02/02/2024 omeprazole (PriLOSEC) [address] capsule Take 1 capsule (20 mg total) by mouth 1 (one) time each day. for 90 days 01/19/2024 escitalopram (LEXAPRO) 20 mg tablet Take 1 tablet (20 mg total) by mouth 1 (one) time each day. 01/06/2024 buPROPion SR (WELLBUTRIN SR) 150 mg 12 hr tablet Take 1 tablet (150 mg total) by mouth 1 (one) time each day. 03/18/2024 atenoloL (TENORMIN) 25 mg tablet Take 1 tablet (25 mg total) by mouth 1 (one) time each day. for 90 days 01/06/2024 amLODIPine (NORVASC) 10 mg tablet Take 1 tablet (10 mg total) by mouth 1 (one) time each day. 04/04/2024 added in this encounter Care Teams Athletics Teacher Relationship Specialty Start Date End Date Sina Lechuga MD [address] [place] [address] Dr Dot [place] PCP - General 06/12/23 documented as of this encounter
--- OUTSIDE RECORDS SUMMARY | 2024-04-05 15:18 | XMS_ITS | Clinical Summary ---
Author Organization [facility] [address] [facility] Address [address] [place] [address] Phone Care Team Providers Care Insurance Adjuster Name Role Phone Sina Lechuga MD Primary Care Provider [phone] Allergies No known active allergies Medications Medication Sig Dispensed Refills Start Date End Date Status amLODIPine (NORVASC) 10 mg tablet Take 1 tablet (10 mg total) by mouth 1 (one) time each day. 04/04/2024 Active atenoloL (TENORMIN) 25 mg tablet Take 1 tablet (25 mg total) by mouth 1 (one) time each day. for 90 days 01/06/2024 Active buPROPion SR (WELLBUTRIN SR) 150 mg 12 hr tablet Take 1 tablet (150 mg total) by mouth 1 (one) time each day. 03/18/2024 Active escitalopram (LEXAPRO) 20 mg tablet Take 1 tablet (20 mg total) by mouth 1 (one) time each day. 01/06/2024 Active omeprazole (PriLOSEC) [address] capsule Take 1 capsule (20 mg total) by mouth 1 (one) time each day. for 90 days 01/19/2024 Active losartan (COZAAR) 100 mg tablet Take 0.5 tablets (50 mg total) by mouth 1 (one) time each day. 02/02/2024 Active Encounters Date Type Department Care Team Description 04/04/2024 11:25 AM EST Office Visit Endocrinology - [facility] [address] [place], [place] [phone] Sundar Barker MD Elevated parathyroid hormone (Primary Dx) from Last 3 Months Immunizations Name Administration Dates Next Due Moderna SARS-CoV-2 COVID-19, mRNA, LNP-S, preservative free 12/04/2021 Social History Tobacco Use Types Packs/Day Years Used Date Smoking Tobacco: Never Assessed Sex and Gender Information Value Date Recorded Sex Assigned at Not on file Gender Identity Not on file Sexual Orientation Not on file Job Start Date Occupation Industry Not on file Not on file Not on file Obstetrics History Last Filed Vital Signs Vital Sign Reading [...] Mass Index 25.54 04/04/2024 11:43 AM EST Plan of Treatment Health Maintenance Due Date Last Done Comments DTaP,Tdap,and Td Vaccines (1 - Tdap) 1969 Zoster Vaccines (1 of 2) 2000 Pneumococcal Vaccine: 65+ Years (1 of 1 - PCV) 05/24/2015 Cholesterol Screening (Lipid Panel) 10/02/2023 Colorectal Cancer Screening: Colonoscopy 10/02/2023 Depression Screening 10/02/2023 Falls Risk Assessment 10/02/2023 Hepatitis C Screening 10/02/2023 Medicare Annual Wellness Visit 10/02/2023 Social Influencers of Health Screening 10/02/2023 Hypertension/CHF/CAD Annual BMP Blood Test 04/04/2024 RSV Immunization Patients 60+ Years Old (1 - 1-dose 75+ series) 2025 Influenza Vaccine Completed 12/11/2023, , 12/04/2021, Additional history exists COVID-19 Vaccine Completed 01/01/2024, , 12/04/2021, Additional history exists HIB Vaccines Aged Out No longer eligi ble based on patient's age to complete this topic HPV Vaccines Aged Out No longer eligi ble based on patient's age to complete this topic Hepatitis A Vaccines Aged Out No long er eligible based on patient's age to complete this topic Hepatitis B Vaccines Aged Out No long er eligible based on patient's age to complete this topic IPV Vaccines Aged Out No longer eligi ble based on patient's age to complete this topic MMR Vaccines Aged Out No longer eligi ble based on patient's age to complete this topic Meningococcal ACWY Vaccine Aged Out N o longer eligible based on patient's age to complete this topic RSV Immunization Patients Under 20 months Aged Out No longer eligible based on patient's age to complete this topic Varicella Vaccines Aged Out No longer eligible based on patient's age to complete this topic Care Teams Insurance Adjuster Relationship Specialty Start Date End Date Sina Lechuga MD [address] [place] [address] Dr Dot [place] PCP - General 06/12/23
[2024-04-05 18:09] LABS: Parathyroid Hormone Intact 137.7 pg/mL (8.7-77.1)
[2024-04-05 18:19] LABS: Creatinine Urine 176.93 mg/dL; Protein/Creatinine Ratio, Ur 0.12 (<0.2); Total Protein Urine Random 22 mg/dL (<12)
[2024-04-05 18:21] LABS: Anion Gap 12 (12-20); Blood Urea Nitrogen 30 mg/dL (9-16); Calcium 9.5 mg/dL (8.4-10.2); Carbon Dioxide 28 mmol/L (22-29); Chloride 107 mmol/L (96-108); Estimated Glomerular Filt Rate 52; Potassium 4.5 mmol/L (3.3-5.1); Sodium 142 mmol/L (135-145)
[2024-04-05 18:25] LABS: Vitamin D 25-OH Total 48.7 ng/mL (>30)
== END 2024-04-05 14:21 | disposition home or self-care (01) ==
LOC: HO.WFDLDS 14:20
PROVIDERS: Visit Provider Internal Medicine Nephrology
DX: N18.32 Chronic kidney disease, stage 3b (principal); I12.9 Hypertensive chronic kidney disease with stage 1 through stage 4 chronic kidney disease, or unspecified chronic kidney disease
CPT/HCPCS: 36415; 80051; 82306; 82310; 82565; 82570; 83970; 84156; 84520

== ENCOUNTER → 2024-04-20 10:03 | Outpatient (REF) | payer MEDICARE, SELFPAY ==
--- OUTSIDE RECORDS SUMMARY | 2024-04-20 11:52 | XMS_ITS | Encounter Summary ---
Author Organization [facility] Address [address] [place] [phone] Care Team Providers Care Assistant Media Planner Name Role Phone Sina Lechuga MD Primary Care Provider [phone] Reason for Referral * Imaging (Routine) - Authorized Specialty Diagnoses / Procedures Referred By Contac t Referred To Contact Radiology Diagnoses Elevated parathyroid hormone Hyperparathyroidism, unspecified (CMS/HCC) Procedures BD Bone Density DXA Appendicular Skeleton Sundar Barker MD [address] [place] [phone] Phone: tel: fax: [facility] Referral ID Status Reason Start Date Expiration Date V isits Requested Visits Authorized [id number] Authorized 04/16/2024 04/16/2025 1 1 * Imaging (Routine) - Authorized Specialty Diagnoses / Procedures Referred By Contac t Referred To Contact Radiology Diagnoses Elevated parathyroid hormone Hyperparathyroidism, unspecified (CMS/HCC) Procedures BD Bone Density DXA Axial Skeleton Sundar Barker MD [address] [place] [phone] Phone: tel:[phone] fax: [facility] Referral ID Status Reason Start Date Expiration Date V isits Requested Visits Authorized [id number] Authorized 04/16/2024 04/16/2025 1 1 Reason for Visit * Reason Comments Thyroid Problem Encounter Details Date Type Department Care Team ([facility] st Contact Info) Description 04/04/2024 11:25 AM EST Office Visit Endocrinology - [place] [address] [place] [address] Sundar Barker MD [address] [place] [address] Elevated parathyroid hormone (Primary Dx); Hyperparathyroidism, unspecified (CMS/HCC) Social History Tobacco Use Types Packs/Day Years Used Date Smoking Tobacco: Never Assessed Sex and Gender Information Value Date Recorded Sex Assigned at Not on file Legal Sex Male 11:06 AM EDT Gender Identity Male 04/19/2024 9:16 AM EST Sexual Orientation Not on file documented as of this [...] 11:43 AM EST documented in this encounter Progress Notes * Sundar Barker MD - 04/04/2024 11:25 AM EST CHIEF COMPLAINT: Thyroid Problem IDENTIFIER: Tod Schaeffer is a 73 y.o. old male. HPI: Pt is following for elevated PTH levels. He is accompanied by his . Last seen 08/2023 He has moved from [place], had CVA last year. Has had labs which show elevated PTH levels, with normal calcium, vitamin D and albumin (3.9) but GFR is in 40's. He has a h/o CKD and is following with nephrology. pt does not know the cause of CKD. He has a h/o HTN. No h/o kidney stones. He has been having balance issues and did have a fall and hit side of table and had rib fx. Has hadwrist fx. While hiking >10 years ago. Not clear if from standing height After last visit we did DXA scan, not done ROS: As noted in HPI PAST MEDICAL HISTORY: There are no problems to display for this patient. No past surgical history on file. SOCIAL HISTORY: Social History Tobacco Use Smoking status: Not on file Smokeless tobacco: Not on file Substance Use Topics Alcohol use: Not on file FAMILY HISTORY: No family history on file. No family status information on file. MEDICATIONS DISCONTINUED/REORDERED: There are no discontinued medications. ACTIVE MEDICATIONS: Outpatient Medications Marked as Taking for the 04/04/24 encounter (Office Visit) with Sundar Barker MD Medication Sig Dispense Refill amLODIPine (NORVASC) 10 mg tablet Take 1 tablet (10 mg total) by mouth 1 (one) time each day. atenoloL (TENORMIN) 25 mg tablet Take 1 tablet (25 mg total) by mouth 1 (one) time each day. for 90days buPROPion SR (WELLBUTRIN SR) 150 mg 12 hr tablet Take 1 tablet (150 mg total) by mouth 1 (one) timeeach day. escitalopram (LEXAPRO) 20 mg tablet Take 1 tablet (20 mg total) by mouth 1 (one) time each day. losartan (COZAAR) 100 mg tablet Take 0.5 tablets (50 mg total) by mouth 1 (one) time each day. omeprazole (PriLOSEC) [address] capsule Take 1 capsule (20 mg total) by mouth 1 (one) time each day.for 90 days ALLERGIES: No Known Allergies PHYSICAL EXAM: Visit Vitals BP 120/65 Pulse 74 Temp 35.9 ??C (96.6 ??F) (Temporal) Ht 1.727 m (68 ) Wt 76.2 kg (168 lb) SpO2 98% BMI 25.54 kg/m?? BSA 1.9 m?? APPEARANCE: Alert and in no acute distress EYES: EOMI HEART: RRR with normal S1 and S2, NECK: no adenopathy, thyroid symmetric and of normal size LUNG: clear to auscultation ABDOMEN: soft, non-tender NEURO: Awake, alert LABS: No components found for: CA No results found for: PTH IMPRESSION: 1. Elevated parathyroid hormone PLAN: Had a detailed discussion, normal calcium, vitamin D levels with elevated PTH and low GFR, likely secondary hyperparathyroidism due to CKD. They are following with their copier field service technician and shall be discussing with him. He has balance issues, plan is to get DXA scan. All questions answered. Medication and lab orders: No orders of the defined types were placed in this encounter. Other orders: None Sundar Barker MD on 04/16/2024 at 10:47 AM EST documented in this encounter Plan of Treatment Scheduled Orders Name Type Priority Associated Diagnoses Orde r Schedule BD Bone Density DXA Axial Skeleton Imaging Routine Elevated parathyroid hormone Hyperparathyroidism, unspecified (CMS/HCC) 1 Occurrences starting 04/16/2024 until 04/16/2025 BD Bone Density DXA Appendicular Skeleton Imaging Routine Elevated parathyroid hormone Hyperparathyroidism, unspecified (CMS/HCC) 1 Occurrences starting 04/16/2024 until 04/16/2025 documented as of this encounter Visit Diagnoses Diagnosis Elevated parathyroid hormone- Primary Hyperparathyroidism, unspecified (CMS/HCC) Hyperparathyroidism, unspecified documented in this encounter Historical Medications * This list may reflect changes made after this encounter. losartan (COZAAR) 100 mg tablet Take 0.5 [...] 04/04/2024 added in this encounter Care Teams Assistant Media Planner Relationship Specialty Start Date End Date Sina Lechuga MD [address] [place] [address] Dr Dot [place] PCP - General 06/12/23 documented as of this encounter
--- OUTSIDE RECORDS SUMMARY | 2024-04-20 11:52 | XMS_ITS | Encounter Summary ---
Author Organization [facility] Address [address] [place] [phone] Phone Care Team Providers Care Integrated Logistics Programs Director Name Role Phone Sina Lechuga MD Primary Care Provider Reason for Visit * Reason Comments Stage 3b chronic kidney disease ( Encounter Details Date Type Department Care Team ([facility] st Contact Info) Description 04/14/2024 1:30 PM EST Office Visit [facility] [address] [place] [address] Valerio Cid MD [address] [address] Stage 3a chronic kidney disease (HCC) (Primary Dx); Hypertensive chronic kidney disease stage 3 Social History Tobacco Use Types Packs/Day Years Used Date Smoking Tobacco: Never Smokeless Tobacco: Never Alcohol Use Standard Drinks/Week Comments Yes 0 (1 standard drink = 0.6 oz pur e alcohol) Rare Sex and Gender Information Value Date Recorded Sex Assigned at Not on file Legal Sex Male 3:50 PM EST Gender Identity Not on file Sexual Orientation Not on file documented as of this encounter Last Filed Vital Signs Vital Sign Reading Time Taken Comments Blood Pressure 99/59 04/14/2024 1:24 PM EST Pulse 75 04/14/2024 1:24 PM EST Temperature - - Respiratory Rate - - Oxygen Saturation 99% 04/14/2024 1:24 PM EST Inhaled Oxygen Concentration - - Weight - - Height - - Body Mass Index - - documented in this encounter Progress Notes * Valerio Cid MD - 04/14/2024 1:30 PM EST [facility] Patient Name: Tod Schaeffer, Kasi Date of : 1950, 73 y.o. Date: 06/26/2022 [] New Patient [x] Established Patient [] New Hospital Follow Up [] Established Hospital Follow Up [] Telemed Visit [] H&P Referring MD: No primary care provider on file. PCP: Sina Lechuga MD Chief Complaint: Chief Complaint Patient presents with Stage 3b chronic kidney disease ( Reason For Visit: Tod Schaeffer is a 73 y.o. male for f/u re CKD Patient is a pleasantd gentleman with past medical history of longstanding hypertension and prostate CA,, Feels good Blood pressure has been under good Patient denies any history of renal stones. Patient denies history of NSAID use. There is no history of GI fluid losses like diarrhea, nausea or vomiting. Patient denies having any urinary issues patient has prostate CA as mentioned before s/p radiation He states that he has been compliant with his medication regimen. He is non-smoker. The following portions of the patient's chart were reviewed in this encounter and updated as appropriate: Allergies Meds Problems Med Hx Surg Hx Fam Hx ROS Constitutional: Negative for chills and fever. HENT: Negative for congestion, ear pain, hearing loss and sore throat. Eyes: Negative for pain and discharge. Respiratory: Negative for cough, shortness of breath and wheezing. Cardiovascular: Negative for chest pain, palpitations and leg swelling. Gastrointestinal: Negative for abdominal pain, blood in stool, constipation, diarrhea, nausea and vomiting. Genitourinary: Negative for dysuria, frequency, hematuria and urgency. Musculoskeletal: Negative for back pain, myalgias and neck pain. Skin: Negative for rash. Neurological: Negative for dizziness, tremors and headaches. Endo/Heme/Allergies: Negative for polydipsia. Does not bruise/bleed easily. Full 13 point review of systems unremarkable except as noted above. Past Medical History: Diagnosis Date Carcinoma of prostate (HCC) Essential hypertension Past Surgical History: Procedure Laterality Date HEMORRHOID SURGERY Social History Tobacco Use Smoking status: Never Smokeless tobacco: Never Substance Use Topics Alcohol use: Yes Comment: Rare Family History Problem Relation Age of Onset Cancer Father Current Outpatient Medications Medication Sig Dispense Refill amLODIPine (NORVASC) 10 MG tablet Take 10 mg by mouth 1 (one) time each day aspirin (ST DIANE) 81 MG EC tablet Take 81 mg by mouth 1 (one) time each day atenolol (TENORMIN) 100 MG tablet Take 100 mg by mouth 1 (one) time each day (Patient taking differently: Take 50 mg by mouth 1 (one) time each day Taking 25 mg daily) buPROPion XL (WELLBUTRIN XL) 150 MG 24 hr tablet Take 150 mg by mouth 1 (one) time each day Do not crush, chew, or split. escitalopram (LEXAPRO) 20 MG tablet Take 20 mg by mouth 1 (one) time each day losartan (COZAAR) 50 MG tablet Take 50 mg by mouth 1 (one) time each day Multiple Vitamin (multivitamin) tablet Take 1 tablet by mouth 1 (one) time each day omeprazole (PriLOSEC) [address] capsule Take 20 mg by mouth 1 (one) time each day Do not crush or chew. No current facility-administered medications for this visit. No Known Allergies Objective: Vitals: 04/14/24 1324 BP: 99/59 BP Location: Right upper arm Patient Position: Sitting BP Cuff Size: Adult Pulse: 75 SpO2: 99% Physical Exam Vitals reviewed. Constitutional: Patient does not appear ill. HEENT: JON , No JVD Nose: Nose normal. Mouth/Throat: Oropharynx is clear and moist. Eyes: Conjunctivae are normal. Pupils are equal, round, and reactive to light. No scleral icterus. Neck: No thyroid mass and no thyromegaly present. Cardiovascular: Normal rate and regular rhythm. Exam reveals no friction rub. No murmur heard. No edema. Pulmonary/Chest: Effort normal and breath sounds normal. No respiratory distress. No wheezes. No rales. Abdominal: Soft. There is no abdominal tenderness. No hernia. Musculoskeletal: Normal range of motion. She exhibits no deformity. Skin: Skin is warm and dry. No rash noted. No erythema. Psychiatric: Normal mood and affect. No results found for: EGFRAFR Est GFR Non Date Value Ref Range Status 03/24/2023 45 ML/MIN/1.73 M2 Final Comment: Creatinine based estimated glomerular filtration (eGFR) in adults is calculated using the National Kid[employer] Foundation recommended 2020 CKD-EPI equation. Estimates GFR from serum creatinine, age and sex. Testing performed or reported by [facility], a Service of [facility], [address] [place] [id number] Mode Arguelles MD, Commutator Inspector JAMAL# [id number] Chemistry Lab Units 04/05/24 1740 03/24/23 1028 10/09/22 1129 CREATININE mg/dL 1.35 1.6* 1.6* BUN mg/dL 30* 30* 27* EGFRNAFR ML/MIN/1.73 M2 -- 45 44 GLUCOSE MG/DL -- 102* 65* POTASSIUM mmol/L 4.5 4.3 5.0 SODIUM mmol/L 142 143 140 CO2 mmol/L CHLORIDE mmol/L 107 109* 104 ALBUMIN GM/DL -- 4.2 4.3 Bone Mineral Lab Units 04/05/24 1740 03/24/23 1028 10/09/22 1129 CALCIUM mg/dL 9.5 9.4 9.8 PHOSPHORUS MG/DL -- 3.2 3.3 PTH pg/mL 137.7* 65 72* VITAMIN D ng/mL 48.7 57.0* 61.9* Urine Lab Units 04/05/24 1738 PROT/CREAT RATIO UR 0.12 No lab exists for component: SPECGRAV , GLUCOSEUR , BILIRUBINUR , RBCUR , UPROTEIN , LEUKOCYTESUR , NITRITE PLAN: Assessment & Plan 1. Stage 3a chronic kidney disease (HCC) 2. Hypertensive chronic kidney disease stage 3 1. Chronic kidney disease stage III Patient creatinine remaining around 1.35 No proteinuria No [place] on USG No UA to comment on the possibility of acute GN/interstitial disease I suspect the elevated creatinine is due to hypertensive nephrosclerosis. 2. Hypertension: Patient has baseline essential hypertension superimposed hypertension due to renalparenchymal disease. Blood pressures well controlled at the present time 3. Sec Hyperparathyroids / Vit D level is normal Continue strict lifestyle modification Patient has been advised to follow a low-salt diet Patient has been advised to maintain his weight He has been advised to keep himself hydrated Target blood pressure should be systolic less than 120 and diastolic less than 80. His blood pressure is acceptable. We will continue with the present antihypertensive regimen. Normal urine protein excretion. Work-up for second hyperparathyroidism including calcium, phosphorus and high PTH level noted- No need for calcitriol now Thank you Orders Placed This Encounter Vitamin D 25 hydroxy Urine Protein / creatinine ratio Renal function panel PTH, intact Return in about 1 year (around 04/14/2025). Regards Valerio Cid MD documented in this encounter Plan of Treatment Upcoming Encounters Date Type Department Care Team (Late st Contact Info) Description 04/20/2025 1:15 PM EST Office Visit [facility] [address] [place] [phone] Valerio Cid MD [address] [phone] Scheduled Orders Name Type Priority Associated Diagnoses Orde r Schedule Vitamin D 25 hydroxy Lab Routine Stage 3a chronic kidney disease (HCC) Hypertensive chronic kidney disease stage 3 Expected: 03/05/2025, Expires: 05/06/2025 Urine Protein / creatinine ratio Lab Routine Stage 3a chronic kidney disease (HCC) Hypertensive chronic kidney disease stage 3 Expected: 03/05/2025, Expires: 05/06/2025 Renal function panel Lab Routine Stage 3a chronic kidney disease (HCC) Hypertensive chronic kidney disease stage 3 Expected: 03/05/2025, Expires: 05/06/2025 PTH, intact Lab Routine Stage 3a chronic kidney disease (HCC) Hypertensive chronic kidney disease stage 3 Expected: 03/05/2025, Expires: 05/06/2025 documented as of this encounter Visit Diagnoses Diagnosis Stage 3a chronic kidney disease (HCC)- Primary Hypertensive chronic kidney disease stage 3 documented in this encounter Care Teams Integrated Logistics Programs Director Relationship Specialty Start Date End Date Sina Lechuga MD [address] [place] [address] [place] [id number] PCP - General Family Medicine 03/11/22 documented as of this encounter
--- OUTSIDE RECORDS SUMMARY | 2024-04-20 11:52 | XMS_ITS | Encounter Summary ---
Author Organization [facility] Address [address] [phone] Phone Care Team Providers Care Retirement Manager Name Role Phone Sina Lechuga MD Primary Care Provider Encounter Details Date Type Department Care Team (Late Contact Info) Description 04/05/2024 Orders Only [facility] [address] [place] [phone] Valerio Cid MD [facility] [phone] Social History Tobacco Use Types Packs/Day Years [...] on file documented as of this encounter Plan of Treatment Upcoming Encounters Date Type Department Care Team (Late Contact Info) Description 04/20/2025 1:15 PM EST Office Visit [facility] [address] [place] [phone] Valerio Cid MD [facility] [address] documented as of this encounter Procedures Procedure Name Priority Date/Time Associated Diagnosis Comments CREATININE, BLOOD Routine 04/05/2024 5:4 0 PM EST PTH, INTACT (HC) Routine 04/05/2024 5:40 PM EST VITAMIN D 25 HYDROXY Routine 04/05/2024 5:40 PM EST BUN Routine 04/05/2024 5:40 PM EST CALCIUM Routine 04/05/2024 5:40 PM EST ELECTROLYTE PANEL Routine 04/05/2024 5:4 0 PM EST PROTEIN / CREATININE RATIO, URINE Routine 04/05/2024 5:38 PM EST documented in this encounter Results * Vitamin D 25 Hydroxy (04/05/2024 5:40 PM EST) Vitamin D, 25-Hydroxy 48.7 >30 ng/mL See order comments Comment: Health Based Reference Values* < 20 ??ng/mL ??Deficient 20-30 ng/mL ??Insufficient > 30 ??ng/mL ??Sufficient *Saloni TRUJILLO. N Engl J Med. 2007;357:266-280 Care must be taken in interpreting Vitamin D results from different laboratories and methodologies. ??Published data demonstrated that results from patients undergoing hemodialysis may show a negative bias when tested with various automated 25-OH vitamin D assays when compared to LC-MS/MS. When testing samples from patients whose predominant form of Vitamin D is Vitamin D2, such as patients receiving Vitamin D2 supplementation, results that are subtherapeutic should be confirmed with another method such as LC-MS/MS. 04/05/2024 5:40 PM EST 04/05/2024 5:40 PM EST us Valerio Cid MD LAB BLOOD ORDERABLES Final Resu lt [place] See order comments [place] [address] * Calcium (04/05/2024 5:40 PM EST) Calcium 9.5 8.4 - 10.2 mg/dL See order comments 04/05/2024 5:40 PM EST 04/05/2024 5:40 PM EST us Valerio Cid MD LAB BLOOD ORDERABLES Final Resu lt Performing Organization Address [facility] de Phone Number [place] See order comments [place] [address] * Creatinine (04/05/2024 5:40 PM EST) Creatinine Serum 1.35 0.5 - 1.4 mg/dL See order comments eGFR 52 See order comments Comment: Chronic Kidney Disease: ??Estimated GFR < 60 mL/min/1.73m2 Severe Kidney Disease: ??Estimated GFR < 15 mL/min/1.73m2 04/05/2024 5:40 PM EST 04/05/2024 5:40 PM EST us Valerio Cid MD LAB BLOOD ORDERABLES Final Resu lt Performing Organization Address [facility] de Phone Number [place] See order comments [place] [address] * (ABNORMAL) BUN (04/05/2024 5:40 PM EST) BUN 30(H) 9 - 16 mg/dL See order comments 04/05/2024 5:40 PM EST 04/05/2024 5:40 PM EST us Valerio Cid MD LAB BLOOD ORDERABLES Final Resu lt Performing Organization Address [facility] de Phone Number [place] See order comments [place] [address] * Electrolyte panel (04/05/2024 5:40 PM EST) Sodium 142 135 - 145 mmol/L See order comments Potassium 4.5 3.3 - 5.1 mmol/L See order comments Chloride 107 96 - 108 mmol/L See order comments Bicarbonate (CO2) 28 22 - 29 mmol/L See order comments Anion Gap 12 12 - 20 See order comments 04/05/2024 5:40 PM EST 04/05/2024 5:40 PM EST us Valerio Cid MD LAB BLOOD ORDERABLES Final Resu lt Performing Organization Address [facility] Co de Phone Number [place] See order comments [place] [address] * (ABNORMAL) PTH, Intact (04/05/2024 5:40 PM EST) Parathyroid Hormone, Intact 137.7(H) 8.7 - 77.1 pg/mL See order comments 04/05/2024 5:40 PM EST 04/05/2024 5:40 PM EST us Valerio Cid MD LAB [id number] LICITED RESULTS Final Result Performing Organization Address [facility] Phone Number [place] See order comments [place] [address] * (ABNORMAL) Protein, Total, Random Urine w/Creatinine (Protein/Creat Ratio) (04/05/2024 5:38 PM EST) Creatinine, Urine 176.93 mg/dL See order comments Protein Urine Random 22(H) <12 mg/dL See order comments Protein/Creati nine Ratio, Urine 0.12 <0.2 See order comments Comment: The spot urine protein:creatinine ratio may increase to 0.3 during normal . 04/05/2024 5:38 PM EST 04/05/2024 5:38 PM EST us Valerio Cid MD LAB URINE ORDERABLES Final Resu lt Performing Organization Address [facility] de Phone Number [place] See order comments [place] [address] documented in this encounter Visit Diagnoses Not on filedocumented in this encounter Care Teams Retirement Manager Relationship Specialty Start Date End Date Sina Lechuga MD [address] [place] [address] [place] [id number] PCP - General Family Medicine 03/11/22 documented as of this encounter
--- OUTSIDE RECORDS SUMMARY | 2024-04-20 11:52 | XMS_ITS | Clinical Summary ---
Author Organization [facility] Address [address] [place] [address] Phone Care Team Providers Care Activities Leader Name Role Phone Sina Lechuga MD Primary [...] mouth 1 (one) time each day Active losartan (COZAAR) 50 MG tablet Take 50 mg by mouth 1 (one) time each day Active Active Problems Problem Noted Date Diagnosed Date Stage 3a chronic kidney disease 04/14/2024 Secondary hyperparathyroidism of renal origin Stage 3b chronic kidney disease 06/26/2022 Hypertensive chronic kidney disease stage 3 06/08 Kidney failure 06/25/2022 Encounters Date Type Department Care Team Description 04/14/2024 1:30 PM EST [facility] [address] [place] [address] Valerio Cid MD Stage 3a chronic kidney disease (HCC) (Primary Dx); Hypertensive chronic kidney disease stage 3 04/05/2024 Orders Only [facility] [address] [phone] Valerio Cid MD from Last 3 Months Family History Medical History Relation Comments Cancer [...] EST Inhaled Oxygen Concentration - - Weight 74.9 kg (165 lb 3.2 oz) 07/30/2023 2:16 P M EDT Height - - Body Mass Index - - Plan of Treatment Upcoming Encounters Date Type Department Care Team (Late st Contact Info) Description 04/20/2025 1:15 PM EST Office Visit [facility] P. [address] [place] [phone] Valerio Cid MD [address] [phone] Health Maintenance Due Date Last Done Comments Pneumococcal Vaccine: 65+ Ye ars (1 of 2 - PCV) 1956 Colorectal Cancer Screening: Annual FOBT 05/24/1999 Colorectal Cancer Screening: Colonoscopy 05/24/1999 Colorectal Cancer Screening: Sigmoidoscopy 05/24/1999 Influenza Vaccine (#1) 2023 Hepatitis B Vaccine Aged Out No longe r eligible based on patient's age to complete this topic Procedures Procedure Name Priority Date/Time Associated Diagnosis Comments VITAMIN D 25 HYDROXY Routine 04/05/2024 5:40 PM EST CALCIUM Routine 04/05/2024 5:40 PM EST CREATININE, BLOOD Routine 04/05/2024 5:4 0 PM EST BUN Routine 04/05/2024 5:40 PM EST ELECTROLYTE PANEL Routine 04/05/2024 5:4 0 PM EST PTH, INTACT (HC) Routine 04/05/2024 5:40 PM EST PROTEIN / CREATININE RATIO, URINE Routine 04/05/2024 5:38 PM EST from Last 3 Months Results * Creatinine (04/05/2024 5:40 PM EST) Creatinine Serum 1.35 0.5 - 1.4 mg/dL See order comments eGFR 52 See order comments Comment: Chronic Kidney Disease: ??Estimated GFR < 60 mL/min/1.73m2 Severe Kidney Disease: ??Estimated GFR < 15 mL/min/1.73m2 04/05/2024 5:40 PM EST 04/05/2024 5:40 PM EST us Valerio Cid MD LAB BLOOD ORDERABLES Final Resu lt Performing Organization Address City/[facility] Co de Phone Number [place] See order comments [place] [address] * (ABNORMAL) PTH, Intact (04/05/2024 5:40 PM EST) Parathyroid Hormone, Intact 137.7(H) 8.7 - 77.1 pg/mL See order comments 04/05/2024 5:40 PM EST 04/05/2024 5:40 PM EST us Valerio Cid MD LAB [id number] LICITED RESULTS Final Result [place] See order comments [place] [address] * Vitamin D 25 Hydroxy (04/05/2024 5:40 [...] ORDERABLES Final Resu lt Performing Organization Address City/[facility] Co de Phone Number [place] See order comments [place] [address] * (ABNORMAL) BUN (04/05/2024 5:40 PM EST) BUN 30(H) 9 - 16 mg/dL See order comments 04/05/2024 5:40 PM EST 04/05/2024 5:40 PM EST us Valerio Cid MD LAB BLOOD ORDERABLES Final Resu lt Performing Organization Address City/State/[facility] Co de Phone Number [place] See order comments [place] [address] * Calcium (04/05/2024 5:40 PM EST) Calcium 9.5 8.4 - 10.2 mg/dL See order comments 04/05/2024 5:40 PM EST 04/05/2024 5:40 PM EST us Valerio Cid MD LAB BLOOD ORDERABLES Final Resu lt Performing Organization Address City/[facility]/ZIP Co de Phone Number [place] See order comments [place] [address] * Electrolyte panel (04/05/2024 5:40 PM EST) [...] ORDERABLES Final Resu lt Performing Organization Address [facility] Co de Phone Number [place] See order comments [place] [address] * (ABNORMAL) Protein, Total, Random Urine w/Creatinine [...] ORDERABLES Final Resu lt Performing Organization Address [facility]/ZIP Co de Phone Number [place] See order comments [place] [address] from Last 3 Months Insurance [address] [place] [address] A[employer]NA MEDICARE AETNA MEDICARE Care Teams Activities Leader Relationship Specialty Start Date End Date Sina Lechuga MD [address] [phone] PCP - General Family Medicine 03/11/22
--- OUTSIDE RECORDS SUMMARY | 2024-04-20 11:52 | XMS_ITS | Clinical Summary ---
Author Organization [facility] [address] [facility] Address [address] [place], [place] Phone Care Team Providers Care Waist Pleater Name Role Phone Sina Lechuga MD Primary Care Provider [phone] Allergies No known active allergies Medications amLODIPine (NORVASC) 10 mg tablet Take 1 [...] 04/04/2024 11:25 AM EST Office [place] [address] [place] [address] Sundar Barker MD Elevated parathyroid hormone (Primary Dx); Hyperparathyroidism, unspecified (CMS/HCC) from Last 3 Months Immunizations Name Administration Dates Next Due Moderna SARS-CoV-2 COVID-19, mRNA, LNP-S, preservative free 12/04/2021 Social History Tobacco Use Types Packs/Day Years Used Date Smoking Tobacco: Never Assessed Sex and Gender Information Value Date Recorded Sex Assigned at Not on file Legal Sex Male 11:06 AM EDT Gender Identity Male 04/19/2024 9:16 AM EST Sexual Orientation Not on file Obstetrics History Last Filed [...] DTaP,Tdap,and Td Vaccines (1 - Tdap) 1969 Pneumococcal Vaccine: 50+ Years (1 of 1 - PCV) 2000 Zoster Vaccines (1 of 2) 2000 Cholesterol Screening (Lipid Panel) 10/02/2023 Colorectal Cancer [...] patient's age to complete this topic Meningococcal B Vacine Aged Out No lo nger eligible based on patient's age to complete this topic RSV Immunization Patients Under 20 months Aged Out No longer eligible based on patient's age to complete this topic Varicella Vaccines Aged Out No longer eligible based on patient's age to complete this topic Insurance [address] [place] [address] A[employer] MEDICARE ADVANTAGE Care Teams Waist Pleater Relationship Specialty Start Date End Date Sina Lechuga MD [address] [place] [address] Dr Dot [place] PCP - General 06/12/23
== END ==
LOC: HO.SL 10:03
PROVIDERS: PCP Family Medicine; Visit Provider Physician Assistant Medical
DX: G47.19 Other hypersomnia (principal); R06.83 Snoring
CPT/HCPCS: 95806

== ENCOUNTER → 2024-04-20 10:34 | Outpatient (BNV) | payer MEDICARE, SELFPAY | PROVIDERS: PCP Family Medicine; Visit Provider Internal Medicine | DX: G47.33 Obstructive sleep apnea (adult) (pediatric) (principal) | CPT/HCPCS: 95806 ==

== ENCOUNTER 2024-05-24 10:47 | Outpatient (AMB) | payer MEDICARE, SELFPAY ==
--- NOTE | 2024-05-24 10:59 | MHC.PC.OV ---
Vital Signs 05/24/24 11:03 Height 5 ft 8 in Weight 172 lb BMI 26.1 BP 130/78 Blood Pressure Location Rt brachial Position Sitting Respiration 14 Pulse 73 Pulse Source Pulse Oximeter Temp 98.3 F Temp Source Oral Pulse Oximetry (%) 97 Oxygen Delivery Method Room Air Intake Visit Reasons: f/u hypertension, chronic conditions Intake Note: patient is scheduled today for htn and sleep apnea Faucet Polisher Required: No Allergies No Known Allergies Allergy (Verified 05/24/24 11:02) Tobacco use date assessed: 10/12/23 Dental Screening Dental Screen Date: 07/10/23 HPI f/u hypertension, chronic conditions HPI Details 74 y/o male presents to f/u hypertension, chronic conditions. Blood pressure today 130/78, 73p. He is on atenolol 25mg, losartan 50mg, amlodopine 10mg daily. Had seen neurology 03/11/24 for excessive daytime sleepiness. Home sleep test to evaluate sleep. Pt notes home study test negative for sleep apnea. Walks every day for at least half an hour for exercise. [facility] Medical History CVA (cerebral vascular accident) Hypertension Hyperlipidemia GERD (gastroesophageal reflux disease) Thrombocytopenia Hyperparathyroidism Prostate cancer Surgical History Hx of colonoscopy H/O hemorrhoidectomy Family History Mother Mental health disorder Social History [facility] Are you a primary mall plant caretaker to a significant other at home: No Do you presently have visiting nurse or other home services: No Patient Tobacco Use Status: Never used Tobacco e-Cigarette/Vaping Use: Never Used service: No Current occupational status: retired Current occupational exposures/hazards: No Cognitive needs: No Hearing needs: No Vision needs: No Questionnaire PHQ-9 Over the last 2 weeks, how often have you been bothered by any of the following problems? 1. Little interest or pleasure in doing things: not at all 2. Feeling down, depressed, or hopeless: not at all 3. Trouble falling or staying asleep, or sleeping too much: not at all 4. Feeling tired or having little energy: not at all 5. Poor appetite or overeating: not at all 6. Feeling bad about yourself - or that you are a failure or have let yourself or your family down: not at all 7. Trouble concentrating on things, such as reading the newspaper or watching television: not at all 8. Moving or speaking so slowly that other people could have noticed. Or the opposite - being so fidgety or restless that you have been moving around a lot more than usual: not at all 9. Thoughts that you would be better off or of hurting yourself in some way: not at all Total score: 0 Source: Developed by Drs. Alonso Lopez, Mayda Pickett, Wyatt Cunningham and colleagues, with an educational kamryn from [employer]. Thrive Questionnaire Date Thrive assessed: 02/22/24 I am a: Patient What is your living situation today?: I have a steady place to live Within the past 12 months, did the food you bought not last and you didn't have the money to get more?: Never true Within the past 12 months, did you worry whether your food would run out before you got money to buy more?: Never true Do you have trouble paying for medicines?: No Do you have trouble getting transportation to medical appointments?: No Do you have trouble paying your heating and electricity bill?: No Do you have trouble taking care of your child, family member or friend?: No Do you have trouble with day-to-day activities such as bathing, preparing meals, shopping, managing finances, etc.?: No Are you currently unemployed and looking for a job?: No Are you interested in more education?: No Please select the resources that you would like help with: None Currently or been in a relationship where the following occur: No concerns reported THRIVE Score: 0 AUDIT C Alcohol Use Questionnaire (AUDIT-C) 1. How often do you have a drink containing alcohol?: 2-4 times a month 2. How many drinks containing alcohol do you have on a typical day when you are drinking?: 1 or 2 3. How often do you have six or more drinks on one occasion?: Never Total Score: 2 SERGIO-7 AMB Questionnaire SERGIO-7 Date SERGIO - 7 assessed: 03/20/23 Feeling nervous, anxious, or on edge: 0 = Not at all Not being able to stop or control worryin = Not at all Worrying too much about different things: 0 = Not at all Trouble relaxin = Not at all Being so restless that it is hard to sit still: 0 = Not at all Becoming easily annoyed or irritable: 0 = Not at all Feeling afraid as if something awful might happen: 0 = Not at all Total SERGIO-7 score (0-4 normal; 5-9 mild; 10-14 moderate; 15-21 severe): 0 Source: Developed by Drs. Alonso Lopez, Mayda Pickett, Wyatt Cunningham and colleagues, with an educational kamryn from [employer]. Review of Systems Const Denies chills, Denies fatigue, Denies fever(s), Denies headache(s) and Denies weakness ENT Denies dizziness and Denies headache(s) Card Denies dyspnea Resp Denies cough, Denies dyspnea, Denies wheezing and Denies other (shortness of breath) Musc Denies numbness and Denies tingling Neuro Denies dizziness, Denies headache(s), Denies numbness, Denies tingling and Denies weakness Psych Denies anxiety and Denies depression Endo Denies fatigue Aller/Immun Denies wheezing Physical exam (Primary Care) Vital Signs: Last Vital Signs Temp 98.3 F 05/24/24 11:03 Pulse 73 05/24/24 11:03 Resp 14 05/24/24 11:03 BP 130/78 05/24/24 11:03 Pulse Ox 97 05/24/24 11:03 Oxygen Delivery Method Room Air 05/24/24 11:03 BMI result Body Mass Index 26.1 Tobacco/Smoking Status: Tobacco use Status Tobacco use date assessed 10/12/23 05/24/24 11:00 Patient Tobacco Use Status Never used Tobacco 05/24/24 11:00 e-Cigarette/Vaping Use Never Used 05/24/24 11:00 PHQ-9: PHQ-9 Score PHQ-9: Total score 0 05/24/24 11:28 Thrive Assessment: Date of Thrive Assessment Date Thrive assessed 02/22/24 05/24/24 11:00 Currently or been in a relationship where the following occur: No concerns reported Const General: well developed; No acute distress Nutritional Appearance: well nourished Orientation/consciousness: patient oriented x3 HENMT Head: Yes normocephalic and Yes atraumatic Eyes General: appearance normal, both eyes and all related structures Pupils: Equal, round and reactive pupils present EOM: EOMs intact bilaterally Resp Effort & Inspection: normal respiratory effort Auscultation: clear to auscultation bilaterally Cardio Rate: regular rate Rhythm: regular rhythm Heart sounds: S1 normal heart sound present, S2 normal heart sound present, no gallops, no murmurs and no rubs Neuro General: patient oriented x3 and gait normal Cranial nerves: Yes Equal, round and reactive pupils present Psych Affect: normal affect Coding Level of Care Code Est Pt Level 4 (06235) Diagnoses Hypertension I10 CVA (cerebral vascular accident) I63.9 Loud snoring R06.83 Erectile dysfunction N52.9 Assessment & Plan Assessment & Plan (1) Hypertension: Code(s): I10 - Essential (primary) hypertension Category: Medical Plan: Blood?pressure?is?fairly?well?controlled?and?at?goal?of?less?than?130/80. We?discussed?that?his?assistant professor of archaeology?had?recommended?goal?of?less?than?120/80?however?for?now?will?maintain?a?goal?of?130/80?due?to?recent?unsteadiness/dizziness. Continue?current?medication (2) CVA (cerebral vascular accident): Code(s): I63.9 - Cerebral infarction, unspecified Category: Medical Plan: History?of?CVA?and?unsteadiness/dizziness Had?referred?patient?to?Neurology Patient?was?seen?by?Neurology?for?question?of?sleep?apnea?but?also?for?the?above. He?has?a?follow-up?for?review?of?his?sleep?study?in?June.??Asked?him?to?follow-up?with?the?neurologist?regarding?unsteadiness/dizziness as?well. (3) Loud snoring: Code(s): R06.83 - Snoring Category: Medical Plan: Patient?has?had?sleep?study?and?will?be?following?up?with?Neurology?in?[place] Appears?that?he?did?not?have?sleep?apnea?however Recommended?he?work?at?sleeping?on?his?side?and?he?is?using?mouth?guard?which?helps?a?little?as?well?for?snoring. (4) Erectile dysfunction: Code(s): N52.9 - Male erectile dysfunction, unspecified Category: Medical Plan: Ongoing?issues?with?erectile?dysfunction. Had?tried?Cialis?without improvement He?would?like?to?try?sildenafil.??Sent?a?script. We?discussed?that?I?can?refer?him?to?Urology?if?he?is?still?having?difficulty.
[2024-05-24 11:03] VITALS: BP 130/78; PULSE 73; RESP 14; TEMP 36.8; O2SAT 97; BMI 26.1
--- OUTSIDE RECORDS SUMMARY | 2024-05-24 12:50 | XMS_ITS | Clinical Summary ---
Author Organization [facility] Address [address] [place] [address] Phone Care Team Providers Care Marine Diesel Technician Name Role Phone Sina Lechuga MD Primary [...] [facility] [address] [place] [address] Valerio Cid MD Stage 3a chronic kidney disease (HCC) (Primary Dx); Hypertensive chronic kidney disease stage 3 04/05/2024 Orders Only [facility] [address] [address] Valerio Cid MD from Last [...] Office Visit [facility] [address] [place] [phone] Valerio Cid MD [address] [address] Health Maintenance Due Date Last [...] ORDERABLES Final Resu lt Performing Organization Address City/[facility] Co de Phone Number [place] See order comments [place] [address] * (ABNORMAL) PTH, Intact (04/05/2024 5:40 PM EST) Parathyroid Hormone, Intact 137.7(H) 8.7 - 77.1 pg/mL See order comments 04/05/2024 5:40 PM EST 04/05/2024 5:40 PM EST us Valerio Cid MD LAB [id number] LICITED RESULTS Final Result [place] See order comments [place] [address] * Vitamin D 25 Hydroxy (04/05/2024 5:40 [...] ORDERABLES Final Resu lt Performing Organization Address City/[facility] Co de Phone Number [place] See order comments [place] [address] * (ABNORMAL) BUN (04/05/2024 5:40 PM EST) BUN 30(H) 9 - 16 mg/dL See order comments 04/05/2024 5:40 PM EST 04/05/2024 5:40 PM EST us Valerio Cid MD LAB BLOOD ORDERABLES Final Resu lt Performing Organization Address City/State/[facility] Co de Phone Number [place] See order comments [place] [address] * Calcium (04/05/2024 5:40 PM EST) Calcium 9.5 8.4 - 10.2 mg/dL See order comments 04/05/2024 5:40 PM EST 04/05/2024 5:40 PM EST us Valerio Cid MD LAB BLOOD ORDERABLES Final Resu lt Performing Organization Address City/[facility]/ZIP Co de Phone Number [place] See order comments [place] [address] * Electrolyte panel (04/05/2024 5:40 PM EST) [...] ORDERABLES Final Resu lt Performing Organization Address [facility] Co de Phone Number [place] See order comments [place] [address] * (ABNORMAL) Protein, Total, Random Urine w/Creatinine [...] ORDERABLES Final Resu lt Performing Organization Address [facility]/ZIP Co de Phone Number [place] See order comments [place] [address] from Last 3 Months Insurance [address] [place] [address] AETNA MEDICARE AETNA MEDICARE Care Teams Marine Diesel Technician Relationship Specialty Start Date End Date Sina Lechuga MD [address] [id number] PCP - General Family Medicine 03/11/22
--- OUTSIDE RECORDS SUMMARY | 2024-05-24 12:50 | XMS_ITS | Clinical Summary ---
Author Organization [facility] Address [address], [place] Phone Care Team Providers Care Final Expense Agent Name Role Phone Sina Lechuga MD Primary Care Provider [phone] Allergies No known active allergies Medications amLODIPine [...] 04/04/2024 11:25 AM EST Office Visit Endocrinology [facility] [address] [place] [address] Sundar Barker MD Elevated parathyroid hormone (Primary [...] to complete this topic Insurance [address] [place] [address] AETNA MEDICARE ADVANTAGE Care Teams Final Expense Agent Relationship Specialty Start Date End Date Sina Lechuga MD [address] [place] [address] Dr Dot [place] PCP - General 06/12/23
== END 2024-05-24 11:52 | disposition home or self-care (01) ==
LOC: HO.HMCFM 10:48
PROVIDERS: PCP Family Medicine; Visit Provider Family Medicine
DX: I10 Essential (primary) hypertension (principal); I63.9 Cerebral infarction, unspecified; R06.83 Snoring; N52.9 Male erectile dysfunction, unspecified

== ENCOUNTER → 2024-05-24 10:47 | Outpatient (BNVA) | payer MEDICARE, SELFPAY | PROVIDERS: PCP Family Medicine; Visit Provider Family Medicine | DX: I10 Essential (primary) hypertension (principal); I63.9 Cerebral infarction, unspecified; R06.83 Snoring; N52.9 Male erectile dysfunction, unspecified | CPT/HCPCS: 99212 ==

== ENCOUNTER 2024-06-20 09:59 | Outpatient (AMB) | payer MEDICARE, SELFPAY ==
[2024-06-20 10:10] VITALS: BP 132/80; PULSE 64; O2SAT 99; BMI 26.5
--- NOTE | 2024-06-20 10:10 | A.OFFVIS_ITS ---
Vital Signs 06/20/24 10:10 Height 5 ft 8 in Weight 174 lb BMI 26.5 BP 132/80 Blood Pressure Location Rt brachial Position Sitting Pulse 64 Pulse Source Pulse Oximeter Pulse Oximetry (%) 99 Oxygen Delivery Method Room Air Intake Visit Reasons: Follow up Cerebral Infarction/CORKY(PER MD) Intake Note: Patient present follow up Cerebral Infarction/CORKY. HSS done on 04/29/24. Allergies No Known Allergies Allergy (Verified 06/20/24 10:14) HPI Comments Details: 74 year old L. handed male is here for a sleep evaluation per Dr. Lechuga, PCP. Dec 2022 Posterior Vetebral Ischemic (CVA) RCA/ LCA Stenosis 49%, L.V EF 55-60% with Mitral and Tricuspid Regurgitation. On Stroke protocal with Aspirin 81mg, Amlodipine 10mg, Atenolol 25mg, Atorvastatin 40mg and Losartan 50mg His Kadie is here with him and she helps with history. He continues to make noises at night, he sounds like he is gasping for air, she moves the blankets and he stops. He is restless at night twitches, and is continuously moving. He also purchased an over the counter mouth guard which helps with the noises he makes. He continues to have dizziness, gait, and balance, difficulties, especially when rising from a chair. Denies, vision changes, vertigo, diplopia, scotomas and or headaches. Hearing is slightly diminished, ears are plugged at times. He has L.hand weakness, with writing, and sensitivity to temperature changes in R.>L extremities. He denies numbness and tingling. He feels the sensation is different in feet bilaterally to the thighs, since the stroke. Hearing is slightly diminished, ears are plugged at times. He worked with PT and that was helping with strength and mobility. Still has difficulty with balance and and is not prone to leaning with distance walking. He c/o of fatigue, daily with minimal tasks, per has no stamina or energy despite napping 2x a day. He denies dysphagia, slurring speech, drooling, and he eats his food slowly and mindfully as he chews. Denies tremors, family history of movement disorders, his mother had Alzheimers disease late onset. His is interested in [employer] as he has been snoring and gargling since the stroke, it has been worse. He completed a barium swallow study, and speech therapy now able to swallow boluses with some effort, his epiglottis has a dipped curvature since the intubation. He continues to have rhinitis and a tickle in the back of throat which causes him to cough and gasps for air, with apneas for short periods, according to his . Denies Nocturia. Goes to bed at 11pm and gets up at 8am, still feels tired, despite napping on the couch. His mood, diet are stable. Denies cognitive decline, stress and anxiety Takes Buproprion and Citalopram for depression, well managed by meds. He walks daily for 30 min. [facility] Medical History CVA (cerebral vascular accident) Hypertension Hyperlipidemia GERD (gastroesophageal reflux disease) Thrombocytopenia Hyperparathyroidism Prostate cancer Surgical History Hx of colonoscopy H/O hemorrhoidectomy Family History Mother Mental health disorder Social History Housing: [facility] Are you a primary home care liaison to a significant other at home: No Do you presently have visiting nurse or other home services: No Patient Tobacco Use Status: Never used Tobacco e-Cigarette/Vaping Use: Never Used service: No Current occupational status: retired Current occupational exposures/hazards: No Cognitive needs: No Hearing needs: No Vision needs: No Physical Exam Vital Signs: Last Vital Signs Pulse 64 06/20/24 10:10 BP 132/80 06/20/24 10:10 Pulse Ox 99 06/20/24 10:10 Oxygen Delivery Method Room Air 06/20/24 10:10 BMI result Body Mass Index 26.5 Const General: cooperative, comfortable and no acute distress Nutritional Appearance: average body habitus Orientation/consciousness: patient oriented x3 HEENT Face and sinus: Yes normal facial exam and Yes face symmetric Throat: Yes other ([place] score of 4) Eyes Pupils: Equal, round and reactive pupils present Neck Neck: Yes full ROM and Yes supple Resp Effort & Inspection: normal respiratory effort and able to speak in complete sentences Neuro General: patient oriented x3 and moves all extremities Cranial nerves: Yes CN's II-XII intact bilaterally, Yes Facial sensation intact/muscles of mastication intact, Yes Equal, round and reactive pupils present, Yes Normal accommodation reflex present, Yes Bilaterally intact EOM present, Yes Nystagmus not present, Yes Normal facial strength present, Yes Midline tongue present, Yes Ability to bilaterally rotate head present and Yes Ability to bilaterally elevate shoulders present Gait exam (Neuro): Other gait observations present (Leans to the left) Motor exam (neuro): Abnormal motor strength present (Lower Extremity weak to resistance R>L 3/5) and Tremors during motor activity present (Slight Tremor R arm > L. arm) Deep tendon reflexes (DTR's): Right triceps reflex intensity grade: 2+, Left triceps reflex intensity grade: 2+, Rt Biceps (C5, C6): 2+, Left biceps reflex intensity grade: 2+, Right brachioradialis reflex intensity grade: 2+, Left brachioradialis reflex intensity grade: 2+, Right patellar reflex intensity grade: 2+ and Left patellar reflex intensity grade: 2+ Coordination: [id number] test normal, does not sway with eyes open and rapid alternating movements of the distal upper extremity normal Psych Appearance: grossly normal Mental Status: mental status grossly normal Speech and movement: Normal speech and movement present Thought process: Normal thought process present Thought content: Normal thought content present Insight: Good insight present (Psych) Judgement: Good judgement present (Psych) Results Reviewed Results Reviewed: HST was inconclusive AHi was 3 and oxygen leslie to 88% Assessment & Plan Assessment & Plan (1) Loud snoring: Code(s): R06.83 - Snoring Category: Medical (2) Excessive daytime sleepiness: Code(s): G47.19 - Other hypersomnia Category: Medical (3) Dizziness: Code(s): R42 - Dizziness and giddiness Category: Medical (4) Left hand weakness: Code(s): R29.898 - Other symptoms and signs involving the musculoskeletal system Category: Medical (5) Dysphagia: Code(s): R13.10 - Dysphagia, unspecified Category: Medical Qualifiers: Dysphagia type: unspecified Qualified Code(s): R13.10 - Dysphagia, unspecified Plan Snoring and excessive daytime fatigue post CVA Dec 2022 HST was inconclusive will send him for PSG Fatigue :Labs are normal [id number] / TSH/ Vit D. Start magnesium 400mg daily and [place] 3 fatty acids otc. F/U in 3 months after PSG for a review of weakness. Orders: Orders RT PSG in-lab sleep study Today G47.19 - Other hypersomnia, R06.83 - Snoring, R42 - Dizziness and giddiness Medications: New magnesium oxide take one tablet daily at bedtime. 400 mg PO DAILY 3 months 90 tabs 3RF sleep difficulties MDD 400mg PO G47.19 - Other hypersomnia Patient Instructions: Sleep Hygiene provided: set a scheduled bedtime and wake time to help regulate the circadian rhythm and balance the release of pituitary hormones. Sleep in a dark room, temperatures below 68 degrees, and no devices n bed. Limit caffeinated products 6 hours prior to bed, and limit fluids 2-4 hours prior to bed. Gentle night yoga, diffusing essential oils, and playing soft music can be relaxing. Coding Level of Care Code Est Pt Level 4 (32239) Complex EM visit Add On G2211 Diagnoses Loud snoring R06.83 Excessive daytime sleepiness G47.19 Dizziness R42 Left hand weakness R29.898 Dysphagia, unspecified type R13.10 Dysphagia type: unspecified Time Spent (min) 40 Comment
--- OUTSIDE RECORDS SUMMARY | 2024-06-20 11:15 | XMS_ITS | Clinical Summary ---
Author Organization [facility] Address [address] [place] [address] Phone Care Team Providers Care Tier Lift Operator Name Role Phone Sina Lechuga MD Primary [...] [facility] [address] [place] [address] Valerio Cid MD Stage 3a chronic kidney disease (HCC) (Primary Dx); Hypertensive chronic kidney disease stage 3 04/05/2024 Orders Only [facility] [address] [address] Valerio Cid MD from Last [...] Office Visit [facility] [address] [place] [phone] Valerio Cid MD [address] [address] Health Maintenance Due Date Last Done Comments Pneumococcal Vaccine: 50+ Ye ars (1 of 2 - PCV) 1969 Colorectal Cancer Screening: Annual FOBT 05/24/1999 Colorectal Cancer Screening: Colonoscopy 05/24/1999 Colorectal Cancer Screening: Sigmoidoscopy 05/24/1999 Influenza Vaccine (Season Ended) 2024 Hepatitis B Vaccine Aged Out No longe [...] ORDERABLES Final Resu lt Performing Organization Address City/[facility] Co de Phone Number [place] See order comments [place] [address] * (ABNORMAL) PTH, Intact (04/05/2024 5:40 PM EST) Parathyroid Hormone, Intact 137.7(H) 8.7 - 77.1 pg/mL See order comments 04/05/2024 5:40 PM EST 04/05/2024 5:40 PM EST us Valerio Cid MD LAB [id number] LICITED RESULTS Final Result [place] See order comments [place] [address] * Vitamin D 25 Hydroxy (04/05/2024 5:40 [...] ORDERABLES Final Resu lt Performing Organization Address City/[facility] Co de Phone Number [place] See order comments [place] [address] * (ABNORMAL) BUN (04/05/2024 5:40 PM EST) BUN 30(H) 9 - 16 mg/dL See order comments 04/05/2024 5:40 PM EST 04/05/2024 5:40 PM EST us Valerio Cid MD LAB BLOOD ORDERABLES Final Resu lt [place] See order comments [place] [address] * Calcium (04/05/2024 5:40 PM EST) Calcium 9.5 8.4 - 10.2 mg/dL See order comments 04/05/2024 5:40 PM EST 04/05/2024 5:40 PM EST us Valerio Cid MD LAB BLOOD ORDERABLES Final Resu lt Performing Organization Address [facility]/ZIP Co de Phone Number [place] See order comments [place] [address] * Electrolyte panel (04/05/2024 5:40 PM EST) [...] ORDERABLES Final Resu lt Performing Organization Address [facility] de Phone Number [place] See order comments [place] [address] * (ABNORMAL) Protein, Total, Random Urine w/Creatinine [...] ORDERABLES Final Resu lt Performing Organization Address [facility]/ZIP Co de Phone Number [place] See order comments [place] [address] from Last 3 Months Insurance [address] [place] [address] A[employer]na Medicare A[employer]na Medicare Care Teams Tier Lift Operator Relationship Specialty Start Date End Date Sina Lechuga MD [address] [phone] PCP - General Family Medicine 03/11/22
--- OUTSIDE RECORDS SUMMARY | 2024-06-20 11:15 | XMS_ITS | Clinical Summary ---
Author Organization [facility] [place] [facility] Address [address] [place], [place] Phone Care Team Providers Care Bleach Maker Name Role Phone Sina Lechuga MD Primary Care Provider +1- [phone] Allergies No known active allergies Medications amLODIPine [...] 04/04/2024 11:25 AM EST Office Visit [facility] [address] [place] [address] Sundar Barker MD Elevated parathyroid hormone (Primary Dx); Hyperparathyroidism, unspecified (CMS/HCC V24) from Last 3 Months Immunizations Name Administration [...] Annual BMP Blood Test 04/04/2024 RSV Immunization Adult Patients (1 - 1-dose 75+ series) 2025 Influenza [...] age to complete this topic Meningococcal B Vaccine Aged Out No l onger eligible based on patient's age to complete this topic RSV Immunization Patients Under 20 months Aged Out No longer eligible based on patient's age to complete this topic Varicella Vaccines Aged Out No longer eligible based on patient's age to complete this topic Insurance [employer] MEDICARE ADVANTAGE Care Teams Bleach Maker Relationship Specialty Start Date End Date Sina Lechuga MD [address] [place] [address] Dr Dot [place] PCP - General 06/12/23
== END 2024-06-20 11:01 | disposition home or self-care (01) ==
LOC: HO.HSMS 10:00
PROVIDERS: PCP Family Medicine; Visit Provider Physician Assistant Medical
DX: R06.83 Snoring (principal); G47.19 Other hypersomnia; R42 Dizziness and giddiness; R29.898 Other symptoms and signs involving the musculoskeletal system; R13.10 Dysphagia, unspecified
CPT/HCPCS: 99214; G2211

== ENCOUNTER → 2024-06-20 09:59 | Outpatient (BNVA) | payer MEDICARE, SELFPAY | PROVIDERS: PCP Family Medicine; Visit Provider Physician Assistant Medical | DX: R06.83 Snoring (principal); G47.19 Other hypersomnia; R42 Dizziness and giddiness; R29.898 Other symptoms and signs involving the musculoskeletal system; R13.10 Dysphagia, unspecified; Z86.73 Personal history of transient ischemic attack (TIA), and cerebral infarction without residual deficits | CPT/HCPCS: 99212 ==

== ENCOUNTER → 2024-07-14 19:30 | Outpatient (REF) | payer MEDICARE, SELFPAY ==
--- OUTSIDE RECORDS SUMMARY | 2024-07-14 22:08 | XMS_ITS | Clinical Summary ---
Author Organization [facility] Address [address] [place] [address] Phone Care Team Providers Care Glass Cut Off Supervisor Name Role Phone Sina Lechuga MD [...] [facility] Visit [facility] [address] [place] [phone] Valerio Cid MD [address] [address] Health Maintenance Due Date Last Done Comments Pneumococcal Vaccine: 50+ Ye ars (1 of 2 - PCV) 1969 Colorectal Cancer Screening: Annual FOBT 05/24/1999 Colorectal Cancer Screening: Colonoscopy 05/24/1999 Colorectal Cancer Screening: Sigmoidoscopy 05/24/1999 Influenza Vaccine (Season Ended) 2024 Hepatitis B Vaccine Aged Out No longe r eligible based on patient's age to complete this topic Insurance Aetna Medicare [address] [place] [address] Aetna Medicare Care Teams Glass Cut Off Supervisor Relationship Specialty Start Date End Date Sina Lechuga MD [address] [address] PCP - General Family Medicine 03/11/22
== END ==
LOC: HO.SL 19:30
PROVIDERS: PCP Family Medicine; Visit Provider Physician Assistant Medical
DX: G47.19 Other hypersomnia (principal); G47.61 Periodic limb movement disorder; R06.83 Snoring; R42 Dizziness and giddiness
CPT/HCPCS: 95810

== ENCOUNTER → 2024-07-14 21:21 | Outpatient (BNV) | payer MEDICARE, SELFPAY | PROVIDERS: PCP Family Medicine; Visit Provider Psychiatry & Neurology Neurology | DX: G47.33 Obstructive sleep apnea (adult) (pediatric) (principal); G47.10 Hypersomnia, unspecified | CPT/HCPCS: 95810 ==

== ENCOUNTER 2024-08-10 09:42 | Outpatient (AMB) | payer MEDICARE, SELFPAY ==
[2024-08-10 09:45] VITALS: BP 126/78; PULSE 67; O2SAT 98; BMI 25.9
--- NOTE | 2024-08-10 09:45 | A.OFFVIS_ITS ---
Vital Signs 3 08/10/24 09:45 Height 5 ft 8 in Weight 170 lb 8 oz BMI 25.9 BP 126/78 Blood Pressure Location Rt brachial Position Sitting Pulse 67 Pulse Source Pulse Oximeter Pulse Oximetry (%) 98 Oxygen Delivery Method Room Air Intake Visit Reasons: Follow up Intake Note: Patient looking for results of sleep study Allergies No Known Allergies Allergy (Verified 08/10/24 09:48) HPI Comments Details: 74 year old L. handed male is here for a sleep evaluation per Dr. Lechuga, PCP. His Kadie is here with him and she helps with history. July 2024 severe corky AHI 28/hr o2 leslie 88% PLM with arousal and sleep distruptions. Titration was recommended to determine ideal pressures. He has ongoing post stroke, epiglottis difficulties with swallowing, choking, eating food, daily symptoms residually, solids are worse than liquids and he has to take sips of water to help move the bolus of food pass/ down even when brushing his teeth. He declines speech therapy today. He completed a barium swallow study, and speech therapy now able to swallow boluses with some effort, his epiglottis has a dipped curvature since the intubation. He continues to have rhinitis and a tickle in the back of throat which causes him to cough and gasps for air, with apneas for short periods, according to his . Dec 2022 Posterior Vetebral Ischemic (CVA) RCA/ LCA Stenosis 49%, L.V EF 55-60% with Mitral and Tricuspid Regurgitation. On Stroke protocal with Aspirin 81mg, Amlodipine 10mg, Atenolol 25mg, Atorvastatin 40mg and Losartan 50mg He continues to make noises at night, he sounds like he is gasping for air, she moves the blankets and he stops, he also purchased an over the counter mouth guard which helps decrease the noises he makes. He is restless at night twitches, and is continuously moving. He denies numbness and tingling. He continues to have dizziness, gait and balance difficulties, especially when rising from a chair. Denies, vision changes, vertigo, diplopia, scotomas and or headaches. He has L.hand weakness, with writing, and sensitivity to temperature changes in R.>L extremities. He feels the sensation is different in feet bilaterally to the thighs, since the stroke. He has worked with PT and that was helping with strength and mobility. He c/o of fatigue, daily with minimal tasks, per has no stamina or energy despite napping 2x a day. Denies tremors, family history of movement disorders, his mother had Alzheimers disease late onset. His is interested in [employer] as he has been snoring and gargling since the stroke, it has been worse. Denies Nocturia. Goes to bed at 11pm and gets up at 8am, still feels tired. His mood, diet are stable. Denies cognitive decline, stress and anxiety. Takes Buproprion and Citalopram for depression, well managed by meds since his undergrad years. He walks daily for 30 min. [facility] Medical History CVA (cerebral vascular accident) Hypertension Hyperlipidemia GERD (gastroesophageal reflux disease) Thrombocytopenia Hyperparathyroidism Prostate cancer Surgical History Hx of colonoscopy H/O hemorrhoidectomy Family History Mother Mental health disorder Social History [facility] Are you a primary vision care associate to a significant other at home: No Do you presently have visiting nurse or other home services: No Patient Tobacco Use Status: Never used Tobacco e-Cigarette/Vaping Use: Never Used service: No Current occupational status: retired Current occupational exposures/hazards: No Cognitive needs: No Hearing needs: No Vision needs: No Physical Exam Vital Signs: Last Vital Signs Pulse 67 08/10/24 09:45 BP 126/78 08/10/24 09:45 Pulse Ox 98 08/10/24 09:45 Oxygen Delivery Method Room Air 08/10/24 09:45 BMI result Body Mass Index 25.9 Const General: cooperative, comfortable and no acute distress Nutritional Appearance: average body habitus Orientation/consciousness: patient oriented x3 HEENT Face and sinus: Yes normal facial exam and Yes face symmetric Throat: Yes other ([place] score of 4) Eyes Pupils: Equal, round and reactive pupils present Neck Neck: Yes full ROM and Yes supple Resp Effort & Inspection: normal respiratory effort and able to speak in complete sentences Neuro General: patient oriented x3 and moves all extremities Cranial nerves: Yes CN's II-XII intact bilaterally, Yes Facial sensation intact/muscles of mastication intact, Yes Equal, round and reactive pupils present, Yes Normal accommodation reflex present, Yes Bilaterally intact EOM present, Yes Nystagmus not present, Yes Normal facial strength present, Yes Midline tongue present, Yes Ability to bilaterally rotate head present and Yes Ability to bilaterally elevate shoulders present Gait exam (Neuro): Other gait observations present (Leans to the left) Motor exam (neuro): Abnormal motor strength present (Lower Extremity weak to resistance R>L 3/5) and Tremors during motor activity present (Slight Tremor R arm > L. arm) Coordination: bhvmrj-fn-mjoy test normal and does not sway with eyes open Psych Appearance: grossly normal Speech and movement: Normal speech and movement present Thought process: Normal thought process present Thought content: Normal thought content present Insight: Good insight present (Psych) Judgement: Good judgement present (Psych) Assessment & Plan Assessment & Plan (1) RLS (restless legs syndrome): Code(s): G25.81 - Restless legs syndrome Category: Medical (2) CORKY (obstructive sleep apnea): Code(s): G47.33 - Obstructive sleep apnea (adult) (pediatric) Category: Medical (3) Loud snoring: Code(s): R06.83 - Snoring Category: Medical (4) Excessive daytime sleepiness: Code(s): G47.19 - Other hypersomnia Category: Medical Plan PSG will start cpap after completion of titration study to determine pressures for ideal therapy. Fatigue Lab to r/o deficiencies [id number] / TSH/ Vit D, MMA and Homocysteine, cbc, cmp. RLS start Gabapentin 100mg po daily at bedtime for RLS Start magnesium 400mg daily and [place] 3 fatty acids otc. F/U in 3 months after titration for and management of CORKY, and [address] White. Orders: Orders 2 Comprehensive Met. Panel 08/10/24 G47.19 - Other hypersomnia Vitamin D 25-OH Total 08/10/24 G47.19 - Other hypersomnia Vitamin B12 and Folate 08/10/24 G47.19 - Other hypersomnia Methylmalonic Acid 08/10/24 G47.19 - Other hypersomnia, G47.9 - Sleep disorder, unspecified, R53.83 - Other fatigue Homocysteine 08/10/24 G47.19 - Other hypersomnia, G47.9 - Sleep disorder, unspecified, R53.83 - Other fatigue RT PSG in-lab sleep titration 08/10/24 G47.33 - Obstructive sleep apnea (adult) (pediatric) Complete Blood Count no Diff 08/10/24 G47.19 - Other hypersomnia Ferritin 08/10/24 G47.19 - Other hypersomnia TSH reflex Free T4 08/10/24 G47.19 - Other hypersomnia Hemoglobin A1c 08/10/24 G47.19 - Other hypersomnia Lipid Panel with Reflex 08/10/24 G47.19 - Other hypersomnia Medications: New 2 gabapentin take one tablet daily at bedtime. 100 mg PO BEDTIME 30 caps 2RF Primary Limb Movement Disorders 30 days MDD 100mg po G25.81 - Restless legs syndrome Patient Instructions: Sleep Hygiene provided: set a scheduled bedtime and wake time to help regulate the circadian rhythm and balance the release of pituitary hormones. Sleep in a dark room, temperatures below 68 degrees, and no devices n bed. Limit caffeinated products 6 hours prior to bed, and limit fluids 2-4 hours prior to bed. Gentle night yoga, diffusing essential oils, and playing soft music can be relaxing. Coding Level of Care Code Est Pt Level 4 (42994) Diagnoses RLS (restless legs syndrome) G25.81 CORKY (obstructive sleep apnea) G47.33 Loud snoring R06.83 Excessive daytime sleepiness G47.19 Time Spent (min) 30 Comment improving
--- OUTSIDE RECORDS SUMMARY | 2024-08-10 10:11 | XMS_ITS | Clinical Summary ---
Author Organization [facility] [address] [facility] Address [address] [place] [address] Phone Care Team Providers Care Assembler Arranger Name Role Phone Sina Lechuga MD Primary Care Provider +- [phone] Allergies No known active allergies Medications amLODIPine [...] 1 (one) time each day. 02/02/2024 Active Immunizations Name Administration Dates Next Due Moderna [...] 2000 Zoster Vaccines (1 of 2) 2000 Abdominal Aortic Aneurysm (AAA) Screen 10/02/2023 Cholesterol Screening (Lipid Panel) 10/02/2023 Colorectal Cancer Screening: Colonoscopy 10/02/2023 Depression Screening 10/02/2023 Falls Risk Assessment 10/02/2023 Hepatitis C Screening 10/02/2023 Medicare Annual Wellness Visit 10/02/2023 Social Influencers of Health Screening 10/02/2023 Hypertension/CHF/CAD Annual BMP Blood Test 04/04/2024 COVID-19 Vaccine ( season) 2024 01/01/2024, 01/22/2023, 12/04/2021, Additional history exists RSV Immunization Adult Patients (1 - 1-dose 75+ series) 2025 Influenza Vaccine Completed 12/11/2023, , 12/04/2021, Additional history exists HIB Vaccines [...] topic Insurance [employer] MEDICARE ADVANTAGE Care Teams Assembler Arranger Relationship Specialty Start Date End Date Sina Lechuga MD [address] [place] [address] Dr Dot [place] PCP - General 06/12/23
== END 2024-08-10 10:39 | disposition home or self-care (01) ==
PROVIDERS: PCP Family Medicine; Visit Provider Physician Assistant Medical
DX: G25.81 Restless legs syndrome (principal); G47.33 Obstructive sleep apnea (adult) (pediatric); R06.83 Snoring; G47.19 Other hypersomnia
CPT/HCPCS: 99214

== ENCOUNTER → 2024-08-10 09:42 | Outpatient (BNVA) | payer MEDICARE, SELFPAY | PROVIDERS: PCP Family Medicine; Visit Provider Physician Assistant Medical | DX: G25.81 Restless legs syndrome (principal); G47.33 Obstructive sleep apnea (adult) (pediatric); G47.19 Other hypersomnia; R06.83 Snoring | CPT/HCPCS: 99212 ==

== ENCOUNTER 2024-09-06 08:45 | Outpatient (AMB) | payer MEDICARE, SELFPAY ==
--- NOTE | 2024-09-06 08:56 | A.OFFPC_ITS ---
Vital Signs 09/06/24 09:01 Height 5 ft 8 in Weight 169 lb 6 oz BMI 25.8 BP 126/68 Blood Pressure Location Lt brachial Position Sitting Respiration 14 Pulse 69 Pulse Source Pulse Oximeter Temp 98 F Temp Source Oral Pulse Oximetry (%) 98 Oxygen Delivery Method Room Air Intake Visit Reasons: f/u HTN, chronic conditions Intake Note: patient is schedule to follow up on htn and chronic conditions Steam Shovel Engineer Required: No Allergies No Known Allergies Allergy (Verified 09/06/24 08:58) Medication List - Last Reconciled 09/06/24 by Sina Lechuga MD amlodipine 10 mg PO DAILY 90 days aspirin (Adult Aspirin Regimen) 81 mg PO DAILY atenolol 25 mg PO DAILY 90 days atorvastatin 40 mg PO DAILY 90 days bupropion HCl SR 150 mg PO DAILY 90 days cholecalciferol (vitamin D3) 50 mcg PO DAILY escitalopram oxalate 20 mg PO DAILY 90 days gabapentin 100 mg PO BEDTIME 30 days MDD 100mg po losartan 50 mg PO DAILY 90 days magnesium oxide 400 mg PO DAILY 3 months MDD 400mg PO bqaufpgc-jdn-cgmwf-vit K-lycop 400-20-300 mcg (One-A-Day Men's Multivitamin) tabs PO omega 5-ayp-jpx-fish oil 850-1,400 mg caps PO omeprazole 20 mg PO DAILY 90 days sildenafil 50 mg PO DAILY PRN 30 days Tobacco use date assessed: 10/12/23 Dental Screening Dental Screen Date: 07/10/23 HPI f/u HTN, chronic conditions HPI Details 74 y/o male presents to f/u HTN, chronic conditions. Blood pressure today 126/68. He is on atenolol 25mg, losartan 50mg, amlodopine 10mg daily. Pt notes he feels he is not as dizzy as he used to be on his current medication regimen. Has been more careful about standing up. Recent sleep study had shown sleep apnea. [facility] Medical History CVA (cerebral vascular accident) Hypertension Hyperlipidemia GERD (gastroesophageal reflux disease) Thrombocytopenia Hyperparathyroidism Prostate cancer Surgical History Hx of colonoscopy H/O hemorrhoidectomy Family History Mother Mental health disorder Social History Housing: Condominium Are you a primary senior care provider to a significant other at home: No Do you presently have visiting nurse or other home services: No Patient Tobacco Use Status: Never used Tobacco e-Cigarette/Vaping Use: Never Used service: No Current occupational status: retired Current occupational exposures/hazards: No Cognitive needs: No Hearing needs: No Vision needs: No Questionnaire Thrive Questionnaire Date Thrive assessed: 05/24/24 I am a: Patient What is your living situation today?: I have a steady place to live Within the past 12 months, did the food you bought not last and you didn't have the money to get more?: Never true Within the past 12 months, did you worry whether your food would run out before you got money to buy more?: Never true Do you have trouble paying for medicines?: No Do you have trouble getting transportation to medical appointments?: No Do you have trouble paying your heating and electricity bill?: No Do you have trouble taking care of your child, family member or friend?: No Do you have trouble with day-to-day activities such as bathing, preparing meals, shopping, managing finances, etc.?: No Are you currently unemployed and looking for a job?: No Are you interested in more education?: No Please select the resources that you would like help with: None Currently or been in a relationship where the following occur: No concerns reported THRIVE Score: 0 SERGIO-7 AMB Questionnaire SERGIO-7 Date SERGIO - 7 assessed: 03/20/23 Source: Developed by Drs. Alonso Lopez, Mayda Pickett, Wyatt Cunningham and colleagues, with an educational kamryn from [employer]. Review of Systems Const Denies chills, Denies fatigue, Denies fever(s), Denies headache(s) and Denies weakness ENT Denies dizziness and Denies headache(s) Card Denies dyspnea Resp Denies cough, Denies dyspnea, Denies wheezing and Denies other (shortness of breath) Musc Denies numbness and Denies tingling Neuro Denies dizziness, Denies headache(s), Denies numbness, Denies tingling and Denies weakness Psych Denies anxiety and Denies depression Endo Denies fatigue Aller/Immun Denies wheezing Physical exam (Primary Care) Vital Signs: Last Vital Signs Temp 98 F 09/06/24 09:01 Pulse 69 09/06/24 09:01 Resp 14 09/06/24 09:01 BP 126/68 09/06/24 09:01 Pulse Ox 98 09/06/24 09:01 Oxygen Delivery Method Room Air 09/06/24 09:01 BMI result Body Mass Index 25.8 Tobacco/Smoking Status: Tobacco use Status Tobacco use date assessed 10/12/23 09/06/24 08:57 Patient Tobacco Use Status Never used Tobacco 09/06/24 08:57 e-Cigarette/Vaping Use Never Used 09/06/24 08:57 Thrive Assessment: Date of Thrive Assessment Date Thrive assessed 05/24/24 09/06/24 08:57 Currently or been in a relationship where the following occur: No concerns reported Const General: well developed; No acute distress Nutritional Appearance: well nourished Orientation/consciousness: patient oriented x3 HENMT Head: Yes normocephalic and Yes atraumatic Eyes General: appearance normal, both eyes and all related structures Pupils: Equal, round and reactive pupils present EOM: EOMs intact bilaterally Resp Effort & Inspection: normal respiratory effort Neuro General: patient oriented x3 and gait normal Cranial nerves: Yes Equal, round and reactive pupils present Psych Affect: normal affect Coding Level of Care Code Est Pt Level 4 (57188) Diagnoses Hypertension I10 CVA (cerebral vascular accident) I63.9 Sleep apnea G47.30 Dizziness R42 Assessment & Plan Assessment & Plan (1) Hypertension: Code(s): I10 - Essential (primary) hypertension Category: Medical Plan: Blood?pressure?is?controlled.??Goal?is?less?than?130/80 However,?patient?has?had?improvement?in?symptoms?dizziness?with?decreasing?ateno lol. Will?try?stopping?atenolol Will?adjust?losartan of?50?mg?daily?to?50?mg?b.i.d.?and?he?will?check?his?blood?pressures?at?home He?will?continue?amlodipine?as?prescribed Stress?test?essentially?negative?but?did?show chronic?trophic?changes?where? heart?rate?not?return?to?normal in?time?frame?expected. No?ischemia?or?infarction?were?seen?however Encouraged?gradual?exercise Renal?function?lab?work?ordered (2) CVA (cerebral vascular accident): Code(s): I63.9 - Cerebral infarction, unspecified Category: Medical Plan: Stable (3) Sleep apnea: Code(s): G47.30 - Sleep apnea, unspecified Category: Medical Plan: Sleep?study?positive?for?obstructive?sleep?apnea He?has?titration?study?tomorrow (4) Dizziness: Code(s): R42 - Dizziness and giddiness Category: Medical Plan: This?has?has?been?improving Decreasing?atenolol Patient?will?be?getting?CPAP?soon Follow-up?with?Neurology Orders: Orders Basic Metabolic Panel Today R79.89 - Other specified abnormal findings of blood chemistry, Z00.00 - Encounter for general adult medical examination without abnormal findings Referrals Urology Referral N52.9 - Male erectile dysfunction, unspecified Medications: Changed From losartan 50 mg PO DAILY 90 days 90 tabs 1RF To losartan 50 mg PO BID 180 tabs 1RF 90 days Discontinued atenolol Discontinued Reason: Doctor's Order 25 mg PO DAILY 90 days 90 tabs 1RF I63.9 - Cerebral infarction, unspecified
--- OUTSIDE RECORDS SUMMARY | 2024-09-06 08:58 | XMS_ITS | Clinical Summary ---
Author Organization [facility] Address [address] [place] [address] Phone Care Team Providers Care Helicopter Pilot Instructor Name Role Phone Sina Lechuga MD Primary [...] Office Visit [facility] [address] [place] [phone] Valerio Cid MD [address] [address] Health Maintenance Due Date Last Done Comments Pneumococcal Vaccine: 50+ Ye ars (1 of 2 - PCV) 1969 Colorectal Cancer Screening: Annual FOBT 05/24/1999 Colorectal Cancer Screening: Colonoscopy 05/24/1999 Colorectal Cancer Screening: Sigmoidoscopy 05/24/1999 Influenza Vaccine (Season Ended) 2024 Hepatitis B Vaccine Aged Out No longe r eligible based on patient's age to complete this topic Insurance Aetna Medicare [address] [place] [address] Aetna Medicare Care Teams Helicopter Pilot Instructor Relationship Specialty Start Date End Date Sina Lechuga MD [address] [address] PCP - General Family Medicine 03/11/22
--- OUTSIDE RECORDS SUMMARY | 2024-09-06 08:58 | XMS_ITS | Clinical Summary ---
Author Organization [facility] [address] [facility] Address [address] [place] [address] Phone Care Team Providers Care Chainstitch Zipper Setter Name Role Phone Sina Lechuga MD Primary Care Provider +1- [phone] Allergies No known active allergies Medications amLODIPine [...] 74 04/04/2024 11:43 AM EST Temperature 35.9 C (96.6 F) 04/04/2024 11:43 AM EST Respiratory Rate - - Oxygen Saturation 98% [...] topic Insurance [employer] MEDICARE ADVANTAGE Care Teams Chainstitch Zipper Setter Relationship Specialty Start Date End Date Sina Lechuga MD [address] [place] [address] Dr Dot [place] PCP - General 06/12/23
[2024-09-06 09:01] VITALS: BP 126/68; PULSE 69; RESP 14; TEMP 36.6; O2SAT 98; BMI 25.8
== END 2024-09-06 09:35 | disposition home or self-care (01) ==
LOC: HO.HMCFM 08:46
PROVIDERS: PCP Family Medicine; Visit Provider Family Medicine
DX: I10 Essential (primary) hypertension (principal); I63.9 Cerebral infarction, unspecified; G47.30 Sleep apnea, unspecified; R42 Dizziness and giddiness

== ENCOUNTER → 2024-09-06 08:45 | Outpatient (BNVA) | payer MEDICARE, SELFPAY | PROVIDERS: PCP Family Medicine; Visit Provider Family Medicine | DX: I10 Essential (primary) hypertension (principal); G47.30 Sleep apnea, unspecified; R42 Dizziness and giddiness; N52.9 Male erectile dysfunction, unspecified; R79.89 Other specified abnormal findings of blood chemistry; Z86.73 Personal history of transient ischemic attack (TIA), and cerebral infarction without residual deficits | CPT/HCPCS: 99212 ==

== ENCOUNTER → 2024-09-07 20:30 | Outpatient (REF) | payer MEDICARE, SELFPAY ==
--- OUTSIDE RECORDS SUMMARY | 2024-09-07 21:13 | XMS_ITS | Clinical Summary ---
Author Organization [facility] [address] [facility] Address [address] [place] [address] Phone Care Team Providers Care Field Rep Name Role Phone Sina Lechuga MD Primary Care Provider +1- [phone] Allergies No known active allergies Medications amLODIPine [...] topic Insurance [employer] MEDICARE ADVANTAGE Care Teams Field Rep Relationship Specialty Start Date End Date Sina Lechuga MD [address] [place] [address] Dr Dot [place] PCP - General 06/12/23
--- OUTSIDE RECORDS SUMMARY | 2024-09-07 21:13 | XMS_ITS | Clinical Summary ---
Author Organization [facility] Address [address] [place] [address] Phone Care Team Providers Care Adult Ministries Director Name Role Phone Sina Lechuga MD [...] Office Visit [facility] [address] [place] [phone] Valerio Cid MD [address] [address] Health Maintenance Due Date [...] this topic Insurance Aetna Medicare [address] [place] [address] Aetna Medicare Care Teams Adult Ministries Director Relationship Specialty Start Date End Date Sina Lechuga MD [address] [address] PCP - General Family Medicine 03/11/22
== END ==
LOC: HO.SL 20:30
PROVIDERS: PCP Family Medicine; Visit Provider Physician Assistant Medical
DX: G47.33 Obstructive sleep apnea (adult) (pediatric) (principal)
CPT/HCPCS: 95811

== ENCOUNTER 2024-09-20 10:23 | Outpatient (REF) | payer MEDICARE, SELFPAY ==
--- OUTSIDE RECORDS SUMMARY | 2024-09-20 11:36 | XMS_ITS | Clinical Summary ---
Author Organization [facility] [address] [facility] Address [address] [place] [address] Phone Care Team Providers Care Coal And Ash Supervisor Name Role Phone Sina Lechuga MD Primary Care Provider +1- [phone] Allergies No known active allergies Medications amLODIPine [...] 2024 01/01/2024, 01/22/2023, 12/04/2021, Additional history exists Influenza Vaccine (#1) 2024 , 11/24/2022, 12/04/2021, Additional history exists RSV Immunization Adult Patients (1 - 1-dose 75+ series) 2025 HIB Vaccines Aged Out No longer eligi [...] to complete this topic Insurance [address] [place] [address] A[employer]NA MEDICARE ADVANTAGE Care Teams Coal And Ash Supervisor Relationship Specialty Start Date End Date Sina Lechuga MD [address] [place] [address] Dr Dot [place] PCP - General 06/12/23
--- OUTSIDE RECORDS SUMMARY | 2024-09-20 11:36 | XMS_ITS | Clinical Summary ---
Author Organization [facility] Address [address] [place] [address] Phone Care Team Providers Care Travel Pta Name Role Phone Sina Lechuga MD Primary [...] Office Visit [facility] [address] [place] [phone] Valerio Cid MD [address] [address] Health Maintenance Due Date Last Done Comments Pneumococcal Vaccine: 50+ Ye ars (1 of 2 - PCV) 1969 Colorectal Cancer Screening: Annual FOBT 05/24/1999 Colorectal Cancer Screening: Colonoscopy 05/24/1999 Colorectal Cancer Screening: Sigmoidoscopy 05/24/1999 Influenza Vaccine (#1) 2024 Hepatitis B Vaccine Aged Out No longe r eligible based on patient's age to complete this topic Insurance Aetna Medicare [address] [place] [address] A[employer]na Medicare Care Teams Travel Pta Relationship Specialty Start Date End Date Sina Lechuga MD [address] [address] PCP - General Family Medicine 03/11/22
== END 2024-09-20 10:24 | disposition home or self-care (01) ==
LOC: HO.WFDLDS 10:23
PROVIDERS: Referring Provider Physician Assistant Medical; Visit Provider Family Medicine
DX: Z13.89 Encounter for screening for other disorder (principal)

== ENCOUNTER 2024-09-21 08:27 | Outpatient (REF) | payer MEDICARE, SELFPAY ==
--- OUTSIDE RECORDS SUMMARY | 2024-09-21 08:32 | XMS_ITS | Clinical Summary ---
Author Organization [facility] [address] [facility] Address [address] [place] [address] Phone Care Team Providers Care Presales Engineer Name Role Phone Sina Lechuga MD Primary Care Provider [phone]- [phone] Allergies No known active allergies Medications amLODIPine [...] Panel) 10/02/2023 Colorectal Cancer Screening: Colonoscopy 10/02/2023 Falls Risk Assessment 10/02/2023 Hepatitis C Screening 10/02/2023 Medicare Annual Wellness Visit 10/02/2023 Social Influencers of Health Screening 10/02/2023 Depression Screening 03/09/2024 Hypertension/CHF/CAD Annual BMP Blood Test 04/04/2024 COVID-19 [...] to complete this topic Insurance [address] [place] [address] A[employer]NA MEDICARE ADVANTAGE Care Teams Presales Engineer Relationship Specialty Start Date End Date Sina Lechuga MD [address] [place] [address] Dr Dot [place] PCP - General 06/12/23
--- OUTSIDE RECORDS SUMMARY | 2024-09-21 08:32 | XMS_ITS | Clinical Summary ---
Author Organization [facility] Address [address] [place] [address] Phone Care Team Providers Care Dental Services Director Name Role Phone Sina Lechuga MD [...] [facility] [address] [place] [phone] Valerio Cid MD [address] [address] Health Maintenance Due Date Last Done Comments Pneumococcal Vaccine: 50+ Ye ars (1 of 2 - PCV) 1969 Colorectal Cancer Screening: Annual FOBT 05/24/1999 Colorectal Cancer Screening: Colonoscopy 05/24/1999 Colorectal Cancer Screening: Sigmoidoscopy 05/24/1999 Influenza Vaccine (#1) 2024 Hepatitis B Vaccine Aged Out No longe r eligible based on patient's age to complete this topic Insurance Aetna Medicare [address] [place] [address] Aetna Medicare Care Teams Dental Services Director Relationship Specialty Start Date End Date Sina Lechuga MD [address] [address] PCP - General Family Medicine 03/11/22
[2024-09-21 09:14] LABS: Hematocrit 43.0 % (42.0-52.0); Hemoglobin 13.8 g/dl (14.0-18.0); Mean Corpuscular HGB Conc 32.1 g/dl (31.0-36.0); Mean Corpuscular Hemoglobin 29.6 pg (27.0-33.0); Mean Corpuscular Volume 92.1 fL (80.0-98.0); NRBC Abs Auto 0.000 X10*3/uL (0.0-0.012); NRBC Pct Auto 0.0 /100WBC (0.0-0.2); Platelet Count 161 X10*3/uL (160-400); Red Blood Count 4.67 X10*6/uL (4.60-5.80); White Blood Count 4.9 X10*3/uL (4.8-10.8)
[2024-09-21 09:24] LABS: Hemoglobin A1C 129.3280 umol/L; Total Hemoglobin (HGBA1C) 3586.2940 umol/L
[2024-09-21 09:58] LABS: Alanine Aminotransferase 34 U/L (0-40); Albumin Level 4.3 g/dL (3.5-5.0); Alkaline Phosphatase 105 U/L (39-117); Anion Gap 12 (12-20); Aspartate Amino Transferase 33 U/L (5-37); Blood Urea Nitrogen 32 mg/dL (9-16); Calcium 9.7 mg/dL (8.4-10.2); Carbon Dioxide 28 mmol/L (22-29); Chloride 108 mmol/L (96-108); Cholesterol 126 mg/dL (<200); Estimated Glomerular Filt Rate 40; HDL Cholesterol 38 mg/dL (>40); Potassium 4.7 mmol/L (3.3-5.1); Sodium 143 mmol/L (135-145); Total Protein 7.3 g/dL (6.5-8.0); Triglycerides 91 mg/dL (<150)
[2024-09-21 10:07] LABS: Ferritin 53 ng/mL (20-250)
[2024-09-21 10:13] LABS: Folate 14.6 ng/mL (> or = 4.0); Vitamin B12 548 pg/mL (200-900)
[2024-09-21 10:18] LABS: Reflex LDLD? No
== END 2024-09-21 08:28 | disposition home or self-care (01) ==
LOC: HO.LAB 08:27
PROVIDERS: PCP Family Medicine; Visit Provider Physician Assistant Medical
DX: Z00.00 Encounter for general adult medical examination without abnormal findings (principal); G47.19 Other hypersomnia; R53.83 Other fatigue; G47.9 Sleep disorder, unspecified; R79.89 Other specified abnormal findings of blood chemistry
CPT/HCPCS: 36415; 80053; 80061; 82306; 82607; 82728; 82746; 83036; 83090; 83921; 84443; 85027

== ENCOUNTER 2024-10-11 09:05 | Outpatient (AMB) | payer MEDICARE, SELFPAY ==
[2024-10-11 09:02] VITALS: BP 120/74; PULSE 93; O2SAT 99; BMI 25.7
--- NOTE | 2024-10-11 09:02 | MHC.OFFVIS ---
Vital Signs 10/11/24 09:02 Height 5 ft 8 in Weight 169 lb BMI 25.7 BP 120/74 Blood Pressure Location Rt brachial Position Sitting Pulse 93 Pulse Source Pulse Oximeter Pulse Oximetry (%) 99 Oxygen Delivery Method Room Air Intake Visit Reasons: 6 wks follow up Principal Java Software Engineer Required: No Accompanied by: Spouse Allergies No Known Allergies Allergy (Verified 10/11/24 09:08) HPI Comments Details: 74 year old L. handed male is here for f/u of sleep apnea. July 2024 severe corky AHI 28/hr o2 leslie 88% PLM with arousal and sleep distruptions. he did well on CPAP 14 but did not receive his CPAP yet . He also had Periodic leg movements and he is doing good on gabapentin 100mg qhs . [facility] Medical History CVA (cerebral vascular accident) Hypertension Hyperlipidemia GERD (gastroesophageal reflux disease) Thrombocytopenia Hyperparathyroidism Prostate cancer Surgical History Hx of colonoscopy H/O hemorrhoidectomy Family History Mother Mental health disorder Social History Housing: Condominium Are you a primary customer care consultant to a significant other at home: No Do you presently have visiting nurse or other home services: No Patient Tobacco Use Status: Never used Tobacco e-Cigarette/Vaping Use: Never Used service: No Current occupational status: retired Current occupational exposures/hazards: No Cognitive needs: No Hearing needs: No Vision needs: No Physical Exam Vital Signs: Last Vital Signs Pulse 93 10/11/24 09:02 BP 120/74 10/11/24 09:02 Pulse Ox 99 10/11/24 09:02 Oxygen Delivery Method Room Air 10/11/24 09:02 BMI result Body Mass Index 25.7 Const General: cooperative, comfortable and no acute distress Nutritional Appearance: average body habitus Orientation/consciousness: patient oriented x3 HEENT Face and sinus: Yes normal facial exam and Yes face symmetric Throat: Yes other (Mallampti score of 4) Neck Neck: Yes full ROM and Yes supple Resp Effort & Inspection: normal respiratory effort and able to speak in complete sentences Neuro General: patient oriented x3 and moves all extremities Gait exam (Neuro): Other gait observations present (Leans to the left) Coordination: [id number] test normal and does not sway with eyes open Psych Appearance: grossly normal Assessment & Plan Assessment & Plan (1) CORKY (obstructive sleep apnea): Code(s): G47.33 - Obstructive sleep apnea (adult) (pediatric) Category: Medical (2) RLS (restless legs syndrome): Code(s): G25.81 - Restless legs syndrome Category: Medical Plan Call [facility] to start CPAP at 14 cm of water. ( [facility] called patient but he did not picker machine operator his calls ) Continue gabapentin 100mg qhs Coding Level of Care Code Est Pt Level 4 (34339) Diagnoses CORKY (obstructive sleep apnea) G47.33 RLS (restless legs syndrome) G25.81
--- OUTSIDE RECORDS SUMMARY | 2024-10-11 09:23 | XMS_ITS | Clinical Summary ---
Author Organization [facility] [address] [facility] Address [address] [place] [address] Phone Care Team Providers Care Chemistry Quality Control Technician Name Role Phone Sina Lechuga MD Primary Care Provider [phone]- [phone] Allergies No known active allergies Medications amLODIPine [...] to complete this topic Insurance [address] [place] [address] A[employer]NA MEDICARE ADVANTAGE Care Teams Chemistry Quality Control Technician Relationship Specialty Start Date End Date Sina Lechuga MD [address] [place] [address] Dr Dot [place] PCP - General 06/12/23
--- OUTSIDE RECORDS SUMMARY | 2024-10-11 09:23 | XMS_ITS | Clinical Summary ---
Author Organization [facility] Address [address] [place] [address] Phone Care Team Providers Care Brick Layer Name Role Phone Sina Lechuga MD Primary [...] [facility] [address] [place] [phone] Valerio Cid MD [address] [address] Health Maintenance Due Date Last Done Comments Pneumococcal Vaccine: 50+ Ye ars (1 of 2 - PCV) 1969 Colorectal Cancer Screening: Annual FOBT 05/24/1999 Colorectal Cancer Screening: Colonoscopy 05/24/1999 Colorectal Cancer Screening: Sigmoidoscopy 05/24/1999 Influenza Vaccine (#1) 2024 Hepatitis B Vaccine Aged Out No longe r eligible based on patient's age to complete this topic Insurance Aetna Medicare [address] [place] [address] Aetna Medicare Care Teams Brick Layer Relationship Specialty Start Date End Date Sina Lechuga MD [address] [address] PCP - General Family Medicine 03/11/22
== END 2024-10-11 09:30 | disposition home or self-care (01) ==
LOC: HO.HSMS 09:06
PROVIDERS: PCP Family Medicine; Visit Provider Psychiatry & Neurology Neurology
DX: G47.33 Obstructive sleep apnea (adult) (pediatric) (principal); G25.81 Restless legs syndrome
CPT/HCPCS: 99214

== ENCOUNTER → 2024-10-11 09:05 | Outpatient (BNVA) | payer MEDICARE, SELFPAY | PROVIDERS: PCP Family Medicine; Visit Provider Psychiatry & Neurology Neurology | DX: G47.33 Obstructive sleep apnea (adult) (pediatric) (principal); G25.81 Restless legs syndrome | CPT/HCPCS: 99212 ==

== ENCOUNTER 2024-11-11 08:59 | Outpatient (AMB) | payer MEDICARE, SELFPAY ==
--- NOTE | 2024-11-11 09:04 | MHC.OFFVIS ---
Vital Signs 11/11/24 09:05 Height 5 ft 8 in Weight 173 lb BMI 26.3 BP 132/80 Blood Pressure Location Rt brachial Position Sitting Pulse 91 Pulse Source Pulse Oximeter Pulse Oximetry (%) 98 Oxygen Delivery Method Room Air Intake Visit Reasons: Follow up Intake Note: Patient presents follow up JAYA. Compliance in chart(days, >=4hrs-100%, Average Usage-7hr 48min, Pressure-14cm, Med Leaks-5.2, AHI-6.6). Accompanied by: Self / Same As Patient Allergies No Known Allergies Allergy (Verified 11/11/24 09:08) HPI Comments Details: 74 year old L. handed male is here for f/u of sleep apnea. 09/2024 Titration was completed, breathing and oxygen stabilized at [id number], frequent periodic limb movements were observed at lower pressures causing arousals. JAYA Compliance September 2024-10/2024 Average Usage-7hr 48min, and days, >4 hours 100% Pressure-14cm, Med Leaks-5.2, AHI-6.6) He washes his mask, rinses hoses, changes filters and fills reservoir with water. He says his events have decreased now and is noticing a tremendous change in his sleep, he is no longer snoring with the cpap. He feels slower in the morning to start however his energy levels have improved overall. He still takes about a 30 min nap daily. He also notices twitching has decreased at night, improvement in periodic limb movements, and doing well on Gabapentin 100mg qhs. Mood, memory and diet are all stable and he walks daily. Labs reviewed with pt. B12 deficiency likely leading to fatigue. [facility] Medical History CVA (cerebral vascular accident) Hypertension Hyperlipidemia GERD (gastroesophageal reflux disease) Thrombocytopenia Hyperparathyroidism Prostate cancer Surgical History Hx of colonoscopy H/O hemorrhoidectomy Family History Mother Mental health disorder Social History Housing: Condominium Are you a primary daycare worker to a significant other at home: No Do you presently have visiting nurse or other home services: No Patient Tobacco Use Status: Never used Tobacco e-Cigarette/Vaping Use: Never Used service: No Current occupational status: retired Current occupational exposures/hazards: No Cognitive needs: No Hearing needs: No Vision needs: No Physical Exam Vital Signs: Last Vital Signs Pulse 91 11/11/24 09:05 BP 132/80 11/11/24 09:05 Pulse Ox 98 11/11/24 09:05 Oxygen Delivery Method Room Air 11/11/24 09:05 BMI result Body Mass Index 26.3 Const General: cooperative, comfortable and no acute distress Nutritional Appearance: average body habitus Orientation/consciousness: patient oriented x3 HEENT Face and sinus: Yes normal facial exam and Yes face symmetric Throat: Yes other (Mallampti score of 4) Eyes Pupils: Equal, round and reactive pupils present Neck Neck: Yes full ROM and Yes supple Resp Effort & Inspection: normal respiratory effort and able to speak in complete sentences Neuro General: patient oriented x3 and moves all extremities Cranial nerves: Yes Equal, round and reactive pupils present, Yes Normal accommodation reflex present, Yes Ability to bilaterally rotate head present and Yes Ability to bilaterally elevate shoulders present Cognition (Neuro): normal cognition Gait exam (Neuro): Other gait observations present (Leans to the left) Motor exam (neuro): 5/5 motor strength present throughout and Normal motor muscle tone present throughout Psych Appearance: grossly normal Thought process: Normal thought process present Thought content: Normal thought content present Results Reviewed Results Reviewed: jaya compliance report Titration report reviewed with pt. Labs reviewed with pt. Assessment & Plan Assessment & Plan (1) JAAY (obstructive sleep apnea): Code(s): G47.33 - Obstructive sleep apnea (adult) (pediatric) Category: Medical (2) RLS (restless legs syndrome): Code(s): G25.81 - Restless legs syndrome Category: Medical (3) B12 deficiency anemia: Comment: both mma / hc are elevated- Random total protien 22- elevated Code(s): D51.9 - Vitamin B12 deficiency anemia, unspecified Category: Medical Qualifiers: Vitamin B12 deficiency anemia type: other B12 deficiency Qualified Code(s): D51.8 - Other vitamin B12 deficiency anemias Plan JAYA Continue Cpap therapy at [id number], and daily for >4 hours a night, as pt. experiences restful sleep. RLS / PLMD Continue gabapentin 100mg qhs. Labs reviewed with pt. B12 deficiency likely leading to fatigue. Homocysteine and MMA elevated with Random protein elevated to 22. F/U in 3 months. Medications: Refilled mecobalamin (vitamin B12) place tablet under tongue and allow to dissolve for at least30 secs before swallowing 1,000 mcg sublingual BEDTIME 90 tabs 3RF b12 deficiency 3 months MDD 1000mcg D51.9 - Vitamin B12 deficiency anemia, unspecified Patient Instructions: Sleep Hygiene provided: set a scheduled bedtime and wake time to help regulate the circadian rhythm and balance the release of pituitary hormones. Sleep in a dark room, temperatures below 68 degrees, and no devices n bed. Limit caffeinated products 6 hours prior to bed, and limit fluids 2-4 hours prior to bed. Gentle night yoga, diffusing essential oils, and playing soft music can be relaxing. Coding Level of Care Code Est Pt Level 4 (71874) Diagnoses JAYA (obstructive sleep apnea) G47.33 RLS (restless legs syndrome) G25.81 Other vitamin B12 deficiency anemia D51.8 Vitamin B12 deficiency anemia type: other B12 deficiency
[2024-11-11 09:05] VITALS: BP 132/80; PULSE 91; O2SAT 98; BMI 26.3
--- OUTSIDE RECORDS SUMMARY | 2024-11-11 09:45 | XMS_ITS | Clinical Summary ---
Author Organization [facility] Address [address] [place] [address] Phone Care Team Providers Care Supervisor Drying Name Role Phone Sina Lechuga MD Primary Care Provider [phone] Allergies No known active allergies Medications amLODIPine [...] [facility] [address] [place] [phone] Valerio Cid MD [address] [address] Health Maintenance Due Date Last Done Comments Pneumococcal Vaccine: 50+ Ye ars (1 of 2 - PCV) 1969 Colorectal Cancer Screening: Annual FOBT 05/24/1999 Colorectal Cancer Screening: Colonoscopy 05/24/1999 Colorectal Cancer Screening: Sigmoidoscopy 05/24/1999 Influenza Vaccine (#1) 2024 Hepatitis B Vaccine Aged Out No longe r eligible based on patient's age to complete this topic Insurance Aetna Medicare [address] [place] [address] Aetna Medicare Care Teams Supervisor Drying Relationship Specialty Start Date End Date Sina Lechuga MD [address] [address] PCP - General Family Medicine 03/11/22
--- OUTSIDE RECORDS SUMMARY | 2024-11-11 09:45 | XMS_ITS | Clinical Summary ---
Author Organization [facility] [address] [facility] Address [address] [place] [address] Phone Care Team Providers Care Therapy Technician Name Role Phone Sina Lechuga MD Primary Care Provider [phone] Allergies No known active allergies Medications amLODIPine [...] to complete this topic Insurance [address] [place] [address] A[employer]NA MEDICARE ADVANTAGE Care Teams Therapy Technician Relationship Specialty Start Date End Date Sina Lechuga MD [address] [place] [address] Dr Dot [place] PCP - General 06/12/23
== END 2024-11-11 09:48 | disposition home or self-care (01) ==
LOC: HO.HSMS 09:00
PROVIDERS: PCP Family Medicine; Visit Provider Physician Assistant Medical
DX: G47.33 Obstructive sleep apnea (adult) (pediatric) (principal); G25.81 Restless legs syndrome; D51.8 Other vitamin B12 deficiency anemias
CPT/HCPCS: 99214

== ENCOUNTER → 2024-11-11 08:59 | Outpatient (BNVA) | payer MEDICARE, SELFPAY | PROVIDERS: PCP Family Medicine; Visit Provider Physician Assistant Medical | DX: G47.33 Obstructive sleep apnea (adult) (pediatric) (principal); G25.81 Restless legs syndrome; D51.8 Other vitamin B12 deficiency anemias | CPT/HCPCS: 99212 ==

== ENCOUNTER 2025-01-02 14:30 | Outpatient (AMB) | payer MEDICARE, SELFPAY ==
--- NOTE | 2025-01-02 14:48 | A.OFFVIS_ITS ---
Intake Visit Reasons: erectile dysfunction Intake Note: New patient presents today for initial visit for erectile dysfunction Urology Medication:Vitamin B12, Sildenafil Blood Thinner:Aspirin Antibiotic Allergies:None Allergies No Known Allergies Allergy (Verified 01/10/25 09:49) HPI Comments Details: 01/02/2025 Tod is here as a new patient evaluation for erectile dysfunction. History of Present Illness The patient is a 74-year-old male presenting with erectile dysfunction. He reports experiencing erectile dysfunction for over 10 years, with no significant improvement despite the use of sildenafil 50 mg on an as-needed basis. The patient has been using sildenafil inconsistently, and he notes that the medication has not been effective in improving his erectile function. The patient has a history of prostate cancer, for which he underwent external beam radiation therapy in June 2019. The radiation treatment was conducted in [place], prior to his relocation in 2020. He acknowledges that erectile dysfunction was present before the radiation therapy, and he does not attribute the radiation as the cause of his erectile issues. Results - PSA on 10/09/23: 0.28 ng/mL Plan 1. Erectile Dysfunction - Initiate daily tadalafil 5 mg for two months, with a follow-up to assess efficacy. - Consider on-demand tadalafil 20 mg no more than twice a week if daily therapy is insufficient. - Discussed alternative treatments including penile injections and surgical options if oral medications are ineffective. - Plan to recheck PSA levels to monitor prostate health. 2. Prostate Cancer - Status post external beam radiation therapy completed in June 2019. - Monitor PSA levels to ensure continued remission. [facility] Medical History CVA (cerebral vascular accident) Hypertension Hyperlipidemia GERD (gastroesophageal reflux disease) Thrombocytopenia Hyperparathyroidism Prostate cancer Surgical History Hx of colonoscopy H/O hemorrhoidectomy Family History Mother Mental health disorder Social History (Updated 01/10/25 @ 09:52 by Alissa Jacobsen CMA) [facility] Are you a primary school childcare attendant to a significant other at home: No Do you presently have visiting nurse or other home services: No Alcohol intake: current Patient Tobacco Use Status: Never used Tobacco e-Cigarette/Vaping Use: Never Used Second Hand Smoke Exposure: No Use of substances other than those prescribed or required for medical reasons: No service: No Current occupational status: retired Current occupational exposures/hazards: No Cognitive needs: No Hearing needs: No Vision needs: No Review of Systems Const All systems reviewed & are unremarkable except as noted in HPI and below Reports no additional complaints Eyes Reports no additional complaints ENT Reports no additional complaints Card Reports no additional complaints Resp Reports no additional complaints GI Reports no additional complaints Reports as per HPI Musc Reports no additional complaints Skin/Breast Reports system reviewed and no additional complaints, except as documented Neuro Reports no additional complaints Psych Reports no additional complaints Endo Reports no additional complaints Roc/Lymph Reports no additional complaints Aller/Immun Reports no additional complaints Physical Exam Const General: healthy appearing, no acute distress and well developed Orientation/consciousness: patient oriented x3 HEENT Head: Yes normocephalic and Yes atraumatic Eyes Conjunctivae: conjunctivae normal Neck Neck: Yes normal visual inspection Chest Chest palpation & inspection: normal inspection of the chest Resp Effort & Inspection: normal respiratory effort GI Inspection: Yes normal to inspection Neuro General: patient oriented x3 Psych Appearance: grossly normal Affect: normal affect Assessment & Plan Assessment & Plan (1) Prostate cancer: Code(s): C61 - Malignant neoplasm of prostate Category: Medical (2) History of prostate cancer: Code(s): Z85.46 - Personal history of malignant neoplasm of prostate Category: Medical (3) Erectile dysfunction: Code(s): N52.9 - Male erectile dysfunction, unspecified Category: Medical Plan Plan 1. Erectile Dysfunction - Initiate daily tadalafil 5 mg for two months, with a follow-up to assess efficacy. - Consider on-demand tadalafil 20 mg no more than twice a week if daily therapy is insufficient. - Discussed alternative treatments including penile injections and surgical options if oral medications are ineffective. - Plan to recheck PSA levels to monitor prostate health. 2. Prostate Cancer - Status post external beam radiation therapy completed in June 2019. - Monitor PSA levels to ensure continued remission. Orders: Orders PSA,Total (Free>4and<10) 01/02/25 C61 - Malignant neoplasm of prostate, Z85.46 - Personal history of malignant neoplasm of prostate Medications: Discontinued sildenafil administer 30 minutes to 4 hours before activity Discontinued Reason: Doctor's Order 50 mg PO DAILY 30 days PRN 10 tabs 2RF sexual activity Patient Instructions: The patient had an opportunity to ask questions regarding treatment plan. The patient expressed understanding and agreement with the above treatment plan. The patient is aware they should contact our office by phone for worsening of their current condition or the appearance of new symptoms. Compliance is encouraged with any medications and followup testing that is ordered. It is a privilege to be allowed the opportunity to participate in the urologic care of your patient. If you have any questions or concerns regarding treatment for the above conditions please do not hesitate to contact me. The office telephone contact is [phone]. This note is constructed in part using voice recognition software. While every effort has been made to ensure accuracy pin machine operator errors may have been included. Yours sincerely, Kerrie Foss MD Scribe Plan - Not visible on output: Patient was informed and verbally consented to the use of an ambient scribe for clinic note documentation during this visit. Coding Level of Care Code New Pt Level 4 (29069) Diagnoses Prostate cancer C61 History of prostate cancer Z85.46 Erectile dysfunction N52.9
--- OUTSIDE RECORDS SUMMARY | 2025-01-02 18:06 | XMS_ITS | Clinical Summary ---
Author Organization [facility] Address [address] [place] [address] Phone Care Team Providers Care Tire Mold Engraver Name Role Phone Sina Lechuga MD Primary [...] [facility] [address] [place] [phone] Valerio Cid MD [address] [address] Health Maintenance Due Date Last Done Comments Pneumococcal Vaccine: 50+ Ye ars (1 of 2 - PCV) 1969 Colorectal Cancer Screening: Annual FOBT 05/24/1999 Colorectal Cancer Screening: Colonoscopy 05/24/1999 Colorectal Cancer Screening: Sigmoidoscopy 05/24/1999 Influenza Vaccine (#1) 2024 Hepatitis B Vaccine Aged Out No longe r eligible based on patient's age to complete this topic Insurance A[employer]na Medicare [address] [place] [address] A[employer]na Medicare Care Teams Tire Mold Engraver Relationship Specialty Start Date End Date Sina Lechuga MD [address] [address] PCP - General Family Medicine 03/11/22
--- OUTSIDE RECORDS SUMMARY | 2025-01-02 18:06 | XMS_ITS | Clinical Summary ---
Author Organization [facility] [address] [facility] Address [address] [place] [address] Phone Care Team Providers Care Optical Goods Drill Operator Name Role Phone Sina Lechuga MD Primary Care Provider [phone]- [phone] Allergies No known active allergies Medications amLODIPine [...] (one) time each day. 02/02/2024 Active Immunizations Immunization Administration Dates Next Due Moderna SARS-CoV-2 COVID-19, [...] Health Maintenance Due Date Last Done Comments Colorectal Cancer Screening: Colonoscopy 1950 DTaP,Tdap,and Td Vaccines (1 - Tdap) 1969 Pneumococcal Vaccine: 50+ Years (1 of 1 - PCV) 2000 Zoster Vaccines (1 of 2) 2000 Abdominal Aortic Aneurysm (AAA) Screen 10/02/2023 Cholesterol Screening (Lipid Panel) 10/02/2023 Falls Risk Assessment 10/02/2023 Hepatitis C [...] to complete this topic Insurance [address] [place] [address] A[employer]NA MEDICARE ADVANTAGE Care Teams Optical Goods Drill Operator Relationship Specialty Start Date End Date Sina Lechuga MD [address] [place] [address] Dr Dot [place] PCP - General 06/12/23
== END 2025-01-02 15:42 | disposition home or self-care (01) ==
LOC: HO.HUSH 14:31
PROVIDERS: PCP Family Medicine; Visit Provider Urology
DX: C61 Malignant neoplasm of prostate (principal); Z85.46 Personal history of malignant neoplasm of prostate; N52.9 Male erectile dysfunction, unspecified
CPT/HCPCS: 99204

== ENCOUNTER → 2025-01-02 14:30 | Outpatient (BNVA) | payer MEDICARE, SELFPAY | PROVIDERS: PCP Family Medicine; Visit Provider Urology | DX: N52.9 Male erectile dysfunction, unspecified (principal); Z85.46 Personal history of malignant neoplasm of prostate; Z92.3 Personal history of irradiation | CPT/HCPCS: 99202 ==

== ENCOUNTER 2025-01-10 09:40 | Outpatient (AMB) | payer MEDICARE, SELFPAY ==
--- NOTE | 2025-01-10 09:43 | MHC.PC.OV ---
Vital Signs 01/10/25 09:52 Height 5 ft 8 in Weight 173 lb 6 oz BMI 26.4 BP 124/78 Blood Pressure Location Rt brachial Position Sitting Respiration 16 Pulse 68 Pulse Source Pulse Oximeter Temp 97.7 F Temp Source Temporal Artery Scan Pulse Oximetry (%) 98 Oxygen Delivery Method Room Air Intake Visit Reasons: f/u HTN, chronic conditions Intake Note: Tod presents in the office today for a follow up to hypertension and other chronic conditions. Allergies No Known Allergies Allergy (Verified 01/10/25 09:49) Tobacco use date assessed: 01/10/25 Fall risk assessment: No Falls in past year Last assessed Fall Risk: 01/10/25 Dental Screening Dental Screen Date: 01/10/25 Did you have a dental visit in the last 12 months?: Yes Did you have a dental problem in the last 6 months where you did not have access to dental care?: No Was dental information given to patient?: Patient has dentist HPI f/u HTN, chronic conditions HPI Details 74 y/o male presents to f/u HTN, chronic conditions. Blood pressure today 124/78, 68p. He is on losartan 50mg b.i.d, amlodipine 10mg daily. Ongoing mild CKD. A1c today 5.5%. Pt notes lower extremity/knee weakness when going up the stairs. He questions whether it could be due to hx of CVA. HPI Comments History of Present Illness Details Documentation assistance for Sina Lechuga MD, was provided by Clement Dunne, Metal Fabricating Shop Helper on 01/10/2025 at 10:13 AM EST. I, Dr. Lechuga, have read, observed, and verified documentation. [facility] Medical History CVA (cerebral vascular accident) Hypertension Hyperlipidemia GERD (gastroesophageal reflux disease) Thrombocytopenia Hyperparathyroidism Prostate cancer Surgical History Hx of colonoscopy H/O hemorrhoidectomy Family History Mother Mental health disorder Social History (Updated 01/10/25 @ 09:52 by Alissa Jacobsen CMA) Housing: Condominium Are you a primary manager career to a significant other at home: No Do you presently have visiting nurse or other home services: No Alcohol intake: current Patient Tobacco Use Status: Never used Tobacco e-Cigarette/Vaping Use: Never Used Second Hand Smoke Exposure: No Use of substances other than those prescribed or required for medical reasons: No service: No Current occupational status: retired Current occupational exposures/hazards: No Cognitive needs: No Hearing needs: No Vision needs: No Questionnaire Thrive Questionnaire Date Thrive assessed: 05/24/24 I am a: Patient What is your living situation today?: I have a steady place to live Within the past 12 months, did the food you bought not last and you didn't have the money to get more?: Never true Within the past 12 months, did you worry whether your food would run out before you got money to buy more?: Never true Do you have trouble paying for medicines?: No Do you have trouble getting transportation to medical appointments?: No Do you have trouble paying your heating and electricity bill?: No Do you have trouble taking care of your child, family member or friend?: No Do you have trouble with day-to-day activities such as bathing, preparing meals, shopping, managing finances, etc.?: No Are you currently unemployed and looking for a job?: No Are you interested in more education?: No Please select the resources that you would like help with: None Currently or been in a relationship where the following occur: No concerns reported THRIVE Score: 0 SERGIO-7 AMB Questionnaire SERGIO-7 Date SERGIO - 7 assessed: 03/20/23 Source: Developed by Drs. Alonso Lopez, Mayda Pickett, Wyatt Cunningham and colleagues, with an educational kamryn from [employer]. Review of Systems Const Denies chills, Denies fatigue, Denies fever(s), Denies headache(s) and Denies weakness ENT Denies dizziness and Denies headache(s) Card Denies dyspnea Resp Denies cough, Denies dyspnea, Denies wheezing and Denies other (shortness of breath) Musc Denies numbness and Denies tingling Neuro Denies dizziness, Denies headache(s), Denies numbness, Denies tingling and Denies weakness Psych Denies anxiety and Denies depression Endo Denies fatigue Aller/Immun Denies wheezing Physical exam (Primary Care) Vital Signs: Last Vital Signs Temp 97.7 F 01/10/25 09:52 Pulse 68 01/10/25 09:52 Resp 16 01/10/25 09:52 BP 124/78 01/10/25 09:52 Pulse Ox 98 01/10/25 09:52 Oxygen Delivery Method Room Air 01/10/25 09:52 BMI result Body Mass Index 26.4 Tobacco/Smoking Status: Tobacco use Status Tobacco use date assessed 01/10/25 01/10/25 09:52 Patient Tobacco Use Status Never used Tobacco 01/10/25 09:52 e-Cigarette/Vaping Use Never Used 01/10/25 09:52 Thrive Assessment: Date of Thrive Assessment Date Thrive assessed 05/24/24 01/10/25 09:44 Currently or been in a relationship where the following occur: No concerns reported Const General: well developed; No acute distress Nutritional Appearance: well nourished Orientation/consciousness: patient oriented x3 HENMT Head: Yes normocephalic and Yes atraumatic Eyes General: appearance normal, both eyes and all related structures Pupils: Equal, round and reactive pupils present EOM: EOMs intact bilaterally Resp Effort & Inspection: normal respiratory effort Auscultation: clear to auscultation bilaterally Cardio Rate: regular rate Rhythm: regular rhythm Heart sounds: S1 normal heart sound present, S2 normal heart sound present, no gallops, no murmurs and no rubs Neuro General: patient oriented x3 and gait normal Cranial nerves: Yes Equal, round and reactive pupils present Psych Affect: normal affect Coding Level of Care Code Est Pt Level 4 (51675) Diagnoses Hypertension I10 Stage 3a chronic kidney disease (CKD) N18.31 Erectile dysfunction N52.9 Elevated fasting glucose R73.01 Lower extremity weakness R29.898 Assessment & Plan Assessment & Plan (1) Hypertension: Code(s): I10 - Essential (primary) hypertension Category: Medical Plan: Blood pressure is well controlled. Goal is less than 140/90 Continue current medications - watching renal function-see below (2) Stage 3a chronic kidney disease (CKD): Code(s): N18.31 - Chronic kidney disease, stage 3a Category: Medical Plan: Mild chronic kidney disease He is on amlodipine for blood pressure and losartan was increased to control this. He did not Tolerate atenolol. Will recheck renal function today. If stable will continue medications as currently prescribed. If renal function appears to be worsening, call patient to discuss other medication. (3) Erectile dysfunction: Code(s): N52.9 - Male erectile dysfunction, unspecified Category: Medical Plan: Patient was started on tadalafil by his urologist. Follow-up with Urology (4) Elevated fasting glucose: Code(s): R73.01 - Impaired fasting glucose Category: Medical Plan: A1c remains 5.5% which is top normal range. Continue diet low in sugars and starches (5) Lower extremity weakness: Code(s): R29.898 - Other symptoms and signs involving the musculoskeletal system Category: Medical Plan: Patient notes some right lower extremity weakness with right knee weakness Likely secondary to his CVA Demonstrated exercises for right leg He will work on lower extremity exercise at home. He will let me know if worsening or not improving-would refer for physical therapy or back to Neurology. Orders: Orders Basic Metabolic Panel Today N18.31 - Chronic kidney disease, stage 3a, Z00.00 - Encounter for general adult medical examination without abnormal findings
[2025-01-10 09:52] VITALS: BP 124/78; PULSE 68; RESP 16; TEMP 36.5; O2SAT 98; BMI 26.4
--- OUTSIDE RECORDS SUMMARY | 2025-01-10 10:53 | XMS_ITS | Clinical Summary ---
Author Organization [facility] [address] [facility] Address [address] [place] [address] Phone Care Team Providers Care Embossing Machine Tender Name Role Phone Sina Lechuga MD Primary Care Provider [phone]- [phone] Allergies No known active allergies Medications amLODIPine [...] to complete this topic Insurance [address] [place] [address] A[employer]NA MEDICARE ADVANTAGE Care Teams Embossing Machine Tender Relationship Specialty Start Date End Date Sina Lechuga MD [address] [place] [address] Dr Dot [place] PCP - General 06/12/23
--- OUTSIDE RECORDS SUMMARY | 2025-01-10 10:53 | XMS_ITS | Clinical Summary ---
Author Organization [facility] Address [address] [place] [address] Phone Care Team Providers Care Jewelry Polisher Name Role Phone Sina Lechuga MD Primary [...] Office Visit [facility] [address] [place] [phone] Valerio Cid MD [address] [address] Health Maintenance Due Date Last Done Comments Pneumococcal Vaccine: 50+ Ye ars (1 of 2 - PCV) 1969 Colorectal Cancer Screening: Annual FOBT 05/24/1999 Colorectal Cancer Screening: Colonoscopy 05/24/1999 Colorectal Cancer Screening: Sigmoidoscopy 05/24/1999 Influenza Vaccine (#1) 2024 Hepatitis B Vaccine Aged Out No longe r eligible based on patient's age to complete this topic Insurance Aetna Medicare [address] [place] [address] A[employer]na Medicare Care Teams Jewelry Polisher Relationship Specialty Start Date End Date Sina Lechuga MD [address] [address] PCP - General Family Medicine 03/11/22
== END 2025-01-10 10:26 | disposition home or self-care (01) ==
LOC: HO.HMCFM 09:40
PROVIDERS: PCP Family Medicine; Visit Provider Family Medicine
DX: I10 Essential (primary) hypertension (principal); N18.31 Chronic kidney disease, stage 3a; N52.9 Male erectile dysfunction, unspecified; R73.01 Impaired fasting glucose; R29.898 Other symptoms and signs involving the musculoskeletal system

== ENCOUNTER 2025-01-10 09:40 | Outpatient (REF) | payer MEDICARE, SELFPAY ==
[2025-01-10 13:46] LABS: Anion Gap 11 (12-20); Blood Urea Nitrogen 32 mg/dL (9-16); Calcium 9.2 mg/dL (8.4-10.2); Carbon Dioxide 25 mmol/L (22-29); Chloride 109 mmol/L (96-108); Estimated Glomerular Filt Rate 50; Potassium 4.1 mmol/L (3.3-5.1); Sodium 141 mmol/L (135-145)
== END 2025-01-10 09:41 | disposition home or self-care (01) ==
LOC: HO.WFDLDS 09:40
PROVIDERS: PCP Family Medicine; Visit Provider Family Medicine
DX: Z00.00 Encounter for general adult medical examination without abnormal findings (principal); R79.89 Other specified abnormal findings of blood chemistry; R53.1 Weakness; I12.9 Hypertensive chronic kidney disease with stage 1 through stage 4 chronic kidney disease, or unspecified chronic kidney disease; N18.31 Chronic kidney disease, stage 3a; N52.9 Male erectile dysfunction, unspecified; R73.01 Impaired fasting glucose; R29.898 Other symptoms and signs involving the musculoskeletal system
CPT/HCPCS: 36415; 80048; 83036; 99212

== ENCOUNTER 2025-02-28 09:53 | Outpatient (AMB) | payer MEDICARE, SELFPAY ==
--- NOTE | 2025-02-28 10:05 | A.OFFVIS_ITS ---
Vital Signs 02/28/25 10:06 Height 5 ft 8 in Weight 173 lb 8 oz BMI 26.4 BP 140/82 H Blood Pressure Location Rt brachial Position Sitting Pulse 88 Pulse Source Pulse Oximeter Pulse Oximetry (%) 96 Oxygen Delivery Method Room Air Intake Visit Reasons: 3 mo follow up Intake Note: Patient presents follow up CORKY. Compliance in chart(90/90days, >=4hrs-100%, Average Usage-8hr 32min, Pressure-14cm, Med Leaks-1.8, AHI-6.9 Marble Helper Required: No Accompanied by: Self / Same As Patient Allergies No Known Allergies Allergy (Verified 02/28/25 10:06) HPI Comments Details: 74 year old l. handed male is here for f/u of sleep apnea. 09/2024 Titration was completed, breathing and oxygen stabilized at [id number], he had frequent periodic limb movements at lower pressures causing arousals. CORKY Compliance Report Reviewed with pt 12/2024- 02/2025. Average Usage is 90/90 days and >4 hours use is 8hr 32min Pressure-14cm, Med Leaks 1.8/min, AHI-6.9.hr He washes his mask, rinses hoses, changes filters and fills reservoir with wa ter. He says his events have decreased now and is noticing a tremendous change in his sleep, he is no longer snoring. He feels slower in the morning to start however his energy levels have improved overall. He still takes about a 30 min nap daily. He feels restless started taking 200mg of gabapentin daily at bedtime for anxiety when he can not fall asleep. He also notices r. sided, twitching and cramps has at night, with knee discomfort and weakness. The jerking limb movements, still bother him, and are worse on the r. side compared to left this can keep him awake at night. Mood, memory and diet are all stable. He walks daily for at least a mile and stretches his legs. He drinks water and remembers to stay well hydrated. [facility] Medical History CVA (cerebral vascular accident) Hypertension Hyperlipidemia GERD (gastroesophageal reflux disease) Thrombocytopenia Hyperparathyroidism Prostate cancer Surgical History Hx of colonoscopy H/O hemorrhoidectomy Family History Mother Mental health disorder Social History [facility] Are you a primary careers adviser to a significant other at home: No Do you presently have visiting nurse or other home services: No Alcohol intake: current Patient Tobacco Use Status: Never used Tobacco e-Cigarette/Vaping Use: Never Used Second Hand Smoke Exposure: No service: No Current occupational status: retired Current occupational exposures/hazards: No Cognitive needs: No Hearing needs: No Vision needs: No Physical Exam Vital Signs: Last Vital Signs Pulse 88 02/28/25 10:06 BP 140/82 H 02/28/25 10:06 Pulse Ox 96 02/28/25 10:06 Oxygen Delivery Method Room Air 02/28/25 10:06 BMI result Body Mass Index 26.4 Const General: cooperative, comfortable and no acute distress Nutritional Appearance: average body habitus Orientation/consciousness: patient oriented x3 HEENT Face and sinus: Yes normal facial exam and Yes face symmetric Throat: Yes other ([place] score of 4) Eyes Pupils: Equal, round and reactive pupils present Neck Neck: Yes full ROM and Yes supple Resp Effort & Inspection: normal respiratory effort and able to speak in complete sentences Neuro Other: l. arm does not swing, normal stride General: patient oriented x3 and moves all extremities Cranial nerves: Yes Equal, round and reactive pupils present, Yes Normal accommodation reflex present, Yes Ability to bilaterally rotate head present and Yes Ability to bilaterally elevate shoulders present Cognition (Neuro): normal cognition Gait exam (Neuro): Other gait observations present (Leans to the left) Motor exam (neuro): 5/5 motor strength present throughout and Normal motor muscle tone present throughout Psych Appearance: grossly normal Thought process: Normal thought process present Thought content: Normal thought content present Insight: Good insight present (Psych) Results Reviewed Results Reviewed: CORKY Compliance Report Reviewed with pt 12/2024- 02/2025. Average Usage is 90/90 days and >4 hours use is 8hr 32min Pressure-14cm, Med Leaks 1.8/min, AHI-6.9.hr Assessment & Plan Assessment & Plan (1) CORKY (obstructive sleep apnea): Code(s): G47.33 - Obstructive sleep apnea (adult) (pediatric) Category: Medical (2) RLS (restless legs syndrome): Code(s): G25.81 - Restless legs syndrome Category: Medical (3) B12 deficiency anemia: Comment: both mma / hc are elevated- Code(s): D51.9 - Vitamin B12 deficiency anemia, unspecified Category: Medical Qualifiers: Vitamin B12 deficiency anemia type: other B12 deficiency Qualified Code(s): D51.8 - Other vitamin B12 deficiency anemias (4) Periodic limb movements of sleep: Code(s): G47.61 - Periodic limb movement disorder Category: Medical (5) Chronic fatigue: Code(s): R53.82 - Chronic fatigue, unspecified Category: Medical Plan CORKY Continue Cpap therapy at [id number], and daily for >4 hours a night, as pt. experiences improved quality of sleep. RLS / PLMD increase Gabapentin to 200mg po qpm if twitching in legs worsens. Jerking twitching spasms of feet May start Magnesium 200-400mg po qhs and Nidra Tonic Motor nerve device rx written Airfit P30i mask, with chin straps and humidification hoses to decrease AHI to below 5/hr. Labs reviewed with pt. B12 deficiency likely leading to fatigue. Vit D normal and Ferritin is 53 will recheck (B12, Vit D, Homocystein, MMA, Ferritin) F/U in 6 months. Orders: Orders Vitamin B12 and Folate Today D51.8 - Other vitamin B12 deficiency anemias, R53.82 - Chronic fatigue, unspecified Ferritin Today D51.8 - Other vitamin B12 deficiency anemias, R53.82 - Chronic fatigue, unspecified Homocysteine Today D51.8 - Other vitamin B12 deficiency anemias, G47.9 - Sleep disorder, unspecified, R53.82 - Chronic fatigue, unspecified, R53.83 - Other fatigue Vitamin D 25-OH Total Today D51.8 - Other vitamin B12 deficiency anemias, R53.82 - Chronic fatigue, unspecified Methylmalonic Acid Today D51.8 - Other vitamin B12 deficiency anemias, G47.9 - Sleep disorder, unspecified, R53.82 - Chronic fatigue, unspecified, R53.83 - Other fatigue Medications: New [NIdra Tonic Motor Devices] As directed 2 ea 0RF Periodic Limb Movement disorder G25.81 - Restless legs syndrome, G47.61 - Periodic limb movement disorder Changed From gabapentin take one tablet daily at bedtime. 100 mg PO BEDTIME 30 days 30 caps 2RF Primary Limb Movement Disorders MDD 100mg po G25.81 - Restless legs syndrome To gabapentin take two tablet daily at bedtime. 200 mg (2 x 100 mg) PO BEDTIME 60 caps 2RF Primary Limb Movement Disorders 30 days G25.81 - Restless legs syndrome Refilled mecobalamin (vitamin B12) place tablet under tongue and allow to dissolve for at least30 secs before swallowing 1,000 mcg sublingual BEDTIME 90 tabs 3RF b12 deficiency 3 months MDD 1000mcg D51.9 - Vitamin B12 deficiency anemia, unspecified magnesium oxide take one tablet daily at bedtime. 400 mg PO DAILY 90 tabs 3RF sleep difficulties 3 months MDD 400mg PO G47.19 - Other hypersomnia Coding Level of Care Code Est Pt Level 4 (14382) Diagnoses CORKY (obstructive sleep apnea) G47.33 RLS (restless legs syndrome) G25.81 Other vitamin B12 deficiency anemia D51.8 Vitamin B12 deficiency anemia type: other B12 deficiency Periodic limb movements of sleep G47.61 Chronic fatigue R53.82
[2025-02-28 10:06] VITALS: BP 140/82; PULSE 88; O2SAT 96; BMI 26.4
--- OUTSIDE RECORDS SUMMARY | 2025-02-28 10:43 | XMS_ITS | Clinical Summary ---
Author Organization [facility] Address [address] [place] [address] Phone Care Team Providers Care Store Consultant Name Role Phone Sina Lechuga MD Primary Care Provider [phone] Allergies No known active allergies Medications amLODIPine [...] Care Team (Late st Contact Info) Description 03/05/2025 Orders Only [facility] [address] [place] [phone] Valerio Cid MD [facility] [address] [address] Stage 3a chronic kidney disease (HCC); Hypertensive chronic kidney disease stage 3 04/20/2025 1:15 PM EST Office Visit [facility] [address] [place] [phone] Valerio Cid MD [facility] [address] [phone] Health Maintenance Due Date Last Done Comments Pneumococcal Vaccine: 50+ Ye ars (1 of 2 - PCV) 1969 Colorectal Cancer Screening: Annual FOBT 05/24/1999 Colorectal Cancer Screening: Colonoscopy 05/24/1999 Colorectal Cancer Screening: Sigmoidoscopy 05/24/1999 Influenza Vaccine (#1) 2024 Hepatitis B Vaccine Aged Out No longe r eligible based on patient's age to complete this topic Insurance A[employer]na Medicare A[employer]na Medicare Care Teams Store Consultant Relationship Specialty Start Date End Date Sina Lechuga MD [address] [address] PCP - General Family Medicine 03/11/22
--- OUTSIDE RECORDS SUMMARY | 2025-02-28 10:43 | XMS_ITS | Clinical Summary ---
Author Organization [facility] [address] [facility] Address [address] [place] [address] Phone Care Team Providers Care Commercial Horticulture Instructor Name Role Phone Sina Lechuga MD Primary Care Provider [phone] Allergies No known active allergies Medications amLODIPine [...] AM EST Sexual Orientation Not on file Last Filed [...] topic Insurance [employer] MEDICARE ADVANTAGE Care Teams Commercial Horticulture Instructor Relationship Specialty Start Date End Date Sina Lechuga MD [address] [place] [address] Dr Dot [place] PCP - General 06/12/23
== END 2025-02-28 11:12 | disposition home or self-care (01) ==
LOC: HO.HSMS 09:53
PROVIDERS: PCP Family Medicine; Visit Provider Physician Assistant Medical
DX: G47.33 Obstructive sleep apnea (adult) (pediatric) (principal); G25.81 Restless legs syndrome; D51.8 Other vitamin B12 deficiency anemias; G47.61 Periodic limb movement disorder; R53.82 Chronic fatigue, unspecified
CPT/HCPCS: 99214

== ENCOUNTER → 2025-02-28 09:53 | Outpatient (BNVA) | payer MEDICARE, SELFPAY | PROVIDERS: PCP Family Medicine; Visit Provider Physician Assistant Medical | DX: G47.33 Obstructive sleep apnea (adult) (pediatric) (principal); G25.81 Restless legs syndrome; D51.8 Other vitamin B12 deficiency anemias; G47.61 Periodic limb movement disorder; R53.82 Chronic fatigue, unspecified; Z99.89 Dependence on other enabling machines and devices; Z79.899 Other long term (current) drug therapy | CPT/HCPCS: 99212 ==